=== PATIENT | female | born 1950 | race Caucasian/White ===

== ENCOUNTER 2017-02-12 15:58 | Inpatient (IN) | payer OTHER, MEDICARE ==
[~2017-02-12] VITALS: Ht 154.9 cm; Wt 116.3 kg
[~2017-02-12 15:58] MED LIST: CITA40 PO; D31000TA PO; DICY10CA13 PO; FLAXOIL4 PO; HYDR10SO PO; LEVO88TA2 PO; LORA1TAB PO; METO100T PO; MORP1INJ45 PO; MULTCAP13 PO; NAME10TA PO; NORV10TA PO; NYSTT TOPICAL; ONDA8 PO; SERO100T PO; VITA10002 PO
[2017-02-12 16:00] VITALS: BP 122/71; PULSE 128; RESP 20; TEMP 101.5; O2SAT 93
[2017-02-12] MEDS ORDERED: SODIUM CHLOR 0.9% 1000 ML INJ 1,000 ML IV SCH (16:48)
[2017-02-12] MEDS ORDERED: ACETAMINOPHEN 325 MG TAB PO ONE (17:00)
--- NOTE | 2017-02-12 17:21 | RADRPT ---
EXAM DATE/TIME: 02/12/2017 16:56 [facility] COMPARISON: CT BRAIN W/O CONTRAST, October 08, 2015, 3:40. INDICATIONS : Head pain due to fall. RADIATION DOSE: 56.35 CTDIvol (mGy) MEDICAL HISTORY : Hypertension. SURGICAL HISTORY : Cholecystectomy. Hysterectomy.Tonsillectomy.Gastric bypass. ENCOUNTER: Initial ACUITY: 2 days PAIN SCALE: 5/10 LOCATION: Bilateral cranial TECHNIQUE: Multiple contiguous axial images were obtained of the head. Using automated exposure control and adj ustment of the mA and/or kV according to patient size, radiation dose was kept as low as reasonably a chievable to obtain optimal diagnostic quality images. DICOM format image data is available electro nically for review and comparison. FINDINGS: CEREBRUM: Mild diffuse volume loss. The ventricles are normal for age. No evidence of midline shift, mass lesi on, hemorrhage or acute infarction. No extra-axial fluid collections are seen. POSTERIOR FOSSA: The cerebellum and brainstem are intact. The 4th ventricle is midline. The cerebellopontine angle i s unremarkable. EXTRACRANIAL: The visualized portion of the orbits is intact. SKULL: The calvaria is intact. No evidence of skull fracture. CONCLUSION: 1. No acute intracranial abnormality or significant interval change. Kelvin Suazo MD on February 12, 2017 at 17:19 Board Certified Radiologist. This report was verified electronically.
--- NOTE | 2017-02-12 17:23 | RADRPT ---
EXAM DATE/TIME: 02/12/2017 16:57 [facility] COMPARISON: CT CERVICAL SPINE W/O CONTRAST, September 24, 2015, 17:56. INDICATIONS : Neck pain due to fall. RADIATION DOSE: 43.33 CTDIvol (mGy) MEDICAL HISTORY : Hypertension. SURGICAL HISTORY : Cholecystectomy. Hysterectomy.Tonsillectomy.Gastric bypass. ENCOUNTER: Initial ACUITY: 2 days PAIN SCALE: 5/10 LOCATION: Bilateral neck region. TECHNIQUE: Volumetric scanning of the cervical spine was performed. Multiplanar reconstructions in the sagittal, coronal and oblique axial planes were performed. Using automated exposure control and adjustment o f the mA and/or kV according to patient size, radiation dose was kept as low as reasonably achievable to obtain optimal diagnostic quality images. DICOM format image data is available electronically f or review and comparison. FINDINGS: There is stable 2 mm of anterolisthesis of C4 on C5 likely related to the severe right facet arthrosi s. The atlantoaxial relationship is within normal limits. There is no prevertebral soft tissue swelli ng present. No fracture or dislocation is identified. There is degenerative disc disease at C5-C6 and C6-C7 with endplate osteophytes. There is right facet arthrosis at C5-C6. The visualized portions of the posterior fossa, paraspinous soft tissues, and upper lung zones demons trate no acute abnormality. CONCLUSION: No acute cervical spine abnormality is identified. There is stable degenerative disc disease at multi ple levels and grade 1 anterolisthesis of C4 on C5. Nils Koehler MD on February 12, 2017 at 17:17 Board Certified Radiologist. This report was verified electronically.
[2017-02-12 17:24] LABS: AUTOMATED NEUTROPHIL # 12.3 TH/MM3 (1.8-7.7); BASOPHIL # 0.1 TH/MM3 (0-0.2); BASOPHIL % 0.4 % (0.0-2.0); EOSINOPHIL % 0.1 % (0.0-4.0); HEMO FLAGS DIFF FINAL; LYMPHOCYTE # 0.7 TH/MM3 (1.0-4.8); MEAN CELL VOLUME 87.4 FL (80.0-100.0); MEAN CORPUSCULAR HEMOGLOBIN 28.3 PG (27.0-34.0); MEAN CORPUSCULAR HGB CONC 32.5 % (32.0-36.0); MONO % 6.3 % (0.0-8.0); NEUT % 88.2 % (16.0-70.0); PLATELET COUNT 277 TH/MM3 (150-450); RED BLOOD COUNT 4.01 MIL/MM3 (4.00-5.30); RED CELL DISTRIBUTION WIDTH 18.1 % (11.6-17.2)
--- NOTE | 2017-02-12 17:47 | RADRPT ---
EXAM DATE/TIME: 02/12/2017 17:18 [facility] COMPARISON: CHEST SINGLE AP, October 08, 2015, 2:32. INDICATIONS : Short of breath post fall. MEDICAL HISTORY : Hypertension. SURGICAL HISTORY : Cholecystectomy. Hysterectomy.Tonsillectomy.Gastric bypass. ENCOUNTER: Initial ACUITY: 1 day PAIN SCORE: 0/10 LOCATION: Bilateral chest FINDINGS: Low lung volumes similar to prior examination. Elevation of the right hemidiaphragm. No significant p neumothorax or effusion. Cardiomedias on contours are stable. Bony thorax is grossly intact. CONCLUSION: 1. Persistent low lung volumes without acute abnormality or significant interval change. Kelvin Suazo MD on February 12, 2017 at 17:44 Board Certified Radiologist. This report was verified electronically.
[2017-02-12 17:50] LABS: ALKALINE PHOSPHATASE 142 U/L (45-117); ALT (GPT) 17 U/L (10-53); ANION GAP 13 MEQ/L (5-15); AST (GOT) 16 U/L (15-37); BICARBONATE 25.7 MEQ/L (21.0-32.0); BLOOD UREA NITROGEN 64 MG/DL (7-18); CHLORIDE 90 MEQ/L (98-107); GLOMERULAR FILTRATION RATE 12 ML/MIN (>89); MAGNESIUM 1.4 MG/DL (1.5-2.5); POTASSIUM 3.1 MEQ/L (3.5-5.1); SODIUM (NA) 129 MEQ/L (136-145); TOTAL BILIRUBIN ADULT 0.9 MG/DL (0.2-1.0)
--- NOTE | 2017-02-12 17:54 | RADRPT ---
EXAM DATE/TIME: 02/12/2017 17:01 [facility] COMPARISON: CT LUMBAR SPINE W/O CONTRAST, September 26, 2015, 16:18. INDICATIONS : Low back pain due to fall. RADIATION DOSE: CTDIvol (mGy) MEDICAL HISTORY : Hypertension. SURGICAL HISTORY : Cholecystectomy. Tonsillectomy.Hysterectomy.Gastric bypass. ENCOUNTER: Initial ACUITY: 2 days PAIN SCALE: 5/10 LOCATION: Bilateral lower back. TECHNIQUE: Volumetric scanning of the lumbar spine was performed. Multiplanar reconstructions in the sagittal, coronal and oblique axial planes were performed. Using automated exposure control and adjustment of the mA and/or kV according to patient size, radiation dose was kept as low as reasonably achievable t o obtain optimal diagnostic quality images. DICOM format image data is available electronically for review and comparison. FINDINGS: There are 5 lumbar-type vertebral bodies. Vertebral body heights are intact without acute bony fractu re or focal bony destruction. Sagittal alignment is maintained. The facets are normally aligned. Ther e is an apparent sacral neural stimulator entering and the right S2 level. Redemonstration of multile renetta degenerative spondylosis with diffuse disc bulge and vacuum disc phenomenon at L4-5 and diffuse d isc bulge at L3-4 with resultant spinal canal stenosis or. Central canal measures 8 mm at L3-4 and 9 mm at L4-5. There is also variable multilevel facet arthropathy. Based on the noted 6 by millimeter c alculus in the distal left ureter is not demonstrated. However, there is residual mild hydroureterone phrosis on the left. Remaining paraspinal soft tissues are unremarkable. CONCLUSION: 1. No acute fracture or subluxation. 2. Redemonstration of advanced multilevel degenerative spondylosis most prominently at L3-5 with resu ltant moderate spinal canal stenosis. Kelvin Suazo MD on February 12, 2017 at 17:45 Board Certified Radiologist. This report was verified electronically.
--- NOTE | 2017-02-12 17:55 | RADRPT ---
EXAM DATE/TIME: 02/12/2017 17:18 [facility] COMPARISON: No previous studies available for comparison. INDICATIONS : Left hip pain post fall. MEDICAL HISTORY : Hypertension. SURGICAL HISTORY : Cholecystectomy. Hysterectomy.Tonsillectomy.Gastric bypass. ENCOUNTER: Initial ACUITY: 1 day PAIN SCORE: 10/10 LOCATION: Left hip. FINDINGS: Examination of the left hip was performed with AP Pelvis. The primary and secondary trabecular patte rn of the femoral neck is intact. Mild degenerative changes about the left hip. Right S2 spinal stimu lator in place. Diffuse vascular calcifications. The acetabulum is grossly intact. CONCLUSION: 1. No acute fracture or dislocation. Kelvin Suazo MD on February 12, 2017 at 17:53 Board Certified Radiologist. This report was verified electronically.
[2017-02-12] MEDS ORDERED: VANCOMYCIN INJ 1,000 MG in SODIUM CHLOR 0.9% 250 ML INJ 250 ML IV STA (18:05)
[2017-02-12] MEDS ORDERED: metroNIDAZOLE 500 MG INJ 100 ML IV STA (18:05)
[2017-02-12] MEDS ORDERED: SODIUM CHLOR 0.9% 1000 ML INJ 1,000 ML IV ONE ×2 (18:05)
[2017-02-12] MEDS ORDERED: AZTREONAM INJ 2,000 MG in SODIUM CHLORIDE 0.9% INJ 100 ML IV STA (18:05)
--- NOTE | 2017-02-12 18:43 | PD ---
HPI Chief Complaint: General Weakness Time Seen by Provider: 16:37 Travel History International Travel<30 days: No Contact w/Intl Traveler<30days: No Traveled to known affect area: No History of Present Illness HPI 66-year-old female that presents to the ED for evaluation of fall. Patient noted that yesterday she had a fall while she was seen her daughter being escorted by police for overdose. Patient states that she fell backwards and hit the back of her head and her left hip and back. She's been having pain since. She states is a history of chronic pain and takes pain medication and apparently her doctor Dr. Borja did a drug screen today and showed that she was negative for any of the opiates. They're concerned that the daughter is taking all her medications. She came here mainly to get evaluated for the fall was she was noted to have a fever and tachycardia. She states that she's had some fevers and weakness but denies any cough or runny nose. No urinary or bowel movement issues. She does state that her daughter was recently admitted for sepsis. She denies any chest pain or shortness of breath. She states that she does have a history of diabetes and takes insulin. She has not had anything today. She denies a history of CHF. She does state that she has a history of incontinence and uses a pacemaker for her bladder. PFSH Past Medical History Arthritis: Yes Anxiety: Yes Depression: Yes Heart Rhythm Problems: No Cancer: No Cardiovascular Problems: Yes (htn) High Cholesterol: No Congestive Heart Failure: No Cerebrovascular Accident: No Diabetes: Yes Diminished Hearing: Yes Endocrine: Yes Gastrointestinal Disorders: Yes GERD: Yes Genitourinary: No Headaches: Yes Hepatitis: No Hiatal Hernia: No Hypertension: Yes Immune Disorder: No Implanted Vascular Access Dvce: Yes Musculoskeletal: Yes (ARTHRITIS) Neurologic: No Psychiatric: Yes (ANXIETY, CLAUSTRAPHOBIA) Reproductive: No Respiratory: No Migraines: Yes Seizures: No Thyroid Disease: Yes Past Surgical History Abdominal Surgery: Yes (gastric bypass/ CHOLECYSTECTOMY) AICD: No Cardiac Surgery: No Section: Yes (X 1) Cholecystectomy: Yes Ear Surgery: No Endocrine Surgery: No Eye Surgery: No Genitourinary Surgery: No Gynecologic Surgery: Yes (C SECTION, hysterectomy) Hysterectomy: Yes Joint Replacement: Yes (KNEES) Oral Surgery: Yes (T&A) Pacemaker: No Thoracic Surgery: No Tonsillectomy: Yes Other Surgery: Yes Social History Alcohol Use: No Tobacco Use: No Substance Use: No Allergies-Medications (Allergen,Severity, Reaction): Coded Allergies: penicillin G (Unverified Allergy, Severe, Hives, 11/19/16) lactose (Unverified Allergy, Intermediate, Diarrhea, 11/19/16) sulfamethoxazole (Unverified Adverse Reaction, Unknown, 11/19/16) MAKE GFR DECREASE trimethoprim (Unverified Adverse Reaction, Unknown, 11/19/16) MAKE GFR DECREASE Reported Meds & Prescriptions Reported Meds & Active Scripts Active Nystop (Nystatin) 15 Applic/15 Gm Powd 1 Applic TOPICAL Q8HR 10 Days Hydrocodone/Acetaminophen 10 mg/325 mg 1 Tab 1 Tab PO TID PRN 30 Days Norvasc (Amlodipine Besylate) 10 Mg Tab 10 Mg PO DAILY Reported Vitamin B12 (Cyanocobalamin) 1,000 Mcg Tab 1,000 Mcg PO DAILY Zofran 8 Mg Tab (Ondansetron Hcl) 8 Mg Tab 8 Mg PO PRN Celexa 40 Mg Tab (Citalopram Hydrobromide) 40 Mg Tab 40 Mg PO DAILY Namenda (Memantine) 10 Mg Tab 10 Mg PO BID Seroquel 100 mg (Quetiapine Fumarate) 100 Mg Tab 100 Mg PO TID Lorazepam 1 Mg Tab 1 Mg PO TID PRN Morphine Sulfate Er (Morphine Sulfate) 15 Mg Tab 30 Mg PO Q8HR D3 (Cholecalciferol) 1,000 Unit Tab 5,000 Unit PO DAILY Multi Complete (Multiple Vitamins W/ Minerals) Complete Cap 1 PO Flax Oil (Flaxseed (Linseed)) Oil 1,000 Mg PO DAILY Metoprolol Tartrate 100 mg (Metoprolol Tartrate) 100 Mg Tab 100 Mg PO BID Levothyroxine 88 mcg (Levothyroxine Sodium) 88 Mcg Tab 1 Tab PO DAILY Dicyclomine 10 mg (Dicyclomine HCl) 10 Mg Cap 10 Mg PO DAILY Review of Systems Except as stated in HPI: all other systems reviewed are Neg Physical Exam Narrative GENERAL: SKIN: Warm and dry. HEAD: Atraumatic. Normocephalic. EYES: Pupils equal and round. No scleral icterus. No injection or drainage. ENT: No nasal bleeding or discharge. Mucous membranes pink and moist. Tongue is midline. No uvula deviation. TMs are clear with no sign of infection or perforation. NECK: Trachea midline. No JVD. CARDIOVASCULAR: Regular rate and rhythm. No murmurs, S3, S4. RESPIRATORY: No accessory muscle use. Clear to auscultation. Breath sounds equal bilaterally. GASTROINTESTINAL: Abdomen soft, non-tender, nondistended. Hepatic and splenic margins not palpable. MUSCULOSKELETAL: Extremities without clubbing, cyanosis, or edema. No obvious deformities. Full range of motion of the upper and lower extremities bilaterally. 2+ pulses bilaterally. Some pain with range of motion of left hip but able to do so. No obvious skin lesions other than to the legs which she has erythema that appears to be chronic from venous stasis. Sensation intact bilaterally. NEUROLOGICAL: Awake and alert. No obvious cranial nerve deficits. Motor grossly within normal limits. Five out of 5 muscle strength in the arms and legs. Normal speech. PSYCHIATRIC: Appropriate mood and affect; insight and judgment normal. Data Data Last Documented VS Vital Signs Date Time Temp Pulse Resp B/P (MAP) Pulse Ox O2 Delivery O2 Flow Rate FiO2 02/12/17 16:00 101.5 128 20 122/71 (88) 93 Room Air Orders Orders Electrocardiogram (02/12/17 16:23) Complete Blood Count With Diff (02/12/17 16:23) Comprehensive Metabolic Panel (02/12/17 16:23) Lactic Acid Sepsis Protocol (02/12/17 16:23) Magnesium (Mg) (02/12/17 16:23) Urinalysis - C+S If Indicated (02/12/17 16:23) Blood Culture (02/12/17 16:23) Ct Brain W/O Iv Contrast(Rout) (02/12/17 16:48) Ct Cerv Spine W/O Contrast (02/12/17 16:48) Ct Lumb Spine W/O Contrast (02/12/17 16:48) Hip, Uni(Ap&Lat) W Ap Pelvis (02/12/17 16:48) C Diff Toxin Pcr (02/12/17 16:48) Prothrombin Time / Inr (Pt) (02/12/17 16:48) Act Partial Throm Time (Ptt) (02/12/17 16:48) Sodium Chlor 0.9% 1000 Ml Inj (Ns 1000 M (02/12/17 16:48) Acetaminophen (Tylenol) (02/12/17 17:00) Chest, Single Ap (02/12/17 16:23) Influenzae A/B Antigen (02/12/17 18:05) Sodium Chlor 0.9% 1000 Ml Inj (Ns 1000 M (02/12/17 18:05) Sodium Chlor 0.9% 1000 Ml Inj (Ns 1000 M (02/12/17 18:05) Ct Abd/Pel W/O Iv Contrast (02/12/17 ) Cath For Specimen (02/12/17 18:05) Lactic Acid Sepsis Protocol (02/12/17 18:05) Vancomycin Inj (Vancomycin Inj) (02/12/17 18:05) Aztreonam Inj (Azactam Inj) (02/12/17 18:05) Metronidazole 500 Mg Inj (Flagyl 500 Mg (02/12/17 18:05) Insulin Human Regular Inj (Novolin R Inj (02/12/17 19:15) Admit Order (Ed Use Only) (02/12/17 19:09) Labs Laboratory Tests Test 02/12/17 17:00 White Blood Count 14.0 TH/MM3 Red Blood Count 4.01 MIL/MM3 Hemoglobin 11.4 GM/DL Hematocrit 35.0 % Mean Corpuscular Volume 87.4 FL Mean Corpuscular Hemoglobin 28.3 PG Mean Corpuscular Hemoglobin Concent 32.5 % Red Cell Distribution Width 18.1 % Platelet Count 277 TH/MM3 Mean Platelet Volume 8.7 FL Neutrophils (%) (Auto) 88.2 % Lymphocytes (%) (Auto) 5.0 % Monocytes (%) (Auto) 6.3 % Eosinophils (%) (Auto) 0.1 % Basophils (%) (Auto) 0.4 % Neutrophils # (Auto) 12.3 TH/MM3 Lymphocytes # (Auto) 0.7 TH/MM3 Monocytes # (Auto) 0.9 TH/MM3 Eosinophils # (Auto) 0.0 TH/MM3 Basophils # (Auto) 0.1 TH/MM3 CBC Comment DIFF FINAL Differential Comment Blood Urea Nitrogen 64 MG/DL Creatinine 3.67 MG/DL Random Glucose 447 MG/DL Total Protein 7.3 GM/DL Albumin 2.5 GM/DL Calcium Level 7.5 MG/DL Magnesium Level 1.4 MG/DL Alkaline Phosphatase 142 U/L Aspartate Amino Transf (AST/SGOT) 16 U/L Alanine Aminotransferase (ALT/SGPT) 17 U/L Total Bilirubin 0.9 MG/DL Sodium Level 129 MEQ/L Potassium Level 3.1 MEQ/L Chloride Level 90 MEQ/L Carbon Dioxide Level 25.7 MEQ/L Anion Gap 13 MEQ/L Estimat Glomerular Filtration Rate 12 ML/MIN Lactic Acid Level 3.6 mmol/L MDM Medical Decision Making Medical Screen Exam Complete: Yes Emergency Medical Condition: Yes Medical Record Reviewed: Yes Interpretation(s) CBC & BMP Diagram 02/12/17 17:00 Total Protein 7.3, Albumin 2.5 L, Calcium Level 7.5 L, Magnesium Level 1.4 L, Alkaline Phosphatase 142 H, Aspartate Amino Transf (AST/SGOT) 16, Alanine Aminotransferase (ALT/SGPT) 17, Total Bilirubin 0.9 lactic acid of 3.6 lipase WNL Last Impressions Lumbar Spine CT 02/12/171647 Signed Impressions: Service Date/Time: Sunday, February 12, 2017 17:01 - CONCLUSION: 1. No acute fracture or subluxation. 2. Redemonstration of advanced multilevel degenerative spondylosis most prominently at L3-5 with resultant moderate spinal canal stenosis. Kelvin Suazo MD Hip and Pelvis X-Ray 02/12/171647 Signed Impressions: Service Date/Time: Sunday, February 12, 2017 17:18 - CONCLUSION: 1. No acute fracture or dislocation. Kelvin Suazo MD Head CT 02/12/171647 Signed Impressions: Service Date/Time: Sunday, February 12, 2017 16:56 - CONCLUSION: 1. No acute intracranial abnormality or significant interval change. Kelvin Suazo MD Cervical Spine CT 02/12/171647 Signed Impressions: Service Date/Time: Sunday, February 12, 2017 16:57 - CONCLUSION: No acute cervical spine abnormality is identified. There is stable degenerative disc disease at multiple levels and grade 1 anterolisthesis of C4 on C5. Nils Koehler MD Chest X-Ray 02/12/[id number] Signed Impressions: Service Date/Time: Sunday, February 12, 2017 17:18 - CONCLUSION: 1. Persistent low lung volumes without acute abnormality or significant interval change. Kelvin Suazo MD Differential Diagnosis Sepsis versus pneumonia versus kidney infection versus dehydration versus acute kidney injury versus encephalopathy versus fall versus fracture Narrative Course 66-year-old female that presents to the ED for evaluation of fall. Patient was properly examined and was found to have signs and symptoms consistent with appears to be sepsis. Also fall. Labs and imaging were ordered. Labs and imaging were essentially unremarkable other than for hyperglycemia and what appears to be sepsis. Patient does have a leukocytosis with a left shift. Lactic acid was 3.6. Patient has hyperglycemia in the 400s. Patient was given 3 boluses of fluids. Patient was given insulin as well as started on antibiotics to cover for abdominal versus urinary source. Patient herself appears to be stable. She does not appear to have any encephalopathy or any other signs of severe illness. Clear etiology of the sepsis but definite concern for abdominal versus urinary as she does have risk factors for both. This was discussed in my attending Dr. Boyd who agrees to plan. Patient was admitted. Case discussed with Dr. ruvalcaba who agrees to admission. Patient herself agrees to admission. Sepsis Criteria SIRS Criteria (2 or more): Temp > 100.9 or < 96.8, Heart rate over 90, WBC > 87579, < 4000 or > 10% bands Sepsis Criteria (SIRS+source): Infect source susp/known Severe Sepsis (+one): Lactate >2 Criteria Outcome: Meets severe sepsis criteria Diagnosis Primary Impression: Sepsis Qualified Codes: A41.9 - Sepsis, unspecified organism Additional Impressions: Fall Qualified Codes: W19.XXXA - Unspecified fall, initial encounter Chronic back pain Qualified Codes: M54.5 - Low back pain; G89.29 - Other chronic pain Acute hyperglycemia Hip injury Qualified Codes: S79.912A - Unspecified injury of left hip, initial encounter MISSY (acute kidney injury) Admitting Information Admitting Physician Requests: Admit Scott Olson Feb 12, 2017 18:43
[2017-02-12 19:14] LABS: LACTIC ACID GHOST NOT REPORTABLE
[2017-02-12] MEDS ORDERED: INSULIN HUMAN REGULAR 1,000 UNITS/10 ML VIAL SQ ONE (19:15)
[2017-02-12 19:34] VITALS: BP 126/66; PULSE 101; RESP 20; O2SAT 95
[2017-02-12 19:57] LABS: BACTERIA, URINE MANY /hpf; BLOOD, URINE TRACE (NEG); GLUCOSE,URINE 300 mg/dL (NEG); KETONE, URINE NEG (NEG); NITRITE,URINE NEG (NEG); SQUAMOUS EPITHELIAL CELL URINE 2 /hpf (0-5); URINE COLOR YELLOW (YELLW/STRAW)
[2017-02-12 19:59] LABS: COMMENT (UR) CATH-CULTURE IND; CULTURE IF INDICATED CATH CULTURE IND
[2017-02-12 20:00] VITALS: BP 123/65; PULSE 111; RESP 17; TEMP 96.8; O2SAT 97
[2017-02-12 20:26] VITALS: TEMP 98.2
--- NOTE | 2017-02-12 20:27 | RADRPT ---
EXAM DATE/TIME: 02/12/2017 19:42 [facility] COMPARISON: CT ABDOMEN & PELVIS W/O CONTRAST, October 09, 2015, 19:08. INDICATIONS : Abdomen pain for two days due to fall. ORAL CONTRAST: No oral contrast ingested. RADIATION DOSE: 26.39 CTDIvol (mGy) ; Patient body habitus MEDICAL HISTORY : None SURGICAL HISTORY : Hysterectomy. Cholecystectomy.Bladder stimulator. ENCOUNTER: Initial ACUITY: 2 days PAIN SCALE: 8/10 LOCATION: Bilateral upper quadrant TECHNIQUE: Volumetric scanning of the abdomen and pelvis was performed. Using automated exposure control and ad justment of the mA and/or kV according to patient size, radiation dose was kept as low as reasonably achievable to obtain optimal diagnostic quality images. DICOM format image data is available electro nically for review and comparison. FINDINGS: LOWER LUNGS: The visualized lower lungs are clear. LIVER: Homogeneous density without lesion. There is no dilation of the biliary tree. No calcified gallston es. SPLEEN: Normal size without lesion. Diffuse granulomatous calcifications. PANCREAS: Within normal limits. KIDNEYS: Normal in size and shape. There is no mass, stone, or hydronephrosis. Mild perinephric stranding on the left is unchanged from the prior study and likely relates to scarring. There is mild prominence t o the renal pelvis on the left. No gross hydronephrosis observed. No renal calculi. ADRENAL GLANDS: Within normal limits. VASCULAR: There is no aortic aneurysm. BOWEL/MESENTERY: The stomach, small bowel, and colon demonstrate no acute abnormality. There is no free intraperitone al air or fluid. ABDOMINAL WALL: Within normal limits. RETROPERITONEUM: There is no lymphadenopathy. BLADDER: No wall thickening or mass. REPRODUCTIVE: Within normal limits. INGUINAL: There is no lymphadenopathy or hernia. MUSCULOSKELETAL: A stimulator device is seen involving the posterior right hip. Degenerative changes are seen involvin g the SI joints and lumbar spine. CONCLUSION: 1. No acute abnormality. 2. Prior granulomatous disease. 3. Degenerative changes of the lumbar spine. Conner Nolasco Jr., MD on February 12, 2017 at 20:22 Board Certified Radiologist. This report was verified electronically.
--- NOTE | 2017-02-12 20:32 | EKG ---
Date Performed: 02/12/2017 Time Performed: 20:03:31 PTAGE: 66 years EKG: SINUS TACHYCARDIA POSSIBLE ANTERIOR MYOCARDIAL INFARCTION Nonspecific T wave changes ABNORM AL RHYTHM ECG Compared to prior electrocardiogram, rate has increased and Nonspecific T wave changes are now present PREVIOUS TRACING : 10/08/2015 02.09 DOCTOR: Junior August Interpretating Date/Time 02/12/2017 20:31:51
[2017-02-12] MEDS ORDERED: NALOXONE HCL 0.4 MG/ML AMP IV PUSH PRN (20:45)
[2017-02-12] MEDS ORDERED: SODIUM CHLORIDE 0.9% FLUSH 10 ML FLUSH IV FLUSH PRN (20:45)
[2017-02-12 21:45] LABS: LACTIC ACID GHOST NOT REPORTABLE
[2017-02-12] MEDS ORDERED: LORazepam 0.5 MG TAB PO PRN (23:00)
[2017-02-12] MEDS ORDERED: GLUCAGON 1 MG/ML VIAL OTHER PRN (23:00)
[2017-02-12] MEDS ORDERED: DEXTROSE 50% IN WATER 50 ML VIAL(D50) IV PUSH PRN (23:00)
[2017-02-12] MEDS: SODIUM CHLORIDE 0.9% FLUSH 10 ML FLUSH IV FLUSH SCH (23:01)
[2017-02-12] MEDS: ACETAMINOPHEN/HYDROcodone 325 MG/5 MG TAB PO PRN (23:10)
[2017-02-12 23:15] LABS: APTT (PATIENT) 29.3 SEC (24.3-30.1); INTERNATIONAL NORMALIZED RATIO 1.1 RATIO
--- NOTE | 2017-02-12 23:42 | HHI.HP ---
HPI Service [facility] Primary Care Physician Nils Savage, DO Admission Diagnosis acute sepsis, unclear source, fall, acute kidney failure Diagnoses: Travel History International Travel<30 Days: No Contact w/Intl Traveler <30 Da: No Traveled to Known Affected Are: No History of Present Illness daughter took her meds opiates and is now under psychiatry care here pt went to Dr Encarnacion office and was asking for prescription and he sent her here pt stated she fell when she was trying to help daughter on friday yesterday [employer] flatbed truck driver and son got her out of floor and put her on recliner and thats where she stayed son came and got her in the mornign and she walked with walker to car, and went to Dr Pizano office c/o pain in her left hip, leg, and neck pain not aware of fevers at home but was found to have fever here with chills reports of chills at home too - starting yesterday no cough/ no nausea/ no vomiting/ no diarrhea no blood in stool or urine no urinary pain or burning or frequency no bed sores no chest pain/.abdominal pain/ dizz/ syncope no other symptoms Review of Systems Except as stated in HPI: all other systems reviewed are Neg Past Family Social History Past Medical History htn dm obesity copd chronic pain degenerative back disc dx Past Surgical History knee replacement c section eyes lense implants teeth removed gastric bypass Allergies: Coded Allergies: penicillin G (Unverified Allergy, Severe, Hives, 11/19/16) lactose (Unverified Allergy, Intermediate, Diarrhea, 11/19/16) sulfamethoxazole (Unverified Adverse Reaction, Unknown, 11/19/16) MAKE GFR DECREASE trimethoprim (Unverified Adverse Reaction, Unknown, 11/19/16) MAKE GFR DECREASE Family History father- 6 MIs mother- has a pill for everything Social History denies smoking hx occasionally drinks no drugs Physical Exam Vital Signs Vital Signs Date Time Temp Pulse Resp B/P (MAP) Pulse Ox O2 Delivery O2 Flow Rate FiO2 02/12/17 20:36 02/12/17 20:26 98.2 02/12/17 20:00 96.8 111 17 123/65 (84) 97 02/12/17 19:34 101 20 126/66 (86) 95 Room Air 02/12/17 16:00 101.5 128 20 122/71 (88) 93 Room Air Physical Exam GENERAL: This is a well-nourished, well-developed patient, in mild distress from pain SKIN: No rashes, ecchymoses or lesions. Cool and dry. HEAD: Atraumatic. Normocephalic. No temporal or scalp tenderness. EYES: No scleral icterus. No injection or drainage. ENT: Nose without bleeding, purulent drainage or septal hematoma. Airway patent. NECK: Trachea midline. No JVD CARDIOVASCULAR: Regular rate and rhythm without murmurs, gallops, or rubs. RESPIRATORY: decreased bilaterally due to body habitus GASTROINTESTINAL: Abdomen soft, non-tender, nondistended. No guarding. MUSCULOSKELETAL: Extremities without clubbing, cyanosis, or edema. No calf tenderness. NEUROLOGICAL: Awake and alert. Motor and sensory grossly within normal limits Normal speech. Laboratory Laboratory Tests Test 02/12/17 17:00 02/12/17 19:40 02/12/17 22:35 02/12/17 22:49 White Blood Count 14.0 Red Blood Count 4.01 Hemoglobin 11.4 Hematocrit 35.0 Mean Corpuscular Volume 87.4 Mean Corpuscular Hemoglobin 28.3 Mean Corpuscular Hemoglobin Concent 32.5 Red Cell Distribution Width 18.1 Platelet Count 277 Mean Platelet Volume 8.7 Neutrophils (%) (Auto) 88.2 Lymphocytes (%) (Auto) 5.0 Monocytes (%) (Auto) 6.3 Eosinophils (%) (Auto) 0.1 Basophils (%) (Auto) 0.4 Neutrophils # (Auto) 12.3 Lymphocytes # (Auto) 0.7 Monocytes # (Auto) 0.9 Eosinophils # (Auto) 0.0 Basophils # (Auto) 0.1 CBC Comment DIFF FINAL Differential Comment Blood Urea Nitrogen 64 Creatinine 3.67 Random Glucose 447 Total Protein 7.3 Albumin 2.5 Calcium Level 7.5 Magnesium Level 1.4 Alkaline Phosphatase 142 Aspartate Amino Transf (AST/SGOT) 16 Alanine Aminotransferase (ALT/SGPT) 17 Total Bilirubin 0.9 Sodium Level 129 Potassium Level 3.1 Chloride Level 90 Carbon Dioxide Level 25.7 Anion Gap 13 Estimat Glomerular Filtration Rate 12 Lactic Acid Level 3.6 2.4 3.6 Urine Color YELLOW Urine Turbidity HAZY Urine pH 5.0 Urine Specific [place] 1.009 Urine Protein 30 Urine Glucose (UA) 300 Urine Ketones NEG Urine Occult Blood TRACE Urine Nitrite NEG Urine Bilirubin NEG Urine Urobilinogen LESS THAN 2.0 Urine Leukocyte Esterase LARGE Urine RBC 5 Urine WBC Urine Squamous Epithelial Cells 2 Urine Amorphous Sediment RARE Urine Bacteria MANY Microscopic Urinalysis Comment CATH-CULTURE IND Prothrombin Time 12.0 Prothromb Time International Ratio 1.1 Activated Partial Thromboplast Time 29.3 Date/Time Source Procedure Growth Status 02/12/17 17:00 Blood Peripheral Aerobic Blood Culture Pending Received 02/12/17 17:00 Blood Peripheral Anaerobic Blood Culture Pending Received 02/12/17 19:40 Nasal Washing Influenza Types A,B Antigen (TRISHA) - Final NEGATIVE FOR FLU A AND B ANTIGEN.... Complete 02/12/17 19:40 Urine Catheterized Urine Urine Culture Pending Received Result Diagram: 02/12/17 1700 02/12/17 1700 Imaging Last 48 hours Impressions Lumbar Spine CT 02/12/171647 Signed Impressions: Service Date/Time: Sunday, February 12, 2017 17:01 - CONCLUSION: 1. No acute fracture or subluxation. 2. Redemonstration of advanced multilevel degenerative spondylosis most prominently at L3-5 with resultant moderate spinal canal stenosis. Kelvin Suazo MD Hip and Pelvis X-Ray 02/12/171647 Signed Impressions: Service Date/Time: Sunday, February 12, 2017 17:18 - CONCLUSION: 1. No acute fracture or dislocation. Kelvin Suazo MD Head CT 02/12/171647 Signed Impressions: Service Date/Time: Sunday, February 12, 2017 16:56 - CONCLUSION: 1. No acute intracranial abnormality or significant interval change. Kelvin Suazo MD Cervical Spine CT 02/12/171647 Signed Impressions: Service Date/Time: Sunday, February 12, 2017 16:57 - CONCLUSION: No acute cervical spine abnormality is identified. There is stable degenerative disc disease at multiple levels and grade 1 anterolisthesis of C4 on C5. Nils Koehler MD Chest X-Ray 02/12/171622 Signed Impressions: Service Date/Time: Sunday, February 12, 2017 17:18 - CONCLUSION: 1. Persistent low lung volumes without acute abnormality or significant interval change. Kelvin Suazo MD Abdomen/Pelvis CT 02/12/17 0000 Signed Impressions: Service Date/Time: Sunday, February 12, 2017 19:42 - CONCLUSION: 1. No acute abnormality. 2. Prior granulomatous disease. 3. Degenerative changes of the lumbar spine. MD Efra Vaca Jr. VTE Risk Assessment Caprini VTE Risk Assessment: Mod/High Risk (score >= 2) Caprini Risk Assessment Model Point Value = 1 Point Value = 2 Point Value = 3 Point Value = 5 Age 41-60 Minor surgery BMI > 25 kg/m2 Swollen legs Varicose veins or History of unexplained or recurrent spontaneous Oral contraceptives or hormone replacement Sepsis (< 1 month) Serious lung disease, including pneumonia (< 1 month) Abnormal pulmonary function Acute myocardial infarction Congestive heart failure (< 1 month) History of inflammatory bowel disease Medical patient at bed rest Age 61-74 Arthroscopic surgery Major open surgery (> 45 min) Laparoscopic surgery (> 45 min) Malignancy Confined to bed (> 72 hours) Immobilizing plaster cast Central venous access Age >= 75 History of VTE Family history of VTE Factor V Leiden Prothrombin [id number] Lupus anticoagulant Anticardiolipin antibodies Elevated serum homocysteine Heparin-induced thrombocytopenia Other congenital or acquired thrombophilia Stroke (< 1 month) Elective arthroplasty Hip, pelvis, or leg fracture Acute spinal cord injury (< 1 month) Prophylaxis Regimen Total Risk Factor Score Risk Level Prophylaxis Regimen 0-1 Low Early ambulation 2 Moderate Order ONE of the following: *Sequential Compression Device (SCD) *Heparin 5000 units SQ BID 3-4 Higher Order ONE of the following medications: *Heparin 5000 units SQ TID *Enoxaparin/Lovenox 40 mg SQ daily (WT < 150 kg, CrCl > 30 mL/min) *Enoxaparin/Lovenox 30 mg SQ daily (WT < 150 kg, CrCl > 10-29 mL/min) *Enoxaparin/Lovenox 30 mg SQ BID (WT < 150 kg, CrCl > 30 mL/min) AND/OR *Sequential Compression Device (SCD) 5 or more Highest Order ONE of the following medications: *Heparin 5000 units SQ TID (Preferred with Epidurals) *Enoxaparin/Lovenox 40 mg SQ daily (WT < 150 kg, CrCl > 30 mL/min) *Enoxaparin/Lovenox 30 mg SQ daily (WT < 150 kg, CrCl > 10-29 mL/min) *Enoxaparin/Lovenox 30 mg SQ BID (WT < 150 kg, CrCl > 30 mL/min) AND *Sequential Compression Device (SCD) Assessment and Plan Assessment and Plan acute renal failure on CKD II sepsis- likely due to uti uti lactic acidosis stage II kidney dx htn dm copd will fu cx vanco / azactam/ flagyl given in ER iv fluids i L bolus in ER will repeat labs in am and hydrate gently if needed po hydration UTI - start on Rocephin, not NH pt, or group homes , last hospitalization a year ago monitor fingersticks hold long acting Physician Certification Order for Inpatient Services The services are ordered in accordance with Medicare regulations or non- Medicare payer requirements, as applicable. In the case of services not specified as inpatient-only, they are appropriately provided as inpatient services in accordance with the 2-midnight benchmark. days is the estimated time the patient will need to remain in the hospital, assuming treatment plan goals are met and no additional complications. Roberto Evans MD Feb 12, 2017 23:42
[2017-02-13] VITALS: BP 106/55; PULSE 127; RESP 16; TEMP 99.6; O2SAT 92
[2017-02-13] MEDS ORDERED: LORazepam 0.5 MG TAB PO ONE (00:45)
[2017-02-13] MEDS: INSULIN ASPART SUPPLEMENTAL SCALE SQ SCH ×4 (00:56→20:23)
[2017-02-13 06:00] VITALS: BP 111/59; PULSE 112; RESP 17; TEMP 100.2; O2SAT 93
[2017-02-13] MEDS ORDERED: SODIUM CHLOR 0.9% 1000 ML INJ 1,000 ML IV SCH (07:00)
[2017-02-13] MEDS: ACETAMINOPHEN/HYDROcodone 325 MG/5 MG TAB PO PRN ×3 (07:19→20:15)
[2017-02-13 07:33] LABS: AUTOMATED NEUTROPHIL # 9.2 TH/MM3 (1.8-7.7); BASOPHIL % 0.4 % (0.0-2.0); EOSINOPHIL # 0.1 TH/MM3 (0-0.4); EOSINOPHIL % 0.5 % (0.0-4.0); HEMATOCRIT 30.9 % (35.0-46.0); HEMO FLAGS DIFF FINAL; LYMPH % 7.3 % (9.0-44.0); LYMPHOCYTE # 0.8 TH/MM3 (1.0-4.8); MEAN CELL VOLUME 86.4 FL (80.0-100.0); MEAN CORPUSCULAR HEMOGLOBIN 28.4 PG (27.0-34.0); MEAN CORPUSCULAR HGB CONC 32.8 % (32.0-36.0); MONO % 8.3 % (0.0-8.0); NEUT % 83.5 % (16.0-70.0); PLATELET COUNT 267 TH/MM3 (150-450); RED BLOOD COUNT 3.58 MIL/MM3 (4.00-5.30); RED CELL DISTRIBUTION WIDTH 17.9 % (11.6-17.2)
[2017-02-13 08:00] VITALS: BP 109/68; PULSE 132; RESP 17; TEMP 98.7; O2SAT 95
[2017-02-13] MEDS ORDERED: INSULIN ASPART SUPPLEMENTAL SCALE SQ SCH (08:00)
[2017-02-13 08:01] LABS: BICARBONATE 27.8 MEQ/L (21.0-32.0)
[2017-02-13 08:05] LABS: POTASSIUM 3.4 MEQ/L (3.5-5.1)
[2017-02-13 08:26] LABS: CALCIUM-PROTEIN CORRECTED 7.9 MG/DL (8.5-10.1)
[2017-02-13] MEDS: METOPROLOL TARTRATE 100 MG TAB PO SCH ×2 (08:32→21:32)
[2017-02-13] MEDS: SODIUM CHLORIDE 0.9% FLUSH 10 ML FLUSH IV FLUSH SCH ×2 (08:32→20:23)
[2017-02-13] MEDS: cefTRIAXone INJ 1,000 MG in SODIUM CHLORIDE 0.9% INJ 100 ML IV SCH (08:32)
[2017-02-13] MEDS: NS + KCL 20 MEQ INJ 1,000 ML IV SCH ×2 (08:33→18:00)
[2017-02-13] MEDS ORDERED: INFLUENZA VIRUS VACCINE (QUADRIVALENT) 0.5 ML SYR IM ONE (09:00)
[2017-02-13] MEDS ORDERED: PNEUMOCOCCAL POLYVALENT INJ 25 MCG/0.5 ML SYR IM ONE (09:00)
[2017-02-13] MEDS ORDERED: POTASSIUM CHLORIDE 20 MEQ CONTROLLED RELEASE TAB PO ONE (11:15)
--- NOTE | 2017-02-13 11:25 | HHI.PR ---
Subjective Remarks Follow up sepsis, UTI. Patient reporting insomnia and requesting to have medications adjusted. States that she wants to see her daughter, who is admitted to psychiatry. Denies chest pain. Does report dyspnea. She reports pain all over her left side from the fall. Objective Vitals Vital Signs Date Time Temp Pulse Resp B/P (MAP) Pulse Ox O2 Delivery O2 Flow Rate FiO2 02/13/17 08:00 98.7 132 17 109/68 (82) 95 02/13/17 06:00 100.2 112 17 111/59 (76) 93 02/13/17 00:00 99.6 127 16 106/55 (72) 92 02/12/17 20:36 02/12/17 20:26 98.2 02/12/17 20:00 96.8 111 17 123/65 (84) 97 02/12/17 19:34 101 20 126/66 (86) 95 Room Air 02/12/17 16:00 101.5 128 20 122/71 (88) 93 Room Air I/O 02/12/17 02/12/17 02/12/17 02/13/17 02/13/17 02/13/17 07:00 15:00 23:00 07:00 15:00 23:00 Intake Total 1450 ml 720 ml 120 ml Output Total 650 ml Balance 1450 ml 70 ml 120 ml Intake Oral 720 ml 120 ml IV Total 1450 ml Output Urine Total 650 ml Result Diagram: 02/13/1761902/13/17 06 Imaging Last Impressions Lumbar Spine CT 02/12/171647 Signed Impressions: Service Date/Time: Sunday, February 12, 2017 17:01 - CONCLUSION: 1. No acute fracture or subluxation. 2. Redemonstration of advanced multilevel degenerative spondylosis most prominently at L3-5 with resultant moderate spinal canal stenosis. Kelvin Suazo MD Hip and Pelvis X-Ray 02/12/171647 Signed Impressions: Service Date/Time: Sunday, February 12, 2017 17:18 - CONCLUSION: 1. No acute fracture or dislocation. Kelvin Suazo MD Head CT 02/12/171647 Signed Impressions: Service Date/Time: Sunday, February 12, 2017 16:56 - CONCLUSION: 1. No acute intracranial abnormality or significant interval change. Kelvin Suazo MD Cervical Spine CT 02/12/17 1648 Signed Impressions: Service Date/Time: Sunday, February 12, 2017 16:57 - CONCLUSION: No acute cervical spine abnormality is identified. There is stable degenerative disc disease at multiple levels and grade 1 anterolisthesis of C4 on C5. Nils Koehler MD Chest X-Ray 02/12/17 1623 Signed Impressions: Service Date/Time: Sunday, February 12, 2017 17:18 - CONCLUSION: 1. Persistent low lung volumes without acute abnormality or significant interval change. Kelvin Suazo MD Abdomen/Pelvis CT 02/12/17 0000 Signed Impressions: Service Date/Time: Sunday, February 12, 2017 19:42 - CONCLUSION: 1. No acute abnormality. 2. Prior granulomatous disease. 3. Degenerative changes of the lumbar spine. Conner Nolasco Jr., MD Objective Remarks General: Obese elderly female in no acute distress. Heart: Regular rate and rhythm. No murmur. Lungs: Mild scattered wheeze. Breathing is nonlabored. Abdomen: Soft, nontender, nondistended. Extremities: No lower extremity edema. Psych: Alert and oriented. Procedures None Urinary Catheter: No Vascular Central Line Catheter: No A/P Assessment and Plan 1. Sepsis: Secondary to UTI. Patient also has bacteremia with gram-negative rods. Continue antibiotics. Consult infectious disease. Continue IV fluids. 2. Hypertension: Continue metoprolol. 3. Diabetes mellitus: Monitor Accu-Cheks and cover with sliding scale insulin. 4. COPD: Patient is reportedly a nonsmoker. Supplemental oxygen as needed. Bronchodilators. 5. Hypokalemia: Supplement potassium. 6. Hypomagnesemia: Supplement magnesium. 7. Acute kidney injury superimposed on chronic kidney disease stage III: Consult nephrology. 8. DVT prophylaxis: Heparin. Skip Oh MD Feb 13, 2017 11:25
[2017-02-13] MEDS ORDERED: RESP: ALBUTEROL 2.5 MG/3 ML NEB (PRN) NEB (11:30)
[2017-02-13 12:00] VITALS: BP 93/58; PULSE 90; RESP 19; TEMP 98.5; O2SAT 95
[2017-02-13] MEDS: RESP: ALBUTEROL 2.5 MG/IPRATROPIUM 0.5 MG NEB (SCH) NEB ×3 (12:00→20:00)
[2017-02-13] MEDS ORDERED: MAGNESIUM SULFATE 1 GM PREMIX 100 ML IV ONE (12:00)
--- NOTE | 2017-02-13 12:18 | PD.CONS ---
[facility] Service Nephrology Consult Requested By Reason for Consult Acute on CKD Primary Care Physician Nils Savage, DO History of Present Illness This is a 66 y/o female we follow in outpatient setting for CKD. I had been attempting to contact the patient up until today to review her positive urine culture with her and to give her antibiotic. She had Klebsiella in the urine. She was admitted yesterday after a fall, unknown down time. Apparently her daughter took her pain medications and was Genao acted in this facility. She is upset about that, but reports weakness, fatigue, fever past few days. Her son found her unable to walk and took her to PCP who directed her to come in for treatment. PMH listed below includes HTN and DMII. On Feb 07, her GFR was 26, Creatinine 1.93, which had been stable. She is being treated for sepsis, is on multiple Abx. She is also on IVF. We were consulted for management. She is a full code. (Marlene Mcallister) Review of Systems Constitutional: COMPLAINS OF: Fatigue, DENIES: Weight gain, Change in appetite Respiratory: DENIES: Shortness of breath Cardiovascular: COMPLAINS OF: Lower Extremity Edema, DENIES: Chest pain Gastrointestinal: DENIES: Abdominal pain Musculoskeletal: COMPLAINS OF: Joint pain, Muscle aches, Stiffness, Back pain ( Marlene Mcallister) Past Family Social History Allergies: Coded Allergies: penicillin G (Unverified Allergy, Severe, Hives, 11/19/16) lactose (Unverified Allergy, Intermediate, Diarrhea, 11/19/16) sulfamethoxazole (Unverified Adverse Reaction, Unknown, 11/19/16) MAKE GFR DECREASE trimethoprim (Unverified Adverse Reaction, Unknown, 11/19/16) MAKE GFR DECREASE Past Medical History CKD 4, baseline creatinine 1.93, GFR 26 from 02/07/17 htn dm obesity copd chronic pain degenerative back disc dx Past Surgical History knee replacement c section eyes lense implants teeth removed gastric bypass Reported Medications Nystop (Nystatin) 15 Applic/15 Gm Powd 1 Applic TOPICAL Q8HR 10 Days Hydrocodone/Acetaminophen 10 mg/325 mg 1 Tab 1 Tab PO TID PRN 30 Days Norvasc (Amlodipine Besylate) 10 Mg Tab 10 Mg PO DAILY Vitamin B12 (Cyanocobalamin) 1,000 Mcg Tab 1,000 Mcg PO DAILY Zofran 8 Mg Tab (Ondansetron Hcl) 8 Mg Tab 8 Mg PO PRN Celexa 40 Mg Tab (Citalopram Hydrobromide) 40 Mg Tab 40 Mg PO DAILY Namenda (Memantine) 10 Mg Tab 10 Mg PO BID Seroquel 100 mg (Quetiapine Fumarate) 100 Mg Tab 100 Mg PO TID Lorazepam 1 Mg Tab 1 Mg PO TID PRN Morphine Sulfate Er (Morphine Sulfate) 15 Mg Tab 30 Mg PO Q8HR D3 (Cholecalciferol) 1,000 Unit Tab 5,000 Unit PO DAILY Multi Complete (Multiple Vitamins W/ Minerals) Complete Cap 1 PO Flax Oil (Flaxseed (Linseed)) Oil 1,000 Mg PO DAILY Metoprolol Tartrate 100 mg (Metoprolol Tartrate) 100 Mg Tab 100 Mg PO BID Levothyroxine 88 mcg (Levothyroxine Sodium) 88 Mcg Tab 1 Tab PO DAILY Dicyclomine 10 mg (Dicyclomine HCl) 10 Mg Cap 10 Mg PO DAILY Active Ordered Medications Current Medications Medications (Trade) Dose Ordered Sig/Rogers Route Start Time Stop Time Status Last Admin (NS Flush) 2 ml UNSCH PRN IV FLUSH 02/12/17 20:45 (NS Flush) 2 ml BID IV FLUSH 02/12/17 21:00 02/12/17 23:01 (Narcan Inj) 0.4 mg UNSCH PRN IV PUSH 02/12/17 20:45 (Yantis 5-325 Mg) 1 tab Q6H PRN PO 02/12/17 23:00 02/13/17 07:19 (D50w (Vial) Inj) 50 ml UNSCH PRN IV PUSH 02/12/17 23:00 (Glucagon Inj) 1 mg UNSCH PRN OTHER 02/12/17 23:00 (NovoLOG SUPPLEMENTAL SCALE) 1 ACHS SLIDING SCALE SQ 02/12/17 23:30 02/13/17 08:34 (Lopressor) 100 mg Q12HR PO 02/13/17 09:00 02/13/17 08:32 Ceftriaxone Sodium 1000 mg/ Sodium Chloride 100 ml @ 200 mls/hr Q24H IV 02/13/17 09:00 02/13/17 08:32 Potassium Chloride/Sodium Chloride 1,000 ml @ 100 mls/hr Q10H IV 02/13/17 08:00 11/9/17 08:33 Magnesium Sulfate/ Dextrose 100 ml @ 100 mls/hr ONCE ONCE IV 02/13/17 12:00 02/13/17 12:59 02/13/17 11:57 (Albuterol Neb) 2.5 mg Q2HR NEB PRN NEB 02/13/17 11:30 (Duoneb Neb) 1 ampule QID NEB NEB 02/13/17 12:00 Family History No hx of renal disorders Social History Non smoking No ETOH Full Code Ambulatory but needs assistance Lives with daughter (Marlene Mcallister RADHA) Physical Exam Vital Signs Vital Signs Date Time Temp Pulse Resp B/P (MAP) Pulse Ox O2 Delivery O2 Flow Rate FiO2 02/13/17 08:00 98.7 132 17 109/68 (82) 95 02/13/17 06:00 100.2 112 17 111/59 (76) 93 02/13/17 00:00 99.6 127 16 106/55 (72) 92 02/12/17 20:36 02/12/17 20:26 98.2 02/12/17 20:00 96.8 111 17 123/65 (84) 97 02/12/17 19:34 101 20 126/66 (86) 95 Room Air 02/12/17 16:00 101.5 128 20 122/71 (88) 93 Room Air Physical Exam Obese female Awake/alert oriented x 3 Lungs clear S1/S2, RRR no murmurs Abdomen obese, soft, non tender Ext: 2+ non pitting edema, cellulitis bilateral lower extremities with erythema and blisters Laboratory Laboratory Tests Test 02/12/17 17:00 02/12/17 19:40 02/12/17 22:35 02/12/17 22:49 White Blood Count 14.0 Red Blood Count 4.01 Hemoglobin 11.4 Hematocrit 35.0 Mean Corpuscular Volume 87.4 Mean Corpuscular Hemoglobin 28.3 Mean Corpuscular Hemoglobin Concent 32.5 Red Cell Distribution Width 18.1 Platelet Count 277 Mean Platelet Volume 8.7 Neutrophils (%) (Auto) 88.2 Lymphocytes (%) (Auto) 5.0 Monocytes (%) (Auto) 6.3 Eosinophils (%) (Auto) 0.1 Basophils (%) (Auto) 0.4 Neutrophils # (Auto) 12.3 Lymphocytes # (Auto) 0.7 Monocytes # (Auto) 0.9 Eosinophils # (Auto) 0.0 Basophils # (Auto) 0.1 CBC Comment DIFF FINAL Differential Comment Blood Urea Nitrogen 64 Creatinine 3.67 Random Glucose 447 Total Protein 7.3 Albumin 2.5 Calcium Level 7.5 Magnesium Level 1.4 Alkaline Phosphatase 142 Aspartate Amino Transf (AST/SGOT) 16 Alanine Aminotransferase (ALT/SGPT) 17 Total Bilirubin 0.9 Sodium Level 129 Potassium Level 3.1 Chloride Level 90 Carbon Dioxide Level 25.7 Anion Gap 13 Estimat Glomerular Filtration Rate 12 Lactic Acid Level 3.6 2.4 3.6 Urine Color YELLOW Urine Turbidity HAZY Urine pH 5.0 Urine Specific [place] 1.009 Urine Protein 30 Urine Glucose (UA) 300 Urine Ketones NEG Urine Occult Blood TRACE Urine Nitrite NEG Urine Bilirubin NEG Urine Urobilinogen LESS THAN 2.0 Urine Leukocyte Esterase LARGE Urine RBC 5 Urine WBC Urine Squamous Epithelial Cells 2 Urine Amorphous Sediment RARE Urine Bacteria MANY Microscopic Urinalysis Comment CATH-CULTURE IND Prothrombin Time 12.0 Prothromb Time International Ratio 1.1 Activated Partial Thromboplast Time 29.3 Test 02/13/17 06:20 White Blood Count 11.0 Red Blood Count 3.58 Hemoglobin 10.1 Hematocrit 30.9 Mean Corpuscular Volume 86.4 Mean Corpuscular Hemoglobin 28.4 Mean Corpuscular Hemoglobin Concent 32.8 Red Cell Distribution Width 17.9 Platelet Count 267 Mean Platelet Volume 9.1 Neutrophils (%) (Auto) 83.5 Lymphocytes (%) (Auto) 7.3 Monocytes (%) (Auto) 8.3 Eosinophils (%) (Auto) 0.5 Basophils (%) (Auto) 0.4 Neutrophils # (Auto) 9.2 Lymphocytes # (Auto) 0.8 Monocytes # (Auto) 0.9 Eosinophils # (Auto) 0.1 Basophils # (Auto) 0.0 CBC Comment DIFF FINAL Differential Comment Blood Urea Nitrogen 59 Creatinine 3.19 Random Glucose 243 Total Protein 6.2 Calcium Level 7.4 Sodium Level 135 Potassium Level 3.4 Chloride Level 97 Carbon Dioxide Level 27.8 Anion Gap 10 Estimat Glomerular Filtration Rate 15 Protein Corrected Calcium 7.9 Date/Time Source Procedure Growth Status 02/12/17 17:00 Blood Peripheral Aerobic Blood Culture - Preliminary Gram Negative Yoan Resulted 02/12/17 17:00 Anaerobic Blood Culture - Preliminary Gram Negative Yoan Resulted 02/12/17 19:40 Nasal Washing Influenza Types A,B Antigen (TRISHA) - Final NEGATIVE FOR FLU A AND B ANTIGEN.... Complete 02/12/17 19:40 Urine Catheterized Urine Urine Culture Pending Received (Marlene Mcallister) Result Diagram: 02/13/17 0620 02/13/17 0620 Imaging Last Impressions Lumbar Spine CT 02/12/178 Signed Impressions: Service Date/Time: Sunday, February 12, 2017 17:01 - CONCLUSION: 1. No acute fracture or subluxation. 2. Redemonstration of advanced multilevel degenerative spondylosis most prominently at L3-5 with resultant moderate spinal canal stenosis. Kelvin Suazo MD Hip and Pelvis X-Ray 02/12/171647 Signed Impressions: Service Date/Time: Sunday, February 12, 2017 17:18 - CONCLUSION: 1. No acute fracture or dislocation. Kelvin Suazo MD Head CT 02/12/171647 Signed Impressions: Service Date/Time: Sunday, February 12, 2017 16:56 - CONCLUSION: 1. No acute intracranial abnormality or significant interval change. Kelvin Suazo MD Cervical Spine CT 02/12/171647 Signed Impressions: Service Date/Time: Sunday, February 12, 2017 16:57 - CONCLUSION: No acute cervical spine abnormality is identified. There is stable degenerative disc disease at multiple levels and grade 1 anterolisthesis of C4 on C5. Nils Koehler MD Chest X-Ray 02/12/17 1623 Signed Impressions: Service Date/Time: Sunday, February 12, 2017 17:18 - CONCLUSION: 1. Persistent low lung volumes without acute abnormality or significant interval change. Kelvin Suazo MD Abdomen/Pelvis CT 02/12/17 0000 Signed Impressions: Service Date/Time: Sunday, February 12, 2017 19:42 - CONCLUSION: 1. No acute abnormality. 2. Prior granulomatous disease. 3. Degenerative changes of the lumbar spine. Conner Nolasco Jr., MD (Marlene Mcallister) Assessment and Plan Problem List: (1) MISSY (acute kidney injury) ICD Codes: N17.9 - Acute kidney failure, unspecified Status: Acute Plan: MISSY on CKD 3, baseline creatinine 1.93, GFR 26 MISSY due to sepsis secondary to UTI Renal function is improving Continue IVF She is non oliguric Mild hypokalemia, replacement ordered She is normotensive Repeat labs in AM Obtain CPK to rule out rhabdomyolysis given fall with down time Avoid nephrotoxins, renally dose when appropriate (2) UTI (urinary tract infection) ICD Codes: N39.0 - Urinary tract infection, site not specified Status: Acute Plan: with sepsis, cultures sent She had Klebsiella in UA performed outpatient just last week, await repeat cultures On Rocephin, was given Aztreonam, flagyl, and has received vancomycin ID to consult Will forward over culture report from last week to go in her chart (3) Fall ICD Codes: W19.XXXA - Unspecified fall, initial encounter Status: Resolved Plan: Imaging negative PRN pain control (4) Diabetes mellitus, type 2 ICD Codes: E11.9 - Type 2 diabetes mellitus Status: Chronic Plan: Maintain glucose 140-180 mg/dL Insulin as needed (Marlene Mcallister) Assessment and Plan patient was seen and examined. Acute on CKD due to sepsis, dehydration. Improving with antibiotic therapy and IVF. BP is low to low normal. Monitor. On multiple antibiotics. Avoid nephrotoxic agents. (Erick Gilbert MD) Problem Qualifiers (1) Fall: Qualified Codes: W19.XXXA - Unspecified fall, initial encounter Marlene Mcallister Feb 13, 2017 12:18 Erick Gilbert MD Feb 13, 2017 18:15
[2017-02-13 16:00] VITALS: BP 115/78; PULSE 81; RESP 20; TEMP 97.1; O2SAT 97
[2017-02-13] MEDS ORDERED: DICY10CA12 PO (16:18)
[2017-02-13] MEDS ORDERED: AMLO10 PO (16:18)
[2017-02-13] MEDS ORDERED: D-50TAB (16:18)
[2017-02-13] MEDS ORDERED: VITA100022 PO (16:18)
[2017-02-13] MEDS ORDERED: METO100T PO (16:18)
[2017-02-13] MEDS ORDERED: D 50CAP2 PO (16:18)
[2017-02-13] MEDS ORDERED: CELE40TA PO (16:18)
[2017-02-13] MEDS ORDERED: NAME10TA PO (16:18)
[2017-02-13] MEDS ORDERED: LEVO88TA2 PO (16:18)
[2017-02-13] MEDS ORDERED: LORA1TAB12 PO (16:18)
--- NOTE | 2017-02-13 19:18 | MB ---
cc: ISIDRO OWENS MD DATE OF CONSULTATION 02/13/[address] Oh REASON FOR CONSULTATION Sepsis, UTI, bacteremia. HISTORY OF PRESENT ILLNESS This is a 66-year-old white female who presented to the emergency department on 02/12 after she fell at home. The patient was noted to have generalized weakness. On presentation she was noted to have fever with temperature of 101.5 degrees along with elevated heart rate of 128 and white blood cell count elevation of 14.0 along with elevated lactic acid level of 3.6. The patient states that she tripped and fell over backwards and was picked up off the floor by her son and paramedics. On admission the urinalysis was performed and it came back with innumerable white cells. Urine culture is showing gram negative robin. Blood culture has gram-negative rods in both sets which were collected. One bottle is identified as E-coli. The patient is on IV antibiotics. She tells me that she had episodes of chills this morning and then sweats following that. She had temperature of 100.2 degrees early this morning. She states to me that she has pain all over including the back and extremities. PAST MEDICAL HISTORY Hypertension, diabetes mellitus, chronic pain, COPD, obesity, degenerative back disk disease, gastric bypass, bilateral knee replacement. ALLERGIES PENICILLIN, SULFAMETHOXAZOLE, TRIMETHOPRIM. PREMEDICATION 1. Albuterol. 2. Ceftriaxone. 3. Potassium. SOCIAL HISTORY No tobacco, no alcohol. Denies illicit drugs. FAMILY HISTORY Noncontributory. REVIEW OF SYSTEMS GENERAL: Significant for fever and chills and generalized weakness. HEAD/EARS/EYES/NOSE/THROAT: Denies visual blurring, diplopia, nasal drainage, soreness of the throat, difficulty swallowing. Denies neck pain. CARDIOVASCULAR: Denies chest pain or palpitation. RESPIRATORY: Denies cough or shortness of breath. GASTROINTESTINAL: Denies nausea, vomiting, abdominal pain or diarrhea. GENITOURINARY: Denies urgency, frequency or dysuria. HEMATOPOIETIC: Denies easy bruising or bleeding. ENDOCRINE: Denies polyuria, polydipsia. MUSCULOSKELETAL: Significant for diffuse aches and pains of the joints. INTEGUMENTARY: Denies skin rash or skin itching. NEUROLOGIC: Denies problems with coordination. PSYCHIATRIC: Denies mood changes or depression. PHYSICAL EXAMINATION GENERAL: This is a well-developed obese female in no acute distress. She is awake and alert and oriented. VITAL SIGNS: Temperature 98.5, BP 93/58, respirations 20, heart rate 90. HEENT: Head is atraumatic. Extraocular movements grossly intact, pupils reactive to light without icterus. Oropharynx moist mucosa without lesions. NECK: Supple without adenopathy. LUNGS: Decreased clear breath sounds HEART: Regular S1-S2. No murmurs. No rubs. No gallops. ABDOMEN: Bowel sounds present, obese, soft, nontender. RECTAL: Not performed. EXTREMITIES: No clubbing, cyanosis or edema. The patient has mild erythema at both distal tibias. SKIN: No diffuse rash. NEURO: Nonfocal. PSYCHIATRIC: The patient calm and cooperative. LABORATORY DATA WBC 11.0, platelets 267, hemoglobin 10.1, 83% neutrophils, creatinine 3.19, BUN 59, sodium 135, estimated GFR 15. IMPRESSION 1. Sepsis due to E-coli arising out of UTI. 2. UTI due to E-coli 3. Stage IV chronic kidney disease. RECOMMENDATIONS 1. Continue ceftriaxone. 2. Monitor the sensitivity of the E-coli in the blood and also monitor the identity of the gram-negative bacteria in the urine and sensitivity of the urinary organism as well. 3. Monitor the temperature. 4. Monitor the clinical status. The patient is currently clinically stable appearing and may be responding to current IV antibiotics. Thank you for this consultation. Further recommendations will be made upon followup if necessary. Isidro Owens MD FD/DHAVAL /3:57 PM /7:09 PM
[2017-02-13 20:00] VITALS: BP 131/69; PULSE 113; RESP 18; TEMP 96.4; O2SAT 93
[2017-02-13] MEDS: LORazepam 1 MG TAB PO PRN (20:15)
[2017-02-13] MEDS: MEMANTINE HCL 10 MG TAB PO SCH (20:23)
[2017-02-14] VITALS: BP 111/64; PULSE 80; RESP 17; TEMP 99.8; O2SAT 95
[2017-02-14 04:00] VITALS: BP 127/71; PULSE 90; RESP 18; TEMP 98; O2SAT 98
[2017-02-14] MEDS: LEVOTHYROXINE SODIUM 88 MCG TAB PO SCH (05:20)
[2017-02-14] MEDS: NS + KCL 20 MEQ INJ 1,000 ML IV SCH (05:20)
[2017-02-14] MEDS: ACETAMINOPHEN/HYDROcodone 325 MG/5 MG TAB PO PRN ×3 (05:24→18:48)
[2017-02-14] MEDS: LORazepam 1 MG TAB PO PRN ×2 (05:24→18:48)
[2017-02-14 07:10] LABS: AUTOMATED NEUTROPHIL # 6.6 TH/MM3 (1.8-7.7); BASOPHIL # 0.1 TH/MM3 (0-0.2); BASOPHIL % 0.7 % (0.0-2.0); EOSINOPHIL # 0.4 TH/MM3 (0-0.4); EOSINOPHIL % 3.9 % (0.0-4.0); HEMO FLAGS DIFF FINAL; LYMPH % 12.3 % (9.0-44.0); LYMPHOCYTE # 1.1 TH/MM3 (1.0-4.8); MEAN CELL VOLUME 86.3 FL (80.0-100.0); MEAN CORPUSCULAR HEMOGLOBIN 28.3 PG (27.0-34.0); MEAN CORPUSCULAR HGB CONC 32.8 % (32.0-36.0); MONO % 11.7 % (0.0-8.0); NEUT % 71.4 % (16.0-70.0); PLATELET COUNT 266 TH/MM3 (150-450); RED BLOOD COUNT 3.47 MIL/MM3 (4.00-5.30); RED CELL DISTRIBUTION WIDTH 17.4 % (11.6-17.2); WHITE BLOOD COUNT 9.2 TH/MM3 (4.0-11.0)
[2017-02-14] MEDS: RESP: ALBUTEROL 2.5 MG/IPRATROPIUM 0.5 MG NEB (SCH) NEB ×4 (07:24→20:00)
[2017-02-14] MEDS: INSULIN ASPART SUPPLEMENTAL SCALE SQ SCH ×4 (07:29→21:23)
[2017-02-14] MEDS: SODIUM CHLORIDE 0.9% FLUSH 10 ML FLUSH IV FLUSH SCH ×2 (07:29→19:40)
[2017-02-14 07:41] LABS: BICARBONATE 28.4 MEQ/L (21.0-32.0); MAGNESIUM 1.7 MG/DL (1.5-2.5)
[2017-02-14 07:59] LABS: CALCIUM-PROTEIN CORRECTED 7.7 MG/DL (8.5-10.1)
[2017-02-14 08:00] VITALS: BP 100/61; PULSE 111; RESP 19; TEMP 98.9; O2SAT 96
[2017-02-14 08:33] LABS: POTASSIUM 2.9 MEQ/L (3.5-5.1)
[2017-02-14] MEDS: DICYCLOMINE HCL 10 MG CAP PO SCH (08:50)
[2017-02-14] MEDS: MEMANTINE HCL 10 MG TAB PO SCH ×2 (08:50→19:41)
[2017-02-14] MEDS: METOPROLOL TARTRATE 100 MG TAB PO SCH ×2 (08:50→21:24)
[2017-02-14] MEDS: cefTRIAXone INJ 1,000 MG in SODIUM CHLORIDE 0.9% INJ 100 ML IV SCH (08:50)
[2017-02-14] MEDS: CITALOPRAM HYDROBROMIDE 40 MG TAB PO SCH (08:50)
[2017-02-14] MEDS: MAGNESIUM OXIDE 400 MG TAB PO SCH (11:20)
[2017-02-14] MEDS: POTASSIUM CHLOR 20 MEQ PREMIX 100 ML IV SCH ×2 (11:20→11:24)
[2017-02-14 12:00] VITALS: BP 94/54; PULSE 72; RESP 19; TEMP 96.9; O2SAT 96
--- NOTE | 2017-02-14 12:43 | HHI.IDPN ---
Note Infectious Disease Note Patient feels okay Denies chills. Afebrile. denies dysuria. PAST MEDICAL HISTORY Hypertension, diabetes mellitus, chronic pain, COPD, obesity, degenerative back disk disease, gastric bypass, bilateral knee replacement. ALLERGIES PENICILLIN, SULFAMETHOXAZOLE, TRIMETHOPRIM. Current Medications Medications (Trade) Dose Ordered Sig/Rogers Route PRN Reason Start Time Stop Time Status Last Admin Dose Admin Sodium Chloride (NS Flush) 2 ml UNSCH PRN IV FLUSH FLUSH AFTER USING IV ACCESS 02/12/17 20:45 Sodium Chloride (NS Flush) 2 ml BID IV FLUSH 02/12/17 21:00 02/12/17 23:01 Naloxone HCl (Narcan Inj) 0.4 mg UNSCH PRN IV PUSH SEE LABEL COMMENTS 02/12/17 20:45 Acetaminophen/ Hydrocodone Bitart ([place] 5-325 Mg) 1 tab Q6H PRN PO pain >5 02/12/17 23:00 02/14/17 11:22 Dextrose (D50w (Vial) Inj) 50 ml UNSCH PRN IV PUSH HYPOGLYCEMIA-SEE COMMENTS 02/12/17 23:00 Glucagon (Glucagon Inj) 1 mg UNSCH PRN OTHER HYPOGLYCEMIA-SEE COMMENTS 02/12/17 23:00 Insulin Aspart (NovoLOG SUPPLEMENTAL SCALE) 1 ACHS SLIDING SCALE SQ 02/12/17 23:30 02/13/17 20:23 Metoprolol Tartrate (Lopressor) 100 mg Q12HR PO 02/13/17 09:00 02/14/17 08:50 Ceftriaxone Sodium 1000 mg/ Sodium Chloride 100 ml @ 200 mls/hr Q24H IV 02/13/17 09:00 02/14/17 08:50 Potassium Chloride/Sodium Chloride 1,000 ml @ 100 mls/hr Q10H IV 02/13/17 08:00 02/14/17 05:20 Albuterol Sulfate (Albuterol Neb) 2.5 mg Q2HR NEB PRN NEB DYSPNEA 02/13/17 11:30 Albuterol/ Ipratropium (Duoneb Neb) 1 ampule QID NEB NEB 02/13/17 12:00 Amlodipine Besylate (Norvasc) 10 mg DAILY PO 02/14/17 09:00 02/14/17 08:50 Citalopram Hydrobromide (CeleXA) 40 mg DAILY PO 02/14/17 09:00 02/14/17 08:50 Dicyclomine HCl (Bentyl) 10 mg DAILY PO 02/14/17 09:00 02/14/17 08:50 Levothyroxine Sodium (Synthroid) 88 mcg DAILY@0600 PO 02/14/17 06:00 02/14/17 05:20 Lorazepam (Ativan) 1 mg Q8H PRN PO ANXIETY 02/13/17 19:30 02/14/17 05:24 Memantine (Namenda) 10 mg BID PO 02/13/17 21:00 02/14/17 08:50 Potassium Chloride 100 ml @ 50 mls/hr Q2H IV 02/14/17 11:00 02/14/17 14:59 02/14/17 11:24 Magnesium Oxide (Mag-Ox) 400 mg Q12H PO 02/14/17 11:00 02/14/17 11:20 SOCIAL HISTORY No tobacco, no alcohol. Denies illicit drugs. FAMILY HISTORY Noncontributory. OBJECTIVE: Vital Signs Date Time Temp Pulse Resp B/P (MAP) Pulse Ox O2 Delivery O2 Flow Rate FiO2 02/14/17 08:00 98.9 111 19 100/61 (74) 96 02/14/17 04:00 98.0 90 18 127/71 (89) 98 02/14/17 00:00 99.8 80 17 111/64 (80) 95 02/13/17 20:00 96.4 113 18 131/69 (89) 93 02/13/17 16:00 97.1 81 20 115/78 (90) 97 Laboratory Tests Test 02/12/17 17:00 02/13/17 06:20 02/14/17 05:28 White Blood Count 14.0 TH/MM3 11.0 TH/MM3 9.2 TH/MM3 Red Blood Count 4.01 MIL/MM3 3.58 MIL/MM3 3.47 MIL/MM3 Hemoglobin 11.4 GM/DL 10.1 GM/DL 9.8 GM/DL Hematocrit 35.0 % 30.9 % 30.0 % Mean Corpuscular Volume 87.4 FL 86.4 FL 86.3 FL Mean Corpuscular Hemoglobin 28.3 PG 28.4 PG 28.3 PG Mean Corpuscular Hemoglobin Concent 32.5 % 32.8 % 32.8 % Red Cell Distribution Width 18.1 % 17.9 % 17.4 % Platelet Count 277 TH/MM3 267 TH/MM3 266 TH/MM3 Mean Platelet Volume 8.7 FL 9.1 FL 8.5 FL Neutrophils (%) (Auto) 88.2 % 83.5 % 71.4 % Lymphocytes (%) (Auto) 5.0 % 7.3 % 12.3 % Monocytes (%) (Auto) 6.3 % 8.3 % 11.7 % Eosinophils (%) (Auto) 0.1 % 0.5 % 3.9 % Basophils (%) (Auto) 0.4 % 0.4 % 0.7 % Neutrophils # (Auto) 12.3 TH/MM3 9.2 TH/MM3 6.6 TH/MM3 Lymphocytes # (Auto) 0.7 TH/MM3 0.8 TH/MM3 1.1 TH/MM3 Monocytes # (Auto) 0.9 TH/MM3 0.9 TH/MM3 1.1 TH/MM3 Eosinophils # (Auto) 0.0 TH/MM3 0.1 TH/MM3 0.4 TH/MM3 Basophils # (Auto) 0.1 TH/MM3 0.0 TH/MM3 0.1 TH/MM3 CBC Comment DIFF FINAL DIFF FINAL DIFF FINAL Differential Comment Laboratory Tests Test 02/12/17 17:00 02/12/17 19:40 02/12/17 22:49 02/13/17 06:20 Blood Urea Nitrogen 64 MG/DL 59 MG/DL Creatinine 3.67 MG/DL 3.19 MG/DL Random Glucose 447 MG/DL 243 MG/DL Total Protein 7.3 GM/DL 6.2 GM/DL Albumin 2.5 GM/DL Calcium Level 7.5 MG/DL 7.4 MG/DL Magnesium Level 1.4 MG/DL Alkaline Phosphatase 142 U/L Aspartate Amino Transf (AST/SGOT) 16 U/L Alanine Aminotransferase (ALT/SGPT) 17 U/L Total Bilirubin 0.9 MG/DL Sodium Level 129 MEQ/L 135 MEQ/L Potassium Level 3.1 MEQ/L 3.4 MEQ/L Chloride Level 90 MEQ/L 97 MEQ/L Carbon Dioxide Level 25.7 MEQ/L 27.8 MEQ/L Anion Gap 13 MEQ/L 10 MEQ/L Estimat Glomerular Filtration Rate 12 ML/MIN 15 ML/MIN Lactic Acid Level 3.6 mmol/L 2.4 mmol/L 3.6 mmol/L Protein Corrected Calcium 7.9 MG/DL Total Creatine Kinase 103 U/L Test 02/14/17 05:28 Blood Urea Nitrogen 60 MG/DL Creatinine 2.84 MG/DL Random Glucose 87 MG/DL Total Protein 6.0 GM/DL Calcium Level 7.1 MG/DL Magnesium Level 1.7 MG/DL Sodium Level 139 MEQ/L Potassium Level 2.9 MEQ/L Chloride Level 100 MEQ/L Carbon Dioxide Level 28.4 MEQ/L Anion Gap 11 MEQ/L Estimat Glomerular Filtration Rate 17 ML/MIN Protein Corrected Calcium 7.7 MG/DL Microbiology Date/Time Source Procedure Growth Status 02/12/17 17:00 Blood Peripheral Aerobic Blood Culture - Preliminary Escherichia Coli Resulted 02/12/17 17:00 Anaerobic Blood Culture - Preliminary Gram Negative Yoan Resulted 02/12/17 16:55 Blood Peripheral Aerobic Blood Culture - Preliminary NO GROWTH IN 2 DAYS Resulted 02/12/17 16:55 Anaerobic Blood Culture - Preliminary Gram Negative Yoan Resulted 02/12/17 19:40 Nasal Washing Influenza Types A,B Antigen (TRISHA) - Final NEGATIVE FOR FLU A AND B ANTIGEN.... Complete 02/12/17 19:40 Urine Catheterized Urine Urine Culture - Final Klebsiella Pneumoniae Complete PHYSICAL EXAMINATION GENERAL: No acute distress. She is awake and alert and oriented. HEENT: Head is atraumatic. Extraocular movements grossly intact, pupils reactive to light without icterus. Oropharynx moist mucosa without lesions. NECK: Supple without adenopathy. LUNGS: Decreased clear breath sounds HEART: Regular S1-S2. No murmurs. No rubs. No gallops. ABDOMEN: Bowel sounds present, obese, soft, nontender. EXTREMITIES: No clubbing, cyanosis or edema. The patient has mild erythema at both distal tibias. SKIN: No diffuse rash. NEURO: Nonfocal. PSYCHIATRIC: calm and cooperative. LABORATORY DATA WBC 11.0, platelets 267, hemoglobin 10.1, 83% neutrophils, creatinine 3.19, BUN 59, sodium 135, estimated GFR 15. IMPRESSION 1. Sepsis due to E-coli/gram neg yoan. (S) to ceftriaxone. WBC improved. Temp improved. 2. UTI due to Klebsiella. 3. Stage IV chronic kidney disease. Renal following. RECOMMENDATIONS 1. Continue ceftriaxone. 2. Monitor the temperature. 3. Monitor the clinical status. Isidro Owens MD 10, 2017 12:43
--- NOTE | 2017-02-14 13:08 | HHI.NPPN ---
Subjective General Problems: Anemia Renal Failure: Chronic, Stage IV Interval History Renal function is improving. She is drinking a lot of fluids. Has edema to lower extremities. Excellent urine output. (Marlene Mcallister) Review of Systems General Constitutional: Fever, Fatigue (Marlene Mcallister) Objective Data Data 02/14/17 02/15/17 19:00 07:00 Intake Total 480 ml Balance 480 ml Intake Oral 480 ml Vital Signs Date Time Temp Pulse Resp B/P (MAP) Pulse Ox O2 Delivery O2 Flow Rate FiO2 02/14/17 08:00 98.9 111 19 100/61 (74) 96 02/14/17 04:00 98.0 90 18 127/71 (89) 98 02/14/17 00:00 99.8 80 17 111/64 (80) 95 02/13/17 20:00 96.4 113 18 131/69 (89) 93 02/13/17 16:00 97.1 81 20 115/78 (90) 97 (Marlene Mcallister) -: 02/14/17 0528 02/14/17 0528 Imaging Last 72 hours Impressions Lum[address] Spine CT 02/12/171647 Signed Impressions: Service Date/Time: Sunday, February 12, 2017 17:01 - CONCLUSION: 1. No acute fracture or subluxation. 2. Redemonstration of advanced multilevel degenerative spondylosis most prominently at L3-5 with resultant moderate spinal canal stenosis. Kelvin Suazo MD Hip and Pelvis X-Ray 02/12/171647 Signed Impressions: Service Date/Time: Sunday, February 12, 2017 17:18 - CONCLUSION: 1. No acute fracture or dislocation. Kelvin Suazo MD Head CT 02/12/171647 Signed Impressions: Service Date/Time: Sunday, February 12, 2017 16:56 - CONCLUSION: 1. No acute intracranial abnormality or significant interval change. Kelvin Suazo MD Cervical Spine CT 02/12/171647 Signed Impressions: Service Date/Time: Sunday, February 12, 2017 16:57 - CONCLUSION: No acute cervical spine abnormality is identified. There is stable degenerative disc disease at multiple levels and grade 1 anterolisthesis of C4 on C5. Nils Koehler MD Chest X-Ray 02/12/17 1623 Signed Impressions: Service Date/Time: Sunday, February 12, 2017 17:18 - CONCLUSION: 1. Persistent low lung volumes without acute abnormality or significant interval change. Kelvin Suazo MD Abdomen/Pelvis CT 02/12/17 0000 Signed Impressions: Service Date/Time: Sunday, February 12, 2017 19:42 - CONCLUSION: 1. No acute abnormality. 2. Prior granulomatous disease. 3. Degenerative changes of the lumbar spine. Conner Nolasco Jr., MD (Marlene Mcallister B. PREP ROOM SUPERVISOR) Physical Exam General Appearance: Well Developed, No Acute Distress, Comfortable, Malnourished (Marlene Mcallister B. PREP ROOM SUPERVISOR) Throat Throat Exam: Oral Mucosa [place] & Moist (Marlene Mcallister B. PREP ROOM SUPERVISOR) Neck Neck Exam: Neck Supple (Javed Mcallisteron B. PREP ROOM SUPERVISOR) Pulmonary Resp Exam: No Distress, Crackles (Marlene Mcallister B. PREP ROOM SUPERVISOR) Cardiology CV Exam: Regular, Normal Sinus Rhythm, Good Perfusion (Marlene Mcallister B. PREP ROOM SUPERVISOR) Gastrointestinal/Abdomen GI Exam: Soft, Non-Tender, Bowel Sounds Present (Marlene Mcallister B. PREP ROOM SUPERVISOR) Musculoskeletal MS Exam: Joints Intact, Normal Tone (Marlene Mcallister B. [employer]P ROOM SUPERVISOR) Integumentary Skin Exam: Warm, Dry Skin Remarks lower extremity chronic cellulitic appearing (Javed Mcallisteron B. PREP ROOM SUPERVISOR) Extremeties Extremities Exam: Pedal Pulses Palpable, Trace Edema (Marlene Mcallister B. PREP ROOM SUPERVISOR) Neurologic Neuro Exam: Alert, Awake, Oriented, Speech Clear, Moving All Extremities (Marlene Mcallister B. PREP ROOM SUPERVISOR) Psychiatric Psych Exam: Appropriate Responses (Marlene Mcallister B. PREP ROOM SUPERVISOR) Assessment/Plan Discussed Condition With: Patient Assessment Summary: MISSY/Acute Renal Failure, Anemia of CKD, Hypertension, Diabetes Mellitus, CKD Stage III Electrolyte Assessment: Hypokalemia Problem List: (1) MISSY (acute kidney injury) ICD Codes: N17.9 - Acute kidney failure, unspecified Status: Acute Plan: MISSY on CKD 3, baseline creatinine 1.93, GFR 26 MISSY due to sepsis secondary to UTI Renal function continues to improve Developing rales, stop IVF, her oral intake is adequate She is non oliguric Replace potassium Repeat labs in AM Avoid nephrotoxins, renally dose when appropriate (2) UTI (urinary tract infection) ICD Codes: N39.0 - Urinary tract infection, site not specified Status: Acute Plan: ID has evaluated She has Klebsiella in the urine On Rocephin (3) Sepsis ICD Codes: A41.9 - Sepsis, unspecified organism Status: Acute Plan: Secondary to UTI Ecoli per culture report ID managing antibiotics (4) Fall ICD Codes: W19.XXXA - Unspecified fall, initial encounter Status: Resolved Plan: Imaging negative PRN pain control (5) Diabetes mellitus, type 2 ICD Codes: E11.9 - Type 2 diabetes mellitus Status: Chronic Plan: Maintain glucose 140-180 mg/dL Insulin as needed (6) Hypokalemia ICD Codes: E87.6 - Hypokalemia Plan: Replace cautiously Repeat labs (Marlene Mcallister) Plan patient was seen and examined. Renal function is improving. Discontinue IVF. Replace potassium. Agree with above assessment and plan. (Erick Gilbert MD) Problem Qualifiers (1) Sepsis: Qualified Codes: A41.9 - Sepsis, unspecified organism (2) Fall: Qualified Codes: W19.XXXA - Unspecified fall, initial encounter Marlene Mcallister Feb 14, 2017 13:08 Erick Gilbert MD Feb 14, 2017 15:22
--- NOTE | 2017-02-14 13:55 | HHI.PR ---
Subjective Remarks Follow-up sepsis, UTI. Patient states that she feels better today. Denies chest pain or dyspnea. She remains concerned about her daughter, who is hospitalized here as well. Objective Vitals Vital Signs Date Time Temp Pulse Resp B/P (MAP) Pulse Ox O2 Delivery O2 Flow Rate FiO2 02/14/17 12:00 96.9 72 19 94/54 (67) 96 02/14/17 08:00 98.9 111 19 100/61 (74) 96 02/14/17 04:00 98.0 90 18 127/71 (89) 98 02/14/17 00:00 99.8 80 17 111/64 (80) 95 02/13/17 20:00 96.4 113 18 131/69 (89) 93 02/13/17 16:00 97.1 81 20 115/78 (90) 97 I/O 02/13/17 02/13/17 02/13/17 02/14/17 02/14/17 02/14/17 07:00 15:00 23:00 07:00 15:00 23:00 Intake Total 720 ml 240 ml 960 ml 1240 ml 600 ml Output Total 650 ml 800 ml 1300 ml Balance 70 ml 240 ml 160 ml -60 ml 600 ml Intake Oral 720 ml 240 ml 960 ml 240 ml 600 ml IV Total 1000 ml Output Urine Total 650 ml 800 ml 1300 ml # Bowel Movements 1 Result Diagram: 02/14/17 0528 02/14/17 0528 Imaging Last Impressions Lumbar Spine CT 02/12/171647 Signed Impressions: Service Date/Time: Sunday, February 12, 2017 17:01 - CONCLUSION: 1. No acute fracture or subluxation. 2. Redemonstration of advanced multilevel degenerative spondylosis most prominently at L3-5 with resultant moderate spinal canal stenosis. Kelvin Suaoz MD Hip and Pelvis X-Ray 02/12/171647 Signed Impressions: Service Date/Time: Sunday, February 12, 2017 17:18 - CONCLUSION: 1. No acute fracture or dislocation. Kelvin Suazo MD Head CT 02/12/171647 Signed Impressions: Service Date/Time: Sunday, February 12, 2017 16:56 - CONCLUSION: 1. No acute intracranial abnormality or significant interval change. Kelvin Suazo MD Cervical Spine CT 02/12/17 1648 Signed Impressions: Service Date/Time: Sunday, February 12, 2017 16:57 - CONCLUSION: No acute cervical spine abnormality is identified. There is stable degenerative disc disease at multiple levels and grade 1 anterolisthesis of C4 on C5. Nils Koehler MD Chest X-Ray 02/12/17 1623 Signed Impressions: Service Date/Time: Sunday, February 12, 2017 17:18 - CONCLUSION: 1. Persistent low lung volumes without acute abnormality or significant interval change. Kelvin Suazo MD Abdomen/Pelvis CT 02/12/17 0000 Signed Impressions: Service Date/Time: Sunday, February 12, 2017 19:42 - CONCLUSION: 1. No acute abnormality. 2. Prior granulomatous disease. 3. Degenerative changes of the lumbar spine. Conner Nolasco Jr., MD Objective Remarks General: Obese elderly female in no acute distress. Sitting up in a chair. Heart: Regular rate and rhythm. No murmur. Lungs: Mild scattered wheeze. Breathing is nonlabored. Abdomen: Soft, nontender, nondistended. Extremities: No lower extremity edema. Chronic venous stasis changes bilaterally. Psych: Alert and oriented. Procedures None Urinary Catheter: No Vascular Central Line Catheter: No A/P Assessment and Plan 1. Sepsis: Secondary to UTI (Klebsiella). Patient also has bacteremia with Escherichia coli. Continue Rocephin. Appreciate infectious disease recommendations Continue IV fluids. 2. Hypertension: Continue metoprolol. 3. Diabetes mellitus: Monitor Accu-Cheks and cover with sliding scale insulin. 4. COPD: Patient is reportedly a nonsmoker. Supplemental oxygen as needed. Bronchodilators. 5. Hypokalemia: Supplement potassium. 6. Hypomagnesemia: Supplement magnesium. 7. Acute kidney injury superimposed on chronic kidney disease stage III: Appreciate nephrology recommendations. Creatinine improving. 8. DVT prophylaxis: Heparin. Skip Oh MD Feb 14, 2017 13:55
[2017-02-14 21:28] VITALS: BP 98/49; PULSE 88; RESP 18; TEMP 98.3; O2SAT 95
[2017-02-15] MEDS: MAGNESIUM OXIDE 400 MG TAB PO SCH ×3 (00:06→22:18)
[2017-02-15 01:02] VITALS: BP 92/50; PULSE 68; RESP 18; TEMP 98.2; O2SAT 96
[2017-02-15] MEDS: LORazepam 1 MG TAB PO PRN ×3 (02:34→20:11)
[2017-02-15] MEDS: ACETAMINOPHEN/HYDROcodone 325 MG/5 MG TAB PO PRN ×4 (04:31→22:18)
[2017-02-15] MEDS: LEVOTHYROXINE SODIUM 88 MCG TAB PO SCH (04:31)
[2017-02-15 04:47] LABS: BICARBONATE 25.9 MEQ/L (21.0-32.0); MAGNESIUM 1.5 MG/DL (1.5-2.5); POTASSIUM 4.1 MEQ/L (3.5-5.1)
[2017-02-15 05:00] VITALS: BP 117/60; PULSE 103; RESP 20; TEMP 99.5; O2SAT 95
[2017-02-15 05:03] LABS: CALCIUM-PROTEIN CORRECTED 7.6 MG/DL (8.5-10.1)
[2017-02-15 05:28] LABS: MEAN CELL VOLUME 85.2 FL (80.0-100.0); MEAN CORPUSCULAR HEMOGLOBIN 29.6 PG (27.0-34.0); MEAN CORPUSCULAR HGB CONC 34.7 % (32.0-36.0); PLATELET COUNT 279 TH/MM3 (150-450); RED CELL DISTRIBUTION WIDTH 17.3 % (11.6-17.2); WHITE BLOOD COUNT 9.5 TH/MM3 (4.0-11.0)
[2017-02-15 06:23] LABS: HEMO FLAGS AUTO DIFF
[2017-02-15 06:57] LABS: BANDS 4 % (0-6); EOSINOPHILS 1 % (0-4); NEUTROPHIL # MANUAL DIFF 7.2 TH/MM3 (1.8-7.7); POLYS (SEG NEUTROPHILS) 72 % (16-70); WBC DIFF SAMPLE 100
[2017-02-15 07:00] LABS: PLATELET ESTIMATE SMEAR NORMAL (NORMAL); PLATELET MORPHOLOGY CLUMPED (NORMAL); SCAN/DIFF FINAL DIFF MANUAL
[2017-02-15 07:01] LABS: OVALOCYTES 1+ (NORMAL)
[2017-02-15 07:02] LABS: DOHLE BODIES PRESENT (NONE SEEN)
[2017-02-15 08:00] VITALS: BP 151/72; PULSE 101; RESP 17; TEMP 98.5; O2SAT 94
[2017-02-15] MEDS: RESP: ALBUTEROL 2.5 MG/IPRATROPIUM 0.5 MG NEB (SCH) NEB ×4 (08:00→19:03)
[2017-02-15] MEDS: INSULIN ASPART SUPPLEMENTAL SCALE SQ SCH ×4 (08:00→20:07)
[2017-02-15] MEDS: DICYCLOMINE HCL 10 MG CAP PO SCH (08:09)
[2017-02-15] MEDS: MEMANTINE HCL 10 MG TAB PO SCH ×2 (08:09→20:05)
[2017-02-15] MEDS: METOPROLOL TARTRATE 100 MG TAB PO SCH ×2 (08:11→20:05)
[2017-02-15] MEDS: cefTRIAXone INJ 1,000 MG in SODIUM CHLORIDE 0.9% INJ 100 ML IV SCH (08:11)
[2017-02-15] MEDS: CITALOPRAM HYDROBROMIDE 40 MG TAB PO SCH (08:11)
[2017-02-15] MEDS: SODIUM CHLORIDE 0.9% FLUSH 10 ML FLUSH IV FLUSH SCH ×2 (08:11→20:05)
--- NOTE | 2017-02-15 11:09 | HHI.PR ---
Subjective Remarks Follow-up hypokalemia, acute on chronic renal failure, sepsis. The patient states that physically she is feeling better, but she is quite worried about her daughter. She denies chest pain, dyspnea, nausea, vomiting. Objective Vitals Vital Signs Date Time Temp Pulse Resp B/P (MAP) Pulse Ox O2 Delivery O2 Flow Rate FiO2 02/15/17 08:00 98.5 101 17 151/72 (98) 94 02/15/17 05:00 99.5 103 20 117/60 (79) 95 02/15/17 01:02 98.2 68 18 92/50 (64) 96 02/14/17 21:28 98.3 88 18 98/49 (65) 95 02/14/17 12:00 96.9 72 19 94/54 (67) 96 I/O 02/14/17 02/14/17 02/14/17 02/15/17 02/15/17 02/15/17 07:00 15:00 23:00 07:00 15:00 23:00 Intake Total 1240 ml 600 ml 1200 ml Output Total 1300 ml 1000 ml Balance -60 ml 600 ml 200 ml Intake Oral 240 ml 600 ml 1200 ml IV Total 1000 ml Output Urine Total 1300 ml 1000 ml # Voids 2 # Bowel Movements 0 Result Diagram: 02/15/17 0413 02/15/17 0413 Imaging Last Impressions Lumbar Spine CT 02/12/171647 Signed Impressions: Service Date/Time: Sunday, February 12, 2017 17:01 - CONCLUSION: 1. No acute fracture or subluxation. 2. Redemonstration of advanced multilevel degenerative spondylosis most prominently at L3-5 with resultant moderate spinal canal stenosis. Kelvin Suazo MD Hip and Pelvis X-Ray 02/12/171647 Signed Impressions: Service Date/Time: Sunday, February 12, 2017 17:18 - CONCLUSION: 1. No acute fracture or dislocation. Kelvin Suazo MD Head CT 02/12/171647 Signed Impressions: Service Date/Time: Sunday, February 12, 2017 16:56 - CONCLUSION: 1. No acute intracranial abnormality or significant interval change. Kelvin Suazo MD Cervical Spine CT 02/12/171647 Signed Impressions: Service Date/Time: Sunday, February 12, 2017 16:57 - CONCLUSION: No acute cervical spine abnormality is identified. There is stable degenerative disc disease at multiple levels and grade 1 anterolisthesis of C4 on C5. Nils Koehler MD Chest X-Ray 02/12/17 1623 Signed Impressions: Service Date/Time: Sunday, February 12, 2017 17:18 - CONCLUSION: 1. Persistent low lung volumes without acute abnormality or significant interval change. Kelvin Suazo MD Abdomen/Pelvis CT 02/12/17 0000 Signed Impressions: Service Date/Time: Sunday, February 12, 2017 19:42 - CONCLUSION: 1. No acute abnormality. 2. Prior granulomatous disease. 3. Degenerative changes of the lumbar spine. Conner Nolasco Jr., MD Objective Remarks General: Obese elderly female in no acute distress. Heart: Regular rate and rhythm. No murmur. Lungs: Mild scattered wheeze. Breathing is nonlabored. Abdomen: Soft, nontender, nondistended. Extremities: No lower extremity edema. Chronic venous stasis changes bilaterally. Psych: Alert and oriented. Procedures None Urinary Catheter: No Vascular Central Line Catheter: No A/P Assessment and Plan 1. Sepsis: Secondary to UTI (Klebsiella). Patient also has bacteremia with Escherichia coli. Continue Rocephin. Appreciate infectious disease recommendations. Continue IV fluids. 2. Hypertension: Continue metoprolo, amlodipine l. 3. Diabetes mellitus: Monitor Accu-Cheks and cover with sliding scale insulin. Glucose has been elevated. Add Levemir. 4. COPD: Patient is reportedly a nonsmoker. Supplemental oxygen as needed. Bronchodilators. 5. Hypokalemia: Supplement potassium. 6. Hypomagnesemia: Supplement magnesium. 7. Acute kidney injury superimposed on chronic kidney disease stage III: Appreciate nephrology recommendations. Creatinine improving. 8. Dementia: Continue Namenda. 9. DVT prophylaxis: Heparin. Discharge Planning Possible discharge next 1-2 days. May need SNF. PT to re-evaluate today. Skip Oh MD Feb 15, 2017 11:09
[2017-02-15 12:00] VITALS: BP 100/58; PULSE 68; RESP 19; TEMP 97.5; O2SAT 96
--- NOTE | 2017-02-15 14:29 | HHI.NPPN ---
Subjective General Problems: Anemia Renal Failure: Chronic, Stage IV Review of Systems General Constitutional: Fever, Fatigue Objective Data Data Vital Signs Date Time Temp Pulse Resp B/P (MAP) Pulse Ox O2 Delivery O2 Flow Rate FiO2 02/15/17 12:00 97.5 68 19 100/58 (72) 96 02/15/17 08:00 98.5 101 17 151/72 (98) 94 02/15/17 05:00 99.5 103 20 117/60 (79) 95 02/15/17 01:02 98.2 68 18 92/50 (64) 96 02/14/17 21:28 98.3 88 18 98/49 (65) 95 -: 02/15/17 0413 02/15/17 0413 Microbiology 02/14/17 Aerobic Blood Culture - Preliminary, Resulted NO GROWTH IN 1 DAY 02/14/17 Anaerobic Blood Culture - Preliminary, Resulted NO GROWTH IN 1 DAY 02/14/17 Aerobic Blood Culture - Preliminary, Resulted NO GROWTH IN 1 DAY 02/14/17 Anaerobic Blood Culture - Preliminary, Resulted NO GROWTH IN 1 DAY Physical Exam General Appearance: Well Developed, No Acute Distress, Comfortable, Malnourished Throat Throat Exam: Oral Mucosa [place] & Moist Neck Neck Exam: Neck Supple Pulmonary Resp Exam: No Distress, Crackles Cardiology CV Exam: Regular, Normal Sinus Rhythm, Good Perfusion Gastrointestinal/Abdomen GI Exam: Soft, Non-Tender, Bowel Sounds Present Musculoskeletal MS Exam: Joints Intact, Normal Tone Integumentary Skin Exam: Warm, Dry Extremeties Extremities Exam: Pedal Pulses Palpable, Trace Edema Neurologic Neuro Exam: Alert, Awake, Oriented, Speech Clear, Moving All Extremities Psychiatric Psych Exam: Appropriate Responses Assessment/Plan Discussed Condition With: Patient Assessment Summary: MISSY/Acute Renal Failure, Anemia of CKD, Hypertension, Diabetes Mellitus, CKD Stage III Electrolyte Assessment: Hypokalemia Problem List: (1) MISSY (acute kidney injury) ICD Codes: N17.9 - Acute kidney failure, unspecified Status: Acute Plan: MISSY on CKD 3, baseline creatinine 1.93, GFR 26 MISSY due to sepsis secondary to UTI Renal function continues to improve Developing rales, stop IVF, her oral intake is adequate She is non oliguric cr declining with hydration Avoid nephrotoxins, renally dose when appropriate (2) UTI (urinary tract infection) ICD Codes: N39.0 - Urinary tract infection, site not specified Status: Acute Plan: ID has evaluated She has Klebsiella in the urine On Rocephin (3) Sepsis ICD Codes: A41.9 - Sepsis, unspecified organism Status: Acute Plan: Secondary to UTI Ecoli per culture report ID managing antibiotics (4) Fall ICD Codes: W19.XXXA - Unspecified fall, initial encounter Status: Resolved Plan: Imaging negative PRN pain control (5) Diabetes mellitus, type 2 ICD Codes: E11.9 - Type 2 diabetes mellitus Status: Chronic Plan: Maintain glucose 140-180 mg/dL Insulin as needed (6) Hypokalemia ICD Codes: E87.6 - Hypokalemia Plan: Replace cautiously Repeat labs Problem Qualifiers (1) Sepsis: Qualified Codes: A41.9 - Sepsis, unspecified organism (2) Fall: Qualified Codes: W19.XXXA - Unspecified fall, initial encounter Jacobo Camacho MD Feb 15, 2017 14:29
[2017-02-15 16:00] VITALS: BP 136/65; PULSE 82; RESP 17; TEMP 97; O2SAT 99
[2017-02-15 20:00] VITALS: BP 113/55; PULSE 88; PULSE 93; RESP 20; TEMP 98.4; O2SAT 97
[2017-02-15] MEDS: INSULIN DETEMIR 100 UNITS/ML VIAL SQ SCH (20:06)
[2017-02-16] VITALS: BP 110/57; PULSE 66; RESP 22; TEMP 96.9; O2SAT 97
[2017-02-16 04:00] VITALS: BP 106/51; PULSE 67; RESP 20; TEMP 96.9; O2SAT 96
[2017-02-16] MEDS: LEVOTHYROXINE SODIUM 88 MCG TAB PO SCH (04:17)
[2017-02-16] MEDS: LORazepam 1 MG TAB PO PRN ×3 (04:18→21:10)
[2017-02-16] MEDS: ACETAMINOPHEN/HYDROcodone 325 MG/5 MG TAB PO PRN ×3 (04:18→18:16)
[2017-02-16 08:00] VITALS: BP 149/66; PULSE 76; RESP 18; TEMP 96.7; O2SAT 100
[2017-02-16] MEDS: INSULIN ASPART SUPPLEMENTAL SCALE SQ SCH ×4 (08:00→21:10)
[2017-02-16] MEDS: cefTRIAXone INJ 1,000 MG in SODIUM CHLORIDE 0.9% INJ 100 ML IV SCH (08:29)
[2017-02-16] MEDS: MEMANTINE HCL 10 MG TAB PO SCH ×2 (08:29→21:10)
[2017-02-16] MEDS: CITALOPRAM HYDROBROMIDE 40 MG TAB PO SCH (08:29)
[2017-02-16] MEDS: DICYCLOMINE HCL 10 MG CAP PO SCH (08:30)
[2017-02-16] MEDS: METOPROLOL TARTRATE 100 MG TAB PO SCH ×2 (08:31→21:10)
[2017-02-16] MEDS: SODIUM CHLORIDE 0.9% FLUSH 10 ML FLUSH IV FLUSH SCH ×2 (08:32→21:11)
[2017-02-16 11:16] LABS: POTASSIUM 3.9 MEQ/L (3.5-5.1)
[2017-02-16 12:00] VITALS: BP 117/58; PULSE 74; RESP 18; TEMP 97.8; O2SAT 99
[2017-02-16] MEDS: MAGNESIUM OXIDE 400 MG TAB PO SCH (12:14)
[2017-02-16 12:49] LABS: AUTOMATED NEUTROPHIL # 5.6 TH/MM3 (1.8-7.7); BASOPHIL # 0.1 TH/MM3 (0-0.2); BASOPHIL % 1.3 % (0.0-2.0); EOSINOPHIL # 0.4 TH/MM3 (0-0.4); EOSINOPHIL % 4.4 % (0.0-4.0); HEMATOCRIT 33.9 % (35.0-46.0); HEMO FLAGS DIFF FINAL; LYMPH % 18.9 % (9.0-44.0); LYMPHOCYTE # 1.6 TH/MM3 (1.0-4.8); MEAN CELL VOLUME 86.3 FL (80.0-100.0); MEAN CORPUSCULAR HEMOGLOBIN 28.1 PG (27.0-34.0); MEAN CORPUSCULAR HGB CONC 32.6 % (32.0-36.0); NEUT % 66.4 % (16.0-70.0); PLATELET COUNT 333 TH/MM3 (150-450); RED BLOOD COUNT 3.93 MIL/MM3 (4.00-5.30); RED CELL DISTRIBUTION WIDTH 17.6 % (11.6-17.2); WHITE BLOOD COUNT 8.4 TH/MM3 (4.0-11.0)
--- NOTE | 2017-02-16 15:37 | HHI.PR ---
Subjective Remarks Follow up sepsis, renal failure. Patient states that she is feeling better today. Denies chest pain or dyspnea. Denies nausea, vomiting. States that she was able to speak with her daughter yesterday. Objective Vitals Vital Signs Date Time Temp Pulse Resp B/P (MAP) Pulse Ox O2 Delivery O2 Flow Rate FiO2 02/16/17 12:00 97.8 74 18 117/58 (77) 99 02/16/17 08:00 96.7 76 18 149/66 (93) 100 02/16/17 05:18 20 02/16/17 04:00 96.9 67 20 106/51 (69) 96 02/16/17 00:00 96.9 66 22 110/57 (74) 97 02/15/17 20:00 88 02/15/17 20:00 98.4 93 20 113/55 (74) 97 02/15/17 16:00 97.0 82 17 136/65 (88) 99 I/O 02/15/17 02/15/17 02/15/17 02/16/17 02/16/17 02/16/17 07:00 15:00 23:00 07:00 15:00 23:00 Intake Total 100 ml 580 ml 320 ml Output Total 600 ml 950 ml Balance 100 ml -20 ml -630 ml Intake Oral 580 ml 320 ml IV Total 100 ml Output Urine Total 600 ml 950 ml # Voids 2 # Bowel Movements 0 0 Result Diagram: 02/16/17 1153 02/16/17 1023 Imaging Last Impressions Lumbar Spine CT 02/12/171647 Signed Impressions: Service Date/Time: Sunday, February 12, 2017 17:01 - CONCLUSION: 1. No acute fracture or subluxation. 2. Redemonstration of advanced multilevel degenerative spondylosis most prominently at L3-5 with resultant moderate spinal canal stenosis. Kelvin Suazo MD Hip and Pelvis X-Ray 02/12/171647 Signed Impressions: Service Date/Time: Sunday, February 12, 2017 17:18 - CONCLUSION: 1. No acute fracture or dislocation. Kelvin Suzao MD Head CT 02/12/171647 Signed Impressions: Service Date/Time: Sunday, February 12, 2017 16:56 - CONCLUSION: 1. No acute intracranial abnormality or significant interval change. Kelvin Suazo MD Cervical Spine CT 02/12/17 1648 Signed Impressions: Service Date/Time: Sunday, February 12, 2017 16:57 - CONCLUSION: No acute cervical spine abnormality is identified. There is stable degenerative disc disease at multiple levels and grade 1 anterolisthesis of C4 on C5. Nisl Koehler MD Chest X-Ray 02/12/17 1623 Signed Impressions: Service Date/Time: Sunday, February 12, 2017 17:18 - CONCLUSION: 1. Persistent low lung volumes without acute abnormality or significant interval change. Kelvin Suazo MD Abdomen/Pelvis CT 02/12/17 0000 Signed Impressions: Service Date/Time: Sunday, February 12, 2017 19:42 - CONCLUSION: 1. No acute abnormality. 2. Prior granulomatous disease. 3. Degenerative changes of the lumbar spine. Conner Nolasco Jr., MD Objective Remarks General: Obese elderly female in no acute distress. Heart: Regular rate and rhythm. No murmur. Lungs: Mild scattered wheeze. Breathing is nonlabored. Abdomen: Soft, nontender, nondistended. Extremities: No lower extremity edema. Chronic venous stasis changes bilaterally. Psych: Alert and oriented. Procedures None Urinary Catheter: No Vascular Central Line Catheter: No A/P Assessment and Plan 1. Sepsis: Secondary to UTI (Klebsiella). Patient also has bacteremia with Escherichia coli. Continue Rocephin. Appreciate infectious disease recommendations. Continue IV fluids. 2. Hypertension: Continue metoprolol, amlodipine. 3. Diabetes mellitus: Monitor Accu-Cheks and cover with sliding scale insulin. Glucose has been elevated. Continue Levemir. 4. COPD: Patient is reportedly a nonsmoker. Supplemental oxygen as needed. Bronchodilators. 5. Hypokalemia: Improved. 6. Hypomagnesemia: Supplement magnesium. 7. Acute kidney injury superimposed on chronic kidney disease stage III: Appreciate nephrology recommendations. Creatinine improving. 8. Dementia: Continue Namenda. 9. DVT prophylaxis: Heparin. Discharge Planning Possible discharge next 1-2 days, pending blood cultures and infectious disease recommendations. Will need SNF. Skip Oh MD Feb 16, 2017 15:37
[2017-02-16 16:00] VITALS: BP 136/62; PULSE 71; RESP 18; TEMP 97.6; O2SAT 97
[2017-02-16] MEDS: RESP: ALBUTEROL 2.5 MG/IPRATROPIUM 0.5 MG NEB (SCH) NEB ×2 (16:00→20:00)
--- NOTE | 2017-02-16 17:00 | HHI.NPPN ---
Subjective General Problems: Anemia Renal Failure: Chronic, Stage IV Review of Systems General Constitutional: Fever, Fatigue Objective Data Data Vital Signs Date Time Temp Pulse Resp B/P (MAP) Pulse Ox O2 Delivery O2 Flow Rate FiO2 02/16/17 16:00 97.6 71 18 136/62 (86) 97 02/16/17 12:00 97.8 74 18 117/58 (77) 99 02/16/17 08:00 96.7 76 18 149/66 (93) 100 02/16/17 05:18 20 02/16/17 04:00 96.9 67 20 106/51 (69) 96 02/16/17 00:00 96.9 66 22 110/57 (74) 97 02/15/17 20:00 88 02/15/17 20:00 98.4 93 20 113/55 (74) 97 -: 02/16/17 1153 02/16/17 1023 Physical Exam General Appearance: Well Developed, No Acute Distress, Comfortable, Malnourished Throat Throat Exam: Oral Mucosa [place] & Moist Neck Neck Exam: Neck Supple Pulmonary Resp Exam: No Distress, Crackles Cardiology CV Exam: Regular, Normal Sinus Rhythm, Good Perfusion Gastrointestinal/Abdomen GI Exam: Soft, Non-Tender, Bowel Sounds Present Musculoskeletal MS Exam: Joints Intact, Normal Tone Integumentary Skin Exam: Warm, Dry Extremeties Extremities Exam: Pedal Pulses Palpable, Trace Edema Neurologic Neuro Exam: Alert, Awake, Oriented, Speech Clear, Moving All Extremities Psychiatric Psych Exam: Appropriate Responses Assessment/Plan Discussed Condition With: Patient Assessment Summary: MISSY/Acute Renal Failure, Anemia of CKD, Hypertension, Diabetes Mellitus, CKD Stage III Electrolyte Assessment: Hypokalemia Problem List: (1) MISSY (acute kidney injury) ICD Codes: N17.9 - Acute kidney failure, unspecified Status: Acute Plan: MISSY on CKD 3, baseline creatinine 1.93, GFR 26 MISSY due to sepsis secondary to UTI Renal function continues to improve Developing rales, stop IVF, her oral intake is adequate She is non oliguric Cr declined cr declining with hydration Avoid nephrotoxins, renally dose when appropriate Dr. Gilbert to follow (2) UTI (urinary tract infection) ICD Codes: N39.0 - Urinary tract infection, site not specified Status: Acute Plan: ID has evaluated She has Klebsiella in the urine On Rocephin (3) Sepsis ICD Codes: A41.9 - Sepsis, unspecified organism Status: Acute Plan: Secondary to UTI Ecoli per culture report ID managing antibiotics (4) Fall ICD Codes: W19.XXXA - Unspecified fall, initial encounter Status: Resolved Plan: Imaging negative PRN pain control (5) Diabetes mellitus, type 2 ICD Codes: E11.9 - Type 2 diabetes mellitus Status: Chronic Plan: Maintain glucose 140-180 mg/dL Insulin as needed (6) Hypokalemia ICD Codes: E87.6 - Hypokalemia Plan: Replace cautiously Repeat labs Problem Qualifiers (1) Sepsis: Qualified Codes: A41.9 - Sepsis, unspecified organism (2) Fall: Qualified Codes: W19.XXXA - Unspecified fall, initial encounter Jacobo Camacho MD Feb 16, 2017 17:00
[2017-02-16 20:00] VITALS: BP 110/64; PULSE 80; PULSE 81; RESP 20; TEMP 97.9; O2SAT 96
[2017-02-16] MEDS: INSULIN DETEMIR 100 UNITS/ML VIAL SQ SCH (21:00)
[2017-02-17] VITALS (7 sets, daily range): BP systolic 119–146; BP diastolic 56–84; PULSE 65–115; RESP 17–21; TEMP 96.8–98.6; O2SAT 90–99
[2017-02-17] MEDS: ACETAMINOPHEN/HYDROcodone 325 MG/5 MG TAB PO PRN ×4 (00:01→18:28)
[2017-02-17] MEDS: MAGNESIUM OXIDE 400 MG TAB PO SCH ×3 (00:01→22:56)
[2017-02-17] MEDS: LEVOTHYROXINE SODIUM 88 MCG TAB PO SCH (05:56)
[2017-02-17] MEDS: LORazepam 1 MG TAB PO PRN ×3 (05:56→22:56)
[2017-02-17 06:57] LABS: AUTOMATED NEUTROPHIL # 5.4 TH/MM3 (1.8-7.7); BASOPHIL # 0.1 TH/MM3 (0-0.2); BASOPHIL % 1.2 % (0.0-2.0); EOSINOPHIL # 0.3 TH/MM3 (0-0.4); HEMATOCRIT 30.9 % (35.0-46.0); LYMPH % 21.6 % (9.0-44.0); LYMPHOCYTE # 1.8 TH/MM3 (1.0-4.8); MEAN CELL VOLUME 85.3 FL (80.0-100.0); MEAN CORPUSCULAR HEMOGLOBIN 27.8 PG (27.0-34.0); MEAN CORPUSCULAR HGB CONC 32.6 % (32.0-36.0); MONO % 9.7 % (0.0-8.0); NEUT % 63.5 % (16.0-70.0); PLATELET COUNT 387 TH/MM3 (150-450); RED BLOOD COUNT 3.62 MIL/MM3 (4.00-5.30); RED CELL DISTRIBUTION WIDTH 17.7 % (11.6-17.2); WHITE BLOOD COUNT 8.5 TH/MM3 (4.0-11.0)
[2017-02-17 07:05] LABS: HEMO FLAGS AUTO DIFF
[2017-02-17 07:20] LABS: BICARBONATE 28.5 MEQ/L (21.0-32.0); POTASSIUM 3.4 MEQ/L (3.5-5.1)
[2017-02-17] MEDS: RESP: ALBUTEROL 2.5 MG/IPRATROPIUM 0.5 MG NEB (SCH) NEB ×2 (07:41→11:50)
[2017-02-17] MEDS ORDERED: POTASSIUM CHLORIDE 20 MEQ CONTROLLED RELEASE TAB PO ONE (07:45)
[2017-02-17] MEDS: INSULIN ASPART SUPPLEMENTAL SCALE SQ SCH ×4 (07:51→23:01)
[2017-02-17] MEDS: METOPROLOL TARTRATE 100 MG TAB PO SCH ×2 (09:00→12:20)
[2017-02-17] MEDS: CITALOPRAM HYDROBROMIDE 40 MG TAB PO SCH (09:35)
[2017-02-17] MEDS: DICYCLOMINE HCL 10 MG CAP PO SCH (09:35)
[2017-02-17] MEDS: MEMANTINE HCL 10 MG TAB PO SCH ×2 (09:37→22:56)
[2017-02-17] MEDS: SODIUM CHLORIDE 0.9% FLUSH 10 ML FLUSH IV FLUSH SCH ×2 (09:37→22:58)
[2017-02-17] MEDS: cefTRIAXone INJ 1,000 MG in SODIUM CHLORIDE 0.9% INJ 100 ML IV SCH (09:38)
--- NOTE | 2017-02-17 10:55 | HHI.IDPN ---
Note Infectious Disease Note Patient feels okay No chills. Afebrile. Denies dysuria. PAST MEDICAL HISTORY Hypertension, diabetes mellitus, chronic pain, COPD, obesity, degenerative back disk disease, gastric bypass, bilateral knee replacement. ALLERGIES PENICILLIN, SULFAMETHOXAZOLE, TRIMETHOPRIM. Current Medications Medications (Trade) Dose Ordered Sig/Rogers Route PRN Reason Start Time Stop Time Status Last Admin Dose Admin Sodium Chloride (NS Flush) 2 ml UNSCH PRN IV FLUSH FLUSH AFTER USING IV ACCESS 02/12/17 20:45 Sodium Chloride (NS Flush) 2 ml BID IV FLUSH 02/12/17 21:00 02/17/17 09:37 Naloxone HCl (Narcan Inj) 0.4 mg UNSCH PRN IV PUSH SEE LABEL COMMENTS 02/12/17 20:45 Acetaminophen/ Hydrocodone Bitart ([place] 5-325 Mg) 1 tab Q6H PRN PO pain >5 02/12/17 23:00 02/17/17 05:56 Dextrose (D50w (Vial) Inj) 50 ml UNSCH PRN IV PUSH HYPOGLYCEMIA-SEE COMMENTS 02/12/17 23:00 Glucagon (Glucagon Inj) 1 mg UNSCH PRN OTHER HYPOGLYCEMIA-SEE COMMENTS 02/12/17 23:00 Insulin Aspart (NovoLOG SUPPLEMENTAL SCALE) 1 ACHS SLIDING SCALE SQ 02/12/17 23:30 02/16/17 21:10 Metoprolol Tartrate (Lopressor) 100 mg Q12HR PO 02/13/17 09:00 02/16/17 21:10 Ceftriaxone Sodium 1000 mg/ Sodium Chloride 100 ml @ 200 mls/hr Q24H IV 02/13/17 09:00 02/17/17 09:38 Albuterol Sulfate (Albuterol Neb) 2.5 mg Q2HR NEB PRN NEB DYSPNEA 02/13/17 11:30 02/15/17 02:50 Albuterol/ Ipratropium (Duoneb Neb) 1 ampule QID NEB NEB 02/13/17 12:00 02/15/17 12:25 Amlodipine Besylate (Norvasc) 10 mg DAILY PO 02/14/17 09:00 02/16/17 08:30 Citalopram Hydrobromide (CeleXA) 40 mg DAILY PO 02/14/17 09:00 02/17/17 09:35 Dicyclomine HCl (Bentyl) 10 mg DAILY PO 02/14/17 09:00 02/17/17 09:35 Levothyroxine Sodium (Synthroid) 88 mcg DAILY@0600 PO 02/14/17 06:00 02/17/17 05:56 Lorazepam (Ativan) 1 mg Q8H PRN PO ANXIETY 02/13/17 19:30 02/17/17 05:56 Memantine (Namenda) 10 mg BID PO 02/13/17 21:00 02/17/17 09:37 Magnesium Oxide (Mag-Ox) 400 mg Q12H PO 02/14/17 11:00 02/17/17 00:01 Insulin Detemir (Levemir Inj) 10 units HS SQ 02/15/17 21:00 02/16/17 21:00 SOCIAL HISTORY No tobacco, no alcohol. Denies illicit drugs. FAMILY HISTORY Noncontributory. OBJECTIVE: Vital Signs Date Time Temp Pulse Resp B/P (MAP) Pulse Ox O2 Delivery O2 Flow Rate FiO2 02/17/17 08:00 81 17 121/56 (77) 97 02/17/17 06:56 18 02/17/17 04:00 97.0 65 20 125/64 (84) 99 02/17/17 00:00 96.8 75 20 120/57 (78) 99 02/16/17 20:00 97.9 80 20 110/64 (79) 96 02/16/17 20:00 81 02/16/17 16:00 97.6 71 18 136/62 (86) 97 02/16/17 12:00 97.8 74 18 117/58 (77) 99 Laboratory Tests Test 02/16/17 11:53 02/17/17 05:54 White Blood Count 8.4 TH/MM3 8.5 TH/MM3 Red Blood Count 3.93 MIL/MM3 3.62 MIL/MM3 Hemoglobin 11.0 GM/DL 10.1 GM/DL Hematocrit 33.9 % 30.9 % Mean Corpuscular Volume 86.3 FL 85.3 FL Mean Corpuscular Hemoglobin 28.1 PG 27.8 PG Mean Corpuscular Hemoglobin Concent 32.6 % 32.6 % Red Cell Distribution Width 17.6 % 17.7 % Platelet Count 333 TH/MM3 387 TH/MM3 Mean Platelet Volume 8.6 FL 8.3 FL Neutrophils (%) (Auto) 66.4 % 63.5 % Lymphocytes (%) (Auto) 18.9 % 21.6 % Monocytes (%) (Auto) 9.0 % 9.7 % Eosinophils (%) (Auto) 4.4 % 4.0 % Basophils (%) (Auto) 1.3 % 1.2 % Neutrophils # (Auto) 5.6 TH/MM3 5.4 TH/MM3 Lymphocytes # (Auto) 1.6 TH/MM3 1.8 TH/MM3 Monocytes # (Auto) 0.8 TH/MM3 0.8 TH/MM3 Eosinophils # (Auto) 0.4 TH/MM3 0.3 TH/MM3 Basophils # (Auto) 0.1 TH/MM3 0.1 TH/MM3 CBC Comment DIFF FINAL AUTO DIFF Differential Comment Laboratory Tests Test 02/16/17 10:23 02/17/17 05:54 Blood Urea Nitrogen 51 MG/DL 51 MG/DL Creatinine 2.11 MG/DL 2.11 MG/DL Random Glucose 147 MG/DL 143 MG/DL Calcium Level 7.6 MG/DL 7.5 MG/DL Sodium Level 136 MEQ/L 140 MEQ/L Potassium Level 3.9 MEQ/L 3.4 MEQ/L Chloride Level 102 MEQ/L 104 MEQ/L Carbon Dioxide Level 24.0 MEQ/L 28.5 MEQ/L Anion Gap 10 MEQ/L 8 MEQ/L Estimat Glomerular Filtration Rate 23 ML/MIN 23 ML/MIN Magnesium Level 2.0 MG/DL Microbiology Date/Time Source Procedure Growth Status 02/14/17 19:01 Blood Peripheral Aerobic Blood Culture - Preliminary NO GROWTH IN 2 DAYS Resulted 02/14/17 19:01 Blood Peripheral Anaerobic Blood Culture - Preliminary NO GROWTH IN 2 DAYS Resulted 02/14/17 18:55 Blood Peripheral Aerobic Blood Culture - Preliminary NO GROWTH IN 2 DAYS Resulted 02/14/17 18:55 Blood Peripheral Anaerobic Blood Culture - Preliminary NO GROWTH IN 2 DAYS Resulted PHYSICAL EXAMINATION GENERAL: No acute distress. She is awake and alert and oriented. HEENT: Head is atraumatic. Extraocular movements grossly intact, pupils reactive to light without icterus. Oropharynx moist mucosa without lesions. NECK: Supple without adenopathy. LUNGS: Decreased clear breath sounds HEART: Regular S1-S2. 3/6 NEELAM. ABDOMEN: Bowel sounds present, obese, soft, nontender. EXTREMITIES: No clubbing, cyanosis or edema. Mild erythema at both distal tibias. SKIN: No diffuse rash. NEURO: Nonfocal. PSYCHIATRIC: calm and cooperative. IMPRESSION 1. Sepsis due to E-coli (S) to ceftriaxone. WBC improved. Temp improved. 2. UTI due to Klebsiella. 3. Stage IV chronic kidney disease. Renal following. RECOMMENDATIONS Continue ceftriaxone IV. Can switch to PO Ceftin 250 mg bid if Blood culture is negative at 72 hours. Treat until 02/22. Isidro Owens MD Feb 17, 2017 10:55
[2017-02-17 11:19] LABS: BANDS 1 % (0-6); EOSINOPHILS 2 % (0-4); METAMYELOCYTES 3 % (0-1); POLYS (SEG NEUTROPHILS) 67 % (16-70); WBC DIFF SAMPLE 100
[2017-02-17 11:20] LABS: PLATELET ESTIMATE SMEAR NORMAL (NORMAL); PLATELET MORPHOLOGY NORMAL (NORMAL); SCAN/DIFF FINAL DIFF MANUAL
--- NOTE | 2017-02-17 11:52 | HHI.PR ---
Subjective Remarks Follow-up sepsis, bacteremia. Patient states that she feels much better today. No specific complaints at this time. She wants to go home as soon as possible. She does not want to go to rehabilitation. Objective Vitals Vital Signs Date Time Temp Pulse Resp B/P (MAP) Pulse Ox O2 Delivery O2 Flow Rate FiO2 02/17/17 08:00 81 17 121/56 (77) 97 02/17/17 06:56 18 02/17/17 04:00 97.0 65 20 125/64 (84) 99 02/17/17 00:00 96.8 75 20 120/57 (78) 99 02/16/17 20:00 97.9 80 20 110/64 (79) 96 02/16/17 20:00 81 02/16/17 16:00 97.6 71 18 136/62 (86) 97 02/16/17 12:00 97.8 74 18 117/58 (77) 99 I/O 02/16/17 02/16/17 02/16/17 02/17/17 02/17/17 02/17/17 07:00 15:00 23:00 07:00 15:00 23:00 Intake Total 320 ml 100 ml 2040 ml 480 ml Output Total 950 ml 1800 ml 650 ml Balance -630 ml 100 ml 240 ml -170 ml Intake Oral 320 ml 2040 ml 480 ml IV Total 100 ml Output Urine Total 950 ml 1800 ml 650 ml # Bowel Movements 0 0 0 Result Diagram: 02/17/17 0554 02/17/17 0554 Imaging Last Impressions Lumbar Spine CT 02/12/171647 Signed Impressions: Service Date/Time: Sunday, February 12, 2017 17:01 - CONCLUSION: 1. No acute fracture or subluxation. 2. Redemonstration of advanced multilevel degenerative spondylosis most prominently at L3-5 with resultant moderate spinal canal stenosis. Kelvin Suazo MD Hip and Pelvis X-Ray 02/12/171647 Signed Impressions: Service Date/Time: Sunday, February 12, 2017 17:18 - CONCLUSION: 1. No acute fracture or dislocation. Kelvin Suazo MD Head CT 02/12/171647 Signed Impressions: Service Date/Time: Sunday, February 12, 2017 16:56 - CONCLUSION: 1. No acute intracranial abnormality or significant interval change. Kelvin Suazo MD Cervical Spine CT 02/12/17 1648 Signed Impressions: Service Date/Time: Sunday, February 12, 2017 16:57 - CONCLUSION: No acute cervical spine abnormality is identified. There is stable degenerative disc disease at multiple levels and grade 1 anterolisthesis of C4 on C5. Nils Koehler MD Chest X-Ray 02/12/17 1623 Signed Impressions: Service Date/Time: Sunday, February 12, 2017 17:18 - CONCLUSION: 1. Persistent low lung volumes without acute abnormality or significant interval change. Kelvin Suazo MD Abdomen/Pelvis CT 02/12/17 0000 Signed Impressions: Service Date/Time: Sunday, February 12, 2017 19:42 - CONCLUSION: 1. No acute abnormality. 2. Prior granulomatous disease. 3. Degenerative changes of the lumbar spine. Conner Nolasco Jr., MD Objective Remarks General: Obese elderly female in no acute distress. Sitting up in a chair. Heart: Regular rate and rhythm. No murmur. Lungs: Mild scattered wheeze. Breathing is nonlabored. Abdomen: Soft, nontender, nondistended. Extremities: No lower extremity edema. Chronic venous stasis changes bilaterally. Psych: Alert and oriented. Procedures None Urinary Catheter: No Vascular Central Line Catheter: No A/P Assessment and Plan 1. Sepsis: Secondary to UTI (Klebsiella). Patient also has bacteremia with Escherichia coli. Appreciate infectious disease recommendations. Continue IV fluids. Repeat blood cultures are negative 72 hours. Switch from Rocephin to oral Ceftin. Treat until 02/22/17. 2. Hypertension: Continue metoprolol, amlodipine. 3. Diabetes mellitus: Monitor Accu-Cheks and cover with sliding scale insulin. Glucose has been elevated. Continue Levemir. 4. COPD: Patient is reportedly a nonsmoker. Supplemental oxygen as needed. Bronchodilators. 5. Hypokalemia: Improved. 6. Hypomagnesemia: Supplement magnesium. 7. Acute kidney injury superimposed on chronic kidney disease stage III: Appreciate nephrology recommendations. Improving. 8. Dementia: Continue Namenda. 9. DVT prophylaxis: Heparin. Discharge Planning Possible discharge home with home health care versus to SNF tomorrow. Skip Oh MD Feb 17, 2017 11:52
--- NOTE | 2017-02-17 11:57 | HHI.NPPN ---
Subjective General Problems: Anemia Renal Failure: Chronic, Stage IV Interval History She looks well. Renal function is stable. (Marlene Mcallister) Review of Systems General Constitutional: Fatigue (Marlene Mcallister) Objective Data Data Vital Signs Date Time Temp Pulse Resp B/P (MAP) Pulse Ox O2 Delivery O2 Flow Rate FiO2 02/17/17 08:00 81 17 121/56 (77) 97 02/17/17 06:56 18 02/17/17 04:00 97.0 65 20 125/64 (84) 99 02/17/17 00:00 96.8 75 20 120/57 (78) 99 02/16/17 20:00 97.9 80 20 110/64 (79) 96 02/16/17 20:00 81 02/16/17 16:00 97.6 71 18 136/62 (86) 97 02/16/17 12:00 97.8 74 18 117/58 (77) 99 (Marlene Mcallister) -: 02/17/17 0554 02/17/17 0554 Physical Exam General Appearance: Well Developed, Well Nourished, No Acute Distress, Comfortable (Marlene Mcallister) Throat Throat Exam: Oral Mucosa [place] & Moist (Marlene Mcallister) Neck Neck Exam: Neck Supple (Marlene Mcallister) Pulmonary Resp Exam: No Distress, Crackles (Marlene Mcallister) Cardiology CV Exam: Regular, Normal Sinus Rhythm, Good Perfusion (Marlene Mcallister) Gastrointestinal/Abdomen GI Exam: Soft, Non-Tender, Bowel Sounds Present (Marlene Mcallister) Musculoskeletal MS Exam: Joints Intact, Normal Tone, Good Strength (Marlene Mcallister) Integumentary Skin Exam: Warm, Dry Skin Remarks lower extremity chronic cellulitic appearing (Marlene Mcallister) Extremeties Extremities Exam: Pedal Pulses Palpable, Trace Edema (Marlene Mcallister) Neurologic Neuro Exam: Alert, Awake, Oriented, Speech Clear, Moving All Extremities (Marlene Mcallister) Psychiatric Psych Exam: Appropriate Responses (Marlene Mcallister) Assessment/Plan Discussed Condition With: Patient Assessment Summary: MISSY/Acute Renal Failure, Anemia of CKD, Hypertension, Diabetes Mellitus, CKD Stage III Electrolyte Assessment: Hypokalemia Problem List: (1) MISSY (acute kidney injury) ICD Codes: N17.9 - Acute kidney failure, unspecified Status: Acute Plan: MISSY on CKD 3, baseline creatinine 1.93, GFR 26 MISSY due to sepsis secondary to UTI Renal function is improving, stable currently Off IVF, tolerating oral Replace potassium Avoid nephrotoxins, renally dose when appropriate Dr. Gilbert to follow (2) UTI (urinary tract infection) ICD Codes: N39.0 - Urinary tract infection, site not specified Status: Acute Plan: ID has evaluated On ceftin PO (3) Sepsis ICD Codes: A41.9 - Sepsis, unspecified organism Status: Acute Plan: Secondary to UTI Ecoli per culture report ID managing antibiotics (4) Fall ICD Codes: W19.XXXA - Unspecified fall, initial encounter Status: Resolved Plan: Imaging negative PRN pain control (5) Diabetes mellitus, type 2 ICD Codes: E11.9 - Type 2 diabetes mellitus Status: Chronic Plan: Maintain glucose 140-180 mg/dL Insulin as needed (6) Hypokalemia ICD Codes: E87.6 - Hypokalemia Plan: Replace cautiously Repeat labs Plan She is cleared for discharge from renal perspective. (Marlene Mcallister) Plan patient was seen and examined. Agree with above assessment and plan. She can be discharged from renal standpoint. (Erick Gilbert MD) Problem Qualifiers (1) Sepsis: Qualified Codes: A41.9 - Sepsis, unspecified organism (2) Fall: Qualified Codes: W19.XXXA - Unspecified fall, initial encounter Marlene Mcallister Feb 17, 2017 11:57 Erick Gilbert MD Feb 18, 2017 11:32
[2017-02-17] MEDS: CEFUROXIME AXETIL 250 MG TAB PO SCH (22:57)
[2017-02-17] MEDS: INSULIN DETEMIR 100 UNITS/ML VIAL SQ SCH (23:00)
[2017-02-18] VITALS (7 sets, daily range): BP systolic 122–167; BP diastolic 62–83; PULSE 67–104; RESP 16–18; TEMP 96.6–98.8; O2SAT 96–99
[2017-02-18] MEDS: ACETAMINOPHEN/HYDROcodone 325 MG/5 MG TAB PO PRN ×4 (01:02→21:42)
[2017-02-18] MEDS: LEVOTHYROXINE SODIUM 88 MCG TAB PO SCH (05:30)
[2017-02-18 07:26] LABS: AUTOMATED NEUTROPHIL # 5.1 TH/MM3 (1.8-7.7); BASOPHIL # 0.1 TH/MM3 (0-0.2); BASOPHIL % 1.4 % (0.0-2.0); EOSINOPHIL # 0.3 TH/MM3 (0-0.4); EOSINOPHIL % 3.7 % (0.0-4.0); HEMATOCRIT 28.8 % (35.0-46.0); LYMPH % 25.9 % (9.0-44.0); LYMPHOCYTE # 2.1 TH/MM3 (1.0-4.8); MEAN CELL VOLUME 86.4 FL (80.0-100.0); MEAN CORPUSCULAR HEMOGLOBIN 28.4 PG (27.0-34.0); MEAN CORPUSCULAR HGB CONC 32.9 % (32.0-36.0); MONO % 6.7 % (0.0-8.0); NEUT % 62.3 % (16.0-70.0); PLATELET COUNT 419 TH/MM3 (150-450); RED BLOOD COUNT 3.34 MIL/MM3 (4.00-5.30); RED CELL DISTRIBUTION WIDTH 17.4 % (11.6-17.2); WHITE BLOOD COUNT 8.1 TH/MM3 (4.0-11.0)
[2017-02-18 07:39] LABS: HEMO FLAGS AUTO DIFF
[2017-02-18] MEDS: INSULIN ASPART SUPPLEMENTAL SCALE SQ SCH ×4 (08:00→21:58)
[2017-02-18 08:14] LABS: BICARBONATE 27.8 MEQ/L (21.0-32.0); POTASSIUM 3.6 MEQ/L (3.5-5.1)
[2017-02-18] MEDS: CITALOPRAM HYDROBROMIDE 40 MG TAB PO SCH (08:26)
[2017-02-18] MEDS: CEFUROXIME AXETIL 250 MG TAB PO SCH ×2 (08:26→21:42)
[2017-02-18] MEDS: LORazepam 1 MG TAB PO PRN ×2 (08:26→16:45)
[2017-02-18] MEDS: SODIUM CHLORIDE 0.9% FLUSH 10 ML FLUSH IV FLUSH SCH ×2 (08:27→21:58)
[2017-02-18] MEDS: METOPROLOL TARTRATE 100 MG TAB PO SCH ×2 (08:27→21:42)
[2017-02-18] MEDS: MEMANTINE HCL 10 MG TAB PO SCH ×2 (08:27→21:42)
[2017-02-18] MEDS: DICYCLOMINE HCL 10 MG CAP PO SCH (08:27)
[2017-02-18 09:43] LABS: BANDS 5 % (0-6); BASOPHILS 1 % (0-2); EOSINOPHILS 3 % (0-4); METAMYELOCYTES 1 % (0-1); MYELOCYTES 1 % (0-0); NEUTROPHIL # MANUAL DIFF 5.1 TH/MM3 (1.8-7.7); PLASMA CELLS 2 % (0-0); PLATELET ESTIMATE SMEAR NORMAL (NORMAL); PLATELET MORPHOLOGY NORMAL (NORMAL); POLYS (SEG NEUTROPHILS) 56 % (16-70); SCAN/DIFF FINAL DIFF MANUAL; WBC DIFF SAMPLE 100
[2017-02-18] MEDS: MAGNESIUM OXIDE 400 MG TAB PO SCH ×2 (10:57→23:21)
[2017-02-18] MEDS ORDERED: CEFU1TAB18 PO (11:07)
[2017-02-18] MEDS ORDERED: GLUCKIT15 (11:07)
[2017-02-18] MEDS ORDERED: LEVEMIR SQ (11:07)
[2017-02-18] MEDS ORDERED: GLUCTES12 (11:07)
[2017-02-18] MEDS ORDERED: LANCETS1 MI1 (11:07)
[2017-02-18] MEDS ORDERED: MAGN400T2 PO (11:07)
--- NOTE | 2017-02-18 11:08 | HHI.DCPOC ---
Discharge Care Plan Diagnosis: (1) Diabetes mellitus, type 2 (2) Hypokalemia (3) MISSY (acute kidney injury) (4) Sepsis (5) Hypothyroidism (6) UTI (urinary tract infection) Goals to Promote Your Health * To prevent worsening of your condition and complications * To maintain your health at the optimal level Directions to Meet Your Goals Take your medications as prescribed Follow your dietary instruction Follow activity as directed Keep your appointments as scheduled Take your immunizations and boosters as scheduled If your symptoms worsen call your PCP, if no PCP go to Urgent Care Center or Emergency Room Smoking is Dangerous to Your Health. Avoid second hand smoke Call the 24-hour hour crisis hotline for domestic abuse at Skip Oh MD Feb 18, 2017 11:08
--- NOTE | 2017-02-18 11:09 | HHI.FF ---
Face to Face Verification Diagnosis: (1) Diabetes mellitus, type 2 (2) Hypothyroidism (3) Hypokalemia (4) UTI (urinary tract infection) (5) Chronic back pain (6) Sepsis Physical Therapy Order: Evaluate and Treat Home Health Nursing Order: Nursing assessment with vital signs I have seen patient Natalie Jeong on 02/18/17. My clinical findings support the need for the requested home health care services because: High risk of falls I certify that my clinical findings support that this patient is homebound because: Unsteady gait/balance Skip Oh MD Feb 18, 2017 11:09
--- NOTE | 2017-02-18 11:12 | HHI.DS ---
Discharge Summary Admission Date Feb 12, 2017 at 19:11 Discharge Date: Feb 18, 2017 Admitting Diagnosis acute sepsis, unclear source, fall, acute kidney failure (1) Diabetes mellitus, type 2 ICD Code: E11.9 - Type 2 diabetes mellitus Status: Chronic (2) Hypothyroidism ICD Code: E03.9 - Hypothyroidism, unspecified Status: Chronic (3) Hypokalemia ICD Code: E87.6 - Hypokalemia (4) UTI (urinary tract infection) ICD Code: N39.0 - Urinary tract infection, site not specified Status: Acute (5) MISSY (acute kidney injury) ICD Code: N17.9 - Acute kidney failure, unspecified Status: Acute (6) Sepsis ICD Code: A41.9 - Sepsis, unspecified organism Status: Acute (7) Benign hypertension ICD Code: I10 - Benign hypertension Status: Chronic Procedures None Brief History - From Admission daughter took her meds opiates and is now under psychiatry care here pt went to Dr Encarnacion office and was asking for prescription and he sent her here pt stated she fell when she was trying to help daughter on friday yesterday airport driver and son got her out of floor and put her on recliner and thats where she stayed son came and got her in the mornign and she walked with walker to car, and went to Dr Pizano office c/o pain in her left hip, leg, and neck pain not aware of fevers at home but was found to have fever here with chills reports of chills at home too - starting yesterday no cough/ no nausea/ no vomiting/ no diarrhea no blood in stool or urine no urinary pain or burning or frequency no bed sores no chest pain/.abdominal pain/ dizz/ syncope no other symptoms CBC/BMP: 02/18/17 0614 02/18/17 0614 Significant Findings Laboratory Tests Test 02/16/17 10:23 02/16/17 11:53 02/17/17 05:54 02/18/17 06:14 Blood Urea Nitrogen 51 MG/DL (7-18) 51 MG/DL (7-18) 39 MG/DL (7-18) Creatinine 2.11 MG/DL (0.50-1.00) 2.11 MG/DL (0.50-1.00) 1.60 MG/DL (0.50-1.00) Random Glucose 147 MG/DL (74-106) 143 MG/DL (74-106) 153 MG/DL (74-106) Calcium Level 7.6 MG/DL (8.5-10.1) 7.5 MG/DL (8.5-10.1) 7.6 MG/DL (8.5-10.1) Estimat Glomerular Filtration Rate 23 ML/MIN (>89) 23 ML/MIN (>89) 32 ML/MIN (>89) Red Blood Count 3.93 MIL/MM3 (4.00-5.30) 3.62 MIL/MM3 (4.00-5.30) 3.34 MIL/MM3 (4.00-5.30) Hemoglobin 11.0 GM/DL (11.6-15.3) 10.1 GM/DL (11.6-15.3) 9.5 GM/DL (11.6-15.3) Hematocrit 33.9 % (35.0-46.0) 30.9 % (35.0-46.0) 28.8 % (35.0-46.0) Red Cell Distribution Width 17.6 % (11.6-17.2) 17.7 % (11.6-17.2) 17.4 % (11.6-17.2) Monocytes (%) (Auto) 9.0 % (0.0-8.0) 9.7 % (0.0-8.0) Eosinophils (%) (Auto) 4.4 % (0.0-4.0) Metamyelocytes 3 % (0-1) Potassium Level 3.4 MEQ/L (3.5-5.1) Myelocytes 1 % (0-0) Plasma Cells 2 % (0-0) Imaging Last Impressions Lumbar Spine CT 02/12/17 3746 Signed Impressions: Service Date/Time: Sunday, February 12, 2017 17:01 - CONCLUSION: 1. No acute fracture or subluxation. 2. Redemonstration of advanced multilevel degenerative spondylosis most prominently at L3-5 with resultant moderate spinal canal stenosis. Kelvin Bozorgmanesh, MD Hip and Pelvis X-Ray 02/12/17 1648 Signed Impressions: Service Date/Time: Sunday, February 12, 2017 17:18 - CONCLUSION: 1. No acute fracture or dislocation. Kelvin Suazo MD Head CT 02/12/17 1648 Signed Impressions: Service Date/Time: Sunday, February 12, 2017 16:56 - CONCLUSION: 1. No acute intracranial abnormality or significant interval change. Kelvin Suazo MD Cervical Spine CT 02/12/17 1648 Signed Impressions: Service Date/Time: Sunday, February 12, 2017 16:57 - CONCLUSION: No acute cervical spine abnormality is identified. There is stable degenerative disc disease at multiple levels and grade 1 anterolisthesis of C4 on C5. Nils Koehler MD Chest X-Ray 02/12/17 1623 Signed Impressions: Service Date/Time: Sunday, February 12, 2017 17:18 - CONCLUSION: 1. Persistent low lung volumes without acute abnormality or significant interval change. Kelvin Suazo MD Abdomen/Pelvis CT 02/12/17 0000 Signed Impressions: Service Date/Time: Sunday, February 12, 2017 19:42 - CONCLUSION: 1. No acute abnormality. 2. Prior granulomatous disease. 3. Degenerative changes of the lumbar spine. Conner Nolasco Jr., MD PE at Discharge General: Obese elderly female in no acute distress. Sitting up in a chair. Heart: Regular rate and rhythm. No murmur. Lungs: Mild scattered wheeze. Breathing is nonlabored. Abdomen: Soft, nontender, nondistended. Extremities: No lower extremity edema. Chronic venous stasis changes bilaterally. Psych: Alert and oriented. Pt update on day of discharge The patient has no complaints at this time. She wants to go home. Denies chest pain, dyspnea, nausea, vomiting. Hospital Course Patient was admitted for treatment of acute renal failure, UTI, sepsis. She was started on IV antibiotics. Nephrology and infectious disease were consulted. Antibiotics were adjusted. Patient was continued on IV fluids. Initial blood culture grew Escherichia coli. Repeat blood culture was negative. Infectious disease remained recommendations for switching to oral antibiotics. Her renal function improved throughout the hospitalization. She was cleared for discharge by nephrology. Pt Condition on Discharge: Stable Discharge Disposition: Disch w/ Home Health Serv Discharge Time: > 30 minutes Discharge Instructions DIET: Follow Instructions for: Diabetic Diet Activities you can perform: Regular-No Restrictions Follow up Referrals: Nephrology - 1 Week with Erick Gilbert MD PCP Follow-up - 1 Week New Medications: Blood Glucose Monitoring W/Device (Glucocom Blood Glucose Mo W/Device) 1 Kit Kit KIT .ROUTE DIRECTED for Blood Sugar Management, #1 Check glucose BID Glucocom Test Strips (Glucocom Test Strips) 1 Antonieta Antonieta EA .ROUTE DIRECTED for Blood Sugar Management, #1 Lancets (Lancets) 1 Mis Mis EA .ROUTE DIRECTED for Blood Sugar Management, #1 0 Refills Cefuroxime (Ceftin) 250 Mg Tab 250 MG PO Q12HR for Infection, #10 TAB 0 Refills Insulin Detemir Inj (Levemir Inj) 1,000 unit/ 10 ML Vial 10 UNITS SQ HS for Blood Sugar Management, #30 INJECTION 0 Refills Do not mix with any other Insulin. Magnesium Oxide (Magnesium Oxide) 400 Mg Tab 400 MG PO Q12H for Electrolyte Replacement, #60 TAB 0 Refills Continued Medications: Amlodipine (Norvasc) 10 Mg Tab 10 MG PO DAILY for Blood Pressure Management, #30 TAB 0 Refills Cholecalciferol (D-5000) 5,000 Unit Tab Citalopram (Celexa) 40 Mg Tab 40 MG PO DAILY for Control Depression, #30 TAB 0 Refills Dicyclomine (Dicyclomine) 10 Mg Cap 10 MG PO DAILY for Bowel Management, CAP 0 Refills Levothyroxine (Levothyroxine) 88 Mcg Tab 88 MCG PO DAILY for Thyroid, #30 TAB 0 Refills Lorazepam (Lorazepam) 1 Mg Tab 1 MG PO Q8H PRN for ANXIETY, TAB 0 Refills Memantine (Namenda) 10 Mg Tab 10 MG PO BID for Alzheimer Disease, #30 TAB 0 Refills Metoprolol Tartrate (Metoprolol Tartrate) 100 Mg Tab 100 MG PO BID, #60 TAB 0 Refills Skip Oh MD Feb 18, 2017 11:12
--- NOTE | 2017-02-18 12:29 | HHI.NPPN ---
Subjective General Problems: Anemia Renal Failure: Chronic, Stage IV Interval History Renal function is better. She is to be discharged in AM . (Marlene Mcallister) Review of Systems General Constitutional: Fatigue (Marlene Mcallister) Objective Data Data Vital Signs Date Time Temp Pulse Resp B/P (MAP) Pulse Ox O2 Delivery O2 Flow Rate FiO2 02/18/17 08:00 96.7 93 17 140/66 (90) 96 02/18/17 04:00 96.6 98 17 167/79 (108) 99 02/18/17 04:00 96.6 98 17 167/79 (108) 99 02/18/17 00:00 97.1 86 16 163/65 (97) 98 02/17/17 20:00 98.6 99 17 123/60 (81) 96 02/17/17 19:07 100 02/17/17 16:00 97.0 85 17 119/59 (79) 97 (Marlene Mcallister) -: 02/18/17 0614 02/18/17 0614 Physical Exam General Appearance: Well Developed, Well Nourished, No Acute Distress, Comfortable (Marlene Mcallister) Throat Throat Exam: Oral Mucosa [place] & Moist (Marlene Mcallister) Neck Neck Exam: Neck Supple (Marlene Mcallister) Pulmonary Resp Exam: No Distress, Crackles (Marlene Mcallister) Cardiology CV Exam: Regular, Normal Sinus Rhythm, Good Perfusion (Marlene Mcallister) Gastrointestinal/Abdomen GI Exam: Soft, Non-Tender, Bowel Sounds Present (Marlene Mcallister) Musculoskeletal MS Exam: Joints Intact, Normal Tone, Good Strength (Marlene Mcallister) Integumentary Skin Exam: Warm, Dry Skin Remarks lower extremity chronic cellulitic appearing (Marlene Mcallister) Extremeties Extremities Exam: Pedal Pulses Palpable, Trace Edema (Marlene Mcallister) Neurologic Neuro Exam: Alert, Awake, Oriented, Speech Clear, Moving All Extremities (Marlene Mcallister) Psychiatric Psych Exam: Appropriate Responses (Marlene Mcallister) Assessment/Plan Discussed Condition With: Patient Assessment Summary: MISSY/Acute Renal Failure, Anemia of CKD, Hypertension, Diabetes Mellitus, CKD Stage III Electrolyte Assessment: Hypokalemia Problem List: (1) MISSY (acute kidney injury) ICD Codes: N17.9 - Acute kidney failure, unspecified Status: Acute Plan: MISSY on CKD 3, baseline creatinine 1.93, GFR 26 MISSY due to sepsis secondary to UTI Renal function improved We will follow her in CKD clinic Advised to avoid NSAIDs (2) UTI (urinary tract infection) ICD Codes: N39.0 - Urinary tract infection, site not specified Status: Acute Plan: ID has evaluated On ceftin PO (3) Sepsis ICD Codes: A41.9 - Sepsis, unspecified organism Status: Acute Plan: Secondary to UTI Ecoli per culture report ID managing antibiotics (4) Fall ICD Codes: W19.XXXA - Unspecified fall, initial encounter Status: Resolved Plan: Imaging negative PRN pain control (5) Diabetes mellitus, type 2 ICD Codes: E11.9 - Type 2 diabetes mellitus Status: Chronic Plan: Maintain glucose 140-180 mg/dL Insulin as needed (6) Hypokalemia ICD Codes: E87.6 - Hypokalemia Plan: Replace cautiously Repeat labs Plan We will sign off at this time. She is cleared and stable for discharge. (Marlene Mcallister) Plan patient was seen and examined. Agree with above assessment and plan. Patient's renal function is at baseline, she can be discharged from renal standpoint. (Erick Gilbert MD) Problem Qualifiers (1) Sepsis: Qualified Codes: A41.9 - Sepsis, unspecified organism (2) Fall: Qualified Codes: W19.XXXA - Unspecified fall, initial encounter Marlene Mcallister Feb 18, 2017 12:29 Erick Gilbert MD Feb 19, 2017 10:36
--- NOTE | 2017-02-18 14:00 | HHI.FF ---
Face to Face Verification Diagnosis: (1) Hypothyroidism (2) Benign hypertension (3) Diabetes mellitus, type 2 (4) Hypokalemia (5) UTI (urinary tract infection) (6) MISSY (acute kidney injury) (7) Chronic back pain Physical Therapy Order: Evaluate and Treat Home Health Nursing Order: Nursing assessment with vital signs Ups Driver Order: To Evaluate: Living conditions/environment I have seen patient Natalie Jeong on 02/18/17. My clinical findings support the need for the requested home health care services because: High risk of falls I certify that my clinical findings support that this patient is homebound because: Unsteady gait/balance Skip Oh MD Feb 18, 2017 14:00
[2017-02-18] MEDS: INSULIN DETEMIR 100 UNITS/ML VIAL SQ SCH (21:57)
[2017-02-19] VITALS: BP 107/60; PULSE 60; RESP 17; TEMP 97.1; O2SAT 97
[2017-02-19] MEDS: LORazepam 1 MG TAB PO PRN ×2 (01:00→09:18)
[2017-02-19 04:00] VITALS: BP 172/74; PULSE 68; RESP 17; TEMP 96; O2SAT 97
[2017-02-19] MEDS: LEVOTHYROXINE SODIUM 88 MCG TAB PO SCH (05:42)
[2017-02-19] MEDS: ACETAMINOPHEN/HYDROcodone 325 MG/5 MG TAB PO PRN ×2 (05:42→11:55)
[2017-02-19 08:00] VITALS: BP 124/67; PULSE 71; RESP 17; TEMP 96.8; O2SAT 96
[2017-02-19] MEDS: INSULIN ASPART SUPPLEMENTAL SCALE SQ SCH (08:40)
[2017-02-19] MEDS: DICYCLOMINE HCL 10 MG CAP PO SCH (08:41)
[2017-02-19] MEDS: CITALOPRAM HYDROBROMIDE 40 MG TAB PO SCH (08:41)
[2017-02-19] MEDS: CEFUROXIME AXETIL 250 MG TAB PO SCH (08:41)
[2017-02-19] MEDS: METOPROLOL TARTRATE 100 MG TAB PO SCH (08:41)
[2017-02-19] MEDS: MEMANTINE HCL 10 MG TAB PO SCH (08:42)
[2017-02-19] MEDS: SODIUM CHLORIDE 0.9% FLUSH 10 ML FLUSH IV FLUSH SCH (09:00)
[2017-02-19] MEDS: MAGNESIUM OXIDE 400 MG TAB PO SCH (11:25)
== END 2017-02-19 12:17 | disposition home health service (06) | DRG 872 ==
LOC: NEPE 15:58 → NEDA 19:11 → N07A 20:44
PROVIDERS: ADMIT Family Medicine; ATTEND Family Medicine
DX: A41.51 Sepsis due to Escherichia coli [E. coli] (principal); N17.9 Acute kidney failure, unspecified; E87.2 Acidosis; E46 Unspecified protein-calorie malnutrition; N39.0 Urinary tract infection, site not specified; Z68.42 Body mass index [BMI] 45.0-49.9, adult; E11.22 Type 2 diabetes mellitus with diabetic chronic kidney disease; R65.20 Severe sepsis without septic shock; I12.9 Hypertensive chronic kidney disease with stage 1 through stage 4 chronic kidney disease, or unspecified chronic kidney disease; J44.9 Chronic obstructive pulmonary disease, unspecified; R32 Unspecified urinary incontinence; K21.9 Gastro-esophageal reflux disease without esophagitis; E11.65 Type 2 diabetes mellitus with hyperglycemia; G89.29 Other chronic pain; M54.5 Low back pain; S79.912A Unspecified injury of left hip, initial encounter; E66.9 Obesity, unspecified; N18.3 Chronic kidney disease, stage 3 (moderate); E87.6 Hypokalemia; E86.0 Dehydration; G47.00 Insomnia, unspecified; E83.42 Hypomagnesemia; R60.0 Localized edema; F03.90 Unspecified dementia, unspecified severity, without behavioral disturbance, psychotic disturbance, mood disturbance, and anxiety; E03.9 Hypothyroidism, unspecified; H91.90 Unspecified hearing loss, unspecified ear; M19.90 Unspecified osteoarthritis, unspecified site; F32.9 Major depressive disorder, single episode, unspecified; F41.9 Anxiety disorder, unspecified; W01.0XXA Fall on same level from slipping, tripping and stumbling without subsequent striking against object, initial encounter; Z23 Encounter for immunization; Z79.4 Long term (current) use of insulin; Z88.0 Allergy status to penicillin; Z88.2 Allergy status to sulfonamides; Z96.653 Presence of artificial knee joint, bilateral; Z98.84 Bariatric surgery status
CPT/HCPCS: 70450; 71010; 72125; 72131; 73502; 74176; 80048; 80053; 81001; 82550; 82948; 83605; 83735; 84155; 85007; 85025; 85027; 85610; 85730; 87040; 87077; 87086; 87186; 87205; 87804; 90686; 90732; 93005; 94640; 94664; 96365; J0696; J1815; J3370; J3475; J3480; J7030; J7050; J7613; Q2038

== ENCOUNTER 2017-04-05 10:42 | Inpatient (IN) | payer OTHER, MEDICARE ==
[~2017-04-05] VITALS: Ht 152.4 cm; Wt 111.4 kg
[~2017-04-05 10:42] MED LIST changes: +AMLO10 PO; +CEFU1TAB18 PO; +CELE40TA PO; -CITA40 PO; +D-50TAB; -D31000TA PO; +DICY10CA12 PO; -DICY10CA13 PO; -FLAXOIL4 PO; +GLUCKIT15; +GLUCTES12; -HYDR10SO PO; +LANCETS1 MI1; +LEVEMIR SQ; -LORA1TAB PO; +LORA1TAB12 PO; +MAGN400T2 PO; -MORP1INJ45 PO; -MULTCAP13 PO; -NORV10TA PO; -NYSTT TOPICAL; -ONDA8 PO; -SERO100T PO; -VITA10002 PO
[2017-04-05 10:48] VITALS: BP 135/65; PULSE 52; RESP 18; TEMP 97.6; O2SAT 99
[2017-04-05] MEDS ORDERED: SODIUM CHLORID 0.9% 500 ML INJ 500 ML IV ONE (11:00)
[2017-04-05] MEDS ORDERED: SODIUM CHLORIDE 0.9% FLUSH 10 ML FLUSH IV FLUSH PRN ×2 (11:00→14:15)
--- NOTE | 2017-04-05 11:02 | PD ---
HPI Chief Complaint: Fall Time Seen by Provider: 10:46 Travel History International Travel<30 days: No Contact w/Intl Traveler<30days: No Traveled to known affect area: No History of Present Illness HPI The patient is a 67-year-old female who presents to the emergency department via EMS from home for generalized weakness. The patient has a 3 week history of generalized weakness which has progressively worsened over the last week. The patient saw her primary physician, Dr. Savage, who advised her to return his office if her symptoms persisted. However, the patient states her physician's office is not open on the weekend. She does note multiple falls over the last 3 weeks, approximately 3 falls, with progressing weakness of her lower extremities for the last week. She now notes difficulty ambulating to the kitchen and to the bathroom. She does note there is a bruise on the right knee, anterior aspect of her abdomen, but denies any known head injury. She does take aspirin daily. She does have a history of similar symptoms in the past secondary to UTI and dehydration. She denies any fever, chills, or sweats. She denies any chest pain, shortness of breath, nausea, vomiting, diarrhea, or abdominal pain. She does complain of mild dysuria without any hematuria. PFSH Past Medical History Arthritis: Yes Asthma: No Autoimmune Disease: No Anxiety: Yes Depression: Yes Heart Rhythm Problems: No Cancer: No Cardiovascular Problems: Yes High Cholesterol: No Chemotherapy: No Chest Pain: No Congestive Heart Failure: No COPD: No Cerebrovascular Accident: No Diabetes: Yes Diminished Hearing: Yes Endocrine: Yes Gastrointestinal Disorders: No GERD: Yes Genitourinary: No Headaches: No Hepatitis: No Hiatal Hernia: No Hypertension: Yes Immune Disorder: No Implanted Vascular Access Dvce: Yes Kidney Stones: Yes Musculoskeletal: Yes Neurologic: Yes Psychiatric: Yes Reproductive: No Respiratory: Yes Immunizations Current: Yes Migraines: Yes Radiation Therapy: No Renal Failure: Yes (Stage 2) Seizures: No Sleep Apnea: Yes Thyroid Disease: No Ulcer: No ?: Not Past Surgical History Abdominal Surgery: No AICD: No Arteriovenous Shunt: No Cardiac Surgery: No Section: Yes (X 1) Cholecystectomy: Yes Ear Surgery: No Endocrine Surgery: No Eye Surgery: Yes (Bilateral lens implants) Genitourinary Surgery: No Gynecologic Surgery: Yes (Hysterectomy) Hysterectomy: Yes Insulin Pump: No Joint Replacement: Yes (bilateral knee replacements) Neurologic Surgery: No Oral Surgery: Yes (T&A) Pacemaker: No Thoracic Surgery: No Tonsillectomy: Yes Other Surgery: Yes Social History Alcohol Use: No Tobacco Use: No Substance Use: No Allergies-Medications (Allergen,Severity, Reaction): Coded Allergies: penicillin G (Unverified Allergy, Severe, Hives, 04/05/17) lactose (Unverified Allergy, Intermediate, Diarrhea, 04/05/17) sulfamethoxazole (Unverified Adverse Reaction, Unknown, 04/05/17) MAKE GFR DECREASE trimethoprim (Unverified Adverse Reaction, Unknown, 04/05/17) MAKE GFR DECREASE Reported Meds & Prescriptions Reported Meds & Active Scripts Active Glucocom Test Strips (Blood Glucose Test Strips) 1 Antonieta Antonieta Ea .ROUTE DIRECTED Lancets 1 Mis Mis Ea .ROUTE DIRECTED Glucocom Blood Glucose Mo W/Device (Device) 1 Kit Kit Kit .ROUTE DIRECTED Check glucose BID Magnesium Oxide 400 Mg Tab 400 Mg PO Q12H Reported Tresiba Flextouch Pen Inj (Insulin Degludec Inj) 300 unit/3 ML Pen 20 Units SQ DAILY Cranberry Urinary Comfort (Vitamins C & E) 1 Cap 1 Cap PO DAILY Aspirin 81 (Aspirin) 81 Mg Tabdr 81 Mg PO DAILY Quetiapine (Quetiapine Fumarate) 100 Mg Tab 100 Mg PO QID Doxycycline Hyclate 100 Mg Cap 100 Mg PO BID Levothyroxine (Levothyroxine Sodium) 100 Mcg Tab 100 Mcg PO DAILY Namzaric (Memantine-Donepezil) 7-10 mg Cap 1 Cap PO HS Ropinirole 0.5 Mg Tab 0.5 Mg PO TID Tramadol (Tramadol HCl) 50 Mg Tab 50 Mg PO BID PRN Hydrocodone-Acetaminophen 10-325 mg Tab 1 Tab PO Q6H PRN Silvadene Topical (Silver Sulfadiazine) 1 % Cream 1 Applic TOPICAL BID Furosemide 20 Mg Tab 20 Mg PO BID Ativan (Lorazepam) 1 Mg Tab 1 Mg PO TID PRN Calcitriol 0.5 Mcg Cap 0.5 Mcg PO DAILY Metoprolol Tartrate 100 Mg Tab 100 Mg PO BID Celexa (Citalopram Hydrobromide) 40 Mg Tab 40 Mg PO DAILY Review of Systems Except as stated in HPI: all other systems reviewed are Neg General / Constitutional: No: Fever HENT: No: Headaches, Lightheadedness Cardiovascular: No: Chest Pain or Discomfort Respiratory: No: Shortness of Breath Gastrointestinal: No: Nausea, Vomiting, Abdominal Pain Musculoskeletal: Positive: Weakness Neurologic: Positive: Weakness Physical Exam Narrative GENERAL: Awake, alert, obese 67 year-old female who appears her stated age and is in no acute respiratory distress. SKIN: Focused skin assessment warm/dry. Old appearing ecchymosis over the right scapula as well as over the anterior aspect of the right knee. HEAD: Atraumatic. Normocephalic. EYES: Pupils equal and round. No scleral icterus. No injection or drainage. ENT: No nasal bleeding or discharge. No upper teeth noted. NECK: Trachea midline. No JVD. CARDIOVASCULAR: Regular rate and rhythm. No murmur appreciated. Heart rate in the 50s. RESPIRATORY: No accessory muscle use. Clear to auscultation. Breath sounds equal bilaterally. GASTROINTESTINAL: Abdomen soft, obese, old appearing hematoma over the anterior superior aspect of the abdomen. No tenderness, guarding, rigidity. MUSCULOSKELETAL: Well-healed scars of the anterior aspect of the knees bilaterally. Old appearing hematoma over the anterior aspect of the right knee. The patient is able flex the hips and knees bilaterally. NEUROLOGICAL: Awake and alert. No obvious cranial nerve deficits. Motor grossly within normal limits. Normal speech. Nonfocal. Back: No CVA tenderness. PSYCHIATRIC: Appropriate mood and affect; insight and judgment normal. Data Data Last Documented VS Vital Signs Date Time Temp Pulse Resp B/P (MAP) Pulse Ox O2 Delivery O2 Flow Rate FiO2 04/05/17 11:04 98 Room Air 04/05/17 11:00 17 04/05/17 10:48 97.6 52 135/65 (88) Orders Orders Electrocardiogram (04/05/17 10:55) Complete Blood Count With Diff (04/05/17 10:55) Comprehensive Metabolic Panel (04/05/17 10:55) Creatine Kinase (Cpk) (04/05/17 10:55) Troponin I (04/05/17 10:55) Thyroid Stimulating Hormone (04/05/17 10:55) Urinalysis - C+S If Indicated (04/05/17 10:55) Chest, Single Ap (04/05/17 10:55) Ct Brain W/O Iv Contrast(Rout) (04/05/17 10:55) Blood Glucose (04/05/17 10:55) Ecg Monitoring (04/05/17 10:55) Iv Access Insert/Monitor (04/05/17 10:55) Oximetry (04/05/17 10:55) Sodium Chloride 0.9% Flush (Ns Flush) (04/05/17 11:00) Sodium Chlorid 0.9% 500 Ml Inj (Ns 500 M (04/05/17 11:00) Sodium Chlor 0.9% 1000 Ml Inj (Ns 1000 M (04/05/17 12:30) Urine Culture (04/05/17 12:30) Labs Laboratory Tests Test 04/05/17 11:00 04/05/17 12:30 White Blood Count 9.8 TH/MM3 Red Blood Count 3.98 MIL/MM3 Hemoglobin 11.3 GM/DL Hematocrit 35.1 % Mean Corpuscular Volume 88.3 FL Mean Corpuscular Hemoglobin 28.3 PG Mean Corpuscular Hemoglobin Concent 32.1 % Red Cell Distribution Width 17.5 % Platelet Count 376 TH/MM3 Mean Platelet Volume 8.2 FL Neutrophils (%) (Auto) 73.4 % Lymphocytes (%) (Auto) 18.9 % Monocytes (%) (Auto) 5.0 % Eosinophils (%) (Auto) 1.9 % Basophils (%) (Auto) 0.8 % Neutrophils # (Auto) 7.2 TH/MM3 Lymphocytes # (Auto) 1.9 TH/MM3 Monocytes # (Auto) 0.5 TH/MM3 Eosinophils # (Auto) 0.2 TH/MM3 Basophils # (Auto) 0.1 TH/MM3 CBC Comment DIFF FINAL Differential Comment Blood Urea Nitrogen 91 MG/DL Creatinine 3.15 MG/DL Random Glucose 173 MG/DL Total Protein 6.5 GM/DL Albumin 2.4 GM/DL Calcium Level 7.7 MG/DL Alkaline Phosphatase 196 U/L Aspartate Amino Transf (AST/SGOT) 34 U/L Alanine Aminotransferase (ALT/SGPT) 23 U/L Total Bilirubin 0.2 MG/DL Sodium Level 139 MEQ/L Potassium Level 3.4 MEQ/L Chloride Level 101 MEQ/L Carbon Dioxide Level 27.5 MEQ/L Anion Gap 11 MEQ/L Estimat Glomerular Filtration Rate 15 ML/MIN Total Creatine Kinase 51 U/L Troponin I LESS THAN 0.02 NG/ML Thyroid Stimulating Hormone 3rd Gen 2.340 uIU/ML Urine Color YELLOW Urine Turbidity HAZY Urine pH 7.0 Urine Specific Waldo 1.016 Urine Protein TRACE mg/dL Urine Glucose (UA) TRACE mg/dL Urine Ketones NEG mg/dL Urine Occult Blood NEG Urine Nitrite POS Urine Bilirubin NEG Urine Urobilinogen LESS THAN 2.0 MG/DL Urine Leukocyte Esterase LARGE Urine RBC 1 /hpf Urine WBC 47 /hpf Urine Squamous Epithelial Cells 1 /hpf Urine Renal Epithelial Cells <1 /hpf Urine Amorphous Sediment MOD Urine Bacteria MANY /hpf Urine Mucus FEW /lpf Microscopic Urinalysis Comment CATH-CULTURE IND MDM Medical Decision Making Medical Screen Exam Complete: Yes Emergency Medical Condition: Yes Medical Record Reviewed: Yes Interpretation(s) EKG reveals sinus bradycardia with a heart rate of 52. Low QRS voltage precordial leads. Nonspecific T wave changes. Wavy baseline may be secondary to a TENS unit. Last Impressions Head CT 04/05/17 1055 Signed Impressions: Service Date/Time: Wednesday, April 05, 2017 11:13 - CONCLUSION: No acute disease. Nils Willams MD Chest X-Ray 04/05/17 1055 Signed Impressions: Service Date/Time: Wednesday, April 05, 2017 11:20 - CONCLUSION: No acute disease. Nils Willams MD Laboratory Tests Test 04/05/17 11:00 04/05/17 12:30 White Blood Count 9.8 TH/MM3 Red Blood Count 3.98 MIL/MM3 Hemoglobin 11.3 GM/DL Hematocrit 35.1 % Mean Corpuscular Volume 88.3 FL Mean Corpuscular Hemoglobin 28.3 PG Mean Corpuscular Hemoglobin Concent 32.1 % Red Cell Distribution Width 17.5 % Platelet Count 376 TH/MM3 Mean Platelet Volume 8.2 FL Neutrophils (%) (Auto) 73.4 % Lymphocytes (%) (Auto) 18.9 % Monocytes (%) (Auto) 5.0 % Eosinophils (%) (Auto) 1.9 % Basophils (%) (Auto) 0.8 % Neutrophils # (Auto) 7.2 TH/MM3 Lymphocytes # (Auto) 1.9 TH/MM3 Monocytes # (Auto) 0.5 TH/MM3 Eosinophils # (Auto) 0.2 TH/MM3 Basophils # (Auto) 0.1 TH/MM3 CBC Comment DIFF FINAL Differential Comment Blood Urea Nitrogen 91 MG/DL Creatinine 3.15 MG/DL Random Glucose 173 MG/DL Total Protein 6.5 GM/DL Albumin 2.4 GM/DL Calcium Level 7.7 MG/DL Alkaline Phosphatase 196 U/L Aspartate Amino Transf (AST/SGOT) 34 U/L Alanine Aminotransferase (ALT/SGPT) 23 U/L Total Bilirubin 0.2 MG/DL Sodium Level 139 MEQ/L Potassium Level 3.4 MEQ/L Chloride Level 101 MEQ/L Carbon Dioxide Level 27.5 MEQ/L Anion Gap 11 MEQ/L Estimat Glomerular Filtration Rate 15 ML/MIN Total Creatine Kinase 51 U/L Troponin I LESS THAN 0.02 NG/ML Thyroid Stimulating Hormone 3rd Gen 2.340 uIU/ML Urine Color YELLOW Urine Turbidity HAZY Urine pH 7.0 Urine Specific [place] 1.016 Urine Protein TRACE mg/dL Urine Glucose (UA) TRACE mg/dL Urine Ketones NEG mg/dL Urine Occult Blood NEG Urine Nitrite POS Urine Bilirubin NEG Urine Urobilinogen LESS THAN 2.0 MG/DL Urine Leukocyte Esterase LARGE Urine RBC 1 /hpf Urine WBC 47 /hpf Urine Squamous Epithelial Cells 1 /hpf Urine Renal Epithelial Cells <1 /hpf Urine Amorphous Sediment MOD Urine Bacteria MANY /hpf Urine Mucus FEW /lpf Microscopic Urinalysis Comment CATH-CULTURE IND Differential Diagnosis Differential diagnosis includes UTI, dehydration, acute kidney injury, subdural hematoma, pneumonia, hyponatremia, deconditioning, debility. Narrative Course IV was established, labs are drawn and sent, and the patient was placed on cardiac telemetry monitoring and continuous pulse oximetry monitoring. EKG was ordered and interpreted. CT of the brain was obtained to rule out subdural hemorrhage. Chest x-ray was obtained to rule out underlying pulmonary contusion and pneumonia for multiple falls. UA was sent to lab. The patient was administered IV fluids. The patient's UA is positive for UTI, the patient was administered Rocephin 1 g intravenously. The patient's creatinine is elevated at 3.15, her last creatinine was 1.6. BUN was 91, consistent with prerenal azotemia and dehydration. The patient does have dehydration and underlying UTI with multiple falls and generalized weakness. Patient may benefit from PT/OT evaluation, IV fluids, and antibiotics. As the patient's symptoms do not improve with treatment she may need placement in a SNF and/or alf facility. Physician Communication Physician Communication The patient has [employer], therefore, [facility] hour [facility]. Diagnosis Primary Impression: MISSY (acute kidney injury) Additional Impressions: Dehydration Multiple falls UTI (urinary tract infection) Qualified Codes: N30.00 - Acute cystitis without hematuria Admitting Information Admitting Physician Requests: Observation Condition: Stable Vickey Stacy MD Apr 05, 2017 11:02
[2017-04-05 11:04] VITALS: O2SAT 98
--- NOTE | 2017-04-05 11:25 | RADRPT ---
EXAM DATE/TIME: 04/05/2017 11:13 [facility] COMPARISON: CT BRAIN W/O CONTRAST, February 12, 2017, 16:56. INDICATIONS : Weakness, increased falls. Evaluate for subdural. RADIATION DOSE: 29.18 CTDIvol (mGy) MEDICAL HISTORY : Cardiovascular disease. Hypertension. DVT, diabetes, renal failure SURGICAL HISTORY : Hysterectomy. Gastric bypass. Cholecystectomy. ENCOUNTER: Initial ACUITY: 3 weeks PAIN SCALE: 0/10 LOCATION: cranial TECHNIQUE: Multiple contiguous axial images were obtained of the head. Using automated exposure control and adj ustment of the mA and/or kV according to patient size, radiation dose was kept as low as reasonably a chievable to obtain optimal diagnostic quality images. DICOM format image data is available electro nically for review and comparison. FINDINGS: CEREBRUM: The ventricles are normal for age. No evidence of midline shift, mass lesion, hemorrhage or acute in farction. No extra-axial fluid collections are seen. POSTERIOR FOSSA: The cerebellum and brainstem are intact. The 4th ventricle is midline. The cerebellopontine angle i s unremarkable. EXTRACRANIAL: The visualized portion of the orbits is intact. SKULL: The calvaria is intact. No evidence of skull fracture. CONCLUSION: No acute disease. Nils Willams MD on April 05, 2017 at 11:21 Board Certified Radiologist. This report was verified electronically.
[2017-04-05 11:28] LABS: AUTOMATED NEUTROPHIL # 7.2 TH/MM3 (1.8-7.7); BASOPHIL # 0.1 TH/MM3 (0-0.2); BASOPHIL % 0.8 % (0.0-2.0); EOSINOPHIL # 0.2 TH/MM3 (0-0.4); EOSINOPHIL % 1.9 % (0.0-4.0); HEMATOCRIT 35.1 % (35.0-46.0); HEMOGLOBIN 11.3 GM/DL (11.6-15.3); LYMPH % 18.9 % (9.0-44.0); LYMPHOCYTE # 1.9 TH/MM3 (1.0-4.8); MEAN CELL VOLUME 88.3 FL (80.0-100.0); MEAN CORPUSCULAR HEMOGLOBIN 28.3 PG (27.0-34.0); MEAN CORPUSCULAR HGB CONC 32.1 % (32.0-36.0); MEAN PLATELET VOLUME 8.2 FL (7.0-11.0); MONOCYTE # 0.5 TH/MM3 (0-0.9); NEUT % 73.4 % (16.0-70.0); PLATELET COUNT 376 TH/MM3 (150-450); RED BLOOD COUNT 3.98 MIL/MM3 (4.00-5.30); RED CELL DISTRIBUTION WIDTH 17.5 % (11.6-17.2); WHITE BLOOD COUNT 9.8 TH/MM3 (4.0-11.0)
[2017-04-05] MEDS ORDERED: LORA-474 PO (11:40)
[2017-04-05] MEDS ORDERED: CRANCAP2 PO (11:40)
[2017-04-05] MEDS ORDERED: ROPI0.5T PO (11:40)
[2017-04-05] MEDS ORDERED: LEVO100T5 PO (11:40)
[2017-04-05] MEDS ORDERED: CALC0.5C PO (11:40)
[2017-04-05] MEDS ORDERED: SILV1CRE20 TOPICAL (11:40)
[2017-04-05] MEDS ORDERED: MEMA1CAP3 PO (11:40)
[2017-04-05] MEDS ORDERED: ASPI1TAB57 PO (11:40)
[2017-04-05] MEDS ORDERED: INSU1INJ14 SQ (11:40)
[2017-04-05] MEDS ORDERED: TRAM50TA PO (11:40)
[2017-04-05] MEDS ORDERED: DOXY100C PO (11:40)
[2017-04-05] MEDS ORDERED: QUET1TAB8 PO (11:40)
[2017-04-05] MEDS ORDERED: FURO20TA PO (11:40)
[2017-04-05] MEDS ORDERED: HYDR-3583 PO (11:40)
[2017-04-05 11:53] LABS: ALBUMIN 2.4 GM/DL (3.4-5.0); AST (GOT) 34 U/L (15-37); BICARBONATE 27.5 MEQ/L (21.0-32.0); BLOOD UREA NITROGEN 91 MG/DL (7-18); CALCIUM 7.7 MG/DL (8.5-10.1); CHLORIDE 101 MEQ/L (98-107); CREATININE 3.15 MG/DL (0.50-1.00); GLOMERULAR FILTRATION RATE 15 ML/MIN (>89); GLUCOSE,RANDOM 173 MG/DL (74-106); SODIUM (NA) 139 MEQ/L (136-145)
[2017-04-05 11:54] LABS: ALT (GPT) 23 U/L (10-53)
[2017-04-05 12:04] LABS: ALKALINE PHOSPHATASE 196 U/L (45-117); TOTAL BILIRUBIN ADULT 0.2 MG/DL (0.2-1.0); TOTAL PROTEIN 6.5 GM/DL (6.4-8.2); TROPONIN I LESS THAN 0.02 NG/ML (0.02-0.05)
--- NOTE | 2017-04-05 12:06 | RADRPT ---
EXAM DATE/TIME: 04/05/2017 11:20 [facility] COMPARISON: CHEST SINGLE AP, February 12, 2017, 17:18. INDICATIONS : Weakness with increased falls MEDICAL HISTORY : Cardiovascular disease. Hypertension. DVT, diabetes, renal failure SURGICAL HISTORY : Hysterectomy. Gastric bypass. Cholecystectomy. ENCOUNTER: Initial ACUITY: 3 weeks PAIN SCORE: 0/10 LOCATION: Bilateral chest FINDINGS: A single view of the chest demonstrates the lungs to be symmetrically aerated without evidence of sig nificant mass, infiltrate or effusion. There is a calcified granuloma in the right upper lung The ca rdiomediastinal contours are unremarkable. There is stable elevation of the right hemidiaphragm. Oss eous structures are intact. CONCLUSION: No acute disease. Nils Willams MD on April 05, 2017 at 12:04 Board Certified Radiologist. This report was verified electronically.
[2017-04-05] MEDS ORDERED: SODIUM CHLOR 0.9% 1000 ML INJ 1,000 ML IV ONE (12:30)
[2017-04-05 13:11] LABS: AMORPHOUS SEDIMENT, URINE MOD; BACTERIA, URINE MANY /hpf; BILIRUBIN, URINE NEG (NEG); BLOOD, URINE NEG (NEG); GLUCOSE,URINE TRACE mg/dL (NEG); KETONE, URINE NEG (NEG); MUCUS URINE FEW /lpf (OCC); NITRITE,URINE POS (NEG); RENAL EPITHELIAL CELLS <1 /hpf; SQUAMOUS EPITHELIAL CELL URINE 1 /hpf (0-5); URINE COLOR YELLOW (YELLW/STRAW); URINE LEUKOCYTE ESTERASE LARGE (NEG)
[2017-04-05] MEDS ORDERED: cefTRIAXone INJ 1,000 MG in SODIUM CHLORIDE 0.9% INJ 100 ML IV ONE (13:30)
[2017-04-05 14:00] VITALS: BP 149/67; PULSE 53; RESP 19; O2SAT 97
[2017-04-05] MEDS ORDERED: ONDANSETRON HCL 4 MG/2 ML VIAL IV PUSH PRN (14:15)
--- NOTE | 2017-04-05 14:22 | HHI.HP ---
[facility] Service [facility] Primary Care Physician Nils Savage, DO Admission Diagnosis dehydration, acute kidney injury, UTI, multiple falls Diagnoses: Travel History International Travel<30 Days: No Contact w/Intl Traveler <30 Da: No Traveled to Known Affected Are: No History of Present Illness This 67-year-old female patient with hematocrit she is significant for hypertension, diabetes, chronic stage II kidney disease, and COPD who presents to the ER by EMS for generalized weakness. Apparently the patient's parents progressive weakness over the past 3 weeks. She notes weakness in her lower extremity. She noted multiple falls in the kitchen and bathroom due to the generalized weakness. She does take an aspirin daily. In the ER patient was found to have a UTI. She was recently admitted in February for UTI. In the ER creatinine found to be 3.15, this was similar to initial admission in February, but then upon discharge was 1.6. I have reviewed the medications with the patient and her and her daughter. All are the same except the lasix, which the patients daughter reports she was just started on about a month ago because she was retaining fluid. Patient wants to know- when can I eat, can I have my norco, and let me sleep. She has involuntary loss of her urine due to an implant, daughter states she constantly dribbles and this is why she gets UTIs. When she was discharged last month, looks like home health set up with PT. Daughter states the therapist told her that her mobility was not bad enough to require therapy. She has had multiple falls resulting in significant bruising of her back and knee. Daughter admits it is hard for her to care for her mother. She denies any chest pain, shortness of breath, nausea, vomiting, diarrhea, or abdominal pain. She does complain of mild dysuria without any hematuria. Review of Systems Constitutional: COMPLAINS OF: Weight gain, DENIES: Fever, Chills Eyes: COMPLAINS OF: Blurred vision, Vision loss Ears, nose, mouth, throat: COMPLAINS OF: Hearing loss Respiratory: DENIES: Cough, Shortness of breath Cardiovascular: DENIES: Chest pain, Palpitations Gastrointestinal: COMPLAINS OF: Diarrhea, DENIES: Abdominal pain, Nausea, Vomiting Genitourinary: COMPLAINS OF: Urinary incontinence, Nocturia Musculoskeletal: COMPLAINS OF: Muscle aches, Back pain Integumentary: COMPLAINS OF: Abnormal pigmentation, Rash Hematologic/lymphatic: COMPLAINS OF: Bruising Neurologic: COMPLAINS OF: Abnormal gait Psychiatric: COMPLAINS OF: Delusions, DENIES: Mood changes Past Family Social History Past Medical History Hypertension Diabetes Obesity COPD Chronic pain Degenerative discdisease Past Surgical History Knee replacement I lens implants Gastric bypass Allergies: Coded Allergies: penicillin G (Unverified Allergy, Severe, Hives, 04/05/17) lactose (Unverified Allergy, Intermediate, Diarrhea, 04/05/17) sulfamethoxazole (Unverified Adverse Reaction, Unknown, 04/05/17) MAKE GFR DECREASE trimethoprim (Unverified Adverse Reaction, Unknown, 04/05/17) MAKE GFR DECREASE Active Ordered Medications Reported Meds & Active Scripts Active Glucocom Test Strips (Blood Glucose Test Strips) 1 Antonieta Antonieta Ea .ROUTE DIRECTED Lancets 1 Mis Mis Ea .ROUTE DIRECTED Glucocom Blood Glucose Mo W/Device (Device) 1 Kit Kit Kit .ROUTE DIRECTED Check glucose BID Magnesium Oxide 400 Mg Tab 400 Mg PO Q12H Reported Tresiba Flextouch Pen Inj (Insulin Degludec Inj) 300 unit/3 ML Pen 20 Units SQ DAILY Cranberry Urinary Comfort (Vitamins C & E) 1 Cap 1 Cap PO DAILY Aspirin 81 (Aspirin) 81 Mg Tabdr 81 Mg PO DAILY Quetiapine (Quetiapine Fumarate) 100 Mg Tab 100 Mg PO QID Doxycycline Hyclate 100 Mg Cap 100 Mg PO BID Levothyroxine (Levothyroxine Sodium) 100 Mcg Tab 100 Mcg PO DAILY Namzaric (Memantine-Donepezil) 7-10 mg Cap 1 Cap PO HS Ropinirole 0.5 Mg Tab 0.5 Mg PO TID Tramadol (Tramadol HCl) 50 Mg Tab 50 Mg PO BID PRN Hydrocodone-Acetaminophen 10-325 mg Tab 1 Tab PO Q6H PRN Silvadene Topical (Silver Sulfadiazine) 1 % Cream 1 Applic TOPICAL BID Furosemide 20 Mg Tab 20 Mg PO BID Ativan (Lorazepam) 1 Mg Tab 1 Mg PO TID PRN Calcitriol 0.5 Mcg Cap 0.5 Mcg PO DAILY Metoprolol Tartrate 100 Mg Tab 100 Mg PO BID Celexa (Citalopram Hydrobromide) 40 Mg Tab 40 Mg PO DAILY Family History Father significant coronary artery disease, reported 6 MIs in the past Mother with multiple chronic medical conditions Social History Denies smoking history, drinks socially, denies illicit drugs Physical Exam Vital Signs Vital Signs Date Time Temp Pulse Resp B/P (MAP) Pulse Ox O2 Delivery O2 Flow Rate FiO2 04/05/17 11:04 98 Room Air 04/05/17 11:00 17 96 Room Air 04/05/17 10:48 97.6 52 18 135/65 (88) 99 Physical Exam GENERAL: Elderly obese female, sitting up in bed SKIN: Chronic venous skin changes LE, healed wounds. Multiple bruises LE and back. HEAD: Atraumatic. Normocephalic. No temporal or scalp tenderness. EYES: Pupils equal round and reactive. Extraocular motions intact. No scleral icterus. No injection or drainage. ENT: Nose without bleeding, purulent drainage or septal hematoma. Throat without erythema, tonsillar hypertrophy or exudate. Poor dentition. Uvula midline. Airway patent. NECK: Trachea midline. No JVD or lymphadenopathy. Supple, nontender, no meningeal signs. CARDIOVASCULAR: Distant heart sounds. Regular rate and rhythm without murmurs, gallops, or rubs. RESPIRATORY: Clear to auscultation. Breath sounds equal bilaterally. No wheezes , rales, or rhonchi. GASTROINTESTINAL: Abdomen soft, non-tender, nondistended. No hepato-splenomegaly , or palpable masses. No guarding. MUSCULOSKELETAL: Bilat knee tenderness and swelling, right worse than left, also bruise noted over right knee. Lower extremity swelling bilat. . NEUROLOGICAL: Awake and alert. Motor and sensory grossly within normal limits.Normal speech. Laboratory Laboratory Tests Test 04/05/17 11:00 04/05/17 12:30 White Blood Count 9.8 Red Blood Count 3.98 Hemoglobin 11.3 Hematocrit 35.1 Mean Corpuscular Volume 88.3 Mean Corpuscular Hemoglobin 28.3 Mean Corpuscular Hemoglobin Concent 32.1 Red Cell Distribution Width 17.5 Platelet Count 376 Mean Platelet Volume 8.2 Neutrophils (%) (Auto) 73.4 Lymphocytes (%) (Auto) 18.9 Monocytes (%) (Auto) 5.0 Eosinophils (%) (Auto) 1.9 Basophils (%) (Auto) 0.8 Neutrophils # (Auto) 7.2 Lymphocytes # (Auto) 1.9 Monocytes # (Auto) 0.5 Eosinophils # (Auto) 0.2 Basophils # (Auto) 0.1 CBC Comment DIFF FINAL Differential Comment Blood Urea Nitrogen 91 Creatinine 3.15 Random Glucose 173 Total Protein 6.5 Albumin 2.4 Calcium Level 7.7 Alkaline Phosphatase 196 Aspartate Amino Transf (AST/SGOT) 34 Alanine Aminotransferase (ALT/SGPT) 23 Total Bilirubin 0.2 Sodium Level 139 Potassium Level 3.4 Chloride Level 101 Carbon Dioxide Level 27.5 Anion Gap 11 Estimat Glomerular Filtration Rate 15 Total Creatine Kinase 51 Troponin I LESS THAN 0.02 Thyroid Stimulating Hormone 3rd Gen 2.340 Urine Color YELLOW Urine Turbidity HAZY Urine pH 7.0 Urine Specific Putney 1.016 Urine Protein TRACE Urine Glucose (UA) TRACE Urine Ketones NEG Urine Occult Blood NEG Urine Nitrite POS Urine Bilirubin NEG Urine Urobilinogen LESS THAN 2.0 Urine Leukocyte Esterase LARGE Urine RBC 1 Urine WBC 47 Urine Squamous Epithelial Cells 1 Urine Renal Epithelial Cells <1 Urine Amorphous Sediment MOD Urine Bacteria MANY Urine Mucus FEW Microscopic Urinalysis Comment CATH-CULTURE IND Date/Time Source Procedure Growth Status 04/05/17 12:30 Urine Clean Catch Urine Culture Pending Received Result Diagram: 04/05/17 1100 04/05/17 1100 Imaging Last Impressions Head CT 04/05/17 1055 Signed Impressions: Service Date/Time: Wednesday, April 05, 2017 11:13 - CONCLUSION: No acute disease. Nils Willams MD Chest X-Ray 04/05/17 1055 Signed Impressions: Service Date/Time: Wednesday, April 05, 2017 11:20 - CONCLUSION: No acute disease. Nils Willams MD Capmarielai VTE Risk Assessment Caprini VTE Risk Assessment: Mod/High Risk (score >= 2) Caprini Risk Assessment Model Point Value = 1 Point Value = 2 Point Value = 3 Point Value = 5 Age 41-60 Minor surgery BMI > 25 kg/m2 Swollen legs Varicose veins or History of unexplained or recurrent spontaneous Oral contraceptives or hormone replacement Sepsis (< 1 month) Serious lung disease, including pneumonia (< 1 month) Abnormal pulmonary function Acute myocardial infarction Congestive heart failure (< 1 month) History of inflammatory bowel disease Medical patient at bed rest Age 61-74 Arthroscopic surgery Major open surgery (> 45 min) Laparoscopic surgery (> 45 min) Malignancy Confined to bed (> 72 hours) Immobilizing plaster cast Central venous access Age >= 75 History of VTE Family history of VTE Factor V Leiden Prothrombin [id number] Lupus anticoagulant Anticardiolipin antibodies Elevated serum homocysteine Heparin-induced thrombocytopenia Other congenital or acquired thrombophilia Stroke (< 1 month) Elective arthroplasty Hip, pelvis, or leg fracture Acute spinal cord injury (< 1 month) Prophylaxis Regimen Total Risk Factor Score Risk Level Prophylaxis Regimen 0-1 Low Early ambulation 2 Moderate Order ONE of the following: *Sequential Compression Device (SCD) *Heparin 5000 units SQ BID 3-4 Higher Order ONE of the following medications: *Heparin 5000 units SQ TID *Enoxaparin/Lovenox 40 mg SQ daily (WT < 150 kg, CrCl > 30 mL/min) *Enoxaparin/Lovenox 30 mg SQ daily (WT < 150 kg, CrCl > 10-29 mL/min) *Enoxaparin/Lovenox 30 mg SQ BID (WT < 150 kg, CrCl > 30 mL/min) AND/OR *Sequential Compression Device (SCD) 5 or more Highest Order ONE of the following medications: *Heparin 5000 units SQ TID (Preferred with Epidurals) *Enoxaparin/Lovenox 40 mg SQ daily (WT < 150 kg, CrCl > 30 mL/min) *Enoxaparin/Lovenox 30 mg SQ daily (WT < 150 kg, CrCl > 10-29 mL/min) *Enoxaparin/Lovenox 30 mg SQ BID (WT < 150 kg, CrCl > 30 mL/min) AND *Sequential Compression Device (SCD) Assessment and Plan Problem List: (1) Anxiety and depression ICD Code: F41.8 - Mixed anxiety depressive disorder Status: Chronic (2) UTI (urinary tract infection) ICD Code: N39.0 - Urinary tract infection, site not specified Status: Acute (3) MISSY (acute kidney injury) ICD Code: N17.9 - Acute kidney failure, unspecified Status: Acute (4) Multiple falls ICD Code: R29.6 - Repeated falls Status: Acute (5) Hypothyroidism ICD Code: E03.9 - Hypothyroidism, unspecified Status: Chronic (6) Dehydration ICD Code: E86.0 - Dehydration Status: Acute (7) Diabetes mellitus, type 2 ICD Code: E11.9 - Type 2 diabetes mellitus Status: Chronic (8) Benign hypertension ICD Code: I10 - Benign hypertension Status: Chronic Assessment and Plan 67-year-old female patient with medical significant for hypertension, COPD, kidney disease presents for generalized weakness found to have UTI UTI: Urine culture pending. Leukocytosis, no fever, vitals are stable, no signs of sepsis at this time. (We'll watch her closely as was previously admitted with urosepsis). - She was given 1 dose of Rocephin in the ER, will continue. - Urine culture in February 2017 grew Escherichia coli Multiple falls - imaging above negative for any acute process - PT eval Renal insufficiency - History of stage III kidney disease, creatinine upon last discharge was 1.6. Today is 3.15. - IV hydration with normal saline 100 cc per hour (status post 2 boluses in the ER). The patient had echo performed in 2009 with no evidence of heart failure. She is on Lasix which I will hold given her current renal insufficiency. - Avoid nephrotoxic agents - Renally dose all meds - Continue to follow Hypertension - Metoprolol 100 mg twice a day --- placed on hold due to low HR in 40s-50s, will resume at lower dose when HR stable - Amlodipine 10 mg daily--- recently stopped as an outpatient for hypotension Hypothyroidism - TSH 2.340, continue home meds Depression - Continue home meds Hypokalemia - replace Diabetes - Currently takes triceva, not on formulary here, daughter will bring it because she states levemir does not work - We'll start her on 5 units at night Levemir and place her on sliding scale - Diabetic diet OA/Chronic pain - continue patients home norco DVT prophy: bilat SCDs, heparin (will avoid lovenox due to renal insufficiency) PT eval Patient initially admitted to observation, but once case discussed with patient daughter, unclear if she is able to care for her mother at this time and she may benefit from a SNF so that she can have PT and move better independently or perhaps longer placement in an [facility]. CM to assist Code Status Full Discussed Condition With Dr. Mir, Dr. Stacy Problem Qualifiers (1) UTI (urinary tract infection): Qualified Codes: N30.00 - Acute cystitis without hematuria Stephanie Kunz MD Apr 05, 2017 14:22
[2017-04-05] MEDS: SODIUM CHLOR 0.9% 1000 ML INJ 1,000 ML IV SCH (14:30)
[2017-04-05] MEDS ORDERED: POTASSIUM CHLORIDE 10 MEQ CONTROLLED RELEASE TAB PO ONE (15:00)
[2017-04-05 15:19] VITALS: BP 135/60; PULSE 68; RESP 18; O2SAT 98
[2017-04-05] MEDS: HEPARIN SODIUM - SQ 10,000 UNITS/ML VIAL SQ SCH (16:00)
[2017-04-05] MEDS: LORazepam 1 MG TAB PO PRN (16:06)
[2017-04-05] MEDS: ACETAMINOPHEN/HYDROcodone 325 MG/10 MG TAB PO PRN (16:07)
[2017-04-05] MEDS: INSULIN ASPART SUPPLEMENTAL SCALE SQ SCH ×2 (17:00→20:45)
[2017-04-05] MEDS: QUEtiapine FUMARATE 100 MG TAB PO SCH ×2 (17:57→20:43)
[2017-04-05 19:36] VITALS: BP 99/58; PULSE 59; RESP 18; O2SAT 95
[2017-04-05] MEDS: INSULIN DETEMIR 100 UNITS/ML VIAL SQ SCH (20:44)
[2017-04-05] MEDS: METOPROLOL TARTRATE 50 MG TAB PO SCH (20:44)
[2017-04-05] MEDS: SODIUM CHLORIDE 0.9% FLUSH 10 ML FLUSH IV FLUSH SCH (20:47)
[2017-04-05] MEDS ORDERED: METOPROLOL TARTRATE 100 MG TAB PO SCH (21:00)
[2017-04-05] MEDS ORDERED: MEMANTINE DONEPEZIL PO SCH (21:00)
[2017-04-05 22:22] VITALS: BP 163/73; PULSE 61; RESP 20; TEMP 97.2; O2SAT 100
--- NOTE | 2017-04-05 22:22 | EKG ---
Date Performed: 04/05/2017 Time Performed: 11:32:12 PTAGE: 67 years EKG: SINUS BRADYCARDIA LOW QRS VOLTAGE IN PRECORDIAL LEADS NONSPECIFIC T-WAVE ABNORMALITY ABNORM AL RHYTHM ECG PREVIOUS TRACING : 02/12/2017 20.03 Compared to the previous tracing, rate has decreased DOCTOR: Constantino Quijano Interpretating Date/Time 04/05/2017 22:20:53
[2017-04-06] MEDS: LORazepam 1 MG TAB PO PRN ×4 (00:19→16:57)
[2017-04-06] MEDS: SODIUM CHLOR 0.9% 1000 ML INJ 1,000 ML IV SCH ×3 (00:20→18:33)
[2017-04-06 04:00] VITALS: BP 124/60; PULSE 59; RESP 20; TEMP 97.5; O2SAT 98
[2017-04-06] MEDS: LEVOTHYROXINE SODIUM 100 MCG TAB PO SCH (05:11)
[2017-04-06] MEDS: HEPARIN SODIUM - SQ 10,000 UNITS/ML VIAL SQ SCH ×2 (05:12→16:56)
[2017-04-06] MEDS: INSULIN ASPART SUPPLEMENTAL SCALE SQ SCH ×4 (08:00→21:00)
[2017-04-06 08:07] VITALS: BP 111/58; PULSE 58; RESP 18; TEMP 97.7; O2SAT 98
[2017-04-06 08:08] LABS: BASOPHIL # 0.1 TH/MM3 (0-0.2); BASOPHIL % 0.8 % (0.0-2.0); EOSINOPHIL # 0.2 TH/MM3 (0-0.4); HEMATOCRIT 29.9 % (35.0-46.0); HEMOGLOBIN 9.7 GM/DL (11.6-15.3); LYMPH % 24.6 % (9.0-44.0); LYMPHOCYTE # 1.9 TH/MM3 (1.0-4.8); MEAN CELL VOLUME 87.8 FL (80.0-100.0); MEAN CORPUSCULAR HEMOGLOBIN 28.4 PG (27.0-34.0); MEAN CORPUSCULAR HGB CONC 32.4 % (32.0-36.0); MEAN PLATELET VOLUME 8.3 FL (7.0-11.0); MONO % 6.8 % (0.0-8.0); MONOCYTE # 0.5 TH/MM3 (0-0.9); NEUT % 64.8 % (16.0-70.0); PLATELET COUNT 286 TH/MM3 (150-450); RED CELL DISTRIBUTION WIDTH 17.7 % (11.6-17.2); WHITE BLOOD COUNT 7.8 TH/MM3 (4.0-11.0)
[2017-04-06 08:31] LABS: CREATININE 2.43 MG/DL (0.50-1.00)
[2017-04-06 08:47] LABS: TOTAL PROTEIN 5.2 GM/DL (6.4-8.2)
[2017-04-06] MEDS: SODIUM CHLORIDE 0.9% FLUSH 10 ML FLUSH IV FLUSH SCH ×2 (09:00→21:00)
[2017-04-06] MEDS: METOPROLOL TARTRATE 50 MG TAB PO SCH ×2 (09:23→21:24)
[2017-04-06] MEDS: CITALOPRAM HYDROBROMIDE 40 MG TAB PO SCH (09:23)
[2017-04-06] MEDS: QUEtiapine FUMARATE 100 MG TAB PO SCH ×4 (09:23→21:24)
[2017-04-06] MEDS: ACETAMINOPHEN/HYDROcodone 325 MG/10 MG TAB PO PRN ×2 (09:26→16:57)
[2017-04-06 12:07] VITALS: BP 112/54; PULSE 65; RESP 18; TEMP 97.4; O2SAT 98
[2017-04-06] MEDS: cefTRIAXone INJ 1,000 MG in SODIUM CHLORIDE 0.9% INJ 100 ML IV SCH (13:02)
--- NOTE | 2017-04-06 16:03 | HHI.PR ---
Subjective Remarks Patient c/o severe bl knee pain, more on the left knee. States has fallen 3 times in the recent past at home. Daughter is at bedside. Denies cp/sob. Denies fevers or chills. Objective Vitals Vital Signs Date Time Temp Pulse Resp B/P (MAP) Pulse Ox O2 Delivery O2 Flow Rate FiO2 04/06/17 12:07 97.4 65 18 112/54 (73) 98 04/06/17 08:07 97.7 58 18 111/58 (75) 98 04/06/17 04:00 97.5 59 20 124/60 (81) 98 04/05/17 22:22 97.2 61 20 163/73 (103) 100 04/05/17 19:36 59 18 99/58 (72) 95 I/O 04/05/17 04/05/17 04/05/17 04/06/17 04/06/17 04/06/17 07:00 15:00 23:00 07:00 15:00 23:00 Intake Total 500 ml 1100 ml 60 ml Balance 500 ml 1100 ml 60 ml Intake Oral 60 ml IV Total 500 ml 1100 ml # Voids 1 0 # Bowel Movements 1 0 Result Diagram: 04/06/1722 04/06/17 0722 Imaging Last Impressions Head CT 04/05/17 1055 Signed Impressions: Service Date/Time: Wednesday, April 05, 2017 11:13 - CONCLUSION: No acute disease. Nils Willams MD Chest X-Ray 04/05/17 1055 Signed Impressions: Service Date/Time: Wednesday, April 05, 2017 11:20 - CONCLUSION: No acute disease. Nils Willams MD Objective Remarks GENERAL: Elderly obese female, sitting up in bed SKIN: Chronic venous skin changes LE, healed wounds. Multiple bruises LE and back. HEAD: Atraumatic. Normocephalic. No temporal or scalp tenderness. EYES: Pupils equal round and reactive. Extraocular motions intact. No scleral icterus. No injection or drainage. ENT: Nose without bleeding, purulent drainage or septal hematoma. Throat without erythema, tonsillar hypertrophy or exudate. Poor dentition. Uvula midline. Airway patent. NECK: Trachea midline. No JVD or lymphadenopathy. Supple, nontender, no meningeal signs. CARDIOVASCULAR: Distant heart sounds. Regular rate and rhythm without murmurs, gallops, or rubs. RESPIRATORY: Clear to auscultation. Breath sounds equal bilaterally. No wheezes , rales, or rhonchi. GASTROINTESTINAL: Abdomen soft, non-tender, nondistended. No hepato-splenomegaly , or palpable masses. No guarding. MUSCULOSKELETAL: Bilat knee tenderness and swelling, right worse than left, also bruise noted over right knee. Lower extremity swelling bilat. . NEUROLOGICAL: Awake and alert. Motor and sensory grossly within normal limits.Normal speech. Medications and IVs Current Medications Medications (Trade) Dose Ordered Sig/Rogers Route Start Time Stop Time Status Last Admin Sodium Chloride 1,000 ml @ 100 mls/hr Q10H IV 04/05/17 14:30 04/06/17 00:20 (NS Flush) 2 ml UNSCH PRN IV FLUSH 04/05/17 14:15 (NS Flush) 2 ml BID IV FLUSH 04/05/17 21:00 04/06/17 09:00 (Zofran Inj) 4 mg Q6H PRN IV PUSH 04/05/17 14:15 Ceftriaxone Sodium 1000 mg/ Sodium Chloride 100 ml @ 200 mls/hr Q24H IV 04/06/17 14:00 04/06/17 13:02 (Synthroid) 100 mcg DAILY@0600 PO 04/06/17 06:00 04/06/17 05:11 Patient Own Medication PT OWN MED: (Memantine-Donepezil (Namzaric) 1 CAP) HS PO 04/05/17 21:00 Future Hold (CeleXA) 40 mg DAILY PO 04/06/17 09:00 04/06/17 09:23 (Ativan) 1 mg TID PRN PO 04/05/17 14:45 04/06/17 13:02 (SEROquel) 100 mg QID PO 04/05/17 18:00 04/06/17 12:10 (Eagle 10-325 Mg) 1 tab Q6H PRN PO 04/05/17 14:45 04/06/17 09:26 (Levemir Inj) 5 units HS SQ 04/05/17 21:00 04/05/17 20:44 (NovoLOG SUPPLEMENTAL SCALE) 1 ACHS SLIDING SCALE SQ 04/05/17 17:00 12/31/17 12:10 (Lopressor) 50 mg BID PO 04/05/17 21:00 04/06/17 09:23 (Heparin Inj) 5,000 units Q12H SQ 04/05/17 16:00 04/06/17 05:12 Calcium Chloride 2 gm/Sodium Chloride 120 ml @ 120 mls/hr ONCE ONCE IV 04/06/17 16:00 04/06/17 16:59 UNV A/P Problem List: (1) Anxiety and depression ICD Code: F41.8 - Mixed anxiety depressive disorder Status: Chronic (2) UTI (urinary tract infection) ICD Code: N39.0 - Urinary tract infection, site not specified Status: Acute (3) MISSY (acute kidney injury) ICD Code: N17.9 - Acute kidney failure, unspecified Status: Acute (4) Multiple falls ICD Code: R29.6 - Repeated falls Status: Acute (5) Hypothyroidism ICD Code: E03.9 - Hypothyroidism, unspecified Status: Chronic (6) Dehydration ICD Code: E86.0 - Dehydration Status: Acute (7) Diabetes mellitus, type 2 ICD Code: E11.9 - Type 2 diabetes mellitus Status: Chronic (8) Benign hypertension ICD Code: I10 - Benign hypertension Status: Chronic Assessment and Plan 67-year-old female patient with medical significant for hypertension, COPD, kidney disease presents for generalized weakness found to have UTI UTI: Leukocytosis, no fever, vitals are stable, no signs of sepsis on admission. Status post 1 dose of IV Rocephin in the ED. Continue. Urine cultures growing gram-negative rods, follow-up ID and sensitivities. Multiple falls - imaging above negative for any acute process -Physical therapy evaluation recommends home with home health PT as patient will not consider rehabilitation program. Acute kidney injury on CKD stage III. - History of stage III kidney disease, creatinine upon last discharge was 1.6. Today is 3.15. - IV hydration with normal saline 100 cc per hour (status post 2 boluses in the ER). The patient had echo performed in 2009 with no evidence of heart failure. - Avoid nephrotoxic agents - Renally dose all meds - Continue to follow - 04/06 due to hold Lasix, continue IV fluids. Creatinine is trending down from 3.15 to 2.43. Hypertension - Metoprolol 100 mg twice a day --- placed on hold due to low HR in 40s-50s, will resume at lower dose when HR stable - Amlodipine 10 mg daily--- recently stopped as an outpatient for hypotension 04/06 heart rate is slightly improved. Metoprolol dose decreased from 100 mg by mouth twice a day to 50 minutes by mouth twice a day. Hypothyroidism - TSH 2.340, continue home meds Depression - Continue home meds Hypokalemia - replace Diabetes - Currently takes triceva, not on formulary here, daughter will bring it because she states levemir does not work - We'll start her on 5 units at night Levemir and place her on sliding scale - Diabetic 04/06 blood sugars are acceptable. Patient had a blood sugar of 75 earlier in the morning today. Continue insulin Levemir and SSI with insulin NovoLog. Continue diabetic diet. OA/Chronic pain - continue patients home norco 04/06 Patient with severe pain in knees. Will obtain x rays. Will start on Oramorph 15 mg po BID. Hypocalcemia -replace and monitor. Likely due to poor oral intake. DVT prophy: bilat SCDs, heparin (will avoid lovenox due to renal insufficiency) PT eval Patient initially admitted to observation, but once case discussed with patient daughter, unclear if she is able to care for her mother at this time and she may benefit from a SNF so that she can have PT and move better independently or perhaps longer placement in an [facility]. CM to assist Problem Qualifiers (1) UTI (urinary tract infection): Qualified Codes: N30.00 - Acute cystitis without hematuria Bryson Rivera MD Apr 06, 2017 16:03
[2017-04-06 16:07] VITALS: BP 106/54; PULSE 68; RESP 18; TEMP 97.4; O2SAT 100
[2017-04-06] MEDS ORDERED: ACETAMINOPHEN/HYDROcodone 325 MG/5 MG TAB PO PRN (16:45)
[2017-04-06] MEDS ORDERED: CALCIUM CHLORIDE INJ 2 GM in SODIUM CHLORIDE 0.9% INJ 100 ML IV ONE (17:00)
[2017-04-06 20:00] VITALS: BP 110/57; PULSE 68; RESP 22; TEMP 97.4; O2SAT 99
--- NOTE | 2017-04-06 20:16 | RADRPT ---
EXAM DATE/TIME: 04/06/2017 19:52 [facility] COMPARISON: No previous studies available for comparison. INDICATIONS : Fall one week ago. Left knee pain. MEDICAL HISTORY : Cardiovascular disease. Hypertension Deep venous thrombosis. Diabetes. Renal failure SURGICAL HISTORY : Cholecystectomy. Hysterectomy. Gastric bypass. Bilateral knee replacements. ENCOUNTER: Initial ACUITY: 1 week PAIN SCORE: 7/10 LOCATION: Left knee. FINDINGS: Total knee arthroplasty is in place. The femoral, tibial, and patellar components appear intact. Th ere are no signs of loosening or fracture. CONCLUSION: Intact total knee arthroplasty for norah. Lucila Mcintosh MD on April 06, 2017 at 20:13 Board Certified Radiologist. This report was verified electronically.
--- NOTE | 2017-04-06 20:16 | RADRPT ---
EXAM DATE/TIME: 04/06/2017 19:53 [facility] COMPARISON: No previous studies available for comparison. INDICATIONS : Fall one week ago. Right knee pain. MEDICAL HISTORY : Cardiovascular disease. Hypertension Deep venous thrombosis. Diabetes. Renal failure. SURGICAL HISTORY : Gastric bypass. Hysterectomy. Cholecystectomy. Bilateral knee replacements. ENCOUNTER: Initial ACUITY: 1 week PAIN SCORE: 10/10 LOCATION: Right knee. FINDINGS: Total knee arthroplasty is in place. The femoral, tibial, and patellar components appear intact. Th ere are no signs of loosening or fracture. CONCLUSION: Intact total knee arthroplasty for norah. Lucila Mcintosh MD on April 06, 2017 at 20:14 Board Certified Radiologist. This report was verified electronically.
[2017-04-06] MEDS: INSULIN DETEMIR 100 UNITS/ML VIAL SQ SCH (21:25)
[2017-04-06] MEDS: MORPHINE SULFATE 15 MG CONTROLLED RELEASE TAB PO SCH (21:25)
[2017-04-07] VITALS: BP 101/50; PULSE 59; RESP 20; TEMP 98.8; O2SAT 96
[2017-04-07 04:00] VITALS: BP 124/59; PULSE 67; RESP 23; TEMP 98.3; O2SAT 99
[2017-04-07] MEDS: HEPARIN SODIUM - SQ 10,000 UNITS/ML VIAL SQ SCH ×2 (05:26→16:39)
[2017-04-07] MEDS: LEVOTHYROXINE SODIUM 100 MCG TAB PO SCH (05:26)
[2017-04-07] MEDS: SODIUM CHLOR 0.9% 1000 ML INJ 1,000 ML IV SCH ×2 (06:30→16:30)
[2017-04-07] MEDS: INSULIN ASPART SUPPLEMENTAL SCALE SQ SCH ×4 (08:00→21:00)
[2017-04-07] MEDS: CITALOPRAM HYDROBROMIDE 40 MG TAB PO SCH (08:22)
[2017-04-07] MEDS: QUEtiapine FUMARATE 100 MG TAB PO SCH ×4 (08:22→21:25)
[2017-04-07] MEDS: MORPHINE SULFATE 15 MG CONTROLLED RELEASE TAB PO SCH ×2 (08:22→21:25)
[2017-04-07] MEDS: METOPROLOL TARTRATE 50 MG TAB PO SCH (08:22)
[2017-04-07 08:24] VITALS: BP 130/60; PULSE 68; RESP 18; TEMP 98.6; O2SAT 97
[2017-04-07] MEDS: SODIUM CHLORIDE 0.9% FLUSH 10 ML FLUSH IV FLUSH SCH ×2 (09:00→21:25)
[2017-04-07 09:49] LABS: AUTOMATED NEUTROPHIL # 5.7 TH/MM3 (1.8-7.7); BASOPHIL # 0.1 TH/MM3 (0-0.2); EOSINOPHIL # 0.3 TH/MM3 (0-0.4); HEMATOCRIT 27.7 % (35.0-46.0); HEMOGLOBIN 9.2 GM/DL (11.6-15.3); MEAN CELL VOLUME 86.5 FL (80.0-100.0); MEAN CORPUSCULAR HEMOGLOBIN 28.9 PG (27.0-34.0); MEAN CORPUSCULAR HGB CONC 33.4 % (32.0-36.0); MEAN PLATELET VOLUME 8.9 FL (7.0-11.0); MONO % 2.3 % (0.0-8.0); MONOCYTE # 0.2 TH/MM3 (0-0.9); NEUT % 61.7 % (16.0-70.0); PLATELET COUNT 198 TH/MM3 (150-450); RED CELL DISTRIBUTION WIDTH 17.8 % (11.6-17.2); WHITE BLOOD COUNT 9.2 TH/MM3 (4.0-11.0)
[2017-04-07 10:22] LABS: LYMPHOCYTES 30 % (9-44); MONOCYTES 2 % (0-8); NEUTROPHIL # MANUAL DIFF 6.2 TH/MM3 (1.8-7.7); POLYS (SEG NEUTROPHILS) 67 % (16-70)
[2017-04-07] MEDS: LORazepam 1 MG TAB PO PRN (11:44)
[2017-04-07] MEDS: ACETAMINOPHEN/HYDROcodone 325 MG/10 MG TAB PO PRN ×2 (11:44→16:40)
[2017-04-07 12:07] VITALS: BP 97/44; PULSE 59; RESP 18; TEMP 97.9; O2SAT 96
[2017-04-07] MEDS: cefTRIAXone INJ 1,000 MG in SODIUM CHLORIDE 0.9% INJ 100 ML IV SCH (12:54)
[2017-04-07 13:26] LABS: ALKALINE PHOSPHATASE 159 U/L (45-117); ALT (GPT) 21 U/L (10-53); AST (GOT) 26 U/L (15-37); BICARBONATE 27.5 MEQ/L (21.0-32.0); BLOOD UREA NITROGEN 58 MG/DL (7-18); CALCIUM 8.2 MG/DL (8.5-10.1); CHLORIDE 110 MEQ/L (98-107); CREATININE 2.15 MG/DL (0.50-1.00); GLOMERULAR FILTRATION RATE 23 ML/MIN (>89); GLUCOSE,RANDOM 149 MG/DL (74-106); MAGNESIUM 1.9 MG/DL (1.5-2.5); PHOSPHORUS 2.1 MG/DL (2.5-4.9); SODIUM (NA) 143 MEQ/L (136-145); TOTAL BILIRUBIN ADULT 0.2 MG/DL (0.2-1.0); TOTAL PROTEIN 5.8 GM/DL (6.4-8.2)
--- NOTE | 2017-04-07 14:34 | HHI.PR ---
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 Sitting up in chair. Objective Vitals Vital Signs Date Time Temp Pulse Resp B/P (MAP) Pulse Ox O2 Delivery O2 Flow Rate FiO2 04/07/17 12:07 97.9 59 18 97/44 (61) 96 04/07/17 08:24 98.6 68 18 130/60 (83) 97 04/07/17 04:00 98.3 67 23 124/59 (80) 99 04/07/17 00:00 98.8 59 20 101/50 (67) 96 04/06/17 20:00 97.4 68 22 110/57 (74) 99 04/06/17 16:07 97.4 68 18 106/54 (71) 100 I/O 04/06/17 04/06/17 04/06/17 04/07/17 04/07/17 04/07/17 07:00 15:00 23:00 07:00 15:00 23:00 Intake Total 60 ml 1096 ml 478 ml 480 ml Output Total 850 ml Balance 60 ml 1096 ml 478 ml -370 ml Intake Oral 60 ml 360 ml 480 ml IV Total 1096 ml 118 ml Output Urine Total 850 ml # Voids 0 4 # Bowel Movements 0 0 0 Result Diagram: 04/07/17 0850 04/07/17 1207 Imaging Last Impressions Knee X-Ray 04/06/17 0000 Signed Impressions: Service Date/Time: Thursday, April 06, 2017 19:52 - CONCLUSION: Intact total knee arthroplasty for technique. K. Mac Mcintosh MD Head CT 04/05/17 1055 Signed Impressions: Service Date/Time: Wednesday, April 05, 2017 11:13 - CONCLUSION: No acute disease. Nils Willams MD Chest X-Ray 04/05/17 1055 Signed Impressions: Service Date/Time: Wednesday, April 05, 2017 11:20 - CONCLUSION: No acute disease. Nils Willams MD Objective Remarks GENERAL: Elderly obese female, sitting up in bed SKIN: Chronic venous skin changes LE, healed wounds. Multiple bruises LE and back. HEAD: Atraumatic. Normocephalic. No temporal or scalp tenderness. EYES: Pupils equal round and reactive. Extraocular motions intact. No scleral icterus. No injection or drainage. ENT: Nose without bleeding, purulent drainage or septal hematoma. Throat without erythema, tonsillar hypertrophy or exudate. Poor dentition. Uvula midline. Airway patent. NECK: Trachea midline. No JVD or lymphadenopathy. Supple, nontender, no meningeal signs. CARDIOVASCULAR: Distant heart sounds. Regular rate and rhythm without murmurs, gallops, or rubs. RESPIRATORY: Clear to auscultation. Breath sounds equal bilaterally. No wheezes , rales, or rhonchi. GASTROINTESTINAL: Abdomen soft, non-tender, nondistended. No hepato-splenomegaly , or palpable masses. No guarding. MUSCULOSKELETAL: Bilat knee tenderness and swelling, right worse than left, also bruise noted over right knee. Lower extremity swelling bilat. . NEUROLOGICAL: Awake and alert. Motor and sensory grossly within normal limits.Normal speech. Medications and IVs Current Medications Medications (Trade) Dose Ordered Sig/Rogers Route Start Time Stop Time Status Last Admin Sodium Chloride 1,000 ml @ 100 mls/hr Q10H IV 04/05/17 14:30 04/06/17 18:33 (NS Flush) 2 ml UNSCH PRN IV FLUSH 04/05/17 14:15 (NS Flush) 2 ml BID IV FLUSH 04/05/17 21:00 04/07/17 09:00 (Zofran Inj) 4 mg Q6H PRN IV PUSH 04/05/17 14:15 Ceftriaxone Sodium 1000 mg/ Sodium Chloride 100 ml @ 200 mls/hr Q24H IV 04/06/17 14:00 04/07/17 12:54 (Synthroid) 100 mcg DAILY@0600 PO 04/06/17 06:00 04/07/17 05:26 Patient Own Medication PT OWN MED: (Memantine-Donepezil (Namzaric) 1 CAP) HS PO 04/05/17 21:00 Future Hold (CeleXA) 40 mg DAILY PO 04/06/17 09:00 04/07/17 08:22 (Ativan) 1 mg TID PRN PO 04/05/17 14:45 04/07/17 11:44 (SEROquel) 100 mg QID PO 04/05/17 18:00 04/07/17 11:42 (Levemir Inj) 5 units HS SQ 04/05/17 21:00 04/06/17 21:25 (NovoLOG SUPPLEMENTAL SCALE) 1 ACHS SLIDING SCALE SQ 04/05/17 17:00 04/06/17 12:10 (Lopressor) 50 mg BID PO 04/05/17 21:00 04/07/17 08:22 (Heparin Inj) 5,000 units Q12H SQ 04/05/17 16:00 04/07/17 05:26 (Beaufort 5-325 Mg) 1 tab Q4H PRN PO 04/06/17 16:45 (Beaufort 10-325 Mg) 1 tab Q4H PRN PO 04/06/17 16:45 04/07/17 11:44 (Oramorph Sr) 15 mg Q12HR PO 04/06/17 21:00 04/07/17 08:22 A/P Problem List: (1) Anxiety and depression ICD Code: F41.8 - Mixed anxiety depressive disorder Status: Chronic (2) UTI (urinary tract infection) ICD Code: N39.0 - Urinary tract infection, site not specified Status: Acute (3) MISSY (acute kidney injury) ICD Code: N17.9 - Acute kidney failure, unspecified Status: Acute (4) Multiple falls ICD Code: R29.6 - Repeated falls Status: Acute (5) Hypothyroidism ICD Code: E03.9 - Hypothyroidism, unspecified Status: Chronic (6) Dehydration ICD Code: E86.0 - Dehydration Status: Acute (7) Diabetes mellitus, type 2 ICD Code: E11.9 - Type 2 diabetes mellitus Status: Chronic (8) Benign hypertension ICD Code: I10 - Benign hypertension Status: Chronic Assessment and Plan 67-year-old female patient with medical significant for hypertension, COPD, kidney disease presents for generalized weakness found to have UTI UTI: Leukocytosis, no fever, vitals are stable, no signs of sepsis on admission. Status post 1 dose of IV Rocephin in the ED. Continue. Urine cultures positive for Morgnella Morganii sensitive to Rocephin. Continue. Multiple falls - imaging above negative for any acute process -Physical therapy evaluation recommends home with home health PT as patient will not consider rehabilitation program. Acute kidney injury on CKD stage III. - History of stage III kidney disease, creatinine upon last discharge was 1.6. Today is 3.15. - IV hydration with normal saline 100 cc per hour (status post 2 boluses in the ER). The patient had echo performed in 2009 with no evidence of heart failure. - Avoid nephrotoxic agents - Renally dose all meds - Continue to follow - Lasix held. Continue IV fluids. Creatinine is trending down 3.15 --> 2.43 --> 2.15. Hypertension - Metoprolol 100 mg twice a day --- placed on hold due to low HR in 40s-50s, will resume at lower dose when HR stable - Amlodipine 10 mg daily--- recently stopped as an outpatient for hypotension 04/07/17 Metoprolol dose decreased. Last BP low. will hold Metoprolol. Hypothyroidism - TSH 2.340, continue home meds Depression - Continue home meds Hypokalemia - Resolved - continue to monitor and replace as needed. Level 4.1 (04/07/17) Diabetes - Currently takes triceva, not on formulary here, daughter will bring it because she states levemir does not work - We'll start her on 5 units at night Levemir and place her on sliding scale - Diabetic 04/06 blood sugars are acceptable. Patient had a blood sugar of 75 earlier in the morning today. Continue insulin Levemir and SSI with insulin NovoLog. Continue diabetic diet. OA/Chronic pain - continue patients home norco 04/06 Patient with severe pain in knees. Will obtain x rays. Will start on Oramorph 15 mg po BID. 04/07/17 Pain still uncontrolled. Increase Oramorph dose to 10 mg po BID. Continue Beaufort. Patient follows up with pain management. Advised to continue to do so. BL knee x rays did not show any fracture. Consulted orthopedic surgery for recommendations. Discussed case with Dr Antonio. Hypocalcemia -replace and monitor. Likely due to poor oral intake. DVT prophy: bilat SCDs, heparin (will avoid lovenox due to renal insufficiency) PT eval Patient initially admitted to observation, but once case discussed with patient daughter, unclear if she is able to care for her mother at this time and she may benefit from a SNF so that she can have PT and move better independently or perhaps longer placement in an EDU. CM to assist Discharge Planning Pending orthopedic surgery consultation. Pending pain improvement. Poss DC in am. Problem Qualifiers (1) UTI (urinary tract infection): Qualified Codes: N30.00 - Acute cystitis without hematuria Thomas Morales,Bryson MD Apr 07, 2017 14:34
--- NOTE | 2017-04-07 14:50 | PD.CONS ---
cc: Kit Antonio MD [facility] Service Orthopedic Surgeons Consult Requested By Dr. Anderson Reason for Consult Evaluation of bilateral knee pain Primary Care Physician Nils Savage, DO Admission Diagnosis dehydration, acute kidney injury, UTI, multiple falls Diagnoses: (1) Anxiety and depression (2) UTI (urinary tract infection) (3) MISSY (acute kidney injury) (4) Multiple falls (5) Hypothyroidism (6) Dehydration (7) Diabetes mellitus, type 2 (8) Benign hypertension (9) History of total knee arthroplasty Chief Complaint: Bilateral knee pain History of Present Illness This 67-year-old female patient with a past history that is significant for hypertension, diabetes, chronic stage II kidney disease, and COPD who presents to the ER by EMS for generalized weakness. Apparently the patient's daughter noticed progressive weakness over the past 3 weeks. She notes weakness in her lower extremity. She noted multiple falls in the kitchen and bathroom due to the generalized weakness. She does take an aspirin daily. In the ER patient was found to have a UTI. She was recently admitted in February for UTI. In the ER creatinine found to be 3.15, this was similar to initial admission in February, but then upon discharge was 1.6. The patient is status post bilateral total knee arthroplasties. These were done many years ago. She states that one was done locally and one in [place]. She has had intermittent discomfort in the knees and normally uses a walker for ambulation. She also has a wheelchair. Her pain was increased after the falls. It is worse on the left. She states it is over the anterior aspect. Review of Systems Reviewed and well outlined in the medical record Past Family Social History Past Medical History Hypertension Diabetes Obesity COPD Chronic pain Degenerative discdisease Past Surgical History Knee replacement I lens implants Gastric bypass Allergies: Coded Allergies: penicillin G (Unverified Allergy, Severe, Hives, 04/05/17) lactose (Unverified Allergy, Intermediate, Diarrhea, 04/05/17) sulfamethoxazole (Unverified Adverse Reaction, Unknown, 04/05/17) MAKE GFR DECREASE trimethoprim (Unverified Adverse Reaction, Unknown, 04/05/17) MAKE GFR DECREASE Active Ordered Medications Current Medications Medications (Trade) Dose Ordered Sig/Rogers Route Start Time Stop Time Status Last Admin Sodium Chloride 1,000 ml @ 100 mls/hr Q10H IV 04/05/17 14:30 04/06/17 18:33 (NS Flush) 2 ml UNSCH PRN IV FLUSH 04/05/17 14:15 (NS Flush) 2 ml BID IV FLUSH 04/05/17 21:00 04/07/17 09:00 (Zofran Inj) 4 mg Q6H PRN IV PUSH 04/05/17 14:15 Ceftriaxone Sodium 1000 mg/ Sodium Chloride 100 ml @ 200 mls/hr Q24H IV 04/06/17 14:00 04/07/17 12:54 (Synthroid) 100 mcg DAILY@0600 PO 04/06/17 06:00 04/07/17 05:26 Patient Own Medication PT OWN MED: (Memantine-Donepezil (Namzaric) 1 CAP) HS PO 04/05/17 21:00 Future Hold (CeleXA) 40 mg DAILY PO 04/06/17 09:00 04/07/17 08:22 (Ativan) 1 mg TID PRN PO 04/05/17 14:45 04/07/17 11:44 (SEROquel) 100 mg QID PO 04/05/17 18:00 04/07/17 11:42 (Levemir Inj) 5 units HS SQ 04/05/17 21:00 04/06/17 21:25 (NovoLOG SUPPLEMENTAL SCALE) 1 ACHS SLIDING SCALE SQ 04/05/17 17:00 04/06/17 12:10 (Lopressor) 50 mg BID PO 04/05/17 21:00 04/07/17 08:22 (Heparin Inj) 5,000 units Q12H SQ 04/05/17 16:00 04/07/17 05:26 (Joiner 5-325 Mg) 1 tab Q4H PRN PO 04/06/17 16:45 (Joiner 10-325 Mg) 1 tab Q4H PRN PO 04/06/17 16:45 04/07/17 11:44 (Oramorph Sr) 15 mg Q12HR PO 04/06/17 21:00 04/07/17 08:22 Reported Meds & Active Scripts Active Glucocom Test Strips (Blood Glucose Test Strips) 1 Antonieta Antonieta Ea .ROUTE DIRECTED Lancets 1 Mis Mis Ea .ROUTE DIRECTED Glucocom Blood Glucose Mo W/Device (Device) 1 Kit Kit Kit .ROUTE DIRECTED Check glucose BID Magnesium Oxide 400 Mg Tab 400 Mg PO Q12H Reported Tresiba Flextouch Pen Inj (Insulin Degludec Inj) 300 unit/3 ML Pen 20 Units SQ DAILY Cranberry Urinary Comfort (Vitamins C & E) 1 Cap 1 Cap PO DAILY Aspirin 81 (Aspirin) 81 Mg Tabdr 81 Mg PO DAILY Quetiapine (Quetiapine Fumarate) 100 Mg Tab 100 Mg PO QID Doxycycline Hyclate 100 Mg Cap 100 Mg PO BID Levothyroxine (Levothyroxine Sodium) 100 Mcg Tab 100 Mcg PO DAILY Namzaric (Memantine-Donepezil) 7-10 mg Cap 1 Cap PO HS Ropinirole 0.5 Mg Tab 0.5 Mg PO TID Tramadol (Tramadol HCl) 50 Mg Tab 50 Mg PO BID PRN Hydrocodone-Acetaminophen 10-325 mg Tab 1 Tab PO Q6H PRN Silvadene Topical (Silver Sulfadiazine) 1 % Cream 1 Applic TOPICAL BID Ativan (Lorazepam) 1 Mg Tab 1 Mg PO TID PRN Calcitriol 0.5 Mcg Cap 0.5 Mcg PO DAILY Metoprolol Tartrate 100 Mg Tab 100 Mg PO BID Celexa (Citalopram Hydrobromide) 40 Mg Tab 40 Mg PO DAILY Family History Father significant coronary artery disease, reported 6 MIs in the past Mother with multiple chronic medical conditions Social History Denies smoking history, drinks socially, denies illicit drugs Physical Exam Vital Signs Vital Signs Date Time Temp Pulse Resp B/P (MAP) Pulse Ox O2 Delivery O2 Flow Rate FiO2 04/07/17 12:07 97.9 59 18 97/44 (61) 96 04/07/17 08:24 98.6 68 18 130/60 (83) 97 04/07/17 04:00 98.3 67 23 124/59 (80) 99 04/07/17 00:00 98.8 59 20 101/50 (67) 96 04/06/17 20:00 97.4 68 22 110/57 (74) 99 04/06/17 16:07 97.4 68 18 106/54 (71) 100 Physical Exam The patient is out of bed to a chair and her daughter is at the bedside. There are well-healed surgical incisions over the anterior aspect of both knees. The left knee is tender to palpation over the anterior aspect. Her examination is limited secondary to discomfort. She has difficulty with straight leg raise. There is no obvious instability. There is no obvious soft tissue swelling. The patient is obese which limits the anatomic landmarks. There is no erythema or increased warmth. There is no calf swelling or palpable tenderness. Her distal neurological status is intact. Laboratory Laboratory Tests Test 04/07/17 08:50 04/07/17 12:07 White Blood Count 9.2 Red Blood Count 3.20 Hemoglobin 9.2 Hematocrit 27.7 Mean Corpuscular Volume 86.5 Mean Corpuscular Hemoglobin 28.9 Mean Corpuscular Hemoglobin Concent 33.4 Red Cell Distribution Width 17.8 Platelet Count 198 Mean Platelet Volume 8.9 Neutrophils (%) (Auto) 61.7 Lymphocytes (%) (Auto) 32.0 Monocytes (%) (Auto) 2.3 Eosinophils (%) (Auto) 3.0 Basophils (%) (Auto) 1.0 Neutrophils # (Auto) 5.7 Lymphocytes # (Auto) 3.0 Monocytes # (Auto) 0.2 Eosinophils # (Auto) 0.3 Basophils # (Auto) 0.1 CBC Comment AUTO DIFF Differential Total Cells Counted 100 Neutrophils % (Manual) 67 Lymphocytes % 30 Monocytes % 2 Eosinophils % 1 Neutrophils # (Manual) 6.2 Differential Comment FINAL DIFF MANUAL Platelet Estimate NORMAL Platelet Morphology Comment NORMAL Blood Urea Nitrogen 58 Creatinine 2.15 Random Glucose 149 Total Protein 5.8 Albumin 2.0 Calcium Level 8.2 Phosphorus Level 2.1 Magnesium Level 1.9 Alkaline Phosphatase 159 Aspartate Amino Transf (AST/SGOT) 26 Alanine Aminotransferase (ALT/SGPT) 21 Total Bilirubin 0.2 Sodium Level 143 Potassium Level 4.1 Chloride Level 110 Carbon Dioxide Level 27.5 Anion Gap 6 Estimat Glomerular Filtration Rate 23 Date/Time Source Procedure Growth Status 04/05/17 12:30 Urine Clean Catch Urine Culture - Final Morganella Morganii Complete Result Diagram: 04/07/17 0850 04/07/17 1207 Imaging Last 72 hours Impressions Knee X-Ray 04/06/17 0000 Signed Impressions: Service Date/Time: Thursday, April 06, 2017 19:52 - CONCLUSION: Intact total knee arthroplasty for technique. Lucila Mcintosh MD Knee X-Ray 04/06/17 0000 Signed Impressions: Service Date/Time: Thursday, April 06, 2017 19:53 - CONCLUSION: Intact total knee arthroplasty for technique. Lucila Mcintosh MD Head CT 04/05/17 1055 Signed Impressions: Service Date/Time: Wednesday, April 05, 2017 11:13 - CONCLUSION: No acute disease. Nils Willams MD Chest X-Ray 04/05/17 1055 Signed Impressions: Service Date/Time: Wednesday, April 05, 2017 11:20 - CONCLUSION: No acute disease. Nils Willams MD Assessment & Plan Problem List: (1) Coronary artery disease ICD Codes: I25.10 - Atherosclerosis of coronary artery Status: Acute (2) Hyperlipidemia ICD Codes: E78.5 - Hyperlipidemia Status: Acute (3) Dehydration ICD Codes: E86.0 - Dehydration Status: Acute (4) UTI (urinary tract infection) ICD Codes: N39.0 - Urinary tract infection, site not specified Status: Acute Qualifiers: Qualified Codes: N30.00 - Acute cystitis without hematuria (5) Multiple falls ICD Codes: R29.6 - Repeated falls Status: Acute (6) Benign hypertension ICD Codes: I10 - Benign hypertension Status: Chronic (7) Hypothyroidism ICD Codes: E03.9 - Hypothyroidism, unspecified Status: Chronic (8) Diabetes mellitus, type 2 ICD Codes: E11.9 - Type 2 diabetes mellitus Status: Chronic (9) Anxiety and depression ICD Codes: F41.8 - Mixed anxiety depressive disorder Status: Chronic (10) History of total knee arthroplasty ICD Codes: Z96.659 - Presence of unspecified artificial knee joint Qualifiers: Qualified Codes: Z96.653 - Presence of artificial knee joint, bilateral Assessment and Plan The findings were discussed with the patient and her daughter. Review of the x- rays does not reveal any obvious loosening or mechanical issues with the prostheses. There are no obvious acute findings. Her problem was exacerbated by a fall recently and may be related to a sprain and or contusion. It was explained that her pain may be referred. The possibility of a low-grade infection and its implications were discussed. This is not evident by her examination. The patient currently however is being treated for a urinary tract infection and therefore her lab studies would be inconclusive. Further workup may be indicated but at the present time recommendations are for physical therapy to improve her mobility, strength and fall prevention. She will contact the undersigned or her treating orthopedist on an outpatient basis if she remains symptomatic. Kit Antonio MD Apr 07, 2017 14:50
[2017-04-07 16:25] VITALS: BP 109/53; PULSE 66; RESP 18; TEMP 97.6; O2SAT 97
[2017-04-07 20:00] VITALS: BP 148/52; PULSE 83; RESP 19; TEMP 97.6; O2SAT 98
[2017-04-07] MEDS: INSULIN DETEMIR 100 UNITS/ML VIAL SQ SCH (21:26)
[2017-04-08] VITALS: BP 101/52; PULSE 79; RESP 21; TEMP 97.9; O2SAT 98
[2017-04-08] MEDS: LORazepam 1 MG TAB PO PRN ×4 (01:03→22:27)
[2017-04-08] MEDS: ACETAMINOPHEN/HYDROcodone 325 MG/10 MG TAB PO PRN ×4 (01:03→22:28)
[2017-04-08] MEDS: SODIUM CHLOR 0.9% 1000 ML INJ 1,000 ML IV SCH ×3 (02:30→22:30)
[2017-04-08 04:00] VITALS: BP 100/58; PULSE 86; RESP 19; TEMP 97.6; O2SAT 97
[2017-04-08] MEDS: HEPARIN SODIUM - SQ 10,000 UNITS/ML VIAL SQ SCH ×2 (04:00→16:01)
[2017-04-08] MEDS: LEVOTHYROXINE SODIUM 100 MCG TAB PO SCH (06:04)
[2017-04-08] MEDS: INSULIN ASPART SUPPLEMENTAL SCALE SQ SCH ×4 (07:59→22:27)
[2017-04-08 08:07] VITALS: BP 115/56; PULSE 105; RESP 18; TEMP 98.2; O2SAT 96
[2017-04-08] MEDS: SODIUM CHLORIDE 0.9% FLUSH 10 ML FLUSH IV FLUSH SCH ×2 (08:52→20:08)
[2017-04-08] MEDS: CITALOPRAM HYDROBROMIDE 40 MG TAB PO SCH (08:52)
[2017-04-08] MEDS: QUEtiapine FUMARATE 100 MG TAB PO SCH ×4 (08:56→20:07)
[2017-04-08] MEDS: MORPHINE SULFATE 15 MG CONTROLLED RELEASE TAB PO SCH ×2 (08:56→20:08)
[2017-04-08 11:05] LABS: HEMATOCRIT 30.5 % (35.0-46.0); HEMOGLOBIN 9.8 GM/DL (11.6-15.3); MEAN CELL VOLUME 91.2 FL (80.0-100.0); MEAN CORPUSCULAR HEMOGLOBIN 29.2 PG (27.0-34.0); MEAN PLATELET VOLUME 7.8 FL (7.0-11.0); PLATELET COUNT 292 TH/MM3 (150-450); RED BLOOD COUNT 3.35 MIL/MM3 (4.00-5.30); WHITE BLOOD COUNT 7.1 TH/MM3 (4.0-11.0)
[2017-04-08 11:16] LABS: BICARBONATE 22.4 MEQ/L (21.0-32.0); CREATININE 2.08 MG/DL (0.50-1.00)
[2017-04-08] MEDS: cefTRIAXone INJ 1,000 MG in SODIUM CHLORIDE 0.9% INJ 100 ML IV SCH (11:32)
[2017-04-08 12:13] VITALS: BP 104/54; PULSE 98; RESP 18; TEMP 97.9; O2SAT 98
--- NOTE | 2017-04-08 13:34 | HHI.PR ---
Subjective Remarks ptient still c/o pain in knees, however this is better controlled Denies cp/sob. Afebrile. Objective Vitals Vital Signs Date Time Temp Pulse Resp B/P (MAP) Pulse Ox O2 Delivery O2 Flow Rate FiO2 04/08/17 12:13 97.9 98 18 104/54 (71) 98 04/08/17 08:07 98.2 105 18 115/56 (75) 96 04/08/17 07:24 Room Air 04/08/17 04:00 Room Air 04/08/17 04:00 97.6 86 19 100/58 (72) 97 04/08/17 00:00 Room Air 04/08/17 00:00 97.9 79 21 101/52 (68) 98 04/07/17 20:00 97.6 83 19 148/52 (84) 98 04/07/17 20:00 Room Air 04/07/17 16:25 97.6 66 18 109/53 (71) 97 I/O 04/07/17 04/07/17 04/07/17 04/08/17 04/08/17 04/08/17 06:59 14:59 22:59 06:59 14:59 22:59 Intake Total 480 ml 720 ml 1947 ml 100 ml Output Total 850 ml Balance -370 ml 720 ml 1947 ml 100 ml Intake Oral 480 ml 720 ml 770 ml IV Total 1177 ml 100 ml Output Urine Total 850 ml # Voids 3 3 # Bowel Movements 0 0 0 Result Diagram: 04/08/17 1042 04/08/17 1042 Imaging Last Impressions Knee X-Ray 04/06/17 0000 Signed Impressions: Service Date/Time: Thursday, April 06, 2017 19:52 - CONCLUSION: Intact total knee arthroplasty for technique. K. Mac Mcintosh MD Head CT 04/05/17 1055 Signed Impressions: Service Date/Time: Wednesday, April 05, 2017 11:13 - CONCLUSION: No acute disease. Nils Willams MD Chest X-Ray 04/05/17 1055 Signed Impressions: Service Date/Time: Wednesday, April 05, 2017 11:20 - CONCLUSION: No acute disease. Nils Willams MD Objective Remarks GENERAL: Elderly obese female, sitting up in bed SKIN: Chronic venous skin changes LE, healed wounds. Multiple bruises LE and back. HEAD: Atraumatic. Normocephalic. No temporal or scalp tenderness. EYES: Pupils equal round and reactive. Extraocular motions intact. No scleral icterus. No injection or drainage. ENT: Nose without bleeding, purulent drainage or septal hematoma. Throat without erythema, tonsillar hypertrophy or exudate. Poor dentition. Uvula midline. Airway patent. NECK: Trachea midline. No JVD or lymphadenopathy. Supple, nontender, no meningeal signs. CARDIOVASCULAR: Distant heart sounds. Regular rate and rhythm without murmurs, gallops, or rubs. RESPIRATORY: Clear to auscultation. Breath sounds equal bilaterally. No wheezes , rales, or rhonchi. GASTROINTESTINAL: Abdomen soft, non-tender, nondistended. No hepato-splenomegaly , or palpable masses. No guarding. MUSCULOSKELETAL: Bilat knee tenderness and swelling, right worse than left, also bruise noted over right knee. Lower extremity swelling bilat. . NEUROLOGICAL: Awake and alert. Motor and sensory grossly within normal limits.Normal speech. Medications and IVs Current Medications Medications (Trade) Dose Ordered Sig/Rogers Route Start Time Stop Time Status Last Admin Sodium Chloride 1,000 ml @ 100 mls/hr Q10H IV 04/05/17 14:30 04/08/17 02:30 (NS Flush) 2 ml UNSCH PRN IV FLUSH 04/05/17 14:15 (NS Flush) 2 ml BID IV FLUSH 04/05/17 21:00 04/07/17 21:25 (Zofran Inj) 4 mg Q6H PRN IV PUSH 04/05/17 14:15 Ceftriaxone Sodium 1000 mg/ Sodium Chloride 100 ml @ 200 mls/hr Q24H IV 04/06/17 14:00 04/08/17 11:32 (Synthroid) 100 mcg DAILY@0600 PO 04/06/17 06:00 04/08/17 06:04 Patient Own Medication PT OWN MED: (Memantine-Donepezil (Namzaric) 1 CAP) HS PO 04/05/17 21:00 Future Hold (CeleXA) 40 mg DAILY PO 04/06/17 09:00 04/08/17 08:52 (Ativan) 1 mg TID PRN PO 04/05/17 14:45 04/08/17 11:44 (SEROquel) 100 mg QID PO 04/05/17 18:00 04/08/17 11:31 (Levemir Inj) 5 units HS SQ 04/05/17 21:00 04/07/17 21:26 (NovoLOG SUPPLEMENTAL SCALE) 1 ACHS SLIDING SCALE SQ 04/05/17 17:00 04/08/17 11:30 (Heparin Inj) 5,000 units Q12H SQ 04/05/17 16:00 04/08/17 04:00 (Athol 5-325 Mg) 1 tab Q4H PRN PO 04/06/17 16:45 (Athol 10-325 Mg) 1 tab Q4H PRN PO 04/06/17 16:45 04/08/17 11:45 (Oramorph Sr) 30 mg Q12HR PO 04/07/17 21:00 04/08/17 08:56 A/P Problem List: (1) Anxiety and depression ICD Code: F41.8 - Mixed anxiety depressive disorder Status: Chronic (2) UTI (urinary tract infection) ICD Code: N39.0 - Urinary tract infection, site not specified Status: Acute (3) IMSSY (acute kidney injury) ICD Code: N17.9 - Acute kidney failure, unspecified Status: Acute (4) Multiple falls ICD Code: R29.6 - Repeated falls Status: Acute (5) Hypothyroidism ICD Code: E03.9 - Hypothyroidism, unspecified Status: Chronic (6) Dehydration ICD Code: E86.0 - Dehydration Status: Acute (7) Diabetes mellitus, type 2 ICD Code: E11.9 - Type 2 diabetes mellitus Status: Chronic (8) Benign hypertension ICD Code: I10 - Benign hypertension Status: Chronic (9) History of total knee arthroplasty ICD Code: Z96.659 - Presence of unspecified artificial knee joint Assessment and Plan 67-year-old female patient with medical significant for hypertension, COPD, kidney disease presents for generalized weakness found to have UTI UTI: Leukocytosis, no fever, vitals are stable, no signs of sepsis on admission. Status post 1 dose of IV Rocephin in the ED. Continue. Urine cultures positive for Morgnella Morganii sensitive to Rocephin. Continue. 1/2 Dc Rocephin IV and start Ciprofloxacin to complete 7 days. Multiple falls - imaging above negative for any acute process -Physical therapy evaluation recommends home with home health PT as patient will not consider rehabilitation program. Acute kidney injury on CKD stage III. - History of stage III kidney disease, creatinine upon last discharge was 1.6. Today is 3.15. - IV hydration with normal saline 100 cc per hour (status post 2 boluses in the ER). The patient had echo performed in 2009 with no evidence of heart failure. - Avoid nephrotoxic agents - Renally dose all meds - Continue to follow - Lasix held. Continue IV fluids. Creatinine is trending down 3.15 --> 2.43 --> 2.15 ---> 2.08. Hypertension - Metoprolol 100 mg twice a day --- placed on hold due to low HR in 40s-50s, will resume at lower dose when HR stable - Amlodipine 10 mg daily--- recently stopped as an outpatient for hypotension 04/07/17 Metoprolol dose decreased. Last BP low. Metoprolol discontinued. Hypothyroidism - TSH 2.340, continue home meds Depression - Continue home meds Hypokalemia - Resolved - continue to monitor and replace as needed. Level 4.1 (04/07/17) Diabetes Mellitus with hyperglycemia - Currently takes triceva, not on formulary here, daughter will bring it because she states levemir does not work - We'll start her on 5 units at night Levemir and place her on sliding scale - Diabetic 04/06 blood sugars are acceptable. Patient had a blood sugar of 75 earlier in the morning today. Continue insulin Levemir and SSI with insulin NovoLog. Continue diabetic diet. 2 Blood sugars with improved controlled. Continue same management. OA/Acute on Chronic pain - continue patients home norco 04/06 Patient with severe pain in knees. Will obtain x rays. Will start on Oramorph 15 mg po BID. 04/07/17 Pain still uncontrolled. Increase Oramorph dose to 30 mg po BID. Continue Athol. Patient follows up with pain management. Advised to continue to do so. BL knee x rays did not show any fracture. Consulted orthopedic surgery for recommendations. Discussed case with Dr Antonio. 04/08 Pain better controlled. Continue Oramorph 30 mg po BID and Athol as needed. Hypocalcemia -replace and monitor. Likely due to poor oral intake. Resolved. DVT prophy: bilat SCDs, heparin (will avoid lovenox due to renal insufficiency) PT eval Discharge Planning Pending orthopedic surgery consultation. Pending creatinine improvement. Poss DC in am. Problem Qualifiers (1) UTI (urinary tract infection): Qualified Codes: N30.00 - Acute cystitis without hematuria (2) History of total knee arthroplasty: Qualified Codes: Z96.653 - Presence of artificial knee joint, bilateral ThomasBryson Weldon MD Apr 08, 2017 13:34
[2017-04-08] MEDS ORDERED: GLUCAGON 1 MG/ML VIAL OTHER PRN (14:00)
[2017-04-08] MEDS ORDERED: DEXTROSE 50% IN WATER 50 ML VIAL(D50) IV PUSH PRN (14:00)
[2017-04-08 16:07] VITALS: BP 121/56; PULSE 109; RESP 18; TEMP 98.6; O2SAT 95
[2017-04-08 20:00] VITALS: BP 107/56; PULSE 114; RESP 20; TEMP 98; O2SAT 100
[2017-04-08] MEDS ORDERED: INSULIN DETEMIR 100 UNITS/ML VIAL SQ SCH ×2 (21:00)
[2017-04-09] VITALS: BP 110/55; PULSE 106; RESP 20; TEMP 98.1; O2SAT 98
[2017-04-09 04:00] VITALS: BP 111/53; PULSE 110; RESP 20; TEMP 98.2; O2SAT 96
[2017-04-09] MEDS: LEVOTHYROXINE SODIUM 100 MCG TAB PO SCH (04:59)
[2017-04-09] MEDS: LORazepam 1 MG TAB PO PRN ×2 (05:00→13:12)
[2017-04-09] MEDS: ACETAMINOPHEN/HYDROcodone 325 MG/10 MG TAB PO PRN ×3 (05:00→15:27)
[2017-04-09] MEDS: HEPARIN SODIUM - SQ 10,000 UNITS/ML VIAL SQ SCH ×2 (05:01→15:28)
[2017-04-09] MEDS: INSULIN ASPART SUPPLEMENTAL SCALE SQ SCH ×2 (07:56→12:18)
[2017-04-09] MEDS: SODIUM CHLORIDE 0.9% FLUSH 10 ML FLUSH IV FLUSH SCH (07:56)
[2017-04-09 08:00] VITALS: BP 104/55; PULSE 118; RESP 18; TEMP 98.6; O2SAT 94
[2017-04-09] MEDS: CITALOPRAM HYDROBROMIDE 40 MG TAB PO SCH (08:42)
[2017-04-09] MEDS: SODIUM CHLOR 0.9% 1000 ML INJ 1,000 ML IV SCH (08:42)
[2017-04-09] MEDS: MORPHINE SULFATE 15 MG CONTROLLED RELEASE TAB PO SCH (08:43)
[2017-04-09] MEDS: QUEtiapine FUMARATE 100 MG TAB PO SCH ×2 (08:43→12:16)
[2017-04-09 12:00] VITALS: BP 114/56; PULSE 122; RESP 17; TEMP 99.4; O2SAT 96
[2017-04-09] MEDS: cefTRIAXone INJ 1,000 MG in SODIUM CHLORIDE 0.9% INJ 100 ML IV SCH (13:13)
[2017-04-09] MEDS ORDERED: MORP1TAB24 PO (14:44)
[2017-04-09] MEDS ORDERED: HYDR-3583 PO (14:44)
--- NOTE | 2017-04-09 14:48 | HHI.DCPOC ---
Discharge Care Plan Diagnosis: (1) Hyperlipidemia (2) Coronary artery disease (3) Anxiety and depression (4) Diabetes mellitus, type 2 (5) Hypothyroidism (6) Benign hypertension (7) Multiple falls (8) MISSY (acute kidney injury) (9) UTI (urinary tract infection) (10) Knee pain, bilateral (11) Knee pain, chronic (12) Chronic pain (13) History of total knee arthroplasty (14) Hypokalemia (15) Dehydration Goals to Promote Your Health * To prevent worsening of your condition and complications * To maintain your health at the optimal level Directions to Meet Your Goals Take your medications as prescribed Follow your dietary instruction Follow activity as directed Keep your appointments as scheduled Take your immunizations and boosters as scheduled If your symptoms worsen call your PCP, if no PCP go to Urgent Care Center or Emergency Room Smoking is Dangerous to Your Health. Avoid second hand smoke Call the 24-hour hour crisis hotline for domestic abuse at Bryson Rivera MD Apr 09, 2017 14:48
--- NOTE | 2017-04-09 14:55 | HHI.FF ---
Face to Face Verification Diagnosis: (1) CKD (chronic kidney disease), stage III (2) Multiple falls (3) MISSY (acute kidney injury) (4) Diabetes mellitus, type 2 (5) Fall (6) Sepsis (7) Dehydration (8) Knee pain, chronic (9) Knee pain, bilateral (10) Chronic pain (11) UTI (urinary tract infection) (12) Hyperlipidemia (13) Coronary artery disease Physical Therapy Order: Improve ambulation, Strength and gait training Home Health Nursing Order: Medical education Signs/symptoms of disease process Diabetic education Nursing assessment with vital signs I have seen patient Natalie Jeong on 04/09/17. My clinical findings support the need for the requested home health care services because: Ltd mobility - disease progression Limited ability to care for self Need for psychosocial assistance High risk of falls I certify that my clinical findings support that this patient is homebound because: Unsteady gait/balance Unsafe to leave home unassisted Unable to use public transportation Bryson Rivera MD Apr 09, 2017 14:55
[2017-04-09] MEDS ORDERED: CIPR500T2 PO (15:47)
--- NOTE | 2017-04-09 15:59 | PD.CONS ---
HPI Service Nephrology Consult Requested By Reason for Consult Hx CKD Primary Care Physician Nils Savage, DO History of Present Illness This is our 67 y/o office patient who has CKD 4, who was admitted for generalized /lower extremity weakness and frequent falls. She had UTI on admission, was treated with Rocephin. She was previously admitted in February for urosepsis. At that time she was in renal failure, her creatinine improved to 1.6 at discharge. This admission it was 3.15 that has improved daily and is around 2 today. She feels well, is wanting to be discharged. We were consulted to assist with management. (Marlene Mcallister) Review of Systems Constitutional: COMPLAINS OF: Fatigue, DENIES: Weight gain, Change in appetite Respiratory: DENIES: Shortness of breath Cardiovascular: COMPLAINS OF: Lower Extremity Edema Integumentary: COMPLAINS OF: Rash (Marlene Mcallister) Past Family Social History Allergies: Coded Allergies: penicillin G (Unverified Allergy, Severe, Hives, 04/05/17) lactose (Unverified Allergy, Intermediate, Diarrhea, 04/05/17) sulfamethoxazole (Unverified Adverse Reaction, Unknown, 04/05/17) MAKE GFR DECREASE trimethoprim (Unverified Adverse Reaction, Unknown, 04/05/17) MAKE GFR DECREASE Past Medical History CKD 4, baseline creatinine 1.93, GFR 26 from 02/07/17 htn dm obesity copd chronic pain degenerative back disc dx urosepsis Past Surgical History knee replacement c section eyes lense implants teeth removed gastric bypass Reported Medications Glucocom Test Strips (Blood Glucose Test Strips) 1 Antonieta Antonieta Ea .ROUTE DIRECTED Lancets 1 Mis Mis Ea .ROUTE DIRECTED Glucocom Blood Glucose Mo W/Device (Device) 1 Kit Kit Kit .ROUTE DIRECTED Check glucose BID Magnesium Oxide 400 Mg Tab 400 Mg PO Q12H Tresiba Flextouch Pen Inj (Insulin Degludec Inj) 300 unit/3 ML Pen 20 Units SQ DAILY Cranberry Urinary Comfort (Vitamins C & E) 1 Cap 1 Cap PO DAILY Aspirin 81 (Aspirin) 81 Mg Tabdr 81 Mg PO DAILY Quetiapine (Quetiapine Fumarate) 100 Mg Tab 100 Mg PO QID Doxycycline Hyclate 100 Mg Cap 100 Mg PO BID Levothyroxine (Levothyroxine Sodium) 100 Mcg Tab 100 Mcg PO DAILY Georgezaric (Memantine-Donepezil) 7-10 mg Cap 1 Cap PO HS Ropinirole 0.5 Mg Tab 0.5 Mg PO TID Tramadol (Tramadol HCl) 50 Mg Tab 50 Mg PO BID PRN Hydrocodone-Acetaminophen 10-325 mg Tab 1 Tab PO Q6H PRN Silvadene Topical (Silver Sulfadiazine) 1 % Cream 1 Applic TOPICAL BID Furosemide 20 Mg Tab 20 Mg PO BID Ativan (Lorazepam) 1 Mg Tab 1 Mg PO TID PRN Calcitriol 0.5 Mcg Cap 0.5 Mcg PO DAILY Metoprolol Tartrate 100 Mg Tab 100 Mg PO BID Celexa (Citalopram Hydrobromide) 40 Mg Tab 40 Mg PO DAILY Active Ordered Medications Current Medications Medications (Trade) Dose Ordered Sig/Rogers Route Start Time Stop Time Status Last Admin Sodium Chloride 1,000 ml @ 100 mls/hr Q10H IV 04/05/17 14:30 04/09/17 08:42 (NS Flush) 2 ml UNSCH PRN IV FLUSH 04/05/17 14:15 (NS Flush) 2 ml BID IV FLUSH 04/05/17 21:00 04/09/17 07:56 (Zofran Inj) 4 mg Q6H PRN IV PUSH 04/05/17 14:15 Ceftriaxone Sodium 1000 mg/ Sodium Chloride 100 ml @ 200 mls/hr Q24H IV 04/06/17 14:00 04/09/17 13:13 (Synthroid) 100 mcg DAILY@0600 PO 04/06/17 06:00 04/09/17 04:59 Patient Own Medication PT OWN MED: (Memantine-Donepezil (Namzaric) 1 CAP) HS PO 04/05/17 21:00 Future Hold (CeleXA) 40 mg DAILY PO 04/06/17 09:00 04/09/17 08:42 (Ativan) 1 mg TID PRN PO 04/05/17 14:45 04/09/17 13:12 (SEROquel) 100 mg QID PO 04/05/17 18:00 04/09/17 12:16 (Heparin Inj) 5,000 units Q12H SQ 04/05/17 16:00 04/09/17 15:28 (Baskin 5-325 Mg) 1 tab Q4H PRN PO 04/06/17 16:45 (Baskin 10-325 Mg) 1 tab Q4H PRN PO 04/06/17 16:45 04/09/17 15:27 (Oramorph Sr) 30 mg Q12HR PO 04/07/17 21:00 04/09/17 08:43 (NovoLOG SUPPLEMENTAL SCALE) 1 ACHS SLIDING SCALE SQ 04/08/17 17:00 04/09/17 12:18 (Levemir Inj) 5 units HS SQ 04/08/17 21:00 04/08/17 22:27 (D50w (Vial) Inj) 25 ml UNSCH PRN IV PUSH 04/08/17 14:00 (Glucagon Inj) 1 mg UNSCH PRN OTHER 04/08/17 14:00 Family History Non contributory Social History Non smoking No ETOH Full Code Ambulatory but needs assistance Lives with daughter (Marlene Mcallister) Physical Exam Vital Signs Vital Signs Date Time Temp Pulse Resp B/P (MAP) Pulse Ox O2 Delivery O2 Flow Rate FiO2 04/09/17 12:00 99.4 122 17 114/56 (75) 96 04/09/17 08:00 98.6 118 18 104/55 (71) 94 04/09/17 04:00 Room Air 04/09/17 04:00 98.2 110 20 111/53 (72) 96 04/09/17 00:00 Room Air 04/09/17 00:00 98.1 106 20 110/55 (73) 98 04/08/17 20:00 Room Air 04/08/17 20:00 98.0 114 20 107/56 (73) 100 04/08/17 16:07 98.6 109 18 121/56 (77) 95 Physical Exam Obese female Awake/alert oriented x 3 Lungs clear S1/S2, RRR no murmurs Abdomen obese, soft, non tender Ext: 1+ non pitting edema, chronic skin changes to bilateral lower extremities ; no visible blisters Laboratory Date/Time Source Procedure Growth Status 04/05/17 12:30 Urine Clean Catch Urine Culture - Final Morganella Morganii Complete (Marlene Mcallister) Result Diagram: 04/08/17 1042 04/08/17 1042 Imaging Last Impressions Knee X-Ray 04/06/17 0000 Signed Impressions: Service Date/Time: Thursday, April 06, 2017 19:52 - CONCLUSION: Intact total knee arthroplasty for technique. Gaytan Mac Mcintosh MD Head CT 04/05/17 1055 Signed Impressions: Service Date/Time: Wednesday, April 05, 2017 11:13 - CONCLUSION: No acute disease. Nils Willams MD Chest X-Ray 04/05/17 1055 Signed Impressions: Service Date/Time: Wednesday, April 05, 2017 11:20 - CONCLUSION: No acute disease. Nils Willams MD (Marlene Mcallister) Assessment and Plan Problem List: (1) MISSY (acute kidney injury) ICD Codes: N17.9 - Acute kidney failure, unspecified Status: Acute Plan: MISSY on CKD 4, baseline creatinine 1.6 from February Creatinine has improved this admission; she is non oliguric Renal failure most likely due to UTI She is stable for discharge We will follow in CKD clinic (2) Multiple falls ICD Codes: R29.6 - Repeated falls Status: Acute Plan: Possibly due to UTI Requesting PT/OT or HHC Fall precautions (3) UTI (urinary tract infection) ICD Codes: N39.0 - Urinary tract infection, site not specified Status: Acute Plan: Treated with rocephin (Marlene Mcallister) Problem List: (1) MISSY (acute kidney injury) ICD Codes: N17.9 - Acute kidney failure, unspecified Status: Acute Plan: MISSY on CKD 4, baseline creatinine 1.6 from February Creatinine has improved this admission; she is non oliguric Renal failure most likely due to UTI She is stable for discharge We will follow in CKD clinic (2) Multiple falls ICD Codes: R29.6 - Repeated falls Status: Acute Plan: Possibly due to UTI Requesting PT/OT or HHC Fall precautions (3) UTI (urinary tract infection) ICD Codes: N39.0 - Urinary tract infection, site not specified Status: Acute Plan: Treated with rocephin Assessment and Plan patient was seen and examined. Renal function has improved with hydration. OK to stop IVF, cleared for discharge from renal standpoint. (Erick Gilbert MD) Problem Qualifiers (1) UTI (urinary tract infection): Qualified Codes: N30.00 - Acute cystitis without hematuria Marlene Mcallister Apr 09, 2017 15:59 Erick Gilbert MD Apr 09, 2017 18:12
[2017-04-09 16:00] VITALS: BP 107/54; PULSE 109; RESP 19; TEMP 97.5; O2SAT 93
== END 2017-04-09 19:35 | disposition home health service (06) | DRG 683 ==
LOC: NEPE 10:42 → NEDA 13:58 → OBSVTOIN 14:54 → NEPGCP 15:18 → N04A 22:15
PROVIDERS: ADMIT Family Medicine; ATTEND Family Medicine
DX: N17.9 Acute kidney failure, unspecified (principal); N39.0 Urinary tract infection, site not specified; E11.22 Type 2 diabetes mellitus with diabetic chronic kidney disease; E11.65 Type 2 diabetes mellitus with hyperglycemia; Z79.4 Long term (current) use of insulin; J44.9 Chronic obstructive pulmonary disease, unspecified; Z68.42 Body mass index [BMI] 45.0-49.9, adult; I12.9 Hypertensive chronic kidney disease with stage 1 through stage 4 chronic kidney disease, or unspecified chronic kidney disease; N18.4 Chronic kidney disease, stage 4 (severe); E83.51 Hypocalcemia; E66.9 Obesity, unspecified; F41.8 Other specified anxiety disorders; Z87.440 Personal history of urinary (tract) infections; R29.6 Repeated falls; E03.9 Hypothyroidism, unspecified; E86.0 Dehydration; E87.6 Hypokalemia; G89.29 Other chronic pain; M19.90 Unspecified osteoarthritis, unspecified site; I25.10 Atherosclerotic heart disease of native coronary artery without angina pectoris; E78.5 Hyperlipidemia, unspecified; H91.90 Unspecified hearing loss, unspecified ear; Z79.82 Long term (current) use of aspirin; M25.562 Pain in left knee; Z96.653 Presence of artificial knee joint, bilateral; M25.561 Pain in right knee
CPT/HCPCS: 70450; 71010; 73560; 76937; 80048; 80053; 81001; 82550; 82948; 83735; 83880; 84100; 84155; 84443; 84484; 85007; 85025; 85027; 87077; 87086; 87186; 93005; 96365; J0696; J1644; J1815; J7030; J7040

== ENCOUNTER 2017-04-11 17:36 | Observation (INO) | payer MEDICARE, OTHER ==
[~2017-04-11] VITALS: Ht 152.4 cm; Wt 110.0 kg
[~2017-04-11 17:36] MED LIST changes: -AMLO10 PO; +ASPI1TAB57 PO; +CALC0.5C PO; -CEFU1TAB18 PO; +CIPR500T2 PO; +CRANCAP2 PO; -D-50TAB; -DICY10CA12 PO; +HYDR-3583 PO; +INSU1INJ14 SQ; -LEVEMIR SQ; +LEVO100T5 PO; -LEVO88TA2 PO; +LORA-474 PO; -LORA1TAB12 PO; +MEMA1CAP3 PO; -METO100T PO; +MORP1TAB24 PO; -NAME10TA PO; +QUET1TAB8 PO; +ROPI0.5T PO; +SILV1CRE20 TOPICAL
[2017-04-11 17:47] VITALS: BP 157/72; PULSE 72; RESP 16; TEMP 98.2; O2SAT 98
[2017-04-11 19:55] VITALS: BP 144/106; PULSE 64; RESP 18; O2SAT 100
--- NOTE | 2017-04-11 20:12 | PD ---
HPI Chief Complaint: Medical Clearance Time Seen by Provider: 20:02 Travel History International Travel<30 days: No Contact w/Intl Traveler<30days: No Traveled to known affect area: No History of Present Illness HPI 67-year-old female presents to the emergency department for evaluation of left knee pain. Patient was recently hospitalized Friday through Friday of this week for UTI acute kidney injury and chronic knee pain status post repetitive falls. Patient was evaluated by Dr. Antonio during hospitalization for bilateral knee pain felt to be associated with strain sprain/contusion related to multiple falls. Patient presents with bilateral knee bruising. Patient was discharged on Friday with a paced and inpatient rehabilitation facility today however daughter reports that the facility stated there was no room for the patient today. Due to patient's increasing left knee pain they decided to return to the emergency room for reevaluation. There is no redness or point tenderness or increased warmth of the knee. There is evidence of swelling of the knee. Patient also complains of left calf pain. Patient does not appear to have pain with knee flexion. Patient states she also had right knee pain but is much less than her left knee and she is able to weight-bear on her right knee but has increased pain with attempted weightbearing on her left knee. Patient has had bilateral knee replacement the past. Patient has a bladder neurostimulator and is unable to undergo MRI imaging. Patient is currently on Cipro antibiotic for UTI. No report of fever or chills. Patient is to follow- up with orthopedist as an outpatient. Patient is also to be placed in rehabilitation for ongoing strengthening of the lower extremities due to marked deconditioning. Blood sugars have been well-controlled. Patient is diabetic. PFSH Past Medical History Narrative Medical Arthritis anxiety depression diabetes chronic kidney disease diminished hearing morbid obesity hypothyroidism hypertension bilateral knee replacement, neurostimulator for chronic bladder or bowel incontinence, hysterectomy, bilateral knee replacement; no tobacco use no alcohol use: Nursing notes reviewed Arthritis: Yes Asthma: No Autoimmune Disease: No Anxiety: Yes Depression: Yes Heart Rhythm Problems: No Cancer: No Cardiovascular Problems: Yes High Cholesterol: No Chemotherapy: No Chest Pain: No Congestive Heart Failure: No COPD: No Cerebrovascular Accident: No Diabetes: Yes (TYPE 2) Patient Takes Glucophage: No Diminished Hearing: Yes ([place]) Endocrine: Yes Gastrointestinal Disorders: Yes (INCONTINENCE) GERD: Yes Genitourinary: Yes (INCONTINENCE) Headaches: Yes Hepatitis: No Hiatal Hernia: No Hypertension: Yes Immune Disorder: No Implanted Vascular Access Dvce: Yes Kidney Stones: Yes Musculoskeletal: Yes Neurologic: Yes Psychiatric: Yes Reproductive: No Respiratory: No Immunizations Current: Yes Migraines: Yes Radiation Therapy: No Renal Failure: No Seizures: No Sleep Apnea: No Thyroid Disease: Yes (HYPOTHYROIDISM) Ulcer: No Past Surgical History Abdominal Surgery: Yes (GASTRIC BYPASS, CHOLEYCYSTECTOMY) AICD: No Arteriovenous Shunt: No Body Medical Devices: TENS UNIT PLACED IN RIGHT HIP FOR BOWEL/BLADDER INCONTINENCE Cardiac Surgery: No Section: Yes (X 1) Cholecystectomy: Yes Ear Surgery: No Endocrine Surgery: No Eye Surgery: Yes (BILATERAL LENS IMPLANT) Genitourinary Surgery: No Gynecologic Surgery: Yes (HYSTERECTOMY, ) Hysterectomy: Yes Insulin Pump: No Joint Replacement: Yes (BILATERAL KNEE REPLACEMENT) Neurologic Surgery: Yes (TENS UNIT PLACED IN RIGHT HIP) Oral Surgery: Yes Pacemaker: No Thoracic Surgery: No Tonsillectomy: Yes Other Surgery: Yes Social History Alcohol Use: No (DENIES) Tobacco Use: No Substance Use: No Allergies-Medications (Allergen,Severity, Reaction): Coded Allergies: penicillin G (Unverified Allergy, Severe, Hives, 04/11/17) lactose (Unverified Allergy, Intermediate, Diarrhea, 04/11/17) sulfamethoxazole (Unverified Adverse Reaction, Unknown, 04/11/17) MAKE GFR DECREASE trimethoprim (Unverified Adverse Reaction, Unknown, 04/11/17) MAKE GFR DECREASE Reported Meds & Prescriptions Reported Meds & Active Scripts Active Ciprofloxacin (Ciprofloxacin HCl) 500 Mg Tab 500 Mg PO BID Morphine ER (Morphine Sulfate) 15 Mg Tab 30 Mg PO Q12HR Hydrocodone-Acetamin 10-325 mg (Hydrocodone/Acetaminophen) 10 Mg-325 Mg Tablet 1 Tab PO Q4H PRN Glucocom Test Strips (Blood Glucose Test Strips) 1 Antonieta Antonieta Ea .ROUTE DIRECTED Lancets 1 Mis Mis Ea .ROUTE DIRECTED Glucocom Blood Glucose Mo W/Device (Device) 1 Kit Kit Kit .ROUTE DIRECTED Check glucose BID Magnesium Oxide 400 Mg Tab 400 Mg PO Q12H Reported Tresiba Flextouch Pen Inj (Insulin Degludec Inj) 300 unit/3 ML Pen 20 Units SQ DAILY Cranberry Urinary Comfort (Vitamins C & E) 1 Cap 1 Cap PO DAILY Aspirin 81 (Aspirin) 81 Mg Tabdr 81 Mg PO DAILY Quetiapine (Quetiapine Fumarate) 100 Mg Tab 100 Mg PO QID Levothyroxine (Levothyroxine Sodium) 100 Mcg Tab 100 Mcg PO DAILY Namzaric (Memantine-Donepezil) 7-10 mg Cap 1 Cap PO HS Ropinirole 0.5 Mg Tab 0.5 Mg PO TID Silvadene Topical (Silver Sulfadiazine) 1 % Cream 1 Applic TOPICAL BID Ativan (Lorazepam) 1 Mg Tab 1 Mg PO TID PRN Calcitriol 0.5 Mcg Cap 0.5 Mcg PO DAILY Celexa (Citalopram Hydrobromide) 40 Mg Tab 40 Mg PO DAILY Review of Systems Except as stated in HPI: all other systems reviewed are Neg General / Constitutional: No: Fever, Chills HENT: No: Congestion Cardiovascular: No: Chest Pain or Discomfort Respiratory: No: Shortness of Breath Gastrointestinal: No: Abdominal Pain Genitourinary: No: Flank Pain Musculoskeletal: Positive: Myalgias, Arthralgias, Pain (bilateral chronis knee pain s/p multiple falls L>R) Skin: No Rash Neurologic: Positive: Weakness (chronic) Psychiatric: Positive: Anxiety Hematologic/Lymphatic: No: Easy Bruising Physical Exam Narrative GENERAL: Well-developed well-nourished morbidly obese female in no acute distress no respiratory distress SKIN: Warm and dry. HEAD: Normocephalic. EYES: No scleral icterus. No injection or drainage. NECK: Supple, trachea midline. No JVD or lymphadenopathy. CARDIOVASCULAR: Regular rate and rhythm without murmurs, gallops, or rubs. RESPIRATORY: Breath sounds equal bilaterally. No accessory muscle use. GASTROINTESTINAL: Abdomen soft, non-tender, nondistended. MUSCULOSKELETAL: No cyanosis, or edema. Bilateral knee anterior aspect with bruising noted no soft tissue swelling is appreciated due to obesity landmarks are difficult to ascertain patient is able to perform knee flexion and extension without difficulty no redness no increased warmth no palpable ballotable effusion bilateral anterior scars are noted consistent with prior bilateral knee replacement patient does have calf tenderness to palpation in the left calf bilateral dorsalis pedis pulses are palpable and capillary refill is brisk and less than 2 seconds per digit bilaterally. BACK: Nontender without obvious deformity. No CVA tenderness. Data Data Last Documented VS Vital Signs Date Time Temp Pulse Resp B/P (MAP) Pulse Ox O2 Delivery O2 Flow Rate FiO2 04/11/17 19:55 64 18 144/106 (119) 100 Room Air 04/11/17 17:47 98.2 Orders Orders Us Leg Venous Doppler (04/11/17 ) Acetamin-Hydrocod 325-7.5 Mg (Taylor 7.5 (04/11/17 20:45) Splint Or Brace Apply/Monitor (04/11/17 22:12) MDM Medical Decision Making Medical Screen Exam Complete: Yes Emergency Medical Condition: Yes Medical Record Reviewed: Yes Interpretation(s) Vital Signs Date Time Temp Pulse Resp B/P (MAP) Pulse Ox O2 Delivery O2 Flow Rate FiO2 04/11/17 19:55 64 18 144/106 (119) 100 Room Air 04/11/17 17:47 98.2 72 16 157/72 (100) 98 Room Air Last Impressions Lower Extremity Ultrasound 04/11/17 0000 Signed Impressions: Service Date/Time: Tuesday, April 11, 2017 21:13 - CONCLUSION: Normal examination. Jhonny Conn MD Differential Diagnosis Chronic knee pain, contusion, sprain strain, possible internal derangement although difficult to ascertain on physical exam and patient unable to undergo MRI, DVT Narrative Course Ultrasound of the left lower extremity ordered; patient had fall last Friday has not had fall subsequently imaging study of bilateral knees performed revealed no acute abnormality and no recurrent injuries since imaging studies performed. Physician Communication Physician Communication discussed with Dr Kessler --OBS for intractable and placement Diagnosis Primary Impression: Knee pain, chronic Qualified Codes: M25.562 - Pain in left knee; G89.29 - Other chronic pain Additional Impression: Intractable pain Admitting Information Admitting Physician Requests: Observation Angelita Garcia MD Apr 11, 2017 20:12
[2017-04-11] MEDS ORDERED: ACETAMINOPHEN/HYDROcodone 325 MG/7.5 MG TAB PO ONE (20:45)
--- NOTE | 2017-04-11 21:44 | RADRPT ---
EXAM DATE/TIME: 04/11/2017 21:13 [facility] COMPARISON: No previous studies available for comparison. INDICATIONS : Left leg swelling. MEDICAL HISTORY : Hypothyroidism. Hypertension. Hearing loss. Missing teeth. Deep vein thrombosis. Dyspnea. Kidney stones. renal disease. Arthritis. Diabetes. SURGICAL HISTORY : Cholecystectomy. Hysterectomy. section. Bilateral lens implants. Gastric bypass. Bilateral knee replacement. ENCOUNTER: Initial ACUITY: 1 week PAIN SCORE: 10/10 LOCATION: Left leg. TECHNIQUE: Venous ultrasound of the leg was performed from the inguinal ligament to the proximal calf. Real-armani e, color Doppler and spectral tracing, compression and augmentation techniques were used. FINDINGS: There is normal compressibility of the deep venous system from the inguinal region to the proximal ca lf. No echogenic clot is seen in the lumen of the common femoral, femoral, popliteal, and posterior tibial veins. There is a normal response of the venous system to proximal and distal augmentation an d respiration. CONCLUSION: Normal examination. Jhonny Conn MD on April 11, 2017 at 21:41 Board Certified Radiologist. This report was verified electronically.
[2017-04-11] MEDS ORDERED: ONDANSETRON HCL 4 MG/2 ML VIAL IV PUSH ONE (22:45)
[2017-04-11] MEDS ORDERED: MORPHINE SULFATE 4 MG/ML INJ IV PUSH ONE (22:45)
[2017-04-11] MEDS ORDERED: MEMANTINE DONEPEZIL PO SCH (23:00)
[2017-04-11] MEDS ORDERED: NON-FORMULARY DRUG (Memantine-Donepezil (Namzaric) 1 CAP) PO SCH (23:00)
[2017-04-11] MEDS ORDERED: ACETAMINOPHEN 325 MG TAB PO PRN (23:00)
[2017-04-11] MEDS ORDERED: LACTULOSE SYRUP 20 GM/30 ML CUP PO PRN (23:00)
[2017-04-11] MEDS ORDERED: DEXTROSE 50% IN WATER 50 ML VIAL(D50) IV PUSH PRN (23:00)
[2017-04-11] MEDS ORDERED: ONDANSETRON HCL 4 MG/2 ML VIAL IVP PRN (23:00)
[2017-04-11] MEDS ORDERED: MAGNESIUM HYDROXIDE SUSP 30 ML CUP PO PRN (23:00)
[2017-04-11] MEDS ORDERED: BISACODYL 10 MG SUPP RECTAL PRN (23:00)
[2017-04-11] MEDS ORDERED: SENNOSIDES 8.6 MG TAB PO PRN (23:00)
[2017-04-11] MEDS: MAGNESIUM OXIDE 400 MG TAB PO SCH (23:00)
[2017-04-11] MEDS ORDERED: SODIUM CHLORIDE 0.9% FLUSH 10 ML FLUSH IV FLUSH PRN (23:00)
[2017-04-11] MEDS ORDERED: GLUCAGON 1 MG/ML VIAL OTHER PRN (23:00)
--- NOTE | 2017-04-11 23:00 | HHI.HP ---
HPI Service [facility] Primary Care Physician Nils Savage, DO Admission Diagnosis Intractable left knee pain s/p fall; h/o DM; h/o CKD Diagnoses: (1) Intractable pain Diagnosis: Principal (2) Gait instability Diagnosis: Principal (3) Renal insufficiency Diagnosis: Principal (4) HTN (hypertension) Diagnosis: Principal (5) DM (diabetes mellitus) Diagnosis: Principal Travel History International Travel<30 Days: No Contact w/Intl Traveler <30 Da: No Traveled to Known Affected Are: No History of Present Illness This is a 67-year-old female with a PMH of HTN, Anxiety, Depression, NULATO, Morbid Obesity, Hypothyroidism, Urinary Incontinence, DM and Knee Pain who was brought to the ER secondary to complaints of bilateral knee pain and recurrent falls. Recent admit 04/05-04/09/16 for UTI and recurrent falls secondary to severe knee pain, s/p eval by Dr. Antonio w/ recommendation for medical management, seen by PT who recommended Rehab however per records pt was not agreeable therefore home PT recommended instead. Home PT to be scheduled for Friday, however Daughter reports pt w/ severe knee pain, unable to ambulate due to gait instability and she is unable to care for pt. Pt reports severe pain in knees, left more than right. Pain is constant, non-radiating, 10/10, severe. Reports associated left calf pain. On arrival, BP 157/72, HR 72, O2 sat 98% on RA, Afebrile. CBC essentially unremarkable. Chemistry unremarkable. Creatinine 1.85, previously 2.08 on 04/08/17. Doppler LE negative for DVT. Knee Immobilizer placed in ER and attempted ambulation, however unsuccessful. Review of Systems Except as stated in HPI: all other systems reviewed are Neg ROS: 14 point review of systems otherwise negative. Past Family Social History Past Medical History PMH: HTN, Anxiety, Depression, NULATO, Morbid Obesity, Hypothyroidism, Urinary Incontinence, DM and Knee Pain Past Surgical History PAST SURGICAL HISTORY: Gastric Bypass, Cholecystectomy, Bilateral Lens Implant , Cholecystectomy, , Hysterectomy, Bilateral Knee Replacement, Tens Unit, Tonsillectomy Allergies: Coded Allergies: penicillin G (Unverified Allergy, Severe, Hives, 04/11/17) lactose (Unverified Allergy, Intermediate, Diarrhea, 04/11/17) sulfamethoxazole (Unverified Adverse Reaction, Unknown, 04/11/17) MAKE GFR DECREASE trimethoprim (Unverified Adverse Reaction, Unknown, 04/11/17) MAKE GFR DECREASE Family History PAST FAMILY HISTORY: Reviewed. No h/o DM or CAD Social History PAST SOCIAL HISTORY: Negative for alcohol, tobacco or drugs. Physical Exam Vital Signs Vital Signs Date Time Temp Pulse Resp B/P (MAP) Pulse Ox O2 Delivery O2 Flow Rate FiO2 04/11/17 19:55 64 18 144/106 (119) 100 Room Air 04/11/17 17:47 98.2 72 16 157/72 (100) 98 Room Air Physical Exam PE: GENERAL: Middle-aged morbidly obese white female in no acute distress. HEENT: PERRLA, EOMI. No scleral icterus or conjunctival pallor. No lid lag or facial droop. CARDIOVASCULAR: Regular rate and rhythm. No obvious murmurs to auscultation. No chest tenderness to palpation. RESPIRATORY: No obvious rhonchi or wheezing. Clear to auscultation. Breath sounds equal bilaterally. GASTROINTESTINAL: Abdomen soft, non-tender, nondistended. BS normal. MUSCULOSKELETAL: Extremities without clubbing, cyanosis, or edema. No obvious deformities. +previous knee replacement scars, no edema, no erythema, + tenderness to left knee/calf. Pulses intact. NEUROLOGICAL: Awake, alert and oriented x4. No focal neurologic deficits. Moving both upper and lower extremities spontaneously. Caprini VTE Risk Assessment Caprini VTE Risk Assessment: No/Low Risk (score <= 1) Caprini Risk Assessment Model Point Value = 1 Point Value = 2 Point Value = 3 Point Value = 5 Age 41-60 Minor surgery BMI > 25 kg/m2 Swollen legs Varicose veins or History of unexplained or recurrent spontaneous Oral contraceptives or hormone replacement Sepsis (< 1 month) Serious lung disease, including pneumonia (< 1 month) Abnormal pulmonary function Acute myocardial infarction Congestive heart failure (< 1 month) History of inflammatory bowel disease Medical patient at bed rest Age 61-74 Arthroscopic surgery Major open surgery (> 45 min) Laparoscopic surgery (> 45 min) Malignancy Confined to bed (> 72 hours) Immobilizing plaster cast Central venous access Age >= 75 History of VTE Family history of VTE Factor V Leiden Prothrombin [id number] Lupus anticoagulant Anticardiolipin antibodies Elevated serum homocysteine Heparin-induced thrombocytopenia Other congenital or acquired thrombophilia Stroke (< 1 month) Elective arthroplasty Hip, pelvis, or leg fracture Acute spinal cord injury (< 1 month) Prophylaxis Regimen Total Risk Factor Score Risk Level Prophylaxis Regimen 0-1 Low Early ambulation 2 Moderate Order ONE of the following: *Sequential Compression Device (SCD) *Heparin 5000 units SQ BID 3-4 Higher Order ONE of the following medications: *Heparin 5000 units SQ TID *Enoxaparin/Lovenox 40 mg SQ daily (WT < 150 kg, CrCl > 30 mL/min) *Enoxaparin/Lovenox 30 mg SQ daily (WT < 150 kg, CrCl > 10-29 mL/min) *Enoxaparin/Lovenox 30 mg SQ BID (WT < 150 kg, CrCl > 30 mL/min) AND/OR *Sequential Compression Device (SCD) 5 or more Highest Order ONE of the following medications: *Heparin 5000 units SQ TID (Preferred with Epidurals) *Enoxaparin/Lovenox 40 mg SQ daily (WT < 150 kg, CrCl > 30 mL/min) *Enoxaparin/Lovenox 30 mg SQ daily (WT < 150 kg, CrCl > 10-29 mL/min) *Enoxaparin/Lovenox 30 mg SQ BID (WT < 150 kg, CrCl > 30 mL/min) AND *Sequential Compression Device (SCD) Assessment and Plan Problem List: (1) Intractable pain ICD Code: R52 - Pain, unspecified Status: Acute (2) Gait instability ICD Code: R26.81 - Unsteadiness on feet (3) HTN (hypertension) ICD Code: I10 - Essential (primary) hypertension (4) Renal insufficiency ICD Code: N28.9 - Disorder of kidney and ureter, unspecified (5) DM (diabetes mellitus) ICD Code: E11.9 - Type 2 diabetes mellitus without complications Assessment and Plan A/P: 1. Intractable Pain: c/o intractable knee pain, recent admit for similar symptoms, s/p eval by Dr. Antonio, no surgical intervention warranted at that time. Ongoing pain complaints, now w/ left calf tenderness, Doppler LE w/ no acute DVT, images reviewed by me. Analgesics/antiemetics as needed. 2. Gait Instability: recurrent falls for gait instability due to knee pain, s/ p eval by PT during recent admit w/ recommendation for Rehab, however pt declined, home PT recommended instead. Pending home PT for Friday, Daughter unable to care for patient, pt unable to ambulate safely without assistance at this time. Admit for Observation, PT for eval/tx, Case Management for assistance w/ placement as needed. 3. HTN: BP 150's systolic, likely compounded by pain complaints. Resume home medications, monitor BP. 4. Renal Insufficiency: Chronic. Creatinine 1.85, previously 2.08 on 04/08/17. Will monitor. 5. DM: Sliding scale w/ Accu-Cheks. Resume home medications. 6. DVT Prophylaxis: Heparin sq 7. Social work for d/c planning as needed. 8. Previous records/imaging/labs reviewed by me, case discussed at length w/ ER physician. Leonarda Kessler MD Apr 11, 2017 23:00
[2017-04-11] MEDS ORDERED: MORPHINE SULFATE 2 MG/ML INJ IV PUSH ONE (23:30)
[2017-04-11 23:31] LABS: BASOPHIL # 0.1 TH/MM3 (0-0.2); BASOPHIL % 0.9 % (0.0-2.0); EOSINOPHIL # 0.4 TH/MM3 (0-0.4); HEMATOCRIT 31.5 % (35.0-46.0); HEMOGLOBIN 9.8 GM/DL (11.6-15.3); LYMPH % 20.9 % (9.0-44.0); LYMPHOCYTE # 1.8 TH/MM3 (1.0-4.8); MEAN CELL VOLUME 91.4 FL (80.0-100.0); MEAN CORPUSCULAR HEMOGLOBIN 28.4 PG (27.0-34.0); MEAN CORPUSCULAR HGB CONC 31.1 % (32.0-36.0); MEAN PLATELET VOLUME 7.5 FL (7.0-11.0); MONO % 5.3 % (0.0-8.0); MONOCYTE # 0.5 TH/MM3 (0-0.9); NEUT % 68.9 % (16.0-70.0); PLATELET COUNT 371 TH/MM3 (150-450); RED BLOOD COUNT 3.45 MIL/MM3 (4.00-5.30); WHITE BLOOD COUNT 8.7 TH/MM3 (4.0-11.0)
[2017-04-11 23:49] LABS: BICARBONATE 21.2 MEQ/L (21.0-32.0); CALCIUM 8.7 MG/DL (8.5-10.1); CREATININE 1.85 MG/DL (0.50-1.00)
[2017-04-12] VITALS (8 sets, daily range): BP systolic 102–143; BP diastolic 50–71; PULSE 86–100; RESP 16–20; TEMP 96.3–98.8; O2SAT 93–99
[2017-04-12] MEDS: LORazepam 1 MG TAB PO PRN ×2 (03:54→09:31)
[2017-04-12] MEDS: MORPHINE SULFATE 2 MG/ML INJ IV PUSH PRN ×4 (03:55→14:50)
[2017-04-12 04:25] LABS: AUTOMATED NEUTROPHIL # 5.7 TH/MM3 (1.8-7.7); BASOPHIL # 0.1 TH/MM3 (0-0.2); BASOPHIL % 0.7 % (0.0-2.0); EOSINOPHIL # 0.3 TH/MM3 (0-0.4); EOSINOPHIL % 4.1 % (0.0-4.0); HEMATOCRIT 28.4 % (35.0-46.0); HEMOGLOBIN 9.1 GM/DL (11.6-15.3); LYMPH % 17.9 % (9.0-44.0); LYMPHOCYTE # 1.4 TH/MM3 (1.0-4.8); MEAN CELL VOLUME 90.8 FL (80.0-100.0); MEAN CORPUSCULAR HEMOGLOBIN 28.9 PG (27.0-34.0); MEAN CORPUSCULAR HGB CONC 31.9 % (32.0-36.0); MEAN PLATELET VOLUME 7.4 FL (7.0-11.0); MONO % 5.4 % (0.0-8.0); MONOCYTE # 0.4 TH/MM3 (0-0.9); NEUT % 71.9 % (16.0-70.0); PLATELET COUNT 347 TH/MM3 (150-450); RED BLOOD COUNT 3.13 MIL/MM3 (4.00-5.30)
[2017-04-12 04:49] LABS: ALBUMIN 2.1 GM/DL (3.4-5.0); AST (GOT) 12 U/L (15-37); BLOOD UREA NITROGEN 33 MG/DL (7-18); CALCIUM 8.3 MG/DL (8.5-10.1); CHLORIDE 112 MEQ/L (98-107); CREATININE 1.85 MG/DL (0.50-1.00); GLOMERULAR FILTRATION RATE 27 ML/MIN (>89); GLUCOSE,RANDOM 222 MG/DL (74-106); SODIUM (NA) 144 MEQ/L (136-145)
[2017-04-12 04:53] LABS: ALKALINE PHOSPHATASE 119 U/L (45-117); ALT (GPT) 17 U/L (10-53); TOTAL BILIRUBIN ADULT 0.1 MG/DL (0.2-1.0); TOTAL PROTEIN 5.8 GM/DL (6.4-8.2)
[2017-04-12] MEDS: LEVOTHYROXINE SODIUM 100 MCG TAB PO SCH (06:36)
[2017-04-12] MEDS: INSULIN ASPART SUPPLEMENTAL SCALE SQ SCH ×4 (08:00→21:00)
[2017-04-12] MEDS: DOCUSATE SODIUM 50 MG/SENNA 8.6 MG TAB PO SCH ×2 (08:30→21:00)
[2017-04-12] MEDS: CALCITRIOL 0.25 MCG CAP PO SCH (08:30)
[2017-04-12] MEDS: CITALOPRAM HYDROBROMIDE 40 MG TAB PO SCH (08:30)
[2017-04-12] MEDS: SODIUM CHLORIDE 0.9% FLUSH 10 ML FLUSH IV FLUSH SCH ×2 (08:30→22:02)
[2017-04-12] MEDS: QUEtiapine FUMARATE 100 MG TAB PO SCH ×4 (08:30→22:04)
[2017-04-12] MEDS: HEPARIN SODIUM - SQ 10,000 UNITS/ML VIAL SQ SCH ×2 (08:31→22:04)
--- NOTE | 2017-04-12 08:54 | HHI.PR ---
Subjective Remarks in no acute distress. still complaining of severe pain to both knees/ more on the left side. Objective Vitals Vital Signs Date Time Temp Pulse Resp B/P (MAP) Pulse Ox O2 Delivery O2 Flow Rate FiO2 04/12/17 08:10 98.8 91 18 143/64 (90) 99 04/12/17 04:55 98.7 87 16 107/59 (75) 98 04/12/17 04:00 16 04/12/17 00:57 18 04/12/17 00:03 97.9 86 17 123/58 (79) 97 04/11/17 23:35 04/11/17 19:55 64 18 144/106 (119) 100 Room Air 04/11/17 17:47 98.2 72 16 157/72 (100) 98 Room Air Result Diagram: 04/12/17 0407 04/12/17 0407 Imaging Last Impressions Lower Extremity Ultrasound 04/11/17 0000 Signed Impressions: Service Date/Time: Tuesday, April 11, 2017 21:13 - CONCLUSION: Normal examination. Jhonny Conn MD Objective Remarks GENERAL: This is a well-nourished, well-developed patient, in no apparent distress. CARDIOVASCULAR: Regular rate and regular rhythm without murmurs, gallops, or rubs. RESPIRATORY: Clear to auscultation. Breath sounds equal bilaterally. No wheezes , rales, or rhonchi. GASTROINTESTINAL: Abdomen soft, non-tender, nondistended. Normal, active bowel sounds MUSCULOSKELETAL: Extremities without clubbing, cyanosis, or edema. NEURO: Alert & Oriented x4 to person, place, time, situation. Moves all ext x4 Medications and IVs Inpatient Medications Acetaminophen (Tylenol) 650 mg Q6H PRN PO FEVER/PAIN SCALE 1 TO 2; Start at 23:00 Acetaminophen/ Hydrocodone Bitart ([place] 7.5-325 Mg) 1 tab ONCE ONCE PO Last administered on 04/11/17at 20:52; Start 04/11/17 at 20:45; Stop 04/11/17 at 20:46; Status DC Aspirin (Ecotrin Ec) 81 mg DAILY PO ; Start 04/12/17 at 09:00 Bisacodyl (Dulcolax Supp) 10 mg DAILY PRN RECTAL SEVERE CONSITIPATION; Start at 23:00 Calcitriol (Rocaltrol) 0.5 mcg DAILY PO Last administered on 04/12/17at 08:30; Start 04/12/17 at 09:00 Ciprofloxacin (Cipro) 500 mg BID PO ; Start 04/12/17 at 09:00; Stop 04/12/17 at 09 :00; Status DC Citalopram Hydrobromide (CeleXA) 40 mg DAILY PO Last administered on 04/12/17at 08:30; Start 04/12/17 at 09:00 Dextrose (D50w (Vial) Inj) 50 ml UNSCH PRN IV PUSH HYPOGLYCEMIA-SEE COMMENTS; Start 04/11/17 at 23:00 Glucagon (Glucagon Inj) 1 mg UNSCH PRN OTHER HYPOGLYCEMIA-SEE COMMENTS; Start 04/11/17 at 23:00 Heparin Sodium (Porcine) (Heparin Inj) 5,000 units Q12HR SQ Last administered on 04/12/17at 08:31; Start 04/12/17 at 09:00 Insulin Aspart (NovoLOG SUPPLEMENTAL SCALE) 1 ACHS SLIDING SCALE SQ ; Start 04/12/17 at 08:00 Lactulose (Lactulose Liq) 30 ml DAILY PRN PO SEVERE CONSITIPATION; Start at 23:00 Levothyroxine Sodium (Synthroid) 100 mcg DAILY@0600 PO Last administered on 04/12at 06:36; Start 04/12/17 at 06:00 Lorazepam (Ativan) 1 mg TID PRN PO ANXIETY AND/OR AGITATION Last administered on 04/12/17at 03:54; Start 04/11/17 at 23:00 Magnesium Hydroxide (Milk Of Magnesia Liq) 30 ml Q12H PRN PO Mild constipation ; Start 04/11/17 at 23:00 Magnesium Oxide (Mag-Ox) 400 mg Q12H PO Last administered on 04/11/17at 23:00; Start 04/11/17 at 23:00 Morphine Sulfate (Morphine Inj) 4 mg NOW ONCE IV PUSH Last administered on 04/12at 00:52; Start 04/11/17 at 23:30; Stop 04/11/17 at 23:31; Status DC Morphine Sulfate (Oramorph Sr) 30 mg Q12HR PO ; Start 04/12/17 at 09:00 Ondansetron HCl (Zofran Inj) 4 mg Q6H PRN IVP NAUSEA OR VOMITING; Start at 23:00 Patient Own Medication PT OWN MED: Memantine-Donepezil (Namzaric)7-1... HS PO ; Start 04/11/17 at 23:00; Status Future Hold Quetiapine Fumarate (SEROquel) 100 mg QID PO Last administered on 04/12/17at 08: 30; Start 04/12/17 at 09:00 Ropinirole HCl (Requip) 0.5 mg TID PO Last administered on 04/12/17at 08:30; Start 04/12/17 at 09:00 Senna/Docusate Sodium (Balbina-Colace) 1 tab BID PO Last administered on 04/12/17at 08:30; Start 04/12/17 at 09:00 Sennosides (Senokot) 17.2 mg Q12H PRN PO Moderate constipation; Start 04/11/17 at 23:00 Sodium Chloride (NS Flush) 2 ml BID IV FLUSH Last administered on 04/12/17at 08: 30; Start 04/12/17 at 09:00 A/P Problem List: (1) Intractable pain ICD Code: R52 - Pain, unspecified Status: Acute (2) Gait instability ICD Code: R26.81 - Unsteadiness on feet (3) HTN (hypertension) ICD Code: I10 - Essential (primary) hypertension (4) Renal insufficiency ICD Code: N28.9 - Disorder of kidney and ureter, unspecified (5) DM (diabetes mellitus) ICD Code: E11.9 - Type 2 diabetes mellitus without complications Assessment and Plan A/P 1. Intractable Pain: c/o intractable knee pain, recent admit for similar symptoms, s/p eval by Dr. Antonio, no surgical intervention warranted at that time. Ongoing pain complaints, now w/ left calf tenderness, Doppler LE w/ no acute DVT. Analgesics/antiemetics as needed. 2. Gait Instability: recurrent falls for gait instability due to knee pain, s/ p eval by PT during recent admit w/ recommendation for Rehab, however pt declined, home PT recommended instead. Pending home PT for Friday, Daughter unable to care for patient, pt unable to ambulate safely without assistance at this time. PT and case management consulted. 3. HTN: Resumed home medications, monitor BP. 4. Renal Insufficiency: Chronic. Creatinine 1.85, previously 2.08 on 04/08/17. Will monitor. 5. DM: Sliding scale w/ Accu-Cheks. Resume home medications. 6. DVT Prophylaxis: Heparin sq Discharge Planning dc to rehab when arrangements made. Bradley Alvarado MD Apr 12, 2017 08:54
[2017-04-12] MEDS ORDERED: HYDR-3583 PO (08:56)
[2017-04-12] MEDS ORDERED: MORP1TAB24 PO (08:56)
[2017-04-12] MEDS ORDERED: LORA-474 PO (08:56)
[2017-04-12] MEDS ORDERED: ROPI0.5T PO (08:56)
[2017-04-12] MEDS ORDERED: INSULIN DEGLUDEC SQ SCH (09:00)
[2017-04-12] MEDS ORDERED: CIPROFLOXACIN 500 MG TAB PO SCH (09:00)
[2017-04-12] MEDS: MORPHINE SULFATE 15 MG CONTROLLED RELEASE TAB PO SCH ×2 (09:31→22:03)
[2017-04-12] MEDS: MAGNESIUM OXIDE 400 MG TAB PO SCH ×2 (09:32→22:04)
[2017-04-12] MEDS: ASPIRIN EC 81 MG TABEC PO SCH (09:32)
[2017-04-13] VITALS (9 sets, daily range): BP systolic 112–145; BP diastolic 59–72; PULSE 76–118; RESP 16–20; TEMP 96.8–98.2; O2SAT 95–98
[2017-04-13] MEDS: MORPHINE SULFATE 2 MG/ML INJ IV PUSH PRN ×3 (05:19→15:48)
[2017-04-13] MEDS: LEVOTHYROXINE SODIUM 100 MCG TAB PO SCH (05:20)
[2017-04-13] MEDS: ASPIRIN EC 81 MG TABEC PO SCH (08:00)
[2017-04-13] MEDS: INSULIN ASPART SUPPLEMENTAL SCALE SQ SCH ×4 (08:00→21:00)
[2017-04-13] MEDS: CALCITRIOL 0.25 MCG CAP PO SCH (08:28)
[2017-04-13] MEDS: QUEtiapine FUMARATE 100 MG TAB PO SCH ×4 (08:29→23:02)
[2017-04-13] MEDS: CITALOPRAM HYDROBROMIDE 40 MG TAB PO SCH (08:29)
[2017-04-13] MEDS: SODIUM CHLORIDE 0.9% FLUSH 10 ML FLUSH IV FLUSH SCH ×2 (08:29→23:00)
[2017-04-13] MEDS: MORPHINE SULFATE 15 MG CONTROLLED RELEASE TAB PO SCH ×2 (08:29→23:01)
[2017-04-13] MEDS: DOCUSATE SODIUM 50 MG/SENNA 8.6 MG TAB PO SCH ×2 (08:30→21:00)
[2017-04-13] MEDS: HEPARIN SODIUM - SQ 10,000 UNITS/ML VIAL SQ SCH ×2 (08:30→23:02)
--- NOTE | 2017-04-13 11:13 | HHI.PR ---
Subjective Remarks in no acute distress. looks more comfortable today. pain is somewhat better today. Objective Vitals Vital Signs Date Time Temp Pulse Resp B/P (MAP) Pulse Ox O2 Delivery O2 Flow Rate FiO2 04/13/17 08:17 98.1 90 20 145/62 (89) 98 04/13/17 05:24 20 04/13/17 05:11 98.2 93 16 112/59 (76) 98 04/13/17 03:56 118 04/13/17 00:17 90 04/13/17 00:04 96.8 105 18 144/72 (96) 95 04/12/17 23:05 21 04/12/17 20:06 94 04/12/17 19:52 96.3 100 18 129/58 (81) 98 04/12/17 16:04 98.2 86 18 102/50 (67) 93 04/12/17 14:12 94 04/12/17 12:31 98.2 86 20 119/71 (87) 98 Result Diagram: 04/12/17 0407 04/12/17 0407 Imaging Last Impressions Lower Extremity Ultrasound 04/11/17 0000 Signed Impressions: Service Date/Time: Tuesday, April 11, 2017 21:13 - CONCLUSION: Normal examination. Jhonny Conn MD Objective Remarks GENERAL: This is a well-nourished, well-developed patient, in no apparent distress. CARDIOVASCULAR: Regular rate and regular rhythm without murmurs, gallops, or rubs. RESPIRATORY: Clear to auscultation. Breath sounds equal bilaterally. No wheezes , rales, or rhonchi. GASTROINTESTINAL: Abdomen soft, non-tender, nondistended. Normal, active bowel sounds MUSCULOSKELETAL: Extremities without clubbing, cyanosis, or edema. NEURO: Alert & Oriented x4 to person, place, time, situation. Moves all ext x4 Medications and IVs Inpatient Medications Acetaminophen (Tylenol) 650 mg Q6H PRN PO FEVER/PAIN SCALE 1 TO 2; Start at 23:00 Acetaminophen/ Hydrocodone Bitart ([place] 7.5-325 Mg) 1 tab ONCE ONCE PO Last administered on 04/11/17at 20:52; Start 04/11/17 at 20:45; Stop 04/11/17 at 20:46; Status DC Aspirin (Ecotrin Ec) 81 mg DAILY PO Last administered on 04/13/17at 08:00; Start 04/12/17 at 09:00 Bisacodyl (Dulcolax Supp) 10 mg DAILY PRN RECTAL SEVERE CONSITIPATION; Start at 23:00 Calcitriol (Rocaltrol) 0.5 mcg DAILY PO Last administered on 04/13/17at 08:28; Start 04/12/17 at 09:00 Ciprofloxacin (Cipro) 500 mg BID PO ; Start 04/12/17 at 09:00; Stop 04/12/17 at 09 :00; Status DC Citalopram Hydrobromide (CeleXA) 40 mg DAILY PO Last administered on 04/13/17at 08:29; Start 04/12/17 at 09:00 Dextrose (D50w (Vial) Inj) 50 ml UNSCH PRN IV PUSH HYPOGLYCEMIA-SEE COMMENTS; Start 04/11/17 at 23:00 Glucagon (Glucagon Inj) 1 mg UNSCH PRN OTHER HYPOGLYCEMIA-SEE COMMENTS; Start 04/11/17 at 23:00 Heparin Sodium (Porcine) (Heparin Inj) 5,000 units Q12HR SQ Last administered on 04/13/17at 08:30; Start 04/12/17 at 09:00 Insulin Aspart (NovoLOG SUPPLEMENTAL SCALE) 1 ACHS SLIDING SCALE SQ ; Start 04/12/17 at 08:00 Lactulose (Lactulose Liq) 30 ml DAILY PRN PO SEVERE CONSITIPATION; Start at 23:00 Levothyroxine Sodium (Synthroid) 100 mcg DAILY@0600 PO Last administered on 04/13at 05:20; Start 04/12/17 at 06:00 Lorazepam (Ativan) 1 mg TID PRN PO ANXIETY AND/OR AGITATION Last administered on 04/12/17at 09:31; Start 04/11/17 at 23:00 Magnesium Hydroxide (Milk Of Magnesia Liq) 30 ml Q12H PRN PO Mild constipation ; Start 04/11/17 at 23:00 Magnesium Oxide (Mag-Ox) 400 mg Q12H PO Last administered on 04/12/17at 22:04; Start 04/11/17 at 23:00 Morphine Sulfate (Morphine Inj) 4 mg NOW ONCE IV PUSH Last administered on 04/12at 00:52; Start 04/11/17 at 23:30; Stop 04/11/17 at 23:31; Status DC Morphine Sulfate (Oramorph Sr) 30 mg Q12HR PO Last administered on 04/13/17at 08: 29; Start 04/12/17 at 09:00 Ondansetron HCl (Zofran Inj) 4 mg Q6H PRN IVP NAUSEA OR VOMITING; Start at 23:00 Patient Own Medication PT OWN MED: Memantine-Donepezil (Namzaric)7-1... HS PO ; Start 04/11/17 at 23:00; Status Future Hold Quetiapine Fumarate (SEROquel) 100 mg QID PO Last administered on 04/13/17at 08: 29; Start 04/12/17 at 09:00 Ropinirole HCl (Requip) 0.5 mg TID PO Last administered on 04/13/17at 08:28; Start 04/12/17 at 09:00 Senna/Docusate Sodium (Balbina-Colace) 1 tab BID PO Last administered on 04/13/17at 08:30; Start 04/12/17 at 09:00 Sennosides (Senokot) 17.2 mg Q12H PRN PO Moderate constipation; Start 04/11/17 at 23:00 Sodium Chloride (NS Flush) 2 ml BID IV FLUSH Last administered on 04/13/17at 08: 29; Start 04/12/17 at 09:00 A/P Problem List: (1) Intractable pain ICD Code: R52 - Pain, unspecified Status: Acute (2) Gait instability ICD Code: R26.81 - Unsteadiness on feet (3) HTN (hypertension) ICD Code: I10 - Essential (primary) hypertension (4) Renal insufficiency ICD Code: N28.9 - Disorder of kidney and ureter, unspecified (5) DM (diabetes mellitus) ICD Code: E11.9 - Type 2 diabetes mellitus without complications Assessment and Plan A/P 1. Intractable Pain: c/o intractable knee pain, recent admit for similar symptoms, s/p eval by Dr. Antonio, no surgical intervention warranted at that time. Ongoing pain complaints, now w/ left calf tenderness, Doppler LE w/ no acute DVT. Analgesics/antiemetics as needed. 2. Gait Instability: recurrent falls for gait instability due to knee pain, s/ p eval by PT during recent admit w/ recommendation for Rehab, however pt declined, home PT recommended instead. pt unable to ambulate safely without assistance at this time. PT and case management consulted. 3. HTN: Resumed home medications, monitor BP. 4. Renal Insufficiency: Chronic. Creatinine 1.85, previously 2.08 on 04/08/17. Will monitor. 5. DM: Sliding scale w/ Accu-Cheks. Resume home medications. 6. DVT Prophylaxis: Heparin sq Discharge Planning dc to rehab when arrangements made. Bradley Alvarado MD Apr 13, 2017 11:13
[2017-04-13] MEDS: MAGNESIUM OXIDE 400 MG TAB PO SCH ×2 (12:04→23:02)
[2017-04-13 12:07] LABS: BACTERIA, URINE OCC /hpf; BILIRUBIN, URINE NEG (NEG); BLOOD, URINE NEG (NEG); GLUCOSE,URINE 70 mg/dL (NEG); HYALINE CAST, URINE 1 /lpf (RARE); KETONE, URINE NEG (NEG); MUCUS URINE FEW /lpf (OCC); NITRITE,URINE NEG (NEG); PH, URINE 5.5 (5.0-8.5); SQUAMOUS EPITHELIAL CELL URINE 6 /hpf (0-5); URINE COLOR YELLOW (YELLW/STRAW); URINE LEUKOCYTE ESTERASE LARGE (NEG)
[2017-04-13] MEDS ORDERED: CIPR500T2 PO (12:25)
[2017-04-13] MEDS: LORazepam 1 MG TAB PO PRN ×2 (12:25→17:51)
[2017-04-13] MEDS: CIPROFLOXACIN 500 MG TAB PO SCH ×2 (13:18→23:00)
[2017-04-14] VITALS (7 sets, daily range): BP systolic 133–176; BP diastolic 60–80; PULSE 74–120; RESP 18–22; TEMP 97.7–97.9; O2SAT 97–99
[2017-04-14] MEDS: LEVOTHYROXINE SODIUM 100 MCG TAB PO SCH (06:20)
[2017-04-14] MEDS: MORPHINE SULFATE 2 MG/ML INJ IV PUSH PRN (06:21)
[2017-04-14 07:15] LABS: AUTOMATED NEUTROPHIL # 3.7 TH/MM3 (1.8-7.7); BASOPHIL # 0.1 TH/MM3 (0-0.2); EOSINOPHIL # 0.3 TH/MM3 (0-0.4); EOSINOPHIL % 4.5 % (0.0-4.0); HEMATOCRIT 31.9 % (35.0-46.0); HEMOGLOBIN 10.1 GM/DL (11.6-15.3); LYMPH % 25.7 % (9.0-44.0); LYMPHOCYTE # 1.5 TH/MM3 (1.0-4.8); MEAN CELL VOLUME 91.6 FL (80.0-100.0); MEAN CORPUSCULAR HGB CONC 31.7 % (32.0-36.0); MEAN PLATELET VOLUME 7.6 FL (7.0-11.0); MONO % 7.4 % (0.0-8.0); MONOCYTE # 0.4 TH/MM3 (0-0.9); NEUT % 61.4 % (16.0-70.0); PLATELET COUNT 346 TH/MM3 (150-450); RED BLOOD COUNT 3.49 MIL/MM3 (4.00-5.30); RED CELL DISTRIBUTION WIDTH 18.4 % (11.6-17.2)
[2017-04-14 07:23] LABS: BICARBONATE 25.3 MEQ/L (21.0-32.0); CREATININE 1.72 MG/DL (0.50-1.00)
[2017-04-14] MEDS: INSULIN ASPART SUPPLEMENTAL SCALE SQ SCH (08:00)
[2017-04-14] MEDS: HEPARIN SODIUM - SQ 10,000 UNITS/ML VIAL SQ SCH (09:00)
[2017-04-14] MEDS: SODIUM CHLORIDE 0.9% FLUSH 10 ML FLUSH IV FLUSH SCH (09:00)
[2017-04-14] MEDS: CIPROFLOXACIN 500 MG TAB PO SCH (09:58)
[2017-04-14] MEDS: MAGNESIUM OXIDE 400 MG TAB PO SCH (09:58)
[2017-04-14] MEDS: QUEtiapine FUMARATE 100 MG TAB PO SCH (09:58)
[2017-04-14] MEDS: CITALOPRAM HYDROBROMIDE 40 MG TAB PO SCH (09:58)
[2017-04-14] MEDS: DOCUSATE SODIUM 50 MG/SENNA 8.6 MG TAB PO SCH (09:58)
[2017-04-14] MEDS: CALCITRIOL 0.25 MCG CAP PO SCH (09:58)
[2017-04-14] MEDS: ASPIRIN EC 81 MG TABEC PO SCH (09:59)
--- NOTE | 2017-04-14 10:01 | HHI.PR ---
Subjective Remarks in no acute distress. looks and feels more comfortable today. overall the pain is better. no other new complaints. Objective Vitals Vital Signs Date Time Temp Pulse Resp B/P (MAP) Pulse Ox O2 Delivery O2 Flow Rate FiO2 04/14/17 08:50 97.7 95 18 166/72 (103) 99 04/14/17 05:43 97.9 94 22 176/80 (112) 99 04/14/17 03:58 74 04/14/17 00:18 82 04/14/17 00:05 21 04/14/17 00:00 97.7 95 20 133/60 (84) 97 04/13/17 20:34 76 04/13/17 15:00 99 04/13/17 15:00 99 04/13/17 14:42 98.1 96 20 140/64 (89) 96 I/O 04/13/17 04/13/17 04/13/17 04/14/17 04/14/17 04/14/17 07:00 15:00 23:00 07:00 15:00 23:00 Intake Total 1000 ml Output Total 600 ml 800 ml Balance 400 ml -800 ml Intake Oral 1000 ml Output Urine Total 600 ml 800 ml # Voids 2 # Bowel Movements 0 Result Diagram: 04/14/17 0629 04/14/17 0629 Imaging Last Impressions Lower Extremity Ultrasound 04/11/17 0000 Signed Impressions: Service Date/Time: Tuesday, April 11, 2017 21:13 - CONCLUSION: Normal examination. Jhonny Conn MD Objective Remarks GENERAL: This is a well-nourished, well-developed patient, in no apparent distress. CARDIOVASCULAR: Regular rate and regular rhythm without murmurs, gallops, or rubs. RESPIRATORY: Clear to auscultation. Breath sounds equal bilaterally. No wheezes , rales, or rhonchi. GASTROINTESTINAL: Abdomen soft, non-tender, nondistended. Normal, active bowel sounds MUSCULOSKELETAL: Extremities without clubbing, cyanosis, or edema. NEURO: Alert & Oriented x4 to person, place, time, situation. Moves all ext x4 Medications and IVs Inpatient Medications Acetaminophen (Tylenol) 650 mg Q6H PRN PO FEVER/PAIN SCALE 1 TO 2; Start at 23:00 Acetaminophen/ Hydrocodone Bitart ([place] 7.5-325 Mg) 1 tab ONCE ONCE PO Last administered on 04/11/17at 20:52; Start 04/11/17 at 20:45; Stop 04/11/17 at 20:46; Status DC Aspirin (Ecotrin Ec) 81 mg DAILY PO Last administered on 04/13/17at 08:00; Start 04/12/17 at 09:00 Bisacodyl (Dulcolax Supp) 10 mg DAILY PRN RECTAL SEVERE CONSITIPATION; Start at 23:00 Calcitriol (Rocaltrol) 0.5 mcg DAILY PO Last administered on 04/13/17at 08:28; Start 04/12/17 at 09:00 Ciprofloxacin (Cipro) 500 mg Q12HR PO Last administered on 04/13/17at 23:00; Start 04/13/17 at 13:00 Citalopram Hydrobromide (CeleXA) 40 mg DAILY PO Last administered on 04/13/17at 08:29; Start 04/12/17 at 09:00 Dextrose (D50w (Vial) Inj) 50 ml UNSCH PRN IV PUSH HYPOGLYCEMIA-SEE COMMENTS; Start 04/11/17 at 23:00 Glucagon (Glucagon Inj) 1 mg UNSCH PRN OTHER HYPOGLYCEMIA-SEE COMMENTS; Start 04/11/17 at 23:00 Heparin Sodium (Porcine) (Heparin Inj) 5,000 units Q12HR SQ Last administered on 04/13/17at 23:02; Start 04/12/17 at 09:00 Insulin Aspart (NovoLOG SUPPLEMENTAL SCALE) 1 ACHS SLIDING SCALE SQ ; Start 04/12/17 at 08:00 Lactulose (Lactulose Liq) 30 ml DAILY PRN PO SEVERE CONSITIPATION; Start at 23:00 Levothyroxine Sodium (Synthroid) 100 mcg DAILY@0600 PO Last administered on 04/14at 06:20; Start 04/12/17 at 06:00 Lorazepam (Ativan) 1 mg TID PRN PO ANXIETY AND/OR AGITATION Last administered on 04/13/17at 17:51; Start 04/11/17 at 23:00 Magnesium Hydroxide (Milk Of Magnesia Liq) 30 ml Q12H PRN PO Mild constipation ; Start 04/11/17 at 23:00 Magnesium Oxide (Mag-Ox) 400 mg Q12H PO Last administered on 04/13/17 23:02; Start 04/11/17 at 23:00 Morphine Sulfate (Morphine Inj) 4 mg NOW ONCE IV PUSH Last administered on 04/12at 00:52; Start 04/11/17 at 23:30; Stop 04/11/17 at 23:31; Status DC Morphine Sulfate (Oramorph Sr) 30 mg Q12HR PO Last administered on 04/13/17at 23: 01; Start 04/12/17 at 09:00 Ondansetron HCl (Zofran Inj) 4 mg Q6H PRN IVP NAUSEA OR VOMITING; Start at 23:00 Patient Own Medication PT OWN MED: Memantine-Donepezil (Namzaric)7-1... HS PO ; Start 04/11/17 at 23:00; Status Future Hold Quetiapine Fumarate (SEROquel) 100 mg QID PO Last administered on 04/13/17at 23: 02; Start 04/12/17 at 09:00 Ropinirole HCl (Requip) 0.5 mg TID PO Last administered on 04/13/17at 17:49; Start 04/12/17 at 09:00 Senna/Docusate Sodium (Balbina-Colace) 1 tab BID PO Last administered on 04/13/17at 08:30; Start 04/12/17 at 09:00 Sennosides (Senokot) 17.2 mg Q12H PRN PO Moderate constipation; Start 04/11/17 at 23:00 Sodium Chloride (NS Flush) 2 ml BID IV FLUSH Last administered on 04/13/17at 23: 00; Start 04/12/17 at 09:00 A/P Problem List: (1) Intractable pain ICD Code: R52 - Pain, unspecified Status: Acute (2) Gait instability ICD Code: R26.81 - Unsteadiness on feet (3) HTN (hypertension) ICD Code: I10 - Essential (primary) hypertension (4) Renal insufficiency ICD Code: N28.9 - Disorder of kidney and ureter, unspecified (5) DM (diabetes mellitus) ICD Code: E11.9 - Type 2 diabetes mellitus without complications Assessment and Plan A/P 1. Intractable Pain: c/o intractable knee pain, recent admit for similar symptoms, s/p eval by Dr. Antonio, no surgical intervention warranted at that time. Ongoing pain complaints, now w/ left calf tenderness, Doppler LE w/ no acute DVT. Analgesics/antiemetics as needed. pain is overall improving. 2. Gait Instability: recurrent falls for gait instability due to knee pain, s/ p eval by PT during recent admit w/ recommendation for Rehab, however pt declined, home PT recommended instead. pt unable to ambulate safely without assistance at this time. PT and case management consulted. 3. HTN: Resumed home medications, monitor BP. 4. Renal Insufficiency: Chronic. Creatinine 1.85, previously 2.08 on 04/08/17. Will monitor. 5. DM: Sliding scale w/ Accu-Cheks. Resume home medications. 6.UTI- stared on antibiotic- follow the UC. 7. DVT Prophylaxis: Heparin sq Discharge Planning dc to rehab when arrangements made. f/u; pcp and ortho. d/w the patient and case management. Bradley Alvarado MD Apr 14, 2017 10:01
--- NOTE | 2017-04-14 10:03 | HHI.DS ---
Discharge Summary Admission Date Apr 11, 2017 at 22:43 Discharge Date: Apr 14, 2017 Admitting Diagnosis Intractable left knee pain s/p fall; h/o DM; h/o CKD (1) Intractable pain ICD Code: R52 - Pain, unspecified Diagnosis: Principal Status: Acute (2) Gait instability ICD Code: R26.81 - Unsteadiness on feet Diagnosis: Principal (3) HTN (hypertension) ICD Code: I10 - Essential (primary) hypertension Diagnosis: Secondary (4) Renal insufficiency ICD Code: N28.9 - Disorder of kidney and ureter, unspecified Diagnosis: Secondary (5) DM (diabetes mellitus) ICD Code: E11.9 - Type 2 diabetes mellitus without complications Diagnosis: Secondary Procedures none Brief History - From Admission This is a 67-year-old female with a PMH of HTN, Anxiety, Depression, [place], Morbid Obesity, Hypothyroidism, Urinary Incontinence, DM and Knee Pain who was brought to the ER secondary to complaints of bilateral knee pain and recurrent falls. Recent admit 04/05-04/09/16 for UTI and recurrent falls secondary to severe knee pain, s/p eval by Dr. Antonio w/ recommendation for medical management, seen by PT who recommended Rehab however per records pt was not agreeable therefore home PT recommended instead. Home PT to be scheduled for Friday, however Daughter reports pt w/ severe knee pain, unable to ambulate due to gait instability and she is unable to care for pt. Pt reports severe pain in knees, left more than right. Pain is constant, non-radiating, 10/10, severe. Reports associated left calf pain. On arrival, BP 157/72, HR 72, O2 sat 98% on RA, Afebrile. CBC essentially unremarkable. Chemistry unremarkable. Creatinine 1.85, previously 2.08 on 04/08/17. Doppler LE negative for DVT. Knee Immobilizer placed in ER and attempted ambulation, however unsuccessful. CBC/BMP: 04/14/17 0629 04/14/17 0629 Significant Findings Laboratory Tests Test 04/11/17 23:10 04/12/17 04:07 04/13/17 11:53 04/14/17 06:29 Red Blood Count 3.45 MIL/MM3 (4.00-5.30) 3.13 MIL/MM3 (4.00-5.30) 3.49 MIL/MM3 (4.00-5.30) Hemoglobin 9.8 GM/DL (11.6-15.3) 9.1 GM/DL (11.6-15.3) 10.1 GM/DL (11.6-15.3) Hematocrit 31.5 % (35.0-46.0) 28.4 % (35.0-46.0) 31.9 % (35.0-46.0) Mean Corpuscular Hemoglobin Concent 31.1 % (32.0-36.0) 31.9 % (32.0-36.0) 31.7 % (32.0-36.0) Red Cell Distribution Width 18.0 % (11.6-17.2) 18.0 % (11.6-17.2) 18.4 % (11.6-17.2) Blood Urea Nitrogen 37 MG/DL (7-18) 33 MG/DL (7-18) 29 MG/DL (7-18) Creatinine 1.85 MG/DL (0.50-1.00) 1.85 MG/DL (0.50-1.00) 1.72 MG/DL (0.50-1.00) Random Glucose 206 MG/DL (74-106) 222 MG/DL (74-106) Chloride Level 112 MEQ/L (98-107) 112 MEQ/L (98-107) 111 MEQ/L (98-107) Estimat Glomerular Filtration Rate 27 ML/MIN (>89) 27 ML/MIN (>89) 30 ML/MIN (>89) Neutrophils (%) (Auto) 71.9 % (16.0-70.0) Eosinophils (%) (Auto) 4.1 % (0.0-4.0) 4.5 % (0.0-4.0) Total Protein 5.8 GM/DL (6.4-8.2) Albumin 2.1 GM/DL (3.4-5.0) Calcium Level 8.3 MG/DL (8.5-10.1) 8.0 MG/DL (8.5-10.1) Alkaline Phosphatase 119 U/L (45-117) Aspartate Amino Transf (AST/SGOT) 12 U/L (15-37) Total Bilirubin 0.1 MG/DL (0.2-1.0) Urine Turbidity HAZY (CLEAR) Urine Glucose (UA) 70 mg/dL (NEG) Urine Leukocyte Esterase LARGE (NEG) Urine WBC 23 /hpf (0-5) Urine Bacteria OCC /hpf (NONE) Urine Mucus FEW /lpf (OCC) Urine Yeast (Budding) RARE (NONE) Imaging Last Impressions Lower Extremity Ultrasound 04/11/17 0000 Signed Impressions: Service Date/Time: Tuesday, April 11, 2017 21:13 - CONCLUSION: Normal examination. Jhonny Conn MD PE at Discharge GENERAL: This is a well-nourished, well-developed patient, in no apparent distress. CARDIOVASCULAR: Regular rate and regular rhythm without murmurs, gallops, or rubs. RESPIRATORY: Clear to auscultation. Breath sounds equal bilaterally. No wheezes , rales, or rhonchi. GASTROINTESTINAL: Abdomen soft, non-tender, nondistended. Normal, active bowel sounds MUSCULOSKELETAL: Extremities without clubbing, cyanosis, or edema. NEURO: Alert & Oriented x4 to person, place, time, situation. Moves all ext x4 Hospital Course patient was admitted. pain management was initiated. she was evaluated by PT. overall the pain improved during her hospital stay. she was found to have UTI for which she was started on antibiotic. she will be discharged to rehab with follow-up by her PCP and ortho. Pt Condition on Discharge: Stable Discharge Disposition: Discharge to SNF Discharge Time: <= 30 minutes Discharge Instructions DIET: Follow Instructions for: Heart Healthy Diet, Diabetic Diet Activities you can perform: See Additionl Instruction Other Activity Instructions: per PT recommendations Follow up Referrals: Orthopedics - 2 Weeks PCP Follow-up - 1 Week Changed Medications: Hydrocodone/Acetaminophen (Hydrocodone-Acetamin 10-325 mg) 10 Mg-325 Mg Tablet 1 TAB PO Q4H PRN for pain, #30 TAB-CAP 0 Refills (Changed from: Refills: ) Continued Medications: Aspirin DR (Aspirin 81) 81 Mg Tabdr 81 MG PO DAILY, TAB 0 Refills Calcitriol (Calcitriol) 0.5 Mcg Cap 0.5 MCG PO DAILY for Calcium Supplement, #30 CAP 0 Refills Ciprofloxacin (Ciprofloxacin) 500 Mg Tab 500 MG PO BID for Infection for 5 Days, #10 TAB 0 Refills (This prescription has been renewed) Citalopram (Celexa) 40 Mg Tab 40 MG PO DAILY for Control Depression, #30 TAB 0 Refills Insulin Degludec Inj (Tresiba Flextouch Pen Inj) 300 unit/3 ML Pen 20 UNITS SQ DAILY for Blood Sugar Management, #15 ML 0 Refills Levothyroxine (Levothyroxine) 100 Mcg Tab 100 MCG PO DAILY for Thyroid, #30 TAB 0 Refills Lorazepam (Ativan) 1 Mg Tab 1 MG PO TID PRN for ANXIETY AND/OR AGITATION, #20 TAB 0 Refills (This prescription has been renewed) Magnesium Oxide (Magnesium Oxide) 400 Mg Tab 400 MG PO Q12H for Electrolyte Replacement, #60 TAB 0 Refills Memantine-Donepezil (Namzaric) 7-10 mg Cap 1 CAP PO HS for Alzheimer Dementia, #30 CAP 0 Refills Morphine ER (Morphine ER) 15 Mg Tab 30 MG PO Q12HR for Pain Management, #20 TAB 0 Refills (This prescription has been renewed) Quetiapine (Quetiapine) 100 Mg Tab 100 MG PO QID, #60 TAB 0 Refills Ropinirole (Ropinirole) 0.5 Mg Tab 0.5 MG PO TID for spasm, #30 TAB 0 Refills (This prescription has been renewed) Silver Sulfadiazine Topical (Silvadene Topical) 1 % Cream 1 APPLIC TOPICAL BID for Wound Management, #400 GM 0 Refills Vitamins C & E (Cranberry Urinary Comfort) 1 Cap 1 CAP PO DAILY for Urinary Symptom Managemen, CAP 0 Refills Bradley Alvarado MD Apr 14, 2017 10:03
[2017-04-14] MEDS: MORPHINE SULFATE 15 MG CONTROLLED RELEASE TAB PO SCH (10:08)
== END 2017-04-14 13:16 ==
LOC: NEPC 17:36 → NEDA 22:43 → NEPFCDU 23:44
PROVIDERS: ADMIT Internal Medicine; ATTEND Internal Medicine
DX: M25.562 Pain in left knee (principal); G89.29 Other chronic pain; R26.81 Unsteadiness on feet; S80.01XA Contusion of right knee, initial encounter; S80.02XA Contusion of left knee, initial encounter; R29.6 Repeated falls; N28.9 Disorder of kidney and ureter, unspecified; I10 Essential (primary) hypertension; E11.9 Type 2 diabetes mellitus without complications; E03.9 Hypothyroidism, unspecified; K21.9 Gastro-esophageal reflux disease without esophagitis; N39.0 Urinary tract infection, site not specified; W19.XXXA Unspecified fall, initial encounter; Z79.4 Long term (current) use of insulin; Z98.84 Bariatric surgery status; Z96.653 Presence of artificial knee joint, bilateral; Z90.710 Acquired absence of both cervix and uterus
CPT/HCPCS: 80048; 80053; 81001; 82948; 85025; 87086; 93971; 96372; 96374; 96376; 97163; 99285; G0378; G8987; G8988; J1644; J2270; L1830

== ENCOUNTER 2017-05-05 20:39 | Inpatient (IN) | payer MEDICARE ==
[~2017-05-05] VITALS: Ht 152.4 cm; Wt 136.0 kg
[2017-05-05 20:52] VITALS: BP 100/53; PULSE 62; RESP 16; TEMP 98.8; O2SAT 96
[2017-05-05] MEDS ORDERED: SODIUM CHLORIDE 0.9% FLUSH 10 ML FLUSH IVF PRN (21:15)
--- NOTE | 2017-05-05 22:01 | RADRPT ---
EXAM DATE/TIME: 05/05/2017 21:43 [facility] COMPARISON: CT BRAIN W/O CONTRAST, April 05, 2017, 11:13. INDICATIONS : Patient fell, complains of dizziness. RADIATION DOSE: 43.04 CTDIvol (mGy) MEDICAL HISTORY : Cardiovascular disease. Hypertension. gerd,DVT SURGICAL HISTORY : Cholecystectomy. Gastric bypass. Hysterectomy. ENCOUNTER: Initial ACUITY: 1 day PAIN SCALE: 5/10 LOCATION: cranial TECHNIQUE: Multiple contiguous axial images were obtained of the head. Using automated exposure control and adj ustment of the mA and/or kV according to patient size, radiation dose was kept as low as reasonably a chievable to obtain optimal diagnostic quality images. DICOM format image data is available electro nically for review and comparison. FINDINGS: CEREBRUM: The ventricles are normal for age. No evidence of midline shift, mass lesion, hemorrhage or acute in farction. No extra-axial fluid collections are seen. POSTERIOR FOSSA: The cerebellum and brainstem are intact. The 4th ventricle is midline. The cerebellopontine angle i s unremarkable. EXTRACRANIAL: The visualized portion of the orbits is intact. SKULL: The calvaria is intact. No evidence of skull fracture. CONCLUSION: No acute disease. Ashvin Mahajan MD on May 05, 2017 at 21:58 Board Certified Radiologist. This report was verified electronically.
--- NOTE | 2017-05-05 22:09 | PD ---
HPI Chief Complaint: Fall Time Seen by Provider: 21:06 Travel History International Travel<30 days: No Contact w/Intl Traveler<30days: No Traveled to known affect area: No History of Present Illness HPI 67-year-old female presents to the emergency department by EMS transport after a fall at home. Patient states that she was recently hospitalized due to generalized weakness and then was discharged to rehabilitation facility for 3 weeks and has been home for approximately one week. Patient reports that her daughter is her caregiver and typically helps her with any type of ambulation efforts. Patient does use a walker at all times. Patient states she was up to the bathroom and tried to be independent and fell. Patient states she landed on her buttock and then hit her posterior head without loss of consciousness. Patient denies any neck pain upper back pain chest pain rib pain shortness of breath abdominal pain or pelvis pain. Patient states that she does have bilateral knee pain that has been persistent and unremitting. Patient is waiting to be referred to an orthopedist due to persistent left knee pain. Patient does not recall injuring her knee tonight but has fallen on her numerous times before. Patient has history of multiple falls. Patient also has history of generalized weakness hypertension diabetes chronic pain syndrome hypothyroidism recurrent urinary tract infection. Patient is currently not taking any antibiotics. Patient denies any diarrheal illness. Patient's had no fever or chills. Patient was unable to get up off the floor on her own and her daughter was unable to assist her with getting up off the floor and therefore is transported to the emergency room for further evaluation. Daughter states they canceled her appointment with your primary due to her weakness. PFSH Past Medical History Narrative Medical Diabetes hypertension hypothyroidism generalized weakness recurrent UTI chronic pain syndrome; no tobacco use nursing notes reviewed Arthritis: Yes Asthma: No Autoimmune Disease: No Blood Disorders: No Anxiety: Yes Depression: Yes Heart Rhythm Problems: No Cancer: No Cardiovascular Problems: Yes (HTN) High Cholesterol: No Chemotherapy: No Chest Pain: No Congestive Heart Failure: No COPD: No Cerebrovascular Accident: No Diabetes: Yes (TYPE 2) Patient Takes Glucophage: No Diminished Hearing: Yes ([place]) Endocrine: Yes Gastrointestinal Disorders: Yes (INCONTINENCE) GERD: Yes Genitourinary: Yes (INCONTINENCE) Headaches: Yes Hepatitis: No Hiatal Hernia: No Hypertension: Yes Immune Disorder: No Implanted Vascular Access Dvce: Yes Kidney Stones: Yes Musculoskeletal: Yes Neurologic: Yes Psychiatric: Yes Reproductive: No Respiratory: No Immunizations Current: Yes Migraines: Yes Radiation Therapy: No Renal Failure: No Seizures: No Sleep Apnea: No Thyroid Disease: Yes (HYPOTHYROIDISM) Ulcer: No Past Surgical History Abdominal Surgery: Yes (GASTRIC BYPASS, CHOLEYCYSTECTOMY) AICD: No Arteriovenous Shunt: No Body Medical Devices: TENS UNIT PLACED IN RIGHT HIP FOR BOWEL/BLADDER INCONTINENCE Cardiac Surgery: No Section: Yes (X 1) Cholecystectomy: Yes Ear Surgery: No Endocrine Surgery: No Eye Surgery: Yes (BILATERAL LENS IMPLANT) Genitourinary Surgery: No Gynecologic Surgery: Yes (HYSTERECTOMY, ) Hysterectomy: Yes Insulin Pump: No Joint Replacement: Yes (BILATERAL KNEE REPLACEMENT) Neurologic Surgery: Yes (TENS UNIT PLACED IN RIGHT HIP) Oral Surgery: Yes Pacemaker: No Thoracic Surgery: No Tonsillectomy: Yes Other Surgery: Yes Social History Alcohol Use: No (DENIES) Tobacco Use: No Substance Use: No Allergies-Medications (Allergen,Severity, Reaction): Coded Allergies: penicillin G (Unverified Allergy, Severe, Hives, 04/11/17) lactose (Unverified Allergy, Intermediate, Diarrhea, 04/11/17) sulfamethoxazole (Unverified Adverse Reaction, Unknown, 04/11/17) MAKE GFR DECREASE trimethoprim (Unverified Adverse Reaction, Unknown, 04/11/17) MAKE GFR DECREASE Reported Meds & Prescriptions Reported Meds & Active Scripts Active Morphine ER (Morphine Sulfate) 15 Mg Tab 30 Mg PO Q12HR Ropinirole 0.5 Mg Tab 0.5 Mg PO TID Glucocom Test Strips (Blood Glucose Test Strips) 1 Antonieta Antonieta Ea .ROUTE DIRECTED Lancets 1 Mis Mis Ea .ROUTE DIRECTED Glucocom Blood Glucose Mo W/Device (Device) 1 Kit Kit Kit .ROUTE DIRECTED Check glucose BID Magnesium Oxide 400 Mg Tab 400 Mg PO Q12H Reported Dicyclomine (Dicyclomine HCl) 10 Mg Cap 10 Mg PO BID Tresiba Flextouch Pen Inj (Insulin Degludec Inj) 300 unit/3 ML Pen 20 Units SQ DAILY Cranberry Urinary Comfort (Vitamins C & E) 1 Cap 1 Cap PO DAILY Aspirin 81 (Aspirin) 81 Mg Tabdr 81 Mg PO DAILY Quetiapine (Quetiapine Fumarate) 100 Mg Tab 100 Mg PO QID Levothyroxine (Levothyroxine Sodium) 100 Mcg Tab 100 Mcg PO DAILY Namzaric (Memantine-Donepezil) 7-10 mg Cap 1 Cap PO HS Calcitriol 0.5 Mcg Cap 0.5 Mcg PO DAILY Celexa (Citalopram Hydrobromide) 40 Mg Tab 40 Mg PO DAILY Review of Systems Except as stated in HPI: all other systems reviewed are Neg Physical Exam Narrative GENERAL: Well-developed well-nourished morbidly obese female in no acute distress no respiratory distress SKIN: Warm and dry. HEAD: Atraumatic. Normocephalic. Posterior scalp no soft tissue swelling or bony abnormality or laceration. EYES: Pupils equal and round. No scleral icterus. No injection or drainage. ENT: No nasal bleeding or discharge. Mucous membranes pink and moist. NECK: Trachea midline. No JVD. No midline tenderness to direct palpation along the cervical spine no bony step-off. CARDIOVASCULAR: Regular rate and rhythm. RESPIRATORY: No accessory muscle use. Clear to auscultation. Breath sounds equal bilaterally. GASTROINTESTINAL: Abdomen soft, non-tender, nondistended. Hepatic and splenic margins not palpable. MUSCULOSKELETAL: Extremities without clubbing, cyanosis, or edema. No obvious deformities. Patient has intact knee flexion extension of the right knee difficulty with provocative testing secondary to habitus and participation by patient. No obvious ballotable effusion; left knee has intact extension and only 45 of flexion prior to onset of pain no ballotable effusion no ecchymosis no abrasion tender to palpation over the, soft tissue with no obvious bony deformity to palpation however exam is difficult secondary to body habitus and soft tissue adipose tissue. Distally radial pulses and dorsalis pedis pulses are 2+ to palpation capillary refill is brisk and less than 2 seconds. NEUROLOGICAL: Awake and alert. No obvious cranial nerve deficits. Motor grossly within normal limits. Five out of 5 muscle strength in the arms and legs. Normal speech. PSYCHIATRIC: Appropriate mood and affect; insight and judgment normal. Data Data Last Documented VS Vital Signs Date Time Temp Pulse Resp B/P (MAP) Pulse Ox O2 Delivery O2 Flow Rate FiO2 05/05/17 23:00 62 12 108/53 (71) 94 Room Air 05/05/17 20:52 98.8 Orders Orders Electrocardiogram (05/05/17 21:06) Basic Metabolic Panel (Bmp) (05/05/17 21:06) Complete Blood Count With Diff (05/05/17 21:06) Magnesium (Mg) (05/05/17 21:06) Troponin I (05/05/17 21:06) Urinalysis - C+S If Indicated (05/05/17 21:06) Chest, Single Ap (05/05/17 21:06) Ct Brain W/O Iv Contrast(Rout) (05/05/17 21:06) Ecg Monitoring (05/05/17 21:06) Iv Access Insert/Monitor (05/05/17 21:06) Oximetry (05/05/17 21:06) Sodium Chloride 0.9% Flush (Ns Flush) (05/05/17 21:15) Pelvis, Ap Only (Routine) (05/05/17 ) Spine, Lumbar - Ltd (Ap & Lat) (05/05/17 ) Knee, Complete (4vws) (05/05/17 ) Protein Corrected Calcium(Pcc) (05/05/17 22:48) B-Type Natriuretic Peptide (05/05/17 22:48) Troponin I (05/05/17 22:48) Splint Or Brace Apply/Monitor (05/05/17 22:48) Admit Order (Ed Use Only) (05/06/17 ) Compensation Analyst / Telemetry [id number].[id number] (05/06/17 00:08) Activity Oob With Assistance (05/06/17 00:08) Notify Dr: Other (05/06/17 00:08) Labs Laboratory Tests Test 05/05/17 21:15 White Blood Count 9.0 TH/MM3 Red Blood Count 3.03 MIL/MM3 Hemoglobin 8.1 GM/DL Hematocrit 25.9 % Mean Corpuscular Volume 85.4 FL Mean Corpuscular Hemoglobin 26.8 PG Mean Corpuscular Hemoglobin Concent 31.3 % Red Cell Distribution Width 18.2 % Platelet Count 416 TH/MM3 Mean Platelet Volume 7.7 FL Neutrophils (%) (Auto) 67.7 % Lymphocytes (%) (Auto) 19.1 % Monocytes (%) (Auto) 5.9 % Eosinophils (%) (Auto) 6.5 % Basophils (%) (Auto) 0.8 % Neutrophils # (Auto) 6.1 TH/MM3 Lymphocytes # (Auto) 1.7 TH/MM3 Monocytes # (Auto) 0.5 TH/MM3 Eosinophils # (Auto) 0.6 TH/MM3 Basophils # (Auto) 0.1 TH/MM3 CBC Comment DIFF FINAL Differential Comment Blood Urea Nitrogen 44 MG/DL Creatinine 2.43 MG/DL Random Glucose 112 MG/DL Calcium Level 7.5 MG/DL Magnesium Level 2.1 MG/DL Sodium Level 142 MEQ/L Potassium Level 3.9 MEQ/L Chloride Level 107 MEQ/L Carbon Dioxide Level 27.7 MEQ/L Anion Gap 7 MEQ/L Estimat Glomerular Filtration Rate 20 ML/MIN Protein Corrected Calcium 7.7 MG/DL Troponin I LESS THAN 0.02 NG/ML B-Type Natriuretic Peptide 231 PG/ML Total Protein 6.3 GM/DL MDM Medical Decision Making Medical Screen Exam Complete: Yes Emergency Medical Condition: Yes Medical Record Reviewed: Yes Interpretation(s) w/o: CONCLUSION: No acute disease. Ashvin Mahajan MD on May 05, 2017 at 21:58 Board Certified Radiologist. This report was verified electronically. EKG: Normal sinus rhythm rate [address] elevation injury pattern or ectopy noted Urinalysis: positive leukocyte esterase-positive WBCs positive culture indicated CBC is automated differential: anemia hemoglobin 8.1 Metabolic panel: renal insufficiency Troponin I less than 0.02, not elevated Differential Diagnosis Generalized weakness, chronic knee injury, arrhythmia, electrolyte disturbance, anemia, UTI, minor closed head injury, compression fracture, knee injury, patellar fracture, sepsis Narrative Course IV access obtained specimens collected and sent resulting CT imaging of the brain obtained along with pelvis x-ray chest x-ray and left knee x-ray Patient resting comfortably voicing no concerns or complaints CT brain noncontrast reveals no acute abnormality Left knee x-ray reveals patellar fracture knee immobilizer applied Patient informed of imaging results and plan for admission Physician Communication Physician Communication discussed with [facility] for OBS Diagnosis Primary Impression: Weakness Additional Impressions: MISSY (acute kidney injury) Falls Left patella fracture Anemia Hypocalcemia UTI (urinary tract infection) Admitting Information Admitting Physician Requests: Observation Angelita Garcia MD May 05, 2017 22:09
[2017-05-05 22:13] LABS: AUTOMATED NEUTROPHIL # 6.1 TH/MM3 (1.8-7.7); BASOPHIL # 0.1 TH/MM3 (0-0.2); BASOPHIL % 0.8 % (0.0-2.0); EOSINOPHIL # 0.6 TH/MM3 (0-0.4); EOSINOPHIL % 6.5 % (0.0-4.0); HEMATOCRIT 25.9 % (35.0-46.0); HEMOGLOBIN 8.1 GM/DL (11.6-15.3); LYMPH % 19.1 % (9.0-44.0); LYMPHOCYTE # 1.7 TH/MM3 (1.0-4.8); MEAN CELL VOLUME 85.4 FL (80.0-100.0); MEAN CORPUSCULAR HEMOGLOBIN 26.8 PG (27.0-34.0); MEAN CORPUSCULAR HGB CONC 31.3 % (32.0-36.0); MEAN PLATELET VOLUME 7.7 FL (7.0-11.0); MONO % 5.9 % (0.0-8.0); MONOCYTE # 0.5 TH/MM3 (0-0.9); NEUT % 67.7 % (16.0-70.0); PLATELET COUNT 416 TH/MM3 (150-450); RED BLOOD COUNT 3.03 MIL/MM3 (4.00-5.30); RED CELL DISTRIBUTION WIDTH 18.2 % (11.6-17.2)
--- NOTE | 2017-05-05 22:13 | RADRPT ---
EXAM DATE/TIME: 05/05/2017 21:22 [facility] COMPARISON: No previous studies available for comparison. INDICATIONS : Hip pain after fall. MEDICAL HISTORY : Cardiovascular disease. Hypertension. DVT, diabetes, renal failure. SURGICAL HISTORY : Hysterectomy. Gastric bypass. Cholecystectomy. Left knee replacement. Pain stimulator. ENCOUNTER: Initial ACUITY: 1 day PAIN SCORE: 10/10 LOCATION: Pelvis. FINDINGS: No acute fracture or dislocation is noted. Spinal stimulator lead is noted overlying the right sacrum . Degenerative changes are noted within the lower lumbar spine. CONCLUSION: 1. No acute fracture or dislocation. 2. Degenerative changes involving the lower lumbar spine. Ashvin Mahajan MD on May 05, 2017 at 22:10 Board Certified Radiologist. This report was verified electronically.
--- NOTE | 2017-05-05 22:15 | RADRPT ---
EXAM DATE/TIME: 05/05/2017 21:29 [facility] COMPARISON: CHEST SINGLE AP, April 05, 2017, 11:20. INDICATIONS : Chest pain after fall. MEDICAL HISTORY : Cardiovascular disease. Hypertension. DVT, diabetes, renal failure. SURGICAL HISTORY : Hysterectomy. Gastric bypass. Cholecystectomy. Left total knee replacement. ENCOUNTER: Initial ACUITY: 1 day PAIN SCORE: 10/10 LOCATION: Bilateral chest FINDINGS: The heart is prominent. Mild increased interstitial markings are noted bilaterally suggestive of mild pulmonary vascular congestion or infiltrates. Poor inspiratory result is noted. CONCLUSION: 1. Mild increased interstitial markings are noted bilaterally suggestive of mild pulmonary vascular c ongestion or infiltrates. 2. Mild cardiomegaly. Ashvin Mahajan MD on May 05, 2017 at 22:11 Board Certified Radiologist. This report was verified electronically.
--- NOTE | 2017-05-05 22:16 | RADRPT ---
EXAM DATE/TIME: 05/05/2017 21:23 [facility] COMPARISON: SPINE LUMBAR LTD (AP & LAT), September 26, 2015, 9:36. INDICATIONS : Lower back pain after fall. MEDICAL HISTORY : Cardiovascular disease. Hypertension. DVT, diabetes, renal failure. SURGICAL HISTORY : Hysterectomy. Gastric bypass. Cholecystectomy. Left knee replacement. Pain stimulator. ENCOUNTER: Initial ACUITY: 1 day PAIN SCORE: 10/10 LOCATION: Lower back. FINDINGS: Degenerative changes are noted throughout the lumbar and thoracic spine. There is no acute compressio n fracture or spondylolisthesis. No spondylolysis is noted. There is no significant change compared t o 09/26/15. CONCLUSION: No acute compression fracture, spondylolysis or spondylolisthesis. Degenerative decker es throughout the lumbar and lower thoracic spine. No significant change compared to 09/26/15. Ashvin Mahajan MD on May 05, 2017 at 22:12 Board Certified Radiologist. This report was verified electronically.
[2017-05-05 22:30] LABS: BICARBONATE 27.7 MEQ/L (21.0-32.0); BLOOD UREA NITROGEN 44 MG/DL (7-18); CALCIUM 7.5 MG/DL (8.5-10.1); CHLORIDE 107 MEQ/L (98-107); CREATININE 2.43 MG/DL (0.50-1.00); GLOMERULAR FILTRATION RATE 20 ML/MIN (>89); GLUCOSE,RANDOM 112 MG/DL (74-106); MAGNESIUM 2.1 MG/DL (1.5-2.5); SODIUM (NA) 142 MEQ/L (136-145); TROPONIN I LESS THAN 0.02 NG/ML (0.02-0.05)
--- NOTE | 2017-05-05 22:35 | RADRPT ---
EXAM DATE/TIME: 05/05/2017 21:25 [facility] COMPARISON: No previous studies available for comparison. INDICATIONS : Left knee pain after fall. MEDICAL HISTORY : Cardiovascular disease. Hypertension. DVT, diabetes, renal failure. SURGICAL HISTORY : Hysterectomy. Gastric bypass. Cholecystectomy. Left knee replacement. ENCOUNTER: Initial ACUITY: 1 day PAIN SCORE: 10/10 LOCATION: Left knee. FINDINGS: There is an apparent acute fracture involving the patella. Clinical correlation is recommended. Left total knee replacement is noted. CONCLUSION: Apparent acute fracture involving the patella. Clinical correlation is recommended to confirm tendern ess at this site. Ashvin Mahajan MD on May 05, 2017 at 22:30 Board Certified Radiologist. This report was verified electronically.
[2017-05-05 23:00] VITALS: BP 108/53; PULSE 62; RESP 12; O2SAT 94
[2017-05-05 23:48] LABS: CALCIUM 7.3 MG/DL (8.5-10.1); CALCIUM-PROTEIN CORRECTED 7.7 MG/DL (8.5-10.1); TOTAL PROTEIN 6.3 GM/DL (6.4-8.2); TROPONIN I LESS THAN 0.02 NG/ML (0.02-0.05)
[2017-05-06] VITALS (9 sets, daily range): BP systolic 100–134; BP diastolic 52–71; PULSE 63–83; RESP 16–19; TEMP 97.6–98.6; O2SAT 94–96
[2017-05-06] MEDS ORDERED: SODIUM CHLORIDE 0.9% FLUSH 10 ML FLUSH IV FLUSH PRN (00:15)
[2017-05-06] MEDS ORDERED: SENNOSIDES 8.6 MG TAB PO PRN (00:15)
[2017-05-06] MEDS ORDERED: LACTULOSE SYRUP 20 GM/30 ML CUP PO PRN (00:15)
[2017-05-06] MEDS ORDERED: ONDANSETRON HCL 4 MG/2 ML VIAL IVP PRN (00:15)
[2017-05-06] MEDS ORDERED: BISACODYL 10 MG SUPP RECTAL PRN (00:15)
[2017-05-06] MEDS ORDERED: MAGNESIUM HYDROXIDE SUSP 30 ML CUP PO PRN (00:15)
[2017-05-06] MEDS ORDERED: ACETAMINOPHEN 325 MG TAB PO PRN (00:15)
[2017-05-06] MEDS: SODIUM CHLOR 0.9% 1000 ML INJ 1,000 ML IV SCH ×3 (00:56→23:01)
[2017-05-06] MEDS: MORPHINE SULFATE 2 MG/ML INJ IV PUSH PRN ×4 (00:57→16:17)
[2017-05-06 01:05] LABS: BACTERIA, URINE MOD /hpf; BILIRUBIN, URINE NEG (NEG); BLOOD, URINE TRACE (NEG); GLUCOSE,URINE NEG (NEG); HYALINE CAST, URINE 3 /lpf (RARE); KETONE, URINE NEG (NEG); MUCUS URINE FEW /lpf (OCC); NITRITE,URINE POS (NEG); PH, URINE 5.5 (5.0-8.5); SQUAMOUS EPITHELIAL CELL URINE 1 /hpf (0-5); URINE COLOR YELLOW (YELLW/STRAW); URINE LEUKOCYTE ESTERASE LARGE (NEG); WHITE BLOOD CELL CLUMPS MANY
[2017-05-06] MEDS ORDERED: DICY10CA12 PO (01:23)
--- NOTE | 2017-05-06 02:54 | HHI.HP ---
HPI Service [facility] Primary Care Physician Nils Savage, DO Admission Diagnosis gen weakness; reagan; hypocalcemia; (L) patella fx Diagnoses: (1) Fall Diagnosis: Principal (2) Left patella fracture Diagnosis: Principal (3) UTI (urinary tract infection) Diagnosis: Principal (4) Renal insufficiency Diagnosis: Principal (5) Anemia Diagnosis: Principal (6) DM (diabetes mellitus) Diagnosis: Principal Travel History International Travel<30 Days: No Contact w/Intl Traveler <30 Da: No Traveled to Known Affected Are: No History of Present Illness This is a 67-year-old female with a PMH of HTN, DM, CKD, COPD, Recurrent UTI, Recurrent Fall and Deconditioning who was brought to the ER secondary to generalized weakness, fall and c/o left knee pain. Recent admit 04/05-04/23/17 for similar presentation, s/p eval by PT w/ arrangements for [facility]. Daughter notes pt w/ progressive weakness, unable to ambulate or transfer without assistance. S/p eval by Dr. Antonio for c/o knee pain, no acute fracture noted, recommendation for pain control. Today, pt w/ mechanical fall at home, no LOC reported. Does not recall injuring left knee, however reports significant pain. Pain is sharp, constant, 8-9/10, worse w/ movement, non-radiating. On arrival, BP 100/53, HR 62, O2 sat 96% on RA, Afebrile. Hemoglobin 8.1, previously 10.1 04/14/17. Creatinine 2.43, previously 1.72 on 04/14/17. Troponin negative. BNP 231. UA positive for UTI. CXR with mild increased interstitial markings, mild pulmonary congestion. CT Head with no acute findings. Knee X- ray with acute fracture involving the patella. Lumbar X-ray no acute compression fracture. Review of Systems Except as stated in HPI: all other systems reviewed are Neg ROS: 14 point review of systems otherwise negative. Past Family Social History Past Medical History PMH: HTN, DM, CKD, COPD, Recurrent UTI, Recurrent Fall and Deconditioning Past Surgical History PAST SURGICAL HISTORY: Gastric Bypass, Cholecystectomy , Bilateral Lens Implant, Hysterectomy, Bilateral Knee Replacement, Tonsillectomy Allergies: Coded Allergies: penicillin G (Unverified Allergy, Severe, Hives, 04/11/17) lactose (Unverified Allergy, Intermediate, Diarrhea, 04/11/17) sulfamethoxazole (Unverified Adverse Reaction, Unknown, 04/11/17) MAKE GFR DECREASE trimethoprim (Unverified Adverse Reaction, Unknown, 04/11/17) MAKE GFR DECREASE Family History PAST FAMILY HISTORY: Reviewed. No h/o DM or CAD Social History PAST SOCIAL HISTORY: Negative for alcohol, tobacco or drugs. Physical Exam Vital Signs Vital Signs Date Time Temp Pulse Resp B/P (MAP) Pulse Ox O2 Delivery O2 Flow Rate FiO2 05/06/17 02:20 97.9 65 18 118/71 (87) 96 05/06/17 01:46 18 05/06/17 01:15 63 18 100/52 (68) 95 05/05/17 23:00 62 12 108/53 (71) 94 Room Air 05/05/17 20:52 98.8 62 16 100/53 (69) 96 Room Air Physical Exam PE: GENERAL: Middle-aged female in no acute distress. Daughter at bedside. HEENT: PERRLA, EOMI. No scleral icterus or conjunctival pallor. No lid lag or facial droop. CARDIOVASCULAR: Regular rate and rhythm. No obvious murmurs to auscultation. No chest tenderness to palpation. RESPIRATORY: No obvious rhonchi or wheezing. Clear to auscultation. Breath sounds equal bilaterally. GASTROINTESTINAL: Abdomen soft, non-tender, nondistended. BS normal. MUSCULOSKELETAL: Extremities without clubbing, cyanosis, or edema. No obvious deformities. Decreased ROM of left knee due to injury/pain. Pulses intact. NEUROLOGICAL: Awake, alert and oriented x4. No focal neurologic deficits. Moving both upper and lower extremities spontaneously. Laboratory Laboratory Tests Test 05/05/17 21:15 05/06/17 00:20 White Blood Count 9.0 Red Blood Count 3.03 Hemoglobin 8.1 Hematocrit 25.9 Mean Corpuscular Volume 85.4 Mean Corpuscular Hemoglobin 26.8 Mean Corpuscular Hemoglobin Concent 31.3 Red Cell Distribution Width 18.2 Platelet Count 416 Mean Platelet Volume 7.7 Neutrophils (%) (Auto) 67.7 Lymphocytes (%) (Auto) 19.1 Monocytes (%) (Auto) 5.9 Eosinophils (%) (Auto) 6.5 Basophils (%) (Auto) 0.8 Neutrophils # (Auto) 6.1 Lymphocytes # (Auto) 1.7 Monocytes # (Auto) 0.5 Eosinophils # (Auto) 0.6 Basophils # (Auto) 0.1 CBC Comment DIFF FINAL Differential Comment Blood Urea Nitrogen 44 Creatinine 2.43 Random Glucose 112 Calcium Level 7.5 Magnesium Level 2.1 Sodium Level 142 Potassium Level 3.9 Chloride Level 107 Carbon Dioxide Level 27.7 Anion Gap 7 Estimat Glomerular Filtration Rate 20 Protein Corrected Calcium 7.7 Troponin I LESS THAN 0.02 B-Type Natriuretic Peptide 231 Total Protein 6.3 Urine Color YELLOW Urine Turbidity CLOUDY Urine pH 5.5 Urine Specific [place] 1.018 Urine Protein TRACE Urine Glucose (UA) NEG Urine Ketones NEG Urine Occult Blood TRACE Urine Nitrite POS Urine Bilirubin NEG Urine Urobilinogen LESS THAN 2.0 Urine Leukocyte Esterase LARGE Urine RBC 4 Urine WBC 78 Urine WBC Clumps MANY Urine Squamous Epithelial Cells 1 Urine Bacteria MOD Urine Hyaline Casts 3 Urine Mucus FEW Microscopic Urinalysis Comment CULTURE INDICATED Date/Time Source Procedure Growth Status 05/06/17 00:20 Urine Random Urine Urine Culture Pending Received Result Diagram: 05/05/17211405/05/172114 Caprini VTE Risk Assessment Caprini VTE Risk Assessment: Mod/High Risk (score >= 2) Caprini Risk Assessment Model Point Value = 1 Point Value = 2 Point Value = 3 Point Value = 5 Age 41-60 Minor surgery BMI > 25 kg/m2 Swollen legs Varicose veins or History of unexplained or recurrent spontaneous Oral contraceptives or hormone replacement Sepsis (< 1 month) Serious lung disease, including pneumonia (< 1 month) Abnormal pulmonary function Acute myocardial infarction Congestive heart failure (< 1 month) History of inflammatory bowel disease Medical patient at bed rest Age 61-74 Arthroscopic surgery Major open surgery (> 45 min) Laparoscopic surgery (> 45 min) Malignancy Confined to bed (> 72 hours) Immobilizing plaster cast Central venous access Age >= 75 History of VTE Family history of VTE Factor V Leiden Prothrombin [id number] Lupus anticoagulant Anticardiolipin antibodies Elevated serum homocysteine Heparin-induced thrombocytopenia Other congenital or acquired thrombophilia Stroke (< 1 month) Elective arthroplasty Hip, pelvis, or leg fracture Acute spinal cord injury (< 1 month) Prophylaxis Regimen Total Risk Factor Score Risk Level Prophylaxis Regimen 0-1 Low Early ambulation 2 Moderate Order ONE of the following: *Sequential Compression Device (SCD) *Heparin 5000 units SQ BID 3-4 Higher Order ONE of the following medications: *Heparin 5000 units SQ TID *Enoxaparin/Lovenox 40 mg SQ daily (WT < 150 kg, CrCl > 30 mL/min) *Enoxaparin/Lovenox 30 mg SQ daily (WT < 150 kg, CrCl > 10-29 mL/min) *Enoxaparin/Lovenox 30 mg SQ BID (WT < 150 kg, CrCl > 30 mL/min) AND/OR *Sequential Compression Device (SCD) 5 or more Highest Order ONE of the following medications: *Heparin 5000 units SQ TID (Preferred with Epidurals) *Enoxaparin/Lovenox 40 mg SQ daily (WT < 150 kg, CrCl > 30 mL/min) *Enoxaparin/Lovenox 30 mg SQ daily (WT < 150 kg, CrCl > 10-29 mL/min) *Enoxaparin/Lovenox 30 mg SQ BID (WT < 150 kg, CrCl > 30 mL/min) AND *Sequential Compression Device (SCD) Assessment and Plan Problem List: (1) Fall ICD Code: W19.XXXA - Unspecified fall, initial encounter Status: Resolved (2) Left patella fracture ICD Code: S82.002A - Unspecified fracture of left patella, initial encounter for closed fracture Status: Acute (3) UTI (urinary tract infection) ICD Code: N39.0 - Urinary tract infection, site not specified Status: Acute (4) Renal insufficiency ICD Code: N28.9 - Disorder of kidney and ureter, unspecified (5) Anemia ICD Code: D64.9 - Anemia, unspecified (6) DM (diabetes mellitus) ICD Code: E11.9 - Type 2 diabetes mellitus without complications Assessment and Plan A/P: 1. Fall: Recurrent. S/p mechanical fall at home, no LOC, reports possible head trauma. CT Head w/ no acute findings, CT C-Spine negative, images reviewed by me. Significant physical deconditioning likely main etiology for falls, compounded by acute UTI. Consult PT for eval/tx. 2. Left Patellar Fx: Secondary to above. Knee X-ray with acute fracture involving the patella, images reviewed by me. Recent admit with complaints of knee pain, however imaging negative at that time, s/p eval by Dr. Antonio. Will consult Ortho for further evaluation, s/p immobilizer in ER. Analgesics/ antiemetics as needed. 3. UTI: U/a w/ UTI, h/o recurrent UTI, start Azactam IV, pending outpatient follow up w/ Urology per Daughter. 4. Renal Insufficiency: Acute on Chronic. Creatinine 2.43, previously 1.72 pn 04/14/17. IVF for hydration-caution w/ pulmonary congestion on CXR, images reviewed by me. Repeat labs in am. 5. Anemia: Hgb 8.1, previously 10.1 on 04/14/17, no active bleeding noted. Repeat labs in a.m., transfuse as needed for hemoglobin <7 6. DM: Sliding scale w/ Accu-Cheks, resume home Insulin. 7. DVT Prophylaxis: Anticoagulation post op 8. Social work for DC planning as needed. 9. Case discussed at length with ER physician, labs/records/imaging reviewed by me. Physician Certification 2 Midnight Certification Type: Admission for Inpatient Services Order for Inpatient Services The services are ordered in accordance with Medicare regulations or non- Medicare payer requirements, as applicable. In the case of services not specified as inpatient-only, they are appropriately provided as inpatient services in accordance with the 2-midnight benchmark. Estimated LOS (days): 2 days is the estimated time the patient will need to remain in the hospital, assuming treatment plan goals are met and no additional complications. Post-Hospital Plan: Not yet determined Leonarda Kessler MD May 06, 2017 02:54
[2017-05-06] MEDS: AZTREONAM INJ 1,000 MG in SODIUM CHLORIDE 0.9% INJ 100 ML IV SCH ×3 (03:02→17:52)
[2017-05-06 04:40] LABS: AUTOMATED NEUTROPHIL # 6.4 TH/MM3 (1.8-7.7); BASOPHIL # 0.1 TH/MM3 (0-0.2); BASOPHIL % 1.2 % (0.0-2.0); EOSINOPHIL # 0.6 TH/MM3 (0-0.4); EOSINOPHIL % 5.9 % (0.0-4.0); HEMATOCRIT 24.7 % (35.0-46.0); HEMOGLOBIN 8.1 GM/DL (11.6-15.3); LYMPH % 20.2 % (9.0-44.0); LYMPHOCYTE # 2.1 TH/MM3 (1.0-4.8); MEAN CELL VOLUME 84.1 FL (80.0-100.0); MEAN CORPUSCULAR HEMOGLOBIN 27.5 PG (27.0-34.0); MEAN CORPUSCULAR HGB CONC 32.7 % (32.0-36.0); MEAN PLATELET VOLUME 7.9 FL (7.0-11.0); MONO % 10.1 % (0.0-8.0); NEUT % 62.6 % (16.0-70.0); PLATELET COUNT 301 TH/MM3 (150-450); RED BLOOD COUNT 2.93 MIL/MM3 (4.00-5.30); WHITE BLOOD COUNT 10.3 TH/MM3 (4.0-11.0)
[2017-05-06] MEDS: LEVOTHYROXINE SODIUM 100 MCG TAB PO SCH (05:44)
[2017-05-06 07:16] LABS: ALBUMIN 2.4 GM/DL (3.4-5.0); AST (GOT) 19 U/L (15-37); BICARBONATE 29.9 MEQ/L (21.0-32.0); BLOOD UREA NITROGEN 45 MG/DL (7-18); CHLORIDE 108 MEQ/L (98-107); CREATININE 2.41 MG/DL (0.50-1.00); GLOMERULAR FILTRATION RATE 20 ML/MIN (>89); GLUCOSE,RANDOM 54 MG/DL (74-106); SODIUM (NA) 142 MEQ/L (136-145)
[2017-05-06 07:17] LABS: ALT (GPT) 17 U/L (10-53)
[2017-05-06 07:19] LABS: ALKALINE PHOSPHATASE 256 U/L (45-117); TOTAL BILIRUBIN ADULT 0.2 MG/DL (0.2-1.0); TOTAL PROTEIN 6.1 GM/DL (6.4-8.2)
--- NOTE | 2017-05-06 07:50 | MB ---
cc: ROGERIO CHISHOLM DATE OF ADMISSION 05/06/2017 DATE OF CONSULTATION 05/06/2017 REASON FOR CONSULTATION Left patellar fracture. CONSULTING PHYSICIAN Dr. Kessler. HISTORY Natalie is a 67-year-old female who has multiple medical problems. She has a history of hypertension, diabetes, renal failure, COPD, recurrent urinary tract infections and recurrent falls. She was recently admitted to [facility] from April 05 through April 23, 2017. The patient was discharged to rehab. She was discharged home from rehab three days ago. She had a fall yesterday. She complains of left knee pain. She presented to the emergency room where x-rays revealed a minimally displaced left patella fracture. She is currently awake and alert in the emergency room. The pain is worse with movement. She was complaining of left knee pain during her admission earlier this year. She was seen in consultation by Dr. Antonio. She is also complaining of diarrhea.. PAST MEDICAL HISTORY ILLNESSES 1. Hypertension. 2. Diabetes. 3. Renal failure. 4. COPD. 5. Recurrent falls. SURGERIES 1. Gastric bypass. 2. Cholecystectomy. 3. . 4. Bilateral eye surgery. 5. Hysterectomy. 6. Bilateral knee replacement. 7. Tonsillectomy ALLERGIES PENICILLIN. LACTOSE. BACTRIM. TRIMETHOPRIM. MEDICATIONS Please see EMR for complete list of inpatient medications. This was reviewed. FAMILY HISTORY Noncontributory. SOCIAL HISTORY The patient denies alcohol, tobacco or drug use. She has been back at home for approximately three days since being discharged from rehab. PHYSICAL EXAMINATION GENERAL: The patient is a pleasant 67-year-old female. She appears older than stated age. She is awake and alert. She is moderately overweight. She is in no acute distress. VITAL SIGNS: Temperature 97.6, pulse 64, respirations 19, blood pressure 116/60, O2 sat 95% on room air. HEAD: The patient is normocephalic. Pupils are equal. NECK: Soft, nontender. Trachea is midline. ABDOMEN: Soft, nontender, nondistended. EXTREMITIES: Examination of bilateral upper extremities reveals no pain with shoulder, elbow or wrist motion. She has intact sensation in all fingers. She has good capillary refill in all fingers. Skin is intact to both hands. Sensation is intact in both hands. Examination of right arm reveals no pain with shoulder, elbow or wrist motion. She has intact sensation in all fingers. She has good capillary refill in all fingers. Skin is intact. Radial pulses palpable. Examination of the left leg reveals no tenderness around her hip or ankle. Sensation is intact in the left foot. She has good capillary refill in her foot. She has a well-healed surgical incision over her anterior knee. She has tenderness to palpation directly over the patella. Her knee is stable to varus and valgus stresses. There is mild swelling present. X-RAYS X-rays of the left knee were reviewed. X-rays reveal a left total knee arthroplasty in good position. There is a mildly displaced left patella fracture. The prosthesis appears to be well-fixed. LABORATORY DATA The patient has a white blood cell count of 10.3, hemoglobin of 8.1, hematocrit of 24.7. She has a BUN of 44 and creatinine of 2.43. Her urinalysis shows a large amount leukocyte esterase and is cloudy. Cultures pending. IMPRESSION 1. Chronic renal failure. 2. Urinary tract infection. 3. Hypertension. 4. Diabetes. 5. COPD 6. Mildly displaced left patella fracture. PLAN The treatment options were discussed with the patient. At this point I would recommend nonsurgical treatment. The patient has multiple medical problems and would be relatively high risk for surgery. The fracture is relatively well-aligned. If it would heal in its current alignment, function should be reasonable. She will need to remain in the knee immobilizer. She should not do any active leg lifts or quad sets. She will be partial weight-bear up to 50 pounds with physical therapy. If the fracture displaces, she may need surgical intervention. I recommended to the patient that she follow up with either Dr. Antonio who saw her earlier this month for knee pain or Dr. Al Regalado who previously performed her right total knee replacement. If the patient does go on to need surgery, she may potentially need revision of her patellar implant. This is a procedure I do not perform. All of her questions were answered. She will likely need to be discharged to a rehab center or [facility] facility upon discharge from the hospital. All questions were answered. A mid-level provider in my office, nurse practitioner or PA, may see this patient on a follow-up basis and continue to implement the objective of this plan including: Starting or adjusting medications, injections of muscle, tendon, bursa or joints, cast application, orthotic or brace application, physical therapy, further radiographic studies including x-ray, MRI, CT, ultrasounds or bone scan, vascular studies, neurologic studies, or other specialist consultations, and proceeding with surgical management as appropriate. Rogerio MD MINE Christensen/DAVID /7:05 AM /7:33 AM
[2017-05-06 07:58] LABS: IRON (FE) 20 MCG/DL (50-170)
[2017-05-06 08:23] LABS: % SATURATION IRON PROFILE 5.5 % (20-50); FERRITIN 24 NG/ML (8-252); FOLATE 16.3 NG/ML (3.1-17.5); TOTAL IRON BINDING CAPACITY 367 MCG/DL (250-450)
[2017-05-06] MEDS: DICYCLOMINE HCL 10 MG CAP PO SCH ×2 (08:53→21:22)
[2017-05-06] MEDS: CITALOPRAM HYDROBROMIDE 40 MG TAB PO SCH (08:53)
[2017-05-06] MEDS: DOCUSATE SODIUM 50 MG/SENNA 8.6 MG TAB PO SCH ×2 (08:53→21:00)
[2017-05-06] MEDS: MAGNESIUM OXIDE 400 MG TAB PO SCH ×2 (08:54→21:23)
[2017-05-06] MEDS: SODIUM CHLORIDE 0.9% FLUSH 10 ML FLUSH IV FLUSH SCH ×2 (09:00→21:24)
[2017-05-06] MEDS: QUEtiapine FUMARATE 100 MG TAB PO SCH ×4 (09:05→21:23)
[2017-05-06] MEDS: MORPHINE SULFATE 15 MG CONTROLLED RELEASE TAB PO SCH ×2 (09:05→21:24)
[2017-05-06] MEDS: CALCITRIOL 0.25 MCG CAP PO SCH (10:13)
[2017-05-06] MEDS: INSULIN NovoLIN REGULAR SUPPLEMENTAL SCALE SQ SCH ×2 (17:00→21:00)
[2017-05-06] MEDS ORDERED: GLUCAGON 1 MG/ML VIAL OTHER PRN (17:00)
[2017-05-06] MEDS ORDERED: GLUCAGON 1 MG/ML VIAL IM PRN (17:00)
[2017-05-06] MEDS ORDERED: DEXTROSE 50% IN WATER 50 ML VIAL(D50) IV PUSH PRN (17:00)
[2017-05-06] MEDS: FERROUS SULFATE 325 MG (65 MG ELEMENTAL IRON) TAB PO SCH (17:52)
[2017-05-06] MEDS: ACETAMINOPHEN/HYDROcodone 325 MG/5 MG TAB PO PRN (18:07)
[2017-05-06] MEDS ORDERED: DONEPEZIL PO SCH (21:00)
[2017-05-06] MEDS ORDERED: MEMANTINE PO SCH (21:00)
[2017-05-07] VITALS (9 sets, daily range): BP systolic 90–116; BP diastolic 44–59; PULSE 74–90; RESP 18–19; TEMP 98.1–99.1; O2SAT 90–95
[2017-05-07] MEDS: ACETAMINOPHEN/HYDROcodone 325 MG/5 MG TAB PO PRN ×3 (00:24→14:17)
--- NOTE | 2017-05-07 00:46 | EKG ---
Date Performed: 05/05/2017 Time Performed: 20:51:45 PTAGE: 67 years EKG: Sinus rhythm LOW QRS VOLTAGE IN PRECORDIAL LEADS BORDERLINE ECG PREVIOUS TRACING : 04/05/2017 11.32 Compared to prior tracing, rate has increased DOCTOR: Constantino Quijano Interpretating Date/Time 05/07/2017 00:44:23
[2017-05-07] MEDS: AZTREONAM INJ 1,000 MG in SODIUM CHLORIDE 0.9% INJ 100 ML IV SCH ×3 (02:51→19:43)
[2017-05-07] MEDS: LEVOTHYROXINE SODIUM 100 MCG TAB PO SCH (05:53)
[2017-05-07] MEDS: INSULIN NovoLIN REGULAR SUPPLEMENTAL SCALE SQ SCH ×4 (08:00→20:52)
[2017-05-07] MEDS: DOCUSATE SODIUM 50 MG/SENNA 8.6 MG TAB PO SCH ×2 (09:00→21:00)
[2017-05-07] MEDS: SODIUM CHLORIDE 0.9% FLUSH 10 ML FLUSH IV FLUSH SCH ×2 (09:00→21:18)
[2017-05-07 09:07] LABS: BICARBONATE 28.1 MEQ/L (21.0-32.0); BLOOD UREA NITROGEN 38 MG/DL (7-18); CALCIUM 7.4 MG/DL (8.5-10.1); CHLORIDE 109 MEQ/L (98-107); CREATININE 2.17 MG/DL (0.50-1.00); GLOMERULAR FILTRATION RATE 23 ML/MIN (>89); GLUCOSE,RANDOM 79 MG/DL (74-106); SODIUM (NA) 141 MEQ/L (136-145)
[2017-05-07] MEDS: MAGNESIUM OXIDE 400 MG TAB PO SCH ×2 (09:09→20:54)
[2017-05-07] MEDS: CALCITRIOL 0.25 MCG CAP PO SCH (09:09)
[2017-05-07] MEDS: QUEtiapine FUMARATE 100 MG TAB PO SCH ×4 (09:10→20:54)
[2017-05-07] MEDS: CITALOPRAM HYDROBROMIDE 40 MG TAB PO SCH (09:12)
[2017-05-07] MEDS: MORPHINE SULFATE 2 MG/ML INJ IV PUSH PRN ×3 (09:15→19:44)
[2017-05-07 09:25] LABS: CALCIUM-PROTEIN CORRECTED 8.2 MG/DL (8.5-10.1); TOTAL PROTEIN 5.6 GM/DL (6.4-8.2)
[2017-05-07] MEDS: MORPHINE SULFATE 15 MG CONTROLLED RELEASE TAB PO SCH ×2 (09:48→20:55)
[2017-05-07] MEDS: DICYCLOMINE HCL 10 MG CAP PO SCH ×2 (09:49→20:54)
[2017-05-07] MEDS: SODIUM CHLOR 0.9% 1000 ML INJ 1,000 ML IV SCH ×3 (09:51→21:16)
[2017-05-07] MEDS ORDERED: WHEEMIS3 (11:40)
[2017-05-07] MEDS: FERROUS SULFATE 325 MG (65 MG ELEMENTAL IRON) TAB PO SCH ×2 (12:29→19:41)
--- NOTE | 2017-05-07 16:04 | HHI.PR ---
Subjective Remarks sleeping in bed , wake up to voice Nonverbal not answering question, feeling sleepy Objective Vitals Vital Signs Date Time Temp Pulse Resp B/P (MAP) Pulse Ox O2 Delivery O2 Flow Rate FiO2 05/07/17 15:50 86 05/07/17 12:42 98.1 87 18 116/57 (76) 94 05/07/17 11:31 90 05/07/17 08:42 98.3 87 18 114/53 (73) 90 05/07/17 04:50 99.1 82 18 115/59 (77) 95 05/07/17 04:00 81 05/07/17 00:10 98.3 86 18 110/53 (72) 95 05/06/17 20:10 98.2 83 18 114/57 (76) 95 05/06/17 20:00 81 05/06/17 19:09 16 05/06/17 17:39 98.1 79 18 134/66 (88) 94 05/06/17 16:22 18 I/O 05/06/17 05/06/17 05/06/17 05/07/17 05/07/17 05/07/17 06:59 14:59 22:59 06:59 14:59 22:59 Intake Total 720 ml 360 ml Output Total 800 ml 400 ml 600 ml Balance -800 ml 320 ml -240 ml Intake Oral 720 ml 360 ml Output Urine Total 800 ml 400 ml 600 ml # Bowel Movements 0 Result Diagram: 05/06/17 0336 05/07/17 0712 Objective Remarks GENERAL: This is a well-nourished, well-developed patient, in no apparent distress. CARDIOVASCULAR: Regular rate and rhythm without murmurs, gallops, or rubs. RESPIRATORY: Clear to auscultation. Breath sounds equal bilaterally. No wheezes , rales, or rhonchi. GASTROINTESTINAL: Abdomen soft, non-tender, nondistended. Normal active bowel sounds MUSCULOSKELETAL: Extremities without clubbing, cyanosis, or edema. NEURO: Alert & Oriented x4 to person, place, time, situation. Moves all ext x4 A/P Problem List: (1) Fall ICD Code: W19.XXXA - Unspecified fall, initial encounter Status: Resolved (2) Left patella fracture ICD Code: S82.002A - Unspecified fracture of left patella, initial encounter for closed fracture Status: Acute (3) UTI (urinary tract infection) ICD Code: N39.0 - Urinary tract infection, site not specified Status: Acute (4) Renal insufficiency ICD Code: N28.9 - Disorder of kidney and ureter, unspecified (5) Anemia ICD Code: D64.9 - Anemia, unspecified (6) DM (diabetes mellitus) ICD Code: E11.9 - Type 2 diabetes mellitus without complications Assessment and Plan 05/07: Appreciate ortho consult, continue current care pain management, discussed with dependency case manager and with the patient in length about discharge planning, will need bariatric chair, A/P: 1. Fall: Recurrent. S/p mechanical fall at home, no LOC, reports possible head trauma. CT Head w/ no acute findings, CT C-Spine negative, Significant physical deconditioning likely main etiology for falls, compounded by acute UTI. Consult PT for eval/tx. 2. Left Patellar Fx: Secondary to above. Knee X-ray with acute fracture involving the patella, Recent admit with complaints of knee pain, however imaging negative at that time, s/p eval by Dr. Antonio. Appreciate ortho consult commended nonsurgical management at this point and rehabilitation to avoid displacement of the fracture and at that time need surgery, s/p immobilizer in ER. Analgesics/antiemetics as needed. 3. UTI: U/a w/ UTI, h/o recurrent UTI, start Azactam IV, pending outpatient follow up w/ Urology per Daughter. 4. CKD date history: Creatinine 2.43, is to be around baseline IVF for hydration-caution w/ pulmonary congestion on CXR, images reviewed by me. Repeat labs in am. 5. Anemia: Hgb 8.1, previously 10.1 on 04/14/17, no active bleeding noted. Repeat labs in a.m., transfuse as needed for hemoglobin <7 6. DM: Sliding scale w/ Accu-Cheks, resume home Insulin. 7. DVT Prophylaxis: Anticoagulation post op Discharge Planning To rehabilitation Discharge patient to home Condition on discharge: Improved Of a heart ADA 1800 Diet as tolerated Ad Marie activity Rx written: See med rec Follow-up with primary care physician and ortho in one week Sesar Cervantes MD May 07, 2017 16:04
[2017-05-07 16:06] LABS: HEMOGLOBIN A1C 6.5 % (4.3-6.0)
[2017-05-08] VITALS (8 sets, daily range): BP systolic 116–177; BP diastolic 60–77; PULSE 75–98; RESP 18–20; TEMP 97.7–98.1; O2SAT 95–98
[2017-05-08] MEDS: AZTREONAM INJ 1,000 MG in SODIUM CHLORIDE 0.9% INJ 100 ML IV SCH ×2 (01:53→08:31)
[2017-05-08] MEDS: LEVOTHYROXINE SODIUM 100 MCG TAB PO SCH (06:33)
[2017-05-08] MEDS: ACETAMINOPHEN/HYDROcodone 325 MG/5 MG TAB PO PRN ×3 (06:52→21:33)
[2017-05-08] MEDS: INSULIN NovoLIN REGULAR SUPPLEMENTAL SCALE SQ SCH ×4 (08:00→21:00)
[2017-05-08] MEDS: SODIUM CHLORIDE 0.9% FLUSH 10 ML FLUSH IV FLUSH SCH ×2 (08:30→21:59)
[2017-05-08] MEDS: CALCITRIOL 0.25 MCG CAP PO SCH (08:35)
[2017-05-08] MEDS: QUEtiapine FUMARATE 100 MG TAB PO SCH ×4 (08:37→21:32)
[2017-05-08] MEDS: DICYCLOMINE HCL 10 MG CAP PO SCH ×2 (08:37→21:31)
[2017-05-08] MEDS: DOCUSATE SODIUM 50 MG/SENNA 8.6 MG TAB PO SCH ×2 (08:38→21:32)
[2017-05-08] MEDS: MAGNESIUM OXIDE 400 MG TAB PO SCH ×2 (08:39→21:32)
[2017-05-08] MEDS: MORPHINE SULFATE 15 MG CONTROLLED RELEASE TAB PO SCH ×2 (08:39→21:32)
[2017-05-08] MEDS: CITALOPRAM HYDROBROMIDE 40 MG TAB PO SCH (08:39)
[2017-05-08] MEDS: FERROUS SULFATE 325 MG (65 MG ELEMENTAL IRON) TAB PO SCH ×2 (12:33→14:43)
[2017-05-08] MEDS: SODIUM CHLOR 0.9% 1000 ML INJ 1,000 ML IV SCH ×2 (12:35→22:09)
[2017-05-08] MEDS: MORPHINE SULFATE 2 MG/ML INJ IV PUSH PRN ×3 (12:38→21:58)
--- NOTE | 2017-05-08 15:17 | HHI.PR ---
Subjective Remarks resting in bed, still complaining of burning/dysuria Discussed in length with the patient and her daughter they are concerned about frequent UTI which day attributed it to the syncope and fall/fracture Objective Vitals Vital Signs Date Time Temp Pulse Resp B/P (MAP) Pulse Ox O2 Delivery O2 Flow Rate FiO2 05/08/17 12:00 97.9 82 18 130/60 (83) 95 05/08/17 10:07 79 05/08/17 04:57 97.7 80 18 131/64 (86) 95 05/08/17 00:45 98.1 88 18 116/73 (87) 98 05/08/17 00:00 75 05/07/17 20:45 98.2 90 19 107/57 (74) 93 05/07/17 16:27 98.7 74 18 90/44 (59) 91 05/07/17 15:50 86 I/O 05/07/17 05/07/17 05/07/17 05/08/17 05/08/17 05/08/17 07:00 15:00 23:00 07:00 15:00 23:00 Intake Total 360 ml 240 ml Output Total 600 ml 500 ml 1100 ml 300 ml Balance -240 ml -500 ml -860 ml -300 ml Intake Oral 360 ml 240 ml Output Urine Total 600 ml 500 ml 1100 ml 300 ml Result Diagram: 05/06/17 0336 05/07/17 0712 Objective Remarks GENERAL: This is a well-nourished, well-developed patient, in no apparent distress. CARDIOVASCULAR: Regular rate and rhythm without murmurs, gallops, or rubs. RESPIRATORY: Clear to auscultation. Breath sounds equal bilaterally. No wheezes , rales, or rhonchi. GASTROINTESTINAL: Abdomen soft, non-tender, nondistended. Normal active bowel sounds MUSCULOSKELETAL: Extremities without clubbing, cyanosis, or edema. NEURO: Alert & Oriented x4 to person, place, time, situation. Moves all ext x4 A/P Problem List: (1) Fall ICD Code: W19.XXXA - Unspecified fall, initial encounter Status: Resolved (2) Left patella fracture ICD Code: S82.002A - Unspecified fracture of left patella, initial encounter for closed fracture Status: Acute (3) UTI (urinary tract infection) ICD Code: N39.0 - Urinary tract infection, site not specified Status: Acute (4) Renal insufficiency ICD Code: N28.9 - Disorder of kidney and ureter, unspecified (5) Anemia ICD Code: D64.9 - Anemia, unspecified (6) DM (diabetes mellitus) ICD Code: E11.9 - Type 2 diabetes mellitus without complications Assessment and Plan 05/07: Appreciate ortho consult, continue current care pain management, discussed with piano case and bench assembler and with the patient in length about discharge planning, will need bariatric chair, 05/08: Urine culture showing multidrug-resistant bacteria, consulted ID d/w with , discussed with piano case and bench assembler and with the daughter today the are not able to pay for rehabilitation as patient already exhaust her allowance. A/P: 1. Fall: Recurrent. S/p mechanical fall at home, no LOC, reports possible head trauma. CT Head w/ no acute findings, CT C-Spine negative, Significant physical deconditioning likely main etiology for falls, compounded by acute UTI. Consult PT for eval/tx. 2. Left Patellar Fx: Secondary to above. Knee X-ray with acute fracture involving the patella, Recent admit with complaints of knee pain, however imaging negative at that time, s/p eval by Dr. Antonio. Appreciate ortho consult commended nonsurgical management at this point and rehabilitation to avoid displacement of the fracture and at that time need surgery, s/p immobilizer in ER. Analgesics/antiemetics as needed. 3. UTI: U/a w/ UTI, h/o recurrent UTI, start Azactam IV, pending outpatient follow up w/ Urology per Daughter. 4. CKD date history: Creatinine 2.43, is to be around baseline IVF for hydration-caution w/ pulmonary congestion on CXR, images reviewed by me. Repeat labs in am. 5. Anemia: Hgb 8.1, previously 10.1 on 04/14/17, no active bleeding noted. Repeat labs in a.m., transfuse as needed for hemoglobin <7 6. DM: Sliding scale w/ Accu-Cheks, resume home Insulin. 7. DVT Prophylaxis: Anticoagulation post op Discharge Planning To rehabilitation Discharge patient to home Condition on discharge: Improved Of a heart ADA 1800 Diet as tolerated Ad Marie activity Rx written: See med rec Follow-up with primary care physician and ortho in one week Sesar Cervantes MD May 08, 2017 15:17
--- NOTE | 2017-05-08 15:49 | PD.ID.CON ---
History of Present Illness Service ID Consult Requested By Reason for Consult Evaluation and Mment of ESBL UTI. Primary Care Physician Nils Savage, DO Diagnoses: History of Present Illness Ms. Jeong is a 67-year-old female with past medical history significant for hypertension, diabetes, chronic kidney disease, COPD, recurrent UTI. Patient reports that she has had recurrent UTI as well as urinary incontinence for which she sees Dr. Perez. Patient also reports that she has about a stimulator in place. She reports that she uses pads due to urinary incontinence. Recent admit 04/05-04/23/17 for similar presentation, s/p eval by PT w/ arrangements for [facility]. Daughter notes pt w/ progressive weakness, unable to ambulate or transfer without assistance. S/p eval by Dr. Antonio for c/o knee pain, no acute fracture noted, recommendation for pain control. Patient reportedly mechanical fall at home, no LOC reported. Does not recall injuring left knee, however reports significant pain. Pain is sharp, constant, 8-9/10, worse w/ movement, non-radiating. On arrival, BP 100/53, HR 62, O2 sat 96% on RA, Afebrile. Hemoglobin 8.1, previously 10.1 04/14/17. Creatinine 2.43, previously 1.72 on 04/14/17. Troponin negative. BNP 231. UA positive for UTI. CXR with mild increased interstitial markings, mild pulmonary congestion. CT Head with no acute findings. Knee X-ray with acute fracture involving the patella. Lumbar X-ray no acute compression fracture. Patient was evaluated by Dr. Vance no surgical intervention planned. Urine culture done on admission which is a random urine is positive for ESBL. Of note patient had no symptoms prior to admission and had no history of fever or chills. Additionally patient reports decreased oral intake particularly fluids prior to admission. Infectious disease is consulted for evaluation and management of ESBL UTI. Review of Systems ROS Limitations: Poor Historian Constitutional: DENIES: Diaphoretic episodes, Fatigue, Fever, Weight gain, Weight loss, Chills, Dizziness, Change in appetite, Night Sweats Endocrine: DENIES: Abnorml menstrual pattern, Heat/cold intolerance, Polydipsia , Polyuria, Polyphagia Eyes: DENIES: Blurred vision, Diplopia, Eye inflammation, Eye pain, Vision loss , Photosensitivity, Double Vision Ears, nose, mouth, throat: DENIES: Tinnitus, Hearing loss, Vertigo, Nasal discharge, Oral lesions, Throat pain, Hoarseness, Ear Pain, Running Nose, Epistaxis, Sinus Pain, Toothache, Odynophagia Respiratory: DENIES: Apneas, Cough, Snoring, Wheezing, Hemoptysis, Sputum production, Shortness of breath Cardiovascular: DENIES: Chest pain, Palpitations, Syncope, Dyspnea on Exertion , PND, Lower Extremity Edema, Orthopnea, Claudication Gastrointestinal: DENIES: Abdominal pain, Black stools, Bloody stools, Constipation, Diarrhea, Nausea, Vomiting, Difficulty Swallowing, Anorexia Genitourinary: DENIES: Abnormal vaginal bleeding, Dysmenorrhea, Dyspareunia, Sexual dysfunction, Urinary frequency, Urinary incontinence, Urgency, Hematuria , Dysuria, Nocturia, Vaginal discharge Musculoskeletal: DENIES: Joint pain, Muscle aches, Stiffness, Joint Swelling, Back pain, Neck pain Integumentary: DENIES: Abnormal pigmentation, Pruritus, Rash, Nail changes, Breast masses, Breast skin changes, Nipple discharge Hematologic/lymphatic: DENIES: Bruising, Lymphadenopathy Immunologic/allergic: DENIES: Eczema, Urticaria Neurologic: DENIES: Abnormal gait, Headache, Localized weakness, Paresthesias, Seizures, Speech Problems, Tremor, Poor Balance Psychiatric: DENIES: Anxiety, Confusion, Mood changes, Depression, Hallucinations, Agitation, Suicidal Ideation, Homicidal Ideation, Delusions Except as stated in HPI: all other systems reviewed are Neg Past Family Social History Allergies: Coded Allergies: penicillin G (Unverified Allergy, Severe, Hives, 04/11/17) lactose (Unverified Allergy, Intermediate, Diarrhea, 04/11/17) sulfamethoxazole (Unverified Adverse Reaction, Unknown, 04/11/17) MAKE GFR DECREASE trimethoprim (Unverified Adverse Reaction, Unknown, 04/11/17) MAKE GFR DECREASE Past Medical History HTN, DM, CKD, COPD, Recurrent UTI, Recurrent Fall and Deconditioning Past Surgical History Gastric Bypass, Cholecystectomy , Bilateral Lens Implant, Hysterectomy , Bilateral Knee Replacement, Tonsillectomy Reported Medications Reported Meds & Active Scripts Active Morphine ER (Morphine Sulfate) 15 Mg Tab 30 Mg PO Q12HR Ropinirole 0.5 Mg Tab 0.5 Mg PO TID Glucocom Test Strips (Blood Glucose Test Strips) 1 Antonieta Antonieta Ea .ROUTE DIRECTED Lancets 1 Mis Mis Ea .ROUTE DIRECTED Glucocom Blood Glucose Mo W/Device (Device) 1 Kit Kit Kit .ROUTE DIRECTED Check glucose BID Magnesium Oxide 400 Mg Tab 400 Mg PO Q12H Reported Dicyclomine (Dicyclomine HCl) 10 Mg Cap 10 Mg PO BID Tresiba Flextouch Pen Inj (Insulin Degludec Inj) 300 unit/3 ML Pen 20 Units SQ DAILY Cranberry Urinary Comfort (Vitamins C & E) 1 Cap 1 Cap PO DAILY Aspirin 81 (Aspirin) 81 Mg Tabdr 81 Mg PO DAILY Quetiapine (Quetiapine Fumarate) 100 Mg Tab 100 Mg PO QID Levothyroxine (Levothyroxine Sodium) 100 Mcg Tab 100 Mcg PO DAILY Namzaric (Memantine-Donepezil) 7-10 mg Cap 1 Cap PO HS Calcitriol 0.5 Mcg Cap 0.5 Mcg PO DAILY Celexa (Citalopram Hydrobromide) 40 Mg Tab 40 Mg PO DAILY Active Ordered Medications Current Medications Medications (Trade) Dose Ordered Sig/Rogers Route Start Time Stop Time Status Last Admin Sodium Chloride 1,000 ml @ 100 mls/hr Q10H IV 05/06/17 00:09 05/08/17 12:35 (NS Flush) 2 ml UNSCH PRN IV FLUSH 05/06/17 00:15 (NS Flush) 2 ml BID IV FLUSH 05/06/17 09:00 05/08/17 08:30 (Zofran Inj) 4 mg Q6H PRN IVP 05/06/17 00:15 05/06/17 00:57 (Tylenol) 650 mg Q6H PRN PO 05/06/17 00:15 (Subiaco 5-325 Mg) 1 tab Q4H PRN PO 05/06/17 00:15 05/08/17 14:44 (Morphine Inj) 2 mg Q3H PRN IV PUSH 05/06/17 00:15 05/08/17 12:38 (Balbina-Colace) 1 tab BID PO 05/06/17 09:00 05/08/17 08:38 (Milk Of Magnesia Liq) 30 ml Q12H PRN PO 05/06/17 00:15 (Senokot) 17.2 mg Q12H PRN PO 05/06/17 00:15 (Dulcolax Supp) 10 mg DAILY PRN RECTAL 05/06/17 00:15 (Lactulose Liq) 30 ml DAILY PRN PO 05/06/17 00:15 Aztreonam 1000 mg/ Sodium Chloride 100 ml @ 200 mls/hr Q8H IV 05/06/17 02:00 05/08/17 08:31 (Rocaltrol) 0.5 mcg DAILY PO 05/06/17 09:00 05/08/17 08:35 (CeleXA) 40 mg DAILY PO 05/06/17 09:00 05/08/17 08:39 (Bentyl) 10 mg BID PO 05/06/17 09:00 05/08/17 08:37 (Synthroid) 100 mcg DAILY@0600 PO 05/06/17 06:00 05/08/17 06:33 (Mag-Ox) 400 mg Q12HR PO 05/06/17 09:00 05/08/17 08:39 (Oramorph Sr) 30 mg Q12HR PO 05/06/17 09:00 05/08/17 08:39 (SEROquel) 100 mg QID PO 05/06/17 09:00 05/08/17 12:34 (Requip) 0.5 mg TID PO 05/06/17 09:00 05/08/17 12:34 Patient Own Medication PT OWN MED: NON-FORMULARY DRUG (Memantine-Donepe... HS PO 05/06/17 21:00 Future Hold (Ferrous Sulfate) 325 mg BID@12,17 PO 05/06/17 17:00 05/08/17 12:33 (D50w (Vial) Inj) 50 ml UNSCH PRN IV PUSH 05/06/17 17:00 (Glucagon Inj) 1 mg UNSCH PRN OTHER 05/06/17 17:00 (NovoLIN R SUPPLEMENTAL SCALE) 1 ACHS SLIDING SCALE SQ 05/06/17 17:00 (D50w (Vial) Inj) 50 ml UNSCH PRN IV PUSH 05/06/17 17:00 (Glucagon Inj) 1 mg STAT PRN IM 05/06/17 17:00 Family History reviewed and NC to current ID problems. Social History reviewed. Lives with her daughter. No alcohol, no smoking, no illicit drugs. Physical Exam Vital Signs Vital Signs Date Time Temp Pulse Resp B/P (MAP) Pulse Ox O2 Delivery O2 Flow Rate FiO2 05/08/17 12:00 97.9 82 18 130/60 (83) 95 05/08/17 10:07 79 05/08/17 04:57 97.7 80 18 131/64 (86) 95 05/08/17 00:45 98.1 88 18 116/73 (87) 98 05/08/17 00:00 75 05/07/17 20:45 98.2 90 19 107/57 (74) 93 05/07/17 16:27 98.7 74 18 90/44 (59) 91 05/07/17 15:50 86 Physical Exam GENERAL: This is a well-nourished, well-developed patient, in no apparent distress. SKIN: No rashes, ecchymoses or lesions. Cool and dry. HEAD: Atraumatic. Normocephalic. No temporal or scalp tenderness. EYES: Pupils equal round and reactive. Extraocular motions intact. No scleral icterus. No injection or drainage. ENT: Nose without bleeding, purulent drainage or septal hematoma. Throat without erythema, tonsillar hypertrophy or exudate. Uvula midline. Airway patent. NECK: Trachea midline. Supple, nontender, no meningeal signs. CARDIOVASCULAR: HS audible. RESPIRATORY: Clear to auscultation. Breath sounds equal bilaterally. No wheezes , rales, or rhonchi. GASTROINTESTINAL: Abdomen soft, non-tender, nondistended. Obese. MUSCULOSKELETAL: Extremities without clubbing, cyanosis, or edema. No joint tenderness, effusion, or edema noted. No calf tenderness. Negative Homans sign bilaterally. NEUROLOGICAL: Awake and alert. Cranial nerves II through XII intact. Motor and sensory grossly within normal limits. Five out of 5 muscle strength in all muscle groups. Normal speech. Psych cooperative IV line sites with no e.o infection. Laboratory Date/Time Source Procedure Growth Status 05/06/17 00:20 Urine Random Urine Urine Culture - Preliminary Escherichia Coli Multi-Drug Resistant Gram Negative Yoan Resulted Result Diagram: 05/06/17 0336 05/07/17 0712 Imaging Last Impressions Head CT 05/05/172105 Signed Impressions: Service Date/Time: Friday, May 05, 2017 21:43 - CONCLUSION: No acute disease. Ashvin Mahajan MD Chest X-Ray 05/05/172105 Signed Impressions: Service Date/Time: Friday, May 05, 2017 21:29 - CONCLUSION: 1. Mild increased interstitial markings are noted bilaterally suggestive of mild pulmonary vascular congestion or infiltrates. 2. Mild cardiomegaly. Ashvin Mahajan MD Pelvis X-Ray 05/05/17 0000 Signed Impressions: Service Date/Time: Friday, May 05, 2017 21:22 - CONCLUSION: 1. No acute fracture or dislocation. 2. Degenerative changes involving the lower lumbar spine. Ashvin Mahajan MD Lumbar Spine X-Ray 05/05/17 0000 Signed Impressions: Service Date/Time: Friday, May 05, 2017 21:23 - CONCLUSION: No acute compression fracture, spondylolysis or spondylolisthesis. Degenerative changes throughout the lumbar and lower thoracic spine. No significant change compared to 09/26/15. Ashvin Mahajan MD Knee X-Ray 05/05/17 0000 Signed Impressions: Service Date/Time: Friday, May 05, 2017 21:25 - CONCLUSION: Apparent acute fracture involving the patella. Clinical correlation is recommended to confirm tenderness at this site. Ashvin Mahajan MD Assessment and Plan Assessment and Plan Possible ESBL plus Kleb pneumo UTI versus colonization Hypotension on admission likely secondary to dehydration due to poor oral intake Appears to have resolved with IV fluids. Effective therapy for ESBL UTI has not been provided. Patient continues to have improved and is almost ready for discharge. Morbid obesity BMI 58.9 KG per meter squared. Recommendations Discontinue aztreonam observe off antibiotics overnight Patients daughter insisting on treating with antibiotics. Explained to patient's daughter as well as patient about colonization versus infection and the risk of over treating UTIs leading to resistance as well as risk of C. difficile. Discontinue current Stewart catheterization Cleaning the area really well and then perform a straight catheter urine to obtain a UA specimen. If this UA reflex is to culture will need to IV ertapenem on discharge but if it does not reflex to culture then we will continue to withhold antibiotics and discharge patient on no antibiotics. Discussed with Diana Basurto MD May 08, 2017 15:49
[2017-05-08 21:56] LABS: AMORPHOUS SEDIMENT, URINE RARE; BACTERIA, URINE FEW /hpf; BILIRUBIN, URINE NEG (NEG); BLOOD, URINE TRACE (NEG); GLUCOSE,URINE NEG (NEG); KETONE, URINE NEG (NEG); NITRITE,URINE NEG (NEG); SQUAMOUS EPITHELIAL CELL URINE 63 /hpf (0-5); URINE COLOR LIGHT-YELLOW (YELLW/STRAW); URINE LEUKOCYTE ESTERASE LARGE (NEG)
[2017-05-09] VITALS (11 sets, daily range): BP systolic 110–160; BP diastolic 56–81; PULSE 80–99; RESP 17–20; TEMP 97.4–98.7; O2SAT 90–99
[2017-05-09] MEDS: LEVOTHYROXINE SODIUM 100 MCG TAB PO SCH (06:42)
[2017-05-09] MEDS: ACETAMINOPHEN/HYDROcodone 325 MG/5 MG TAB PO PRN ×4 (06:43→21:12)
[2017-05-09] MEDS: INSULIN NovoLIN REGULAR SUPPLEMENTAL SCALE SQ SCH ×4 (08:00→20:17)
[2017-05-09] MEDS: SODIUM CHLOR 0.9% 1000 ML INJ 1,000 ML IV SCH ×2 (08:09→18:09)
[2017-05-09] MEDS: DICYCLOMINE HCL 10 MG CAP PO SCH ×2 (08:39→20:15)
[2017-05-09] MEDS: MAGNESIUM OXIDE 400 MG TAB PO SCH ×2 (08:40→20:16)
[2017-05-09] MEDS: CITALOPRAM HYDROBROMIDE 40 MG TAB PO SCH (08:40)
[2017-05-09] MEDS: MORPHINE SULFATE 15 MG CONTROLLED RELEASE TAB PO SCH ×2 (08:41→20:16)
[2017-05-09] MEDS: DOCUSATE SODIUM 50 MG/SENNA 8.6 MG TAB PO SCH ×2 (08:41→20:16)
[2017-05-09] MEDS: SODIUM CHLORIDE 0.9% FLUSH 10 ML FLUSH IV FLUSH SCH ×2 (08:42→20:17)
[2017-05-09] MEDS: CALCITRIOL 0.25 MCG CAP PO SCH (08:42)
[2017-05-09] MEDS: QUEtiapine FUMARATE 100 MG TAB PO SCH ×4 (08:42→20:16)
[2017-05-09] MEDS: FERROUS SULFATE 325 MG (65 MG ELEMENTAL IRON) TAB PO SCH ×2 (12:00→17:00)
--- NOTE | 2017-05-09 14:12 | HHI.PR ---
Subjective Remarks Discussed with the patient and her daughter at the bedside Awaiting result of the urine culture per ID recommendation No fever overnight Her and her daughter planning on going home at discharge today having right arm swelling mostly line filtration Objective Vitals Vital Signs Date Time Temp Pulse Resp B/P (MAP) Pulse Ox O2 Delivery O2 Flow Rate FiO2 05/09/17 12:34 87 05/09/17 12:30 98.1 89 17 143/62 (89) 97 05/09/17 09:41 18 05/09/17 08:05 89 05/09/17 05:40 87 05/09/17 04:00 97.4 86 20 110/81 (91) 97 05/09/17 01:00 94 05/09/17 00:00 98.7 85 18 160/77 (104) 99 05/08/17 21:00 98 05/08/17 20:00 98.0 96 20 177/77 (110) 97 05/08/17 19:43 90 I/O 05/08/17 05/08/17 05/08/17 05/09/17 05/09/17 05/09/17 07:00 15:00 23:00 07:00 15:00 23:00 Intake Total 240 ml Output Total 1100 ml 300 ml 645 ml 2 ml Balance -860 ml -300 ml -645 ml -2 ml Intake Oral 240 ml Output Urine Total 1100 ml 300 ml 645 ml 2 ml Result Diagram: 05/06/17 0336 05/07/17 0712 Objective Remarks GENERAL: This is a well-nourished, well-developed patient, in no apparent distress. CARDIOVASCULAR: Regular rate and rhythm without murmurs, gallops, or rubs. RESPIRATORY: Clear to auscultation. Breath sounds equal bilaterally. No wheezes , rales, or rhonchi. GASTROINTESTINAL: Abdomen soft, non-tender, nondistended. Normal active bowel sounds MUSCULOSKELETAL: Extremities without clubbing, cyanosis, or edema. NEURO: Alert & Oriented x4 to person, place, time, situation. Moves all ext x4 A/P Problem List: (1) Fall ICD Code: W19.XXXA - Unspecified fall, initial encounter Status: Resolved (2) Left patella fracture ICD Code: S82.002A - Unspecified fracture of left patella, initial encounter for closed fracture Status: Acute (3) UTI (urinary tract infection) ICD Code: N39.0 - Urinary tract infection, site not specified Status: Acute (4) Renal insufficiency ICD Code: N28.9 - Disorder of kidney and ureter, unspecified (5) Anemia ICD Code: D64.9 - Anemia, unspecified (6) DM (diabetes mellitus) ICD Code: E11.9 - Type 2 diabetes mellitus without complications Assessment and Plan 05/07: Appreciate ortho consult, continue current care pain management, discussed with manager of case management and with the patient in length about discharge planning, will need bariatric chair, 05/08: Urine culture showing multidrug-resistant bacteria, consulted ID d/w with , discussed with manager of case management and with the daughter today the are not able to pay for rehabilitation as patient already exhaust her allowance. 05/09: Awaiting urine culture to decide on need for antibiotic prior to discharge , patient and her daughter planning on going home at discharge, Today she had right arm swelling mostly line infiltration, will check ultrasound A/P: 1. Fall: Recurrent. S/p mechanical fall at home, no LOC, reports possible head trauma. CT Head w/ no acute findings, CT C-Spine negative, Significant physical deconditioning likely main etiology for falls, compounded by acute UTI. Consult PT for eval/tx. 2. Left Patellar Fx: Secondary to above. Knee X-ray with acute fracture involving the patella, Recent admit with complaints of knee pain, however imaging negative at that time, s/p eval by Dr. Antonio. Appreciate ortho consult commended nonsurgical management at this point and rehabilitation to avoid displacement of the fracture and at that time need surgery, s/p immobilizer in ER. Analgesics/antiemetics as needed. 3. UTI: U/a w/ UTI, h/o recurrent UTI, start Azactam IV, pending outpatient follow up w/ Urology per Daughter. 4. CKD date history: Creatinine 2.43, is to be around baseline IVF for hydration-caution w/ pulmonary congestion on CXR, images reviewed by me. Repeat labs in am. 5. Anemia: Hgb 8.1, previously 10.1 on 04/14/17, no active bleeding noted. Repeat labs in a.m., transfuse as needed for hemoglobin <7 6. DM: Sliding scale w/ Accu-Cheks, resume home Insulin. 7. DVT Prophylaxis: Anticoagulation post op Discharge Planning Awaiting urine culture Seasr Cervantes MD May 09, 2017 14:12
--- NOTE | 2017-05-09 16:47 | HHI.IDPN ---
Subjective Subjective Remarks Ms. Jeong is a 67-year-old female with past medical history significant for hypertension, diabetes, chronic kidney disease, COPD, recurrent UTI. Patient reports that she has had recurrent UTI as well as urinary incontinence for which she sees Dr. Perez. Patient also reports that she has about a stimulator in place. She reports that she uses pads due to urinary incontinence. Recent admit 04/05-04/23/17 for similar presentation, s/p eval by PT w/ arrangements for [facility]. Daughter notes pt w/ progressive weakness, unable to ambulate or transfer without assistance. S/p eval by Dr. Antonio for c/o knee pain, no acute fracture noted, recommendation for pain control. Patient reportedly mechanical fall at home, no LOC reported. Does not recall injuring left knee, however reports significant pain. Pain is sharp, constant, 8-9/10, worse w/ movement, non-radiating. On arrival, BP 100/53, HR 62, O2 sat 96% on RA, Afebrile. Hemoglobin 8.1, previously 10.1 04/14/17. Creatinine 2.43, previously 1.72 on 04/14/17. Troponin negative. BNP 231. UA positive for UTI. CXR with mild increased interstitial markings, mild pulmonary congestion. CT Head with no acute findings. Knee X-ray with acute fracture involving the patella. Lumbar X-ray no acute compression fracture. Patient was evaluated by Dr. Vance no surgical intervention planned. Urine culture done on admission which is a random urine is positive for ESBL. Of note patient had no symptoms prior to admission and had no history of fever or chills. Additionally patient reports decreased oral intake particularly fluids prior to admission. Infectious disease is consulted for evaluation and management of ESBL UTI. Overnight events reviewed No fevers No rash No diarrhea Antibiotics No antibiotics Lines Line site with no e/o infection Past Medical History HTN, DM, CKD, COPD, Recurrent UTI, Recurrent Fall and Deconditioning Gastric Bypass, Cholecystectomy , Bilateral Lens Implant, Hysterectomy , Bilateral Knee Replacement, Tonsillectomy Allergies: Coded Allergies: penicillin G (Unverified Allergy, Severe, Hives, 04/11/17) lactose (Unverified Allergy, Intermediate, Diarrhea, 04/11/17) sulfamethoxazole (Unverified Adverse Reaction, Unknown, 04/11/17) MAKE GFR DECREASE trimethoprim (Unverified Adverse Reaction, Unknown, 04/11/17) MAKE GFR DECREASE Objective . Vital Signs Date Time Temp Pulse Resp B/P (MAP) Pulse Ox O2 Delivery O2 Flow Rate FiO2 05/09/17 14:04 18 05/09/17 12:34 87 05/09/17 12:30 98.1 89 17 143/62 (89) 97 05/09/17 09:41 18 05/09/17 08:05 89 05/09/17 05:40 87 05/09/17 04:00 97.4 86 20 110/81 (91) 97 05/09/17 01:00 94 05/09/17 00:00 98.7 85 18 160/77 (104) 99 05/08/17 21:00 98 05/08/17 20:00 98.0 96 20 177/77 (110) 97 05/08/17 19:43 90 . Microbiology Date/Time Source Procedure Growth Status 05/08/17 18:30 Urine Other Urine Culture - Preliminary IMMATURE GROWTH - REINCUBATE Resulted Imaging Last Impressions Head CT 05/05/172105 Signed Impressions: Service Date/Time: Friday, May 05, 2017 21:43 - CONCLUSION: No acute disease. Ashvin Mahajan MD Chest X-Ray 05/05/172105 Signed Impressions: Service Date/Time: Friday, May 05, 2017 21:29 - CONCLUSION: 1. Mild increased interstitial markings are noted bilaterally suggestive of mild pulmonary vascular congestion or infiltrates. 2. Mild cardiomegaly. Ashvin Mahajan MD Pelvis X-Ray 05/05/17 0000 Signed Impressions: Service Date/Time: Friday, May 05, 2017 21:22 - CONCLUSION: 1. No acute fracture or dislocation. 2. Degenerative changes involving the lower lumbar spine. Ashvin Mahajan MD Lumbar Spine X-Ray 05/05/17 0000 Signed Impressions: Service Date/Time: Friday, May 05, 2017 21:23 - CONCLUSION: No acute compression fracture, spondylolysis or spondylolisthesis. Degenerative changes throughout the lumbar and lower thoracic spine. No significant change compared to 09/26/15. Ashvin Mahajan MD Knee X-Ray 05/05/17 0000 Signed Impressions: Service Date/Time: [place], May 05, 2017 21:25 - CONCLUSION: Apparent acute fracture involving the patella. Clinical correlation is recommended to confirm tenderness at this site. Ashvin Mahajan MD Physical Exam GENERAL: This is a well-nourished, well-developed patient, in no apparent distress. SKIN: No rashes, ecchymoses or lesions. Cool and dry. HEAD: Atraumatic. Normocephalic. No temporal or scalp tenderness. EYES: Pupils equal round and reactive. Extraocular motions intact. No scleral icterus. No injection or drainage. ENT: Nose without bleeding, purulent drainage or septal hematoma. Throat without erythema, tonsillar hypertrophy or exudate. Uvula midline. Airway patent. NECK: Trachea midline. Supple, nontender, no meningeal signs. CARDIOVASCULAR: HS audible. RESPIRATORY: Clear to auscultation. Breath sounds equal bilaterally. No wheezes , rales, or rhonchi. GASTROINTESTINAL: Abdomen soft, non-tender, nondistended. Obese. MUSCULOSKELETAL: Extremities without clubbing, cyanosis, or edema. No joint tenderness, effusion, or edema noted. No calf tenderness. Negative Homans sign bilaterally. NEUROLOGICAL: Awake and alert. Cranial nerves II through XII intact. Motor and sensory grossly within normal limits. Five out of 5 muscle strength in all muscle groups. Normal speech. Psych cooperative IV line sites with no e.o infection. Assessment & Plan Remarks Possible ESBL plus Kleb pneumo UTI versus colonization Hypotension on admission likely secondary to dehydration due to poor oral intake Appears to have resolved with IV fluids. Effective therapy for ESBL UTI has not been provided. Patient continues to have improved and is almost ready for discharge. Morbid obesity BMI 58.9 KG per meter squared. Recommendations Observe off antibiotics overnight. Follow urine culture: if urine culture negative no antibiotics. If urine culture positive please call me on my cell to help with DC recommendations. Patients daughter insisting on treating with antibiotics again today explained that unnecessary antibiotics will lead to further resistance and we will Explained to patient's daughter as well as patient about colonization versus infection and the risk of over treating UTIs leading to resistance as well as risk of C. difficile. Discontinue current Stewart catheterization Cleaning the area really well and then perform a straight catheter urine to obtain a UA specimen. If this UA reflex is to culture will need to IV ertapenem on discharge but if it does not reflex to culture then we will continue to withhold antibiotics and discharge patient on no antibiotics. Discussed with pt and family. Hopefully DC in am. Diana Lee MD May 09, 2017 16:47
--- NOTE | 2017-05-09 22:42 | RADRPT ---
EXAM DATE/TIME: 05/09/2017 22:11 [place] COMPARISON: No previous studies available for comparison. INDICATIONS : Right arm swelling. MEDICAL HISTORY : Hypothyroidism. Hypertension. Hearing loss. Missing teeth. Deep vein thrombosis. Dyspnea. Kidney ston es. renal disease. Arthritis. Diabetes. SURGICAL HISTORY : Cholecystectomy. Hysterectomy. section. Bilateral lens implants. Gastric bypass. Bilateral k nee replacement. ENCOUNTER: Initial ACUITY: 1 day PAIN SCORE: 3/10 LOCATION: Right arm. FINDINGS: There is spontaneous flow documented in the brachial, basilic, cephalic, axillary, and subclavian vei ns. The vessels are compressible and augmentation response is documented. No filling defects are se en. The flow is phasic with respiration. Direction of flow in the jugular vein is caudal. CONCLUSION: No evidence of deep venous thrombosis within the right lower extremity. Ashvin Mahajan MD on May 09, 2017 at 22:38 Board Certified Radiologist. This report was verified electronically.
[2017-05-10] VITALS: BP 100/87; PULSE 80; RESP 20; TEMP 97.1; O2SAT 98
[2017-05-10 00:17] VITALS: PULSE 92
[2017-05-10 04:00] VITALS: BP 96/65; PULSE 89; RESP 20; TEMP 97; O2SAT 95
[2017-05-10] MEDS: SODIUM CHLOR 0.9% 1000 ML INJ 1,000 ML IV SCH (04:09)
[2017-05-10 04:28] VITALS: PULSE 87
[2017-05-10] MEDS: LEVOTHYROXINE SODIUM 100 MCG TAB PO SCH (05:50)
[2017-05-10] MEDS: ACETAMINOPHEN/HYDROcodone 325 MG/5 MG TAB PO PRN ×2 (05:52→10:27)
[2017-05-10 08:00] VITALS: PULSE 96
[2017-05-10] MEDS: INSULIN NovoLIN REGULAR SUPPLEMENTAL SCALE SQ SCH (08:00)
[2017-05-10 08:44] VITALS: BP 152/65; PULSE 95; RESP 20; TEMP 98.2; O2SAT 97
[2017-05-10] MEDS: QUEtiapine FUMARATE 100 MG TAB PO SCH (09:00)
[2017-05-10] MEDS: DOCUSATE SODIUM 50 MG/SENNA 8.6 MG TAB PO SCH (09:00)
[2017-05-10] MEDS: SODIUM CHLORIDE 0.9% FLUSH 10 ML FLUSH IV FLUSH SCH (09:00)
[2017-05-10] MEDS: MAGNESIUM OXIDE 400 MG TAB PO SCH (09:10)
[2017-05-10] MEDS: CALCITRIOL 0.25 MCG CAP PO SCH (09:10)
[2017-05-10] MEDS: MORPHINE SULFATE 15 MG CONTROLLED RELEASE TAB PO SCH (09:10)
[2017-05-10] MEDS: CITALOPRAM HYDROBROMIDE 40 MG TAB PO SCH (09:12)
[2017-05-10] MEDS: DICYCLOMINE HCL 10 MG CAP PO SCH (09:14)
--- NOTE | 2017-05-10 10:04 | HHI.FF ---
Face to Face Verification Diagnosis: (1) Fall (2) Weakness (3) Left patella fracture (4) Gait instability Physical Therapy Order: Evaluate and Treat Occupational Therapy Order: Evaluate and Treat Home Health Nursing Order: Medical education Nursing assessment with vital signs I have seen patient Natalie Jeong on 05/10/17. My clinical findings support the need for the requested home health care services because: Ltd mobility - disease progression Deconditioned w/ increased weakness Limited ability to care for self I certify that my clinical findings support that this patient is homebound because: Unsteady gait/balance Unsafe to leave home unassisted Sesar Cervantes MD May 10, 2017 10:04
[2017-05-10] MEDS ORDERED: HYDR-3516 PO (10:53)
--- NOTE | 2017-05-10 19:23 | HHI.DS ---
Discharge Summary Admission Date May 06, 2017 at 00:11 Discharge Date: May 10, 2017 Admitting Diagnosis gen weakness; reagan; hypocalcemia; (L) patella fx (1) Fall ICD Code: W19.XXXA - Unspecified fall, initial encounter Status: Resolved (2) Left patella fracture ICD Code: S82.002A - Unspecified fracture of left patella, initial encounter for closed fracture Status: Acute (3) UTI (urinary tract infection) ICD Code: N39.0 - Urinary tract infection, site not specified Status: Acute (4) Renal insufficiency ICD Code: N28.9 - Disorder of kidney and ureter, unspecified (5) Anemia ICD Code: D64.9 - Anemia, unspecified (6) DM (diabetes mellitus) ICD Code: E11.9 - Type 2 diabetes mellitus without complications Procedures None Brief History - From Admission This is a 67-year-old female with a PMH of HTN, DM, CKD, COPD, Recurrent UTI, Recurrent Fall and Deconditioning who was brought to the ER secondary to generalized weakness, fall and c/o left knee pain. Recent admit 04/05-04/23/17 for similar presentation, s/p eval by PT w/ arrangements for [facility]. Daughter notes pt w/ progressive weakness, unable to ambulate or transfer without assistance. S/p eval by Dr. Antonio for c/o knee pain, no acute fracture noted, recommendation for pain control. Today, pt w/ mechanical fall at home, no LOC reported. Does not recall injuring left knee, however reports significant pain. Pain is sharp, constant, 8-9/10, worse w/ movement, non-radiating. On arrival, BP 100/53, HR 62, O2 sat 96% on RA, Afebrile. Hemoglobin 8.1, previously 10.1 04/14/17. Creatinine 2.43, previously 1.72 on 04/14/17. Troponin negative. BNP 231. UA positive for UTI. CXR with mild increased interstitial markings, mild pulmonary congestion. CT Head with no acute findings. Knee X- ray with acute fracture involving the patella. Lumbar X-ray no acute compression fracture. CBC/BMP: 05/06/17 0336 05/07/17 0712 Significant Findings Laboratory Tests Test 05/08/17 18:30 Urine Turbidity CLOUDY (CLEAR) Urine Protein 30 mg/dL (NEG-TRACE) Urine Occult Blood TRACE (NEG) Urine Leukocyte Esterase LARGE (NEG) Urine WBC 19 /hpf (0-5) Urine Bacteria FEW /hpf (NONE) PE at Discharge GENERAL: This is a well-nourished, well-developed patient, in no apparent distress. CARDIOVASCULAR: Regular rate and rhythm without murmurs, gallops, or rubs. RESPIRATORY: Clear to auscultation. Breath sounds equal bilaterally. No wheezes , rales, or rhonchi. GASTROINTESTINAL: Abdomen soft, non-tender, nondistended. Normal active bowel sounds MUSCULOSKELETAL: Extremities without clubbing, cyanosis, or edema. NEURO: Alert & Oriented x4 to person, place, time, situation. Moves all ext x4 Hospital Course 67 years old female admitted for recurrent Fall S/p mechanical fall at home, no LOC, reports possible head trauma. Also anemia and CKD, CT Head w/ no acute findings, CT C-Spine negative, Significant physical deconditioning likely main etiology for falls, compounded by acute UTI. Consult PT for eval/tx. Patient was found to have Left Patellar Fx: Secondary to above. Knee X-ray with acute fracture involving the patella, Recent admit with complaints of knee pain, however imaging negative at that time, s/p eval by Dr. Antonio. Appreciate ortho consult commended nonsurgical management at this point and rehabilitation to avoid displacement of the fracture and at that time need surgery, s/p immobilizer in ER. Analgesics/antiemetics as needed. Urine culture showing multidrug-resistant bacteria, consulted ID d/w with , discussed with director of casework and with the daughter today the are not able to pay for rehabilitation as patient already exhaust her allowance. ID recommended clean catch urine culture and if that's negative no need for antibiotic, today the culture came back final normal growth, again I discussed with the patient and her daughter director of casework and the ID, she does not want it they do go to rehabilitation home plan to go home with home health care [id number] encounter performed with the patient on discharge day, as well as physical exam, summary of hospitalization course and postdischarge plan has been D/W the patient. D/W nurse D/W director of casework. Discharge medications reviewed and printed and signed, post discharge follow up visit with PCP and other specialist as well as Brief hospital course and discharge summary has been placed. Pt Condition on Discharge: Fair Discharge Disposition: Disch w/ Home Health Serv Discharge Time: > 30 minutes Discharge Instructions DIET: Follow Instructions for: Heart Healthy Diet Activities you can perform: See Additionl Instruction Other Activity Instructions: Per PT and ortho rec please follow it carefully Follow up Referrals: SNF/EDU/HH @ Snf/Longterm/ with [facility] New Medications: Wheelchair (Wheelchair) 1 Mis Mis EA .XX DIRECTED for weakness, #1 0 Refills Hydrocodone/Acetaminophen (Hydrocodone-Acetamin 5-325 mg) 5 Mg-325 Mg Tablet 1 TAB PO Q4H PRN for PAIN SCALE 3 TO 5, #15 TAB Continued Medications: Aspirin DR (Aspirin 81) 81 Mg Tabdr 81 MG PO DAILY, TAB 0 Refills Calcitriol (Calcitriol) 0.5 Mcg Cap 0.5 MCG PO DAILY for Calcium Supplement, #30 CAP 0 Refills Citalopram (Celexa) 40 Mg Tab 40 MG PO DAILY for Control Depression, #30 TAB 0 Refills Dicyclomine (Dicyclomine) 10 Mg Cap 10 MG PO BID for Bowel Management, CAP 0 Refills Insulin Degludec Inj (Tresiba Flextouch Pen Inj) 300 unit/3 ML Pen 20 UNITS SQ DAILY for Blood Sugar Management, #15 ML 0 Refills Levothyroxine (Levothyroxine) 100 Mcg Tab 100 MCG PO DAILY for Thyroid, #30 TAB 0 Refills Magnesium Oxide (Magnesium Oxide) 400 Mg Tab 400 MG PO Q12H for Electrolyte Replacement, #60 TAB 0 Refills Memantine-Donepezil (Namzaric) 7-10 mg Cap 1 CAP PO HS for Alzheimer Dementia, #30 CAP 0 Refills Morphine ER (Morphine ER) 15 Mg Tab 30 MG PO Q12HR for Pain Management, #20 TAB 0 Refills Quetiapine (Quetiapine) 100 Mg Tab 100 MG PO QID, #60 TAB 0 Refills Ropinirole (Ropinirole) 0.5 Mg Tab 0.5 MG PO TID for spasm, #30 TAB 0 Refills Vitamins C & E (Cranberry Urinary Comfort) 1 Cap 1 CAP PO DAILY for Urinary Symptom Managemen, CAP 0 Refills Sesar Cervantes MD May 10, 2017 19:23
== END 2017-05-10 11:49 | disposition home health service (06) | DRG 563 ==
LOC: NEPC 20:39 → NEDA 05-06 00:10 → OBSVTOIN 05-06 00:11 → NEDA 05-06 02:10 → NEDH 05-06 04:54 → N05A 05-06 17:22
PROVIDERS: ADMIT Hospitalist; ATTEND Hospitalist
DX: S82.002A Unspecified fracture of left patella, initial encounter for closed fracture (principal); N17.9 Acute kidney failure, unspecified; E11.22 Type 2 diabetes mellitus with diabetic chronic kidney disease; J44.9 Chronic obstructive pulmonary disease, unspecified; Z68.43 Body mass index [BMI] 50.0-59.9, adult; N39.0 Urinary tract infection, site not specified; Z16.12 Extended spectrum beta lactamase (ESBL) resistance; E66.01 Morbid (severe) obesity due to excess calories; D64.9 Anemia, unspecified; Z87.440 Personal history of urinary (tract) infections; I12.9 Hypertensive chronic kidney disease with stage 1 through stage 4 chronic kidney disease, or unspecified chronic kidney disease; N18.9 Chronic kidney disease, unspecified; W18.30XA Fall on same level, unspecified, initial encounter; Y92.009 Unspecified place in unspecified non-institutional (private) residence as the place of occurrence of the external cause; Z96.653 Presence of artificial knee joint, bilateral; E83.51 Hypocalcemia; R29.6 Repeated falls; R32 Unspecified urinary incontinence
CPT/HCPCS: 51702; 70450; 71045; 72100; 72170; 73564; 80048; 80053; 81001; 82607; 82728; 82746; 82947; 82948; 83036; 83540; 83550; 83735; 83880; 84155; 84484; 85025; 87077; 87086; 87186; 93005; 93971; J2270; J2405; J7030; L1830

== ENCOUNTER 2017-09-21 18:42 | Emergency (ER) | payer MEDICARE ==
[~2017-09-21] VITALS: Ht 152.4 cm; Wt 120.0 kg
[~2017-09-21 18:42] MED LIST changes: -CIPR500T2 PO; +DICY10CA12 PO; +HYDR-3516 PO; -HYDR-3583 PO; -LORA-474 PO; -SILV1CRE20 TOPICAL; +WHEEMIS3
[2017-09-21 18:47] VITALS: BP 208/91; PULSE 76; RESP 22; TEMP 99; O2SAT 97
[2017-09-21] MEDS ORDERED: SODIUM CHLORID 0.9% 500 ML INJ 500 ML IV ONE (19:15)
[2017-09-21] MEDS ORDERED: ONDANSETRON ODT 4 MG TAB PO ONE (19:15)
[2017-09-21] MEDS ORDERED: SODIUM CHLORIDE 0.9% FLUSH 10 ML FLUSH IV FLUSH PRN (19:15)
[2017-09-21] MEDS ORDERED: MORPHINE SULFATE 4 MG/ML INJ IV PUSH ONE (19:15)
--- NOTE | 2017-09-21 19:43 | PD ---
HPI Chief Complaint: GI Complaint Time Seen by Provider: 19:06 Travel History International Travel<30 days: No Contact w/Intl Traveler<30days: No Traveled to known affect area: No History of Present Illness HPI Patient is a 67 year old female who comes in complaining of abdominal pain, nausea and diarrhea. She says it started this morning and she believes it is because she ate [employer] fish two days in a row. She says the pain is in the left side of her abdomen. She has not vomited. She has not taken anything for her symptoms and nothing seems to make the symptoms better or worse. She takes ER Morphine at home as well as Ativan 3 times per day. She denies chest pain or SOB. She denies fever or chills. She denies any urinary symptoms. Severity is mild to moderate. PFSH Past Medical History Arthritis: Yes Asthma: No Autoimmune Disease: No Blood Disorders: No Anxiety: Yes Depression: Yes Heart Rhythm Problems: No Cancer: No Cardiovascular Problems: Yes (HTN) High Cholesterol: No Chemotherapy: No Chest Pain: No Congestive Heart Failure: No COPD: No Cerebrovascular Accident: No Diabetes: Yes (TYPE 2) Patient Takes Glucophage: No Diminished Hearing: Yes (LITTLE TRAVERSE) Endocrine: Yes Gastrointestinal Disorders: Yes (INCONTINENCE) GERD: Yes Genitourinary: Yes (INCONTINENCE) Headaches: Yes Hepatitis: No Hiatal Hernia: No Hypertension: Yes Immune Disorder: No Implanted Vascular Access Dvce: Yes Kidney Stones: Yes Medical other: No Musculoskeletal: Yes Neurologic: Yes Psychiatric: Yes Reproductive: No Respiratory: Yes Immunizations Current: Yes Migraines: Yes Radiation Therapy: No Renal Failure: No Seizures: No Sleep Apnea: No Thyroid Disease: Yes (HYPOTHYROIDISM) Ulcer: No Tetanus Vaccination: Unknown Influenza Vaccination: Yes Past Surgical History Abdominal Surgery: Yes (GASTRIC BYPASS, CHOLEYCYSTECTOMY) AICD: No Arteriovenous Shunt: No Body Medical Devices: TENS UNIT PLACED IN RIGHT HIP FOR BOWEL/BLADDER INCONTINENCE Cardiac Surgery: No Section: Yes (X 1) Cholecystectomy: Yes Ear Surgery: No Endocrine Surgery: No Eye Surgery: Yes (BILATERAL LENS IMPLANT) Genitourinary Surgery: No Gynecologic Surgery: Yes (HYSTERECTOMY, ) Hysterectomy: Yes Insulin Pump: No Joint Replacement: Yes (BILATERAL KNEE REPLACEMENT) Neurologic Surgery: Yes (TENS UNIT PLACED IN RIGHT HIP) Oral Surgery: Yes Pacemaker: No Thoracic Surgery: No Tonsillectomy: Yes Other Surgery: Yes Social History Alcohol Use: No (DENIES) Tobacco Use: No Substance Use: No Allergies-Medications (Allergen,Severity, Reaction): Coded Allergies: penicillin G (Unverified Allergy, Severe, Hives, 09/21/17) lactose (Unverified Allergy, Intermediate, Diarrhea, 09/21/17) sulfamethoxazole (Unverified Adverse Reaction, Unknown, 09/21/17) MAKE GFR DECREASE trimethoprim (Unverified Adverse Reaction, Unknown, 09/21/17) MAKE GFR DECREASE Reported Meds & Prescriptions Reported Meds & Active Scripts Active Hydrocodone-Acetamin 5-325 mg (Hydrocodone/Acetaminophen) 5 Mg-325 Mg Tablet 1 Tab PO Q4H PRN Wheelchair (Device) 1 Mis Mis Ea .XX DIRECTED Morphine ER (Morphine Sulfate) 15 Mg Tab 30 Mg PO Q12HR Ropinirole 0.5 Mg Tab 0.5 Mg PO TID Glucocom Test Strips (Blood Glucose Test Strips) 1 Antonieta Antonieta Ea .ROUTE DIRECTED Lancets 1 Mis Mis Ea .ROUTE DIRECTED Glucocom Blood Glucose Mo W/Device (Device) 1 Kit Kit Kit .ROUTE DIRECTED Check glucose BID Magnesium Oxide 400 Mg Tab 400 Mg PO Q12H Reported Dicyclomine (Dicyclomine HCl) 10 Mg Cap 10 Mg PO BID Tresiba Flextouch Pen Inj (Insulin Degludec Inj) 300 unit/3 ML Pen 20 Units SQ DAILY Cranberry Urinary Comfort (Vitamins C & E) 1 Cap 1 Cap PO DAILY Aspirin 81 (Aspirin) 81 Mg Tabdr 81 Mg PO DAILY Quetiapine (Quetiapine Fumarate) 100 Mg Tab 100 Mg PO QID Levothyroxine (Levothyroxine Sodium) 100 Mcg Tab 100 Mcg PO DAILY Namzaric (Memantine-Donepezil) 7-10 mg Cap 1 Cap PO HS Calcitriol 0.5 Mcg Cap 0.5 Mcg PO DAILY Celexa (Citalopram Hydrobromide) 40 Mg Tab 40 Mg PO DAILY Review of Systems Except as stated in HPI: all other systems reviewed are Neg General / Constitutional: No: Fever, Chills HENT: No: Headaches, Lightheadedness Cardiovascular: No: Chest Pain or Discomfort Gastrointestinal: Positive: Nausea, Diarrhea, Abdominal Pain, No: Vomiting Genitourinary: No: Dysuria Musculoskeletal: No: Myalgias, Edema Skin: No Rash, No Change in Pigmentation Neurologic: No: Weakness, Dizziness Physical Exam Narrative GENERAL: Awake and alert, no acute distress. SKIN: Focused skin assessment warm/dry. HEAD: Atraumatic. Normocephalic. EYES: Pupils equal and round. No scleral icterus. ENT: Mucous membranes pink and moist. NECK: Trachea midline. No JVD. CARDIOVASCULAR: Regular rate and rhythm. No murmur appreciated. RESPIRATORY: No accessory muscle use. Clear to auscultation. Breath sounds equal bilaterally. GASTROINTESTINAL: Abdomen soft, nondistended. Diffuse tenderness to palpation, worse on the left side of the abdomen. No rebound MUSCULOSKELETAL: No obvious deformities. No clubbing. No cyanosis. No edema. NEUROLOGICAL: Awake and alert. No obvious cranial nerve deficits. Motor grossly within normal limits. Normal speech. PSYCHIATRIC: Appropriate mood and affect; insight and judgment normal. Data Data Last Documented VS Vital Signs Date Time Temp Pulse Resp B/P (MAP) Pulse Ox O2 Delivery O2 Flow Rate FiO2 09/21/17 20:15 18 09/21/17 19:48 77 151/68 (95) 99 Nasal Cannula 2.00 09/21/17 18:47 99.0 Orders Orders Complete Blood Count With Diff (09/21/17 19:12) Comprehensive Metabolic Panel (09/21/17 19:12) Lipase (09/21/17 19:12) Lactic Acid (09/21/17 19:12) Prothrombin Time / Inr (Pt) (09/21/17 19:12) Act Partial Throm Time (Ptt) (09/21/17 19:12) Urinalysis - C+S If Indicated (09/21/17 19:12) Iv Access Insert/Monitor (09/21/17 19:12) Ecg Monitoring (09/21/17 19:12) Oximetry (09/21/17 19:12) Morphine Inj (Morphine Inj) (09/21/17 19:15) Sodium Chloride 0.9% Flush (Ns Flush) (09/21/17 19:15) Ondansetron Odt (Zofran Odt) (09/21/17 19:15) Sodium Chlorid 0.9% 500 Ml Inj (Ns 500 M (09/21/17 19:15) Urine Culture (09/21/17 19:45) Ct Abd/Pel W/O Iv Contrast (09/21/17 19:12) Lorazepam (Ativan) (09/21/17 21:15) Ct Abd/Pel W/O Iv Contrast (09/21/17 ) Ciprofloxacin (Cipro) (09/21/17 23:15) Dicyclomine (Bentyl) (09/21/17 23:15) Labs Laboratory Tests Test 09/21/17 19:45 White Blood Count 10.3 TH/MM3 Red Blood Count 3.72 MIL/MM3 Hemoglobin 9.6 GM/DL Hematocrit 31.0 % Mean Corpuscular Volume 83.3 FL Mean Corpuscular Hemoglobin 25.8 PG Mean Corpuscular Hemoglobin Concent 30.9 % Red Cell Distribution Width 19.5 % Platelet Count 368 TH/MM3 Mean Platelet Volume 7.9 FL Neutrophils (%) (Auto) 71.4 % Lymphocytes (%) (Auto) 18.9 % Monocytes (%) (Auto) 5.4 % Eosinophils (%) (Auto) 2.8 % Basophils (%) (Auto) 1.5 % Neutrophils # (Auto) 7.3 TH/MM3 Lymphocytes # (Auto) 1.9 TH/MM3 Monocytes # (Auto) 0.6 TH/MM3 Eosinophils # (Auto) 0.3 TH/MM3 Basophils # (Auto) 0.2 TH/MM3 CBC Comment AUTO DIFF Differential Comment AUTO DIFF CONFIRMED Prothrombin Time 10.9 SEC Prothromb Time International Ratio 1.1 RATIO Activated Partial Thromboplast Time 21.2 SEC Urine Color YELLOW Urine Turbidity HAZY Urine pH 5.0 Urine Specific [place] 1.011 Urine Protein NEG mg/dL Urine Glucose (UA) 50 mg/dL Urine Ketones NEG mg/dL Urine Occult Blood NEG Urine Nitrite POS Urine Bilirubin NEG Urine Urobilinogen LESS THAN 2 mg/dL Urine Leukocyte Esterase TRACE Urine RBC LESS THAN 1 /hpf Urine WBC 7 /hpf Urine Squamous Epithelial Cells 2 /hpf Urine Bacteria MANY /hpf Urine Mucus FEW /lpf Microscopic Urinalysis Comment CULTURE INDICATED Blood Urea Nitrogen 33 MG/DL Creatinine 1.99 MG/DL Random Glucose 168 MG/DL Total Protein 6.8 GM/DL Albumin 3.1 GM/DL Calcium Level 8.0 MG/DL Alkaline Phosphatase 197 U/L Aspartate Amino Transf (AST/SGOT) 46 U/L Alanine Aminotransferase (ALT/SGPT) 31 U/L Total Bilirubin 0.3 MG/DL Sodium Level 140 MEQ/L Potassium Level 4.9 MEQ/L Chloride Level 107 MEQ/L Carbon Dioxide Level 25.3 MEQ/L Anion Gap 8 MEQ/L Estimat Glomerular Filtration Rate 25 ML/MIN Lactic Acid Level 1.1 mmol/L Lipase 56 U/L [facility] Medical Decision Making Medical Screen Exam Complete: Yes Emergency Medical Condition: Yes Medical Record Reviewed: Yes Differential Diagnosis UTI vs colitis vs gastroenteritis vs diverticulitis Narrative Course Patient is a 67 year old female who comes in complaining of abdominal pain, diarrhea, and nausea. Exam shows diffuse tenderness. IV established, labs sent. Labs show an elevated Cr, which is lower than her previous visit. UA is positive for UTI. CT abd/pelvis shows no specific findings for the pain. Last 24 hours Impressions Abdomen/Pelvis CT 09/21/17 0000 Signed Impressions: CONCLUSION: 1. No acute findings within the abdomen and pelvis. Stranding of fat in the lo wer anterior abdominal wall may represent a mild cellulitis. 2. Postoperative gastric bypass surgery. Small hiatal hernia. Calcified granul omata in the spleen. No bowel obstruction, free fluid or free air. Patient given pain medicine, Zofran. Given a dose of bentyl and Cipro. she will be discharged with prescriptions for Bentyl and Cipro. Advised to eat a bland diet and drink plenty of fluids. Advised to follow up with her doctor. Advised to return to the ED as needed for any worsening symptoms. Diagnosis Primary Impression: UTI (urinary tract infection) Qualified Codes: N30.00 - Acute cystitis without hematuria Additional Impressions: Abdominal pain Qualified Codes: R10.84 - Generalized abdominal pain Diarrhea Qualified Codes: R19.7 - Diarrhea, unspecified Patient Instructions: Abdominal Pain (ED), Acute Diarrhea (GEN), General Instructions, Urinary Tract Infection in Women (ED) Additional Instructions: Take all of the antibiotics. Follow up with your doctor. Return to the ED as needed for any worsening symptoms. Scripts Dicyclomine (Bentyl) 10 Mg Cap 10 MG PO TID Y for Bowel Management, #5 CAP 0 Refills Prov: Cailin Tony MD 09/21/17 Ciprofloxacin (Cipro) 500 Mg Tab 500 MG PO BID for Infection for 7 Days, #14 TAB 0 Refills Prov: Cailin Tony MD 09/21/17 Disposition: 01 DISCHARGE HOME Condition: Stable Cailin Tony MD Sep 21, 2017 19:43
[2017-09-21 19:47] VITALS: RESP 18
[2017-09-21 19:48] VITALS: BP 151/68; PULSE 77; RESP 18; O2SAT 100; O2SAT 99
[2017-09-21 20:02] LABS: AUTOMATED NEUTROPHIL # 7.3 TH/MM3 (1.8-7.7); BASOPHIL # 0.2 TH/MM3 (0-0.2); BASOPHIL % 1.5 % (0.0-2.0); EOSINOPHIL # 0.3 TH/MM3 (0-0.4); EOSINOPHIL % 2.8 % (0.0-4.0); HEMOGLOBIN 9.6 GM/DL (11.6-15.3); LYMPH % 18.9 % (9.0-44.0); LYMPHOCYTE # 1.9 TH/MM3 (1.0-4.8); MEAN CELL VOLUME 83.3 FL (80.0-100.0); MEAN CORPUSCULAR HEMOGLOBIN 25.8 PG (27.0-34.0); MEAN CORPUSCULAR HGB CONC 30.9 % (32.0-36.0); MEAN PLATELET VOLUME 7.9 FL (7.0-11.0); MONO % 5.4 % (0.0-8.0); MONOCYTE # 0.6 TH/MM3 (0-0.9); NEUT % 71.4 % (16.0-70.0); PLATELET COUNT 368 TH/MM3 (150-450); RED BLOOD COUNT 3.72 MIL/MM3 (4.00-5.30); RED CELL DISTRIBUTION WIDTH 19.5 % (11.6-17.2); WHITE BLOOD COUNT 10.3 TH/MM3 (4.0-11.0)
[2017-09-21 20:14] LABS: INTERNATIONAL NORMALIZED RATIO 1.1 RATIO; PROTHROMBIN TIME - PATIENT 10.9 SEC (9.8-11.6)
[2017-09-21 20:15] VITALS: RESP 18
[2017-09-21 20:20] LABS: BACTERIA, URINE MANY /hpf; BILIRUBIN, URINE NEG (NEG); BLOOD, URINE NEG (NEG); GLUCOSE,URINE 50 mg/dL (NEG); KETONE, URINE NEG (NEG); MUCUS URINE FEW /lpf (OCC); NITRITE,URINE POS (NEG); SQUAMOUS EPITHELIAL CELL URINE 2 /hpf (0-5); URINE COLOR YELLOW (YELLW/STRAW); URINE LEUKOCYTE ESTERASE TRACE (NEG)
[2017-09-21 20:25] LABS: ALT (GPT) 31 U/L (10-53)
[2017-09-21 20:26] LABS: ALKALINE PHOSPHATASE 197 U/L (45-117); TOTAL BILIRUBIN ADULT 0.3 MG/DL (0.2-1.0); TOTAL PROTEIN 6.8 GM/DL (6.4-8.2)
[2017-09-21 20:31] LABS: ALBUMIN 3.1 GM/DL (3.4-5.0); AST (GOT) 46 U/L (15-37); BICARBONATE 25.3 MEQ/L (21.0-32.0); BLOOD UREA NITROGEN 33 MG/DL (7-18); CHLORIDE 107 MEQ/L (98-107); CREATININE 1.99 MG/DL (0.50-1.00); GLOMERULAR FILTRATION RATE 25 ML/MIN (>89); GLUCOSE,RANDOM 168 MG/DL (74-106); SODIUM (NA) 140 MEQ/L (136-145)
[2017-09-21] MEDS ORDERED: LORazepam 1 MG TAB PO ONE (21:15)
--- NOTE | 2017-09-21 22:46 | RADRPT ---
EXAM DATE: 09/21/2017 10:40 PM EDT AGE/SEX: 67 years / Female INDICATIONS: Abdominal pain and diarrhea; patient states possible food poisoning. CLINICAL DATA: This is the patient's initial encounter. Patient reports that signs and symptoms have been present for 1 day and indicates a pain score of 6/10. MEDICAL/SURGICAL HISTORY: Hypertension. Gastroesophageal reflux disease. Deep venous thrombos is. Cardiovascular disease Cholecystectomy. Gastric bypass. RADIATION DOSE: 28.56 CTDI (mGy) ; Patient body habitus COMPARISON: [facility] – [place], CT ABDOMEN & PELVIS W/O CONTRAST, 02/12/2017. . TECHNIQUE: Multiple contiguous axial images were obtained through the abdomen. Images were obtained using multiple row detector helical technique. Using dose reduction techniques, radiation dose was ke pt as low as reasonably achievable to obtain optimal diagnostic quality images. FINDINGS: Minimal basilar dependent atelectasis in the lungs. Moderate coronary calcifications. No acute findin gs in the liver. Multiple splenic granulomata. Adrenals, kidneys and pancreas are unremarkable. Posto perative gastric bypass surgery. There is stranding of fat in the lower anterior abdominal wall, possibly a mild cellulitis. Stimulato r wire seen posteriorly in right posterior pelvis extending sacral foramen. CONCLUSION: 1. No acute findings within the abdomen and pelvis. Stranding of fat in the lower anterior abdominal wall may represent a mild cellulitis. 2. Postoperative gastric bypass surgery. Small hiatal hernia. Calcified granulomata in the spleen. N o bowel obstruction, free fluid or free air. Electronically signed by: Jhonny Conn MD 09/21/2017 10:45 PM EDT
[2017-09-21] MEDS ORDERED: DICY10 PO (23:15)
[2017-09-21] MEDS ORDERED: CIPROFLOXACIN 500 MG TAB PO ONE (23:15)
[2017-09-21] MEDS ORDERED: CIPR-9 PO (23:15)
[2017-09-21] MEDS ORDERED: DICYCLOMINE HCL 10 MG CAP PO ONE (23:15)
== END 2017-09-21 23:28 | disposition home or self-care (01) ==
LOC: NEPE 18:42
DX: N30.00 Acute cystitis without hematuria (principal); B96.1 Klebsiella pneumoniae [K. pneumoniae] as the cause of diseases classified elsewhere; B96.4 Proteus (mirabilis) (morganii) as the cause of diseases classified elsewhere; R10.84 Generalized abdominal pain; R19.7 Diarrhea, unspecified; R11.0 Nausea; E03.9 Hypothyroidism, unspecified; E11.9 Type 2 diabetes mellitus without complications; F32.9 Major depressive disorder, single episode, unspecified; F41.9 Anxiety disorder, unspecified; I10 Essential (primary) hypertension; K21.9 Gastro-esophageal reflux disease without esophagitis; K44.9 Diaphragmatic hernia without obstruction or gangrene; Z87.442 Personal history of urinary calculi; Z98.84 Bariatric surgery status
CPT/HCPCS: 74176; 80053; 81001; 83605; 83690; 85025; 85610; 85730; 87077; 87086; 87186; 96361; 96374; 99284; J2270; J7040